=== PATIENT | male | born 1955 | race African-American/Black ===

== ENCOUNTER 2019-04-17 10:39 | Outpatient (CLI) | payer MEDICARE, MEDICAID, SELFPAY ==
--- NOTE | ~2019-04-17 | CT_ITS ---
EXAMINATION: CTA chest abdomen EXAM DATE: 04/17/2019 11:46 INDICATION: Aortic aneurysm. TECHNIQUE: Spiral CT angiogram of the chest and abdomen was performed following intravenous injection of 100 mL Omnipaque 350. Axial, coronal and sagittal images were reviewed. Coronal maximum intensi ty pixel images of chest reviewed. Maximum intensity projection 3-D reconstructions of the aorta were created by the technologist on dedicated workstation. The dose-length product (DLP) for this exami nation was 485.85 mGy-cm. The exposure was tailored according to patient size (auto mA exposure cont rol), and iterative reconstruction (ASIR) was used as additional dose reduction technique. Comparison is made to prior examination from 02/24/2016, 08/26/2014. FINDINGS: AORTA: Mildly aneurysmal descending thoracic aorta just beyond the aortic arch, measuring 4.3 cm. Kristina earance is unchanged compared to prior study. There is scattered mild to moderate aortic atherosclero tic and arteriosclerotic disease. The ascending aorta is normal in caliber. There are aneurysmal comm on iliac arteries bilaterally, each measuring about 2 cm. No dissection. CHEST: The lungs are clear. There are no pleural or pericardial effusions. There is some trachea l and right mainstem bronchial debris. Partial right pneumonectomy. There is moderate emphysema. The main, central pulmonary arteries are dilated which can indicate elevated pulmonary arterial pressure, pulmonary arterial hypertension. There is no mediastinal, hilar or axillary lymphadenopathy. The re is no pneumothorax. Heart normal in size. There are sternotomy wires, and cardiac/coronary jesús gical changes. Correlate with prior history. ABDOMEN: There is right adrenal gland lesion measuring 1.4 cm, suspected to be new compared to prior studies. There are cholecystectomy clips. Portal and splenic veins are patent. Kidneys enhance sym metrically. There is no hydronephrosis. Several lesions consistent with renal cysts up to 1.9 cm on the right. There is no retroperitoneal lymphadenopathy. Small umbilical and supraumbilical hernia s. The appendix is normal. The stomach and small bowel are unremarkable. There is expected amount of c olonic stool. No free intraperitoneal gas. There are no osteoblastic or osteolytic lesions identi fied. IMPRESSION: 1. Mildly aneurysmal thoracic aorta and common iliac arteries unchanged. 2. New small right adrenal gland lesion. Could be adenoma given absence of known primary cancer but current recommendation is CT abdomen without and with contrast, adrenal protocol. 3. Moderate emphysema. Reviewed, dictated and finalized at location B. AN IMPRESSION: 1. Mildly aneurysmal thoracic aorta and common iliac arteries unchanged. 2. New small right adrenal gland lesion. Could be adenoma given absence of kno wn primary cancer but current recommendation is CT abdomen without and with con trast, adrenal protocol. 3. Moderate emphysema.
[2019-04-17 11:28] LABS: Blood Urea Nitrogen 29 mg/dL (8-26); Estimated Glomerular Filt Rate > 60
== END 2019-04-17 10:40 | disposition home or self-care (01) ==
LOC: ANHIMG 10:44
PROVIDERS: PCP Physician Assistant; Visit Provider Internal Medicine Cardiovascular Disease
DX: I71.9 Aortic aneurysm of unspecified site, without rupture (principal); J43.9 Emphysema, unspecified; R91.8 Other nonspecific abnormal finding of lung field; D35.01 Benign neoplasm of right adrenal gland
CPT/HCPCS: 71275; 74175; Q9967

== ENCOUNTER 2019-05-03 07:49 | Outpatient (CLI) | payer MEDICARE, MEDICAID, SELFPAY ==
--- NOTE | ~2019-05-03 | CT_ITS ---
EXAMINATION: CT abdomen wo/w con DATE: 05/03/2019 08:55 INDICATION: Right adrenal mass. TECHNIQUE: Computed tomography (CT) of the abdomen was performed without and with 100 mL Omnipaque 35 0 intravenous contrast. Automated exposure control and iterative reconstruction technique were employ ed. The dose-length product was 853.21 mGy-cm. COMPARISON: Chest CT FINDINGS: The visualized portions of the lung bases demonstrate mild atelectasis. No pleural effusion . There is left ventricular enlargement of the heart. No pericardial effusion. There are changes of c oronary artery bypass grafting. No pericardial effusion. The liver is normal. There are changes of ch olecystectomy. The spleen is absent. The pancreas and left adrenal gland are normal. There is a 1.3 c m mass in right adrenal gland measuring low-attenuation on the noncontrast CT, consistent with an fiona noma. There are cysts in the kidneys measuring up to 1.8 cm on the right. 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 There is no significant stenosis of superior mesenteric artery. There are no dil ated loops of bowel. There are no pathologically enlarged lymph nodes. There is no free intraperitone al fluid. There is mild thoracolumbar spondylosis. IMPRESSION: 1. 1.3 cm right adrenal adenoma. Reviewed, dictated and finalized at location A.
== END 2019-05-03 07:50 | disposition home or self-care (01) ==
LOC: ANHIMG 07:52
PROVIDERS: PCP Physician Assistant; Visit Provider Physician Assistant
DX: D35.01 Benign neoplasm of right adrenal gland (principal)
CPT/HCPCS: 74170; Q9967

== ENCOUNTER 2020-03-01 04:16 | Outpatient (CLI) | payer MEDICARE, MEDICAID, SELFPAY ==
[2020-03-01 19:32] LABS: SARS-CoV-2 RNA PCR Negative
== END 2020-03-01 04:17 | disposition home or self-care (01) ==
LOC: ANHCOVIDDT 04:19
PROVIDERS: PCP Physician Assistant; Visit Provider Internal Medicine Gastroenterology
DX: Z01.812 Encounter for preprocedural laboratory examination (principal); Z20.822 Contact with and (suspected) exposure to COVID-19
CPT/HCPCS: C9803; U0003

== ENCOUNTER 2020-03-01 08:09 | Outpatient (CLI) | payer MEDICARE, MEDICAID, SELFPAY ==
[2020-03-01 08:36] LABS: Hematocrit 47.7 % (42.0-52.0); Hemoglobin 16.5 g/dL (14.0-18.0); Mean Corpuscular HGB Conc 34.6 g/dl (32-36); Mean Corpuscular Hemoglobin 30.4 pg (26-34); Platelet Count Result 315 k/mm3 (150-375); Red Blood Count 5.42 M/mm3 (4.6-6.20); Red Cell Distribution Width 15.7 % (11.5-14.5); White Blood Count 10.1 K/mm3 (4.5-10.0)
[2020-03-01 08:44] LABS: Alanine Aminotransferase 21 U/L (4-50); Albumin Level 4.2 g/dL (3.5-5.1); Alkaline Phosphatase 109 U/L (38-126); Anion Gap 6 mmol/L (8-16); Aspartate Amino Transferase 34 U/L (17-59); Bilirubin,Total 0.7 mg/dL (0.2-1.3); Blood Urea Nitrogen 24 mg/dL (9-20); Calcium 9.7 mg/dL (8.4-10.2); Carbon Dioxide 32 mmol/L (22-30); Chloride 98 mmol/L (98-107); Cholesterol 173 mg/dL (0-200); Estimated Glomerular Filt Rate > 60; Glucose 117 mg/dL (75-110); HDL Direct 70 mg/dL; Magnesium 1.5 mg/dL (1.6-2.3); Potassium 4.6 mmol/L (3.4-5.0); Sodium 136 mmol/L (137-145); Triglycerides 62 mg/dL (<150)
[2020-03-01 08:54] LABS: LDL Cholesterol Direct 79 mg/dL
[2020-03-01 09:14] LABS: Prostate Specific Antigen 0.3 ng/mL (< OR = 4.0)
== END 2020-03-01 08:10 | disposition home or self-care (01) ==
PROVIDERS: PCP Physician Assistant; Visit Provider Physician Assistant
DX: E78.5 Hyperlipidemia, unspecified (principal); I10 Essential (primary) hypertension; Z12.5 Encounter for screening for malignant neoplasm of prostate; R53.83 Other fatigue
CPT/HCPCS: 36415; 80053; 80061; 83735; 84153; 84443; 85027; C9803; G0103; U0003

== ENCOUNTER 2020-03-04 00:34 | Day surgery (SDC) | payer MEDICARE, MEDICAID, SELFPAY ==
[2020-02-25 15:06] VITALS: BMI 26.5
[2020-03-04 07:42] VITALS: BP 140/81; PULSE 86; RESP 18; TEMP 37.1; O2SAT 99; BMI 25.6
[2020-03-04] MEDS: LACTATED RINGERS 1,000 ML 150 ML IV CONT (07:54)
--- NOTE | 2020-03-04 08:21 | WPDANESEPPF ---
Anes - Initial Pre Proc Eval Procedure: Operation Date: 03/04/20 08:30 Proposed Procedures p Colonoscopy - Bart Holden MD Date/Time: 03/04/20 08:21 Surgeon: Bart Holden MD Pre Op Diagnosis: abdomninal pain Patient Data Age: 64 Gender: M Height: 5 ft 10 in Weight: 81 kg Last Vital Signs Temp 98.7 F 03/04/20 07:42 Pulse 86 03/04/20 07:42 Resp 18 03/04/20 07:42 BP 140/81 03/04/20 07:42 Pulse Ox 99 03/04/20 07:42 Allergies Allergy/AdvReac Type Severity Reaction Status Date / Time No Known Allergies Allergy Verified 03/04/20 07:39 Home Medications Medication Instructions Recorded Confirmed Type acetaminophen 500 mg capsule 500 mg PO QID PRN 01/16/19 02/25/20 History aspirin 81 mg tablet,delayed 81 mg PO DAILY 01/16/19 02/25/20 History release carvedilol 25 mg tablet 25 mg PO Q12H 01/16/19 02/25/20 History hydrocodone 5 mg-acetaminophen 500 1 tablet PO Q4-6H PRN tablet 01/16/19 02/25/20 History mg tablet albuterol sulfate 90 mcg/actuation 2 puff INHALATION Q4-6H PRN #8.5 gm 07/18/19 02/25/20 Rx aerosol inhaler sodium,potassium,mag sulfates 17.5 354 ml PO .COMPLEX #354 ml 01/04/20 Rx gram-3.13 gram-1.6 gram oral soln allopurinol 100 mg tablet 100 mg PO DAILY #30 tablet 01/10/20 02/25/20 Rx amlodipine 10 mg tablet 10 mg PO DAILY #30 tablet 01/10/20 02/25/20 Rx budesonide-formoterol HFA 160 2 puff INHALATION Q12H #10.2 g 01/10/20 02/25/20 Rx mcg-4.5 mcg/actuation aerosol inhaler ipratropium 20 mcg-albuterol 100 2 puff INHALATION QID #4 g 01/10/20 02/25/20 Rx mcg/actuation mist for inhalation losartan 100 1 tablet PO DAILY #30 tablet 01/10/20 02/25/20 Rx mg-hydrochlorothiazide 25 mg tablet omeprazole 20 mg capsule,delayed 20 mg PO DAILY #30 cap 01/10/20 02/25/20 Rx release sildenafil 100 mg tablet 100 mg PO DAILY PRN #8 tablet 01/10/20 03/04/20 Rx cholecalciferol (vitamin D3) 50 mcg PO DAILY 02/25/20 02/25/20 History cyclobenzaprine 10 mg PO DAILY 02/25/20 02/25/20 History rosuvastatin 20 mg PO DAILY 02/25/20 02/25/20 History tamsulosin 0.4 mg PO HS 02/25/20 03/04/20 History Patient hx anesthesia problems: none Family hx anesthesia problems: none [facility] Past Medical History Medical History Colon cancer screening Gallstones Gout Heart attack Surgical History Surgical History History of gastric surgery History of lobectomy of lung S/P triple vessel bypass Family History Family History Mother Hypertension Social History Social History Smoking packs per day: 0.5 Smoking cigarettes per day: 10.0 Years smoked: 50 Smoking pack-years: 25.00 Smoking status: Current every day smoker Tobacco type: cigarettes Second hand tobacco smoke exposure: No Alcohol intake: current Drinks per week: 14 Alcohol use details: BEERS Substance use: never Substance use type: marijuana and crack/cocaine Last use: 2014 Living arrangements: with family Spiritual care concerns: No Anes - Eval Final PreProcedure Day of Procedure 03/04/20 08:21 Patient weight: normal Heart: regular rate and rhythm Lungs: clear to auscultation Airway: Mallampati scale class II Neurological: alert and oriented Last oral intake: >/= 8 hours ASA classification: III Emergent: no Anesthetic plan: proceed Anesthesia type and monitoring: general GIVS and standard monitoring Informed Consent: The patient's anesthetic plan and its attendant risks and benefits were discussed with the patient/family/POA. Questions were solicited and answers provided to the satisfaction of the patient/family/POA.
--- NOTE | 2020-03-04 08:47 | PM.HPGS ---
History of Present Illness History of Present Illness Consent: Risks, benefits, and alternatives have been discussed and questions answered. Patient agrees to proceed with procedure. Chief complaint: abdomninal pain Narrative: Darian Mas is a 64 year old male with intermittent ruq pain, multiple surgeries. Also needs screening colonoscopy Review of Systems Constitutional: Constitutional: Denies headache(s) and Denies weakness Eyes: Eyes: Denies blurry vision ENT: Reports Normal hearing present, Denies headache(s) and Denies neck pain Cardiovascular: Cardiovascular: Denies chest pain and Denies dyspnea Respiratory: Respiratory: Denies dyspnea Gastrointestinal: Gastrointestinal: Reports no additional gastrointestinal complaints Genitourinary: Genitourinary: Denies dysuria Musculoskeletal: Musculoskeletal: Denies neck pain Integumentary/Breasts: Skin/Breast: Denies dry skin Neurologic: Reports Normal hearing present, Denies headache(s) and Denies weakness Psychiatric: Psychiatric: Denies anxiety Endocrine: Endocrine: Denies change in body appearance Hematologic/Lymphatic: Hematologic/Lymphatic: Denies easy bleeding Allergic/Immunologic: Allergic/Immunologic: Denies urticaria PMFSH Past Medical History Medical History Colon cancer screening Gallstones Gout Heart attack Surgical History Surgical History History of gastric surgery History of lobectomy of lung S/P triple vessel bypass Family History Family History Mother Hypertension Social History Social History Smoking packs per day: 0.5 Smoking cigarettes per day: 10.0 Years smoked: 50 Smoking pack-years: 25.00 Smoking status: Current every day smoker Tobacco type: cigarettes Second hand tobacco smoke exposure: No Alcohol intake: current Drinks per week: 14 Alcohol use details: BEERS Substance use: never Substance use type: marijuana and crack/cocaine Last use: 2014 Living arrangements: with family Spiritual care concerns: No Meds Home Medications and Allergies Home Medications Medication Instructions Recorded Confirmed Type acetaminophen 500 mg capsule 500 mg PO QID PRN 01/16/19 02/25/20 History aspirin 81 mg tablet,delayed 81 mg PO DAILY 01/16/19 02/25/20 History release carvedilol 25 mg tablet 25 mg PO Q12H 01/16/19 02/25/20 History hydrocodone 5 mg-acetaminophen 500 1 tablet PO Q4-6H PRN tablet 01/16/19 02/25/20 History mg tablet albuterol sulfate 90 mcg/actuation 2 puff INHALATION Q4-6H PRN #8.5 gm 07/18/19 02/25/20 Rx aerosol inhaler sodium,potassium,mag sulfates 17.5 354 ml PO .COMPLEX #354 ml 01/04/20 Rx gram-3.13 gram-1.6 gram oral soln allopurinol 100 mg tablet 100 mg PO DAILY #30 tablet 01/10/20 02/25/20 Rx amlodipine 10 mg tablet 10 mg PO DAILY #30 tablet 01/10/20 02/25/20 Rx budesonide-formoterol HFA 160 2 puff INHALATION Q12H #10.2 g 01/10/20 02/25/20 Rx mcg-4.5 mcg/actuation aerosol inhaler ipratropium 20 mcg-albuterol 100 2 puff INHALATION QID #4 g 01/10/20 02/25/20 Rx mcg/actuation mist for inhalation losartan 100 1 tablet PO DAILY #30 tablet 01/10/20 02/25/20 Rx mg-hydrochlorothiazide 25 mg tablet omeprazole 20 mg capsule,delayed 20 mg PO DAILY #30 cap 01/10/20 02/25/20 Rx release sildenafil 100 mg tablet 100 mg PO DAILY PRN #8 tablet 01/10/20 03/04/20 Rx cholecalciferol (vitamin D3) 50 mcg PO DAILY 02/25/20 02/25/20 History cyclobenzaprine 10 mg PO DAILY 02/25/20 02/25/20 History rosuvastatin 20 mg PO DAILY 02/25/20 02/25/20 History tamsulosin 0.4 mg PO HS 02/25/20 03/04/20 History Allergies Allergy/AdvReac Type Severity Reaction Status Date / Time No Known Allergies Allergy Verified 03/04/20 07:39 Vital Signs Vit
[2020-03-04 09:28] VITALS: BP 115/73; PULSE 76; RESP 22; O2SAT 98
[2020-03-04 09:38] VITALS: BP 111/76; PULSE 70; RESP 22; O2SAT 100
[2020-03-04 09:48] VITALS: BP 110/74; PULSE 74; RESP 20; O2SAT 100
[2020-03-04 09:58] VITALS: BP 123/83; PULSE 72; RESP 22; O2SAT 99
== END 2020-03-04 10:11 | disposition home or self-care (01) ==
PROVIDERS: PCP Physician Assistant; Visit Provider Internal Medicine Gastroenterology
PROC: 0DJD8ZZ Inspection of Lower Intestinal Tract, Via Natural or Artificial Opening Endoscopic (ICD-10-PCS; CPT 45378; principal; 2020-03-04 08:30)
DX: Z12.11 Encounter for screening for malignant neoplasm of colon (principal); D12.4 Benign neoplasm of descending colon; K64.8 Other hemorrhoids; K29.50 Unspecified chronic gastritis without bleeding; K44.9 Diaphragmatic hernia without obstruction or gangrene; I25.2 Old myocardial infarction; M10.9 Gout, unspecified; Z95.1 Presence of aortocoronary bypass graft; Z98.84 Bariatric surgery status; Z90.2 Acquired absence of lung [part of]; F17.210 Nicotine dependence, cigarettes, uncomplicated
CPT/HCPCS: 45380; 43239; 88305; 88342; J2704; J7120

== ENCOUNTER 2021-05-28 07:42 | Outpatient (CLI) | payer OTHER, SELFPAY ==
[2021-05-28 07:40] VITALS: PULSE 74; O2SAT 93
[2021-05-28 07:45] VITALS: PULSE 92; O2SAT 85
[2021-05-28 07:50] VITALS: PULSE 94; O2SAT 86
[2021-05-28 07:55] VITALS: PULSE 91; O2SAT 88
[2021-05-28 08:00] VITALS: PULSE 90; O2SAT 91
[2021-05-28 08:15] VITALS: PULSE 76; O2SAT 93
--- NOTE | 2021-05-28 08:50 | HOMEO2EVAL ---
Evaluation was performed at [facility] O[facility] Evaluation [facility]: Home Oxygen (O2) Evaluation Start: 05/28/21 08:48 Freq: Status: Active Protocol: RPE Activity Type Activity Date Activity User E-Sign Co-Sign Detail Recorded Client Recorded Date Recorded By Document 05/28/21 07:40 [email or web address] [email or web address] 05/28/21 08:50 DJO Document 05/28/21 07:45 [email or web address] [email or web address] 05/28/21 08:50 DJO Document 05/28/21 07:50 [email or web address] [email or web address] 05/28/21 08:50 DJO Document 05/28/21 07:55 [email or web address] [email or web address] 05/28/21 08:50 DJO Document 05/28/21 08:00 [email or web address] [email or web address] 05/28/21 08:50 DJO Document 05/28/21 08:15 [email or web address] [email or web address] 05/28/21 08:50 DJO 05/28/21 05/28/21 05/28/21 07:40 07:45 07:50 Home O2 Evaluation Test Phase Resting Exercise Exercise Oxygen Delivery Room Air Room Air Nasal Cannula Oxygen Flow Rate (L/min) 1 Pulse Oximetry (90-100 %) 93 85 L 86 L Pulse Rate (60-100 beats/min) 74 92 94 Activity Tolerance Ambulation Distance (feet) Ambulation Distance (meters) Treatment Charges O2 Evaluation - Outpatient 05/28/21 05/28/21 05/28/21 07:55 08:00 08:15 Home O2 Evaluation Test Phase Exercise Exercise Resting Oxygen Delivery Nasal Cannula Nasal Cannula Room Air Oxygen Flow Rate (L/min) 2 3 Pulse Oximetry (90-100 %) 88 L 91 93 Pulse Rate (60-100 beats/min) 91 90 76 Activity Tolerance Fair Ambulation Distance (feet) 500 Ambulation Distance (meters) 152.39 Treatment Charges
--- NOTE | 2021-05-28 12:07 | WPDPFTINT ---
PFT Procedure Performed PFT Procedure Performed Spirometry with Pre/Post Bronchodilator Plethysmography (Lung Vol) Diffusing Cap (DLCO) Flow Vol Loop PFT Interpretation This is a pulmonary function test with pre and post-bronchodilator spirometry, plethysmography and diffusing capacity. The test was performed and results interpreted in accordance with the 2019 and 2005 ATS/ERS Task Force guidelines respectively using the Global Lung Function Initiative-2012 reference equations. Patient demonstrated good effort and cooperation. Reproducibility criteria were met. The quality of the pre bronchodilator spirometry maneuver was Grade A and post bronchodilator spirometry maneuver was Grade A. Findings: Spirometry: There is decreased maximal expiratory airflow at all lung volumes with a concaved expiratory flow tracing. The contour the inspiratory flow tracing is normal. The pre bronchodilator FVC is 3.12 L, 84% predicted. The pre bronchodilator FEV1 is 1.24 L, 44% predicted. The pre bronchodilator FEV1: FVC ratio was 40%. The post bronchodilator FVC is 3.15 L, representing 1% increase. The post bronchodilator FEV1 is 1.20 L, representing a 3% decrease. Plethysmography: The total lung capacity is 6.76 L, 109% predicted. The functional residual capacity is 5.16 L, 149% predicted. The residual volume is 3.60 L, 162% predicted. Diffusing capacity: The diffusing capacity on adjusted for hemoglobin and carboxyhemoglobin is 10.3, 38% predicted. The diffusing capacity adjusted for alveolar volume is 2.07, 51% predicted. Impression: There is a severe obstructive abnormality without significant improvement after inhaling a single dose of albuterol. The increase in residual volume is consistent with air trapping from an obstructive abnormality. Hyperinflation is present is demonstrated by the increase in functional residual capacity and is consistent with an obstructive abnormality. The diffusing capacity unadjusted for hemoglobin and carboxyhemoglobin is severely decreased and remains moderately decreased when adjusted for alveolar volume. There are no prior studies for comparison
== END 2021-05-28 07:43 | disposition home or self-care (01) ==
LOC: ANHPFT 07:44
PROVIDERS: PCP Physician Assistant; Visit Provider Internal Medicine Critical Care Medicine
DX: J44.9 Chronic obstructive pulmonary disease, unspecified (principal); R94.2 Abnormal results of pulmonary function studies
CPT/HCPCS: 94060; 94618; 94726; 94729

== ENCOUNTER 2021-05-29 08:01 | Outpatient (CLI) | payer OTHER, SELFPAY ==
--- NOTE | 2021-06-12 14:56 | WPDSLEEPSTUD ---
Sleep Study Date of Study: 05/29/21 Ordering Provider: Marii Hudson MD Interpreting Physician: Tereza Brasher DO Sleep Study Type: Split Polysomnogram Height: 1.78 m Weight: 82.554 kg Body Mass Index: 26.1 Neck Circumference (inches): 15.5 [place]: 9 Reason for Sleep Study Unrefreshing sleep and daytime hypersomnia Sleep History The patient is a 66-year-old male with COPD, GERD, gout, CAD, hyperlipidemia, hypertension, prostate cancer, hx of VT and CABG and tobacco use disorder that had a sleep study ordered by his information systems security manager for evaluation of sleep apnea. The patient denies awakening from sleep short of breath. He occasionally awakens at night with heartburn, belching or cough. He constantly snores loud enough that others complain. He occasionally has trouble sleeping when he has a cold. He denies waking up gasping for air throughout the night. He denies having breathing problems at night observed by others. He denies sweating excessively at night. He constantly has heart palpitations or irregular heartbeats during the night. He constantly falls asleep during the day but never while driving. He denies sleep paralysis, cataplexy and hypnagogic / hypnopompic hallucinations. He denies having nightmares. He constantly has thoughts racing through his mind. He constantly feels sad, depressed and anxious. He denies having muscular tension. He denies noticing parts of his body jerk. He denies kicking during the night. He denies having crawling and aching feelings in his legs as well as leg pain during the night. He denies grinding his teeth during sleep awakening with morning jaw pain. He is constantly bothered by pain during the day constantly awakened by pain during the night. He constantly wakes up feeling stiff in the morning. He constantly wakes up with sore or achy muscles. He constantly wakes up with pain in the neck, spine and other joints. He does not have a set bedtime or wake up time. He states that he wakes up frequently throughout the night. He currently lives with his . He does not consume any caffeinated beverages within 2 hours of bedtime. He does not engage in physical exercise before bedtime. He will read watch television before falling asleep. He will take naps in the afternoon or the evening but they are not refreshing. He drinks 2 cups of caffeinated beverage per day. He smokes half a pack of cigarettes per day. He denies alcohol use. He has a history of marijuana and cocaine use that stopped in 2014. [facility] Past Medical History Medical History Cardiomyopathy Chronic obstructive pulmonary disease Colon cancer screening Gallstones GERD (gastroesophageal reflux disease) Gout Heart attack Hyperlipidemia Hypertension Prostate cancer Upper abdominal pain Surgical History Surgical History History of gastric surgery History of lobectomy of lung S/P triple vessel bypass Family History Family History Mother Hypertension Social History Social History Smoking packs per day: 0.5 Smoking cigarettes per day: 10.0 Years smoked: 50 Smoking pack-years: 25.00 Smoking status: Current every day smoker (1 ppd) Tobacco type: cigarettes Second hand tobacco smoke exposure: No Alcohol intake: current Drinks per week: 14 Alcohol use details: BEERS Substance use: never Substance use type: marijuana and crack/cocaine Last use: 2014 Spiritual care concerns: No Medications Home Medications Medication Instructions Recorded Confirmed Type acetaminophen 500 mg capsule 500 mg PO QID PRN 01/16/19 01/05/21 History aspirin 81 mg tablet,delayed 81 mg PO DAILY 01/16/19 01/05/21 History release carvedilol 25 mg tablet 25 mg PO Q12H 1
[2021-06-12 15:14] VITALS: BMI 26.1
== END 2021-05-30 06:56 | disposition home or self-care (01) ==
LOC: ANHCSM 08:02
PROVIDERS: PCP Physician Assistant; Visit Provider Internal Medicine Critical Care Medicine
DX: G47.33 Obstructive sleep apnea (adult) (pediatric) (principal)
CPT/HCPCS: 95810; 95811

== ENCOUNTER 2021-06-02 09:05 | Outpatient (CLI) | payer OTHER, SELFPAY ==
--- NOTE | ~2021-06-02 | CT_ITS ---
EXAMINATION: CT lung screening EXAM DATE: 06/02/2021 09:21 INDICATION: Z87.891 - Personal history of nicotine dependence TECHNIQUE: Spiral low dose CT of the chest without contrast. Axial, coronal and sagittal images were reviewed. The dose-length product (DLP) for this examination was 122.72 mGy-cm. The exposure was t ailored according to patient size (auto mA exposure control), and iterative reconstruction (ASIR) was used as additional dose reduction technique. Comparison is made to prior examination from 04/17/2019. FINDINGS: Probable partial right pneumonectomy. Mildly aneurysmal descending thoracic aorta at 4.3 c m unchanged. Several nodules 3 mm or less, stable consistent with postinfectious residua. Tracheobro nchial tree is patent. There is no mediastinal, hilar or axillary lymphadenopathy. There are no p leural or pericardial effusions. There is no pneumothorax. Sternotomy wires. Heart normal in size. There is moderate coronary arterial calcification, arterial sclerosis. There is moderate emphysema. Left adrenal adenoma unchanged. No osteoblastic or osteolytic lesions identified. IMPRESSION: Lung-RADS category 2, benign appearance or behavior (<1% chance of malignancy); recommend continued LDCT screening in 1 year. > Reviewed, dictated and finalized at location B.
== END 2021-06-02 09:06 | disposition home or self-care (01) ==
LOC: ANHIMG 09:07
PROVIDERS: PCP Physician Assistant; Visit Provider Internal Medicine Critical Care Medicine
DX: Z12.2 Encounter for screening for malignant neoplasm of respiratory organs (principal); Z87.891 Personal history of nicotine dependence
CPT/HCPCS: 71271

== ENCOUNTER → 2021-09-22 00:16 | Outpatient (CLI) | payer MEDICARE, SELFPAY ==
[2021-09-22 11:56] LABS: SARS-CoV-2 RNA PCR Negative
== END ==
PROVIDERS: PCP Physician Assistant; Visit Provider Physician Assistant
DX: R68.89 Other general symptoms and signs (principal); Z20.822 Contact with and (suspected) exposure to COVID-19
CPT/HCPCS: C9803; U0003; U0005

== ENCOUNTER 2022-03-26 11:05 | Outpatient (CLI) | payer MEDICARE, SELFPAY ==
[2022-03-26 12:17] LABS: Basophils Absolute Auto 0.1 K/mm3 (0.0-0.1); Basophils Percent Auto 0.8 % (0.2-1.2); Eosinophils Absolute Auto 0.3 K/mm3 (0-0.3); Eosinophils Percent Auto 2.2 % (0-4.4); Hematocrit 42.2 % (42.0-52.0); Hemoglobin 14.9 g/dL (14.0-18.0); Immature Granulocyte Absolute 0.05 K/mm3 (0.00-0.031); Immature Granulocyte Percent A 0.4 % (0-0.5); Lymphocytes Absolute Auto 2.77 K/mm3 (0.9-3.2); Lymphocytes Percent Auto 22.2 % (18.3-44.2); Mean Corpuscular HGB Conc 35.3 g/dl (32-36); Mean Corpuscular Hemoglobin 31.2 pg (26-34); Mean Corpuscular Volume 88.3 fl (80-100); Mean Platelet Volume 11.1 fl (7.4-10.4); Monocytes Absolute Auto 1.8 K/mm3 (0.1-0.6); Monocytes Percent Auto 14.7 % (2.6-8.5); Neutrophils Absolute Auto 7.5 K/mm3 (1.3-6.7); Neutrophils Percent Auto 59.7 % (45.5-73.1); Platelet Count Result 269 k/mm3 (150-375); Red Blood Count 4.78 M/mm3 (4.6-6.20); White Blood Count 12.5 K/mm3 (4.5-10.0)
[2022-03-26 12:24] LABS: Alanine Aminotransferase 28 U/L (6-50); Albumin Level 3.8 g/dL (3.5-5.1); Alkaline Phosphatase 115 U/L (38-126); Anion Gap 2 mmol/L (8-16); Aspartate Amino Transferase 37 U/L (17-59); Bilirubin,Total 0.8 mg/dL (0.2-1.3); Blood Urea Nitrogen 29 mg/dL (9-20); Calcium 8.7 mg/dL (8.4-10.2); Carbon Dioxide 30 mmol/L (22-30); Chloride 101 mmol/L (98-107); Cholesterol 165 mg/dL (0-200); Estimated Glomerular Filt Rate > 60; Glucose 90 mg/dL (65-110); HDL Direct 86 mg/dL; Potassium 4.4 mmol/L (3.4-5.0); Sodium 133 mmol/L (137-145); Triglycerides 62 mg/dL (<150)
[2022-03-26 12:35] LABS: LDL Cholesterol Direct 51 mg/dL
[2022-03-26 12:54] LABS: Prostate Specific Antigen 0.2 ng/mL (< OR = 4.0)
[2022-03-26 13:30] LABS: Folic Acid 10.9 ng/mL (2.76->20)
== END 2022-03-26 11:06 | disposition home or self-care (01) ==
PROVIDERS: PCP Physician Assistant; Visit Provider Physician Assistant
DX: R53.83 Other fatigue (principal); E78.5 Hyperlipidemia, unspecified; Z12.5 Encounter for screening for malignant neoplasm of prostate
CPT/HCPCS: 36415; 80053; 80061; 82607; 82746; 84153; 84443; 85025; G0103

== ENCOUNTER 2022-04-30 12:35 | Outpatient (CLI) | payer MEDICARE, MEDICAID, SELFPAY ==
--- NOTE | ~2022-04-30 | CT_ITS ---
EXAMINATION: CTA chest DATE: 04/30/2022 13:13 INDICATION: Thoracic aortic aneurysm without rupture. TECHNIQUE: Computed tomographic angiography (CTA) of the chest was performed with 100 mL Omnipaque-35 0 intravenous contrast. Volume-rendered 3D-reconstructions of the aorta and large arteries were const ructed by the technologist on a separate workstation. Automated exposure control and iterative recons truction technique were employed. The dose-length product was 356.12 mGy-cm. COMPARISON: CT dated 06/02/[address] angiogram dated 04/17/2019 FINDINGS: Moderate emphysema. Postoperative change of prior partial right upper lobectomy with suture line exte nding cephalad from the right hilum. Increasing volume loss in the right upper lobe with correspondin g increasing posterior atelectasis/scarring. No significant change in a cluster of likely benign smal l nodules in the anterior basilar segment of the right lower lobe. There is mild linear discoid atele ctasis along the bibasilar lower lobes, right greater than left. No pneumonia, pulmonary edema or ple ural effusion. Heart size is normal. Atherosclerotic coronary artery calcific lesions and change of p rior median sternotomy and coronary artery bypass grafting. No pericardial effusion. No significant i nterval change in mild fusiform aneurysm of the proximal descending thoracic aorta which measures up to 4.3 x 4.3 cm in maximal diameter. No dissection. No pathologically enlarged thoracic lymphadenopat hy. Bilateral gynecomastia. Unchanged 1.6 cm right adrenal adenoma with characteristic low attenuatio n on prior noncontrast CT. Post cystectomy clips at the gallbladder fossa. Postoperative changes in t he prior splenectomy and left adrenalectomy with multiple surgical clips in the retroperitoneum along the proximal abdominal aorta. 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 There are few small bilateral renal cysts, the largest tea suring 1.2 cm at the upper pole the left kidney. Mild thoracic and severe lower cervical spondylosis. IMPRESSION: 1. Unchanged descending thoracic aortic aneurysm measuring 4.3 cm at the proximal descending aorta. 2. Moderate emphysema. 3. Postoperative changes including partial right upper lobectomy, median sternotomy and coronary frankie ry bypass grafting, cholecystectomy, splenectomy and left adrenalectomy. Reviewed, dictated and finalized at location A. [facility] [employer] IMPRESSION: 1. Unchanged descending thoracic aortic aneurysm measuring 4.3 cm at the proxim al descending aorta. 2. Moderate emphysema. 3. Postoperative changes including partial right upper lobectomy, median sterno margarito and coronary artery bypass grafting, cholecystectomy, splenectomy and left adrenalectomy.
[2022-04-30 13:03] LABS: Estimated Glomerular Filt Rate > 60
== END 2022-04-30 12:36 | disposition home or self-care (01) ==
PROVIDERS: PCP Physician Assistant; Visit Provider Internal Medicine Cardiovascular Disease
DX: I71.20 Thoracic aortic aneurysm, without rupture, unspecified (principal); J43.9 Emphysema, unspecified; Z90.2 Acquired absence of lung [part of]; Z95.1 Presence of aortocoronary bypass graft; Z90.49 Acquired absence of other specified parts of digestive tract
CPT/HCPCS: 71275; Q9967

== ENCOUNTER 2022-08-25 16:07 | Outpatient (CLI) | payer MEDICARE, MEDICAID, SELFPAY ==
[2022-08-25 16:54] LABS: Anion Gap 2 mmol/L (8-16); Blood Urea Nitrogen 28 mg/dL (9-20); Calcium 8.7 mg/dL (8.4-10.2); Carbon Dioxide 30 mmol/L (22-30); Chloride 98 mmol/L (98-107); Estimated Glomerular Filt Rate > 60; Glucose 99 mg/dL (65-110); Potassium 4.3 mmol/L (3.4-5.0); Sodium 130 mmol/L (137-145)
== END 2022-08-25 16:08 | disposition home or self-care (01) ==
PROVIDERS: PCP Physician Assistant; Visit Provider Internal Medicine Cardiovascular Disease
DX: I25.10 Atherosclerotic heart disease of native coronary artery without angina pectoris (principal)
CPT/HCPCS: 36415; 80048

== ENCOUNTER 2023-02-02 10:31 | Outpatient (CLI) | payer MEDICARE, SELFPAY ==
--- NOTE | ~2023-02-02 | CT_ITS ---
CT of the Abdomen and Pelvis: Indication: Abdominal pain Technique: 2.5 mm axial scans were obtained through the abdomen and pelvis following intravenous adm inistration of 100 cc of Omnipaque 350. Dose reduction technique was used on this scan by utilizing a utomated exposure control and iterative reconstruction technique. The dose-length product (DLP) was 3 79.87 mGy-cm. COMPARISON: 05/03/2019 Findings: Scans through the lung bases are unremarkable. The liver, pancreas, left adrenal gland, and kidneys are within normal limits. Cholecystectomy clips are present. Spleen is absent. Stable small right adrenal nodule. There are atherosclerotic calcifica tions of the aorta. No lymphadenopathy. No bowel obstruction or bowel wall thickening. There is no evidence to suggest acute appendicitis. Images through the pelvis were performed. Possible urinary bladder wall thickening. No pelvic mass ev ident. No ascites. Impression: Possible cystitis. Correlate with urinalysis. Stable small right adrenal nodule. Absent spleen. Extensive atherosclerotic disease. Reviewed, dictated and finalized at [facility]. RETTE FILTER INSPECTOR Impression: Possible cystitis. Correlate with urinalysis. Stable small right adrenal nodule. Absent spleen. Extensive atherosclerotic disease.
[2023-02-02 10:56] LABS: Estimated Glomerular Filt Rate 56
== END 2023-02-02 10:32 | disposition home or self-care (01) ==
PROVIDERS: PCP Physician Assistant; Visit Provider Physician Assistant
DX: I25.10 Atherosclerotic heart disease of native coronary artery without angina pectoris (principal); Z90.81 Acquired absence of spleen
CPT/HCPCS: 74177; Q9967

== ENCOUNTER 2023-02-09 12:16 | Outpatient (CLI) | payer MEDICARE, SELFPAY ==
[2023-02-09 13:00] VITALS: PULSE 60; O2SAT 99
[2023-02-09 13:25] VITALS: PULSE 76; O2SAT 98
[2023-02-09 13:30] VITALS: PULSE 65; O2SAT 99
--- NOTE | 2023-02-09 13:35 | HOMEO2EVAL ---
Evaluation was performed at [facility] Home Oxygen Evaluation RC: Home Oxygen (O2) Evaluation Start: 02/09/23 13:33 Freq: Status: Active Protocol: RPE Activity Type Activity Date Activity User E-sign Co-sign Detail Recorded Client Recorded Date Recorded By Document 02/09/23 13:00 DJO [email or web address] 02/09/23 13:34 DJO Document 02/09/23 13:25 DJO [email or web address] 02/09/23 13:34 DJO Document 02/09/23 13:30 DJO [email or web address] 02/09/23 13:34 DJO 02/09/23 02/09/23 02/09/23 13:00 13:25 13:30 Home O2 Evaluation [Oxygen] -Test Phase Resting Exercise Resting -Oxygen Delivery Room Air Room Air Room Air [Pulse Oximetry] -Pulse Oximetry (90-100 %) 99 98 99 [Pulse Rate] -Pulse Rate (60-100 beats/min) 60 76 65
[2023-02-09 13:55] LABS: Appearance Urine Clear (Clear); Bacteria Urine None Seen /hpf; Bilirubin Urine Negative (Negative); Blood Urine Negative (Negative); Color Urine Yellow (Yellow); Glucose Urine UA Negative (Negative); Ketones Urine Negative (Negative); Leukocyte Esterase Ur Negative LEU/UL (NEGATIVE); Nitrate Urine Negative (Negative); Non Pathogenic Casts 0-2; Protein Urine 2+ mg/dL (Negative); RBC Urine 0-2 /hpf (0-2); Specific Grav Ur 1.007 (1.001-1.035); Squamous Epithelial Cell Urine None seen /hpf (Few); WBC Urine 0-5 /hpf (0-3)
[2023-02-09 13:57] LABS: Add Urine Microscopic? YES
== END 2023-02-09 12:17 | disposition home or self-care (01) ==
LOC: ANHPFT 12:19
PROVIDERS: PCP Physician Assistant; Visit Provider Physician Assistant
DX: N30.90 Cystitis, unspecified without hematuria (principal)
CPT/HCPCS: 81001; 87086

== ENCOUNTER 2023-03-31 09:43 | Outpatient (CLI) | payer MEDICARE, SELFPAY ==
[2023-03-31 10:26] LABS: Basophils Absolute Auto 0.1 K/mm3 (0.0-0.1); Basophils Percent Auto 1.1 % (0.2-1.2); Eosinophils Absolute Auto 0.2 K/mm3 (0-0.3); Hematocrit 40.8 % (42.0-52.0); Hemoglobin 14.2 g/dL (14.0-18.0); Immature Granulocyte Absolute 0.03 K/mm3 (0.00-0.031); Immature Granulocyte Percent A 0.4 % (0-0.5); Lymphocytes Absolute Auto 2.03 K/mm3 (0.9-3.2); Lymphocytes Percent Auto 27.2 % (18.3-44.2); Mean Corpuscular HGB Conc 34.8 g/dl (32-36); Mean Corpuscular Hemoglobin 30.4 pg (26-34); Mean Corpuscular Volume 87.4 fl (80-100); Mean Platelet Volume 9.9 fl (7.4-10.4); Monocytes Absolute Auto 1.1 K/mm3 (0.1-0.6); Monocytes Percent Auto 14.9 % (2.6-8.5); Neutrophils Absolute Auto 4.1 K/mm3 (1.3-6.7); Neutrophils Percent Auto 54.4 % (45.5-73.1); Platelet Count Result 393 k/mm3 (150-375); Red Blood Count 4.67 M/mm3 (4.6-6.20); Red Cell Distribution Width 15.7 % (11.5-14.5); White Blood Count 7.5 K/mm3 (4.5-10.0)
[2023-03-31 10:38] LABS: Alanine Aminotransferase 22 U/L (6-50); Albumin Level 3.3 g/dL (3.5-5.1); Alkaline Phosphatase 83 U/L (38-126); Anion Gap 3 mmol/L (8-16); Aspartate Amino Transferase 34 U/L (17-59); Blood Urea Nitrogen 27 mg/dL (9-20); Calcium 8.7 mg/dL (8.4-10.2); Carbon Dioxide 28 mmol/L (22-30); Chloride 102 mmol/L (98-107); Cholesterol 179 mg/dL (0-200); Estimated Glomerular Filt Rate > 60; Glucose 108 mg/dL (65-110); HDL Direct 56 mg/dL; Potassium 4.5 mmol/L (3.4-5.0); Sodium 133 mmol/L (137-145); Triglycerides 59 mg/dL (<150)
[2023-03-31 10:49] LABS: Hypochromasia 1+ (NORMAL); LDL Cholesterol Direct 94 mg/dL; Platelet Estimate Adequate (Adequate); Poikilocytosis 1+ (NORMAL); Schistocytes None Seen (NORMAL); Target Cells 1+ (NORMAL)
[2023-03-31 11:08] LABS: Prostate Specific Antigen 0.3 ng/mL (< OR = 4.0)
== END 2023-03-31 09:44 | disposition home or self-care (01) ==
PROVIDERS: PCP Physician Assistant; Visit Provider Physician Assistant
DX: Z12.5 Encounter for screening for malignant neoplasm of prostate (principal); R53.83 Other fatigue; E78.5 Hyperlipidemia, unspecified; I10 Essential (primary) hypertension
CPT/HCPCS: 36415; 80053; 80061; 82607; 82746; 84153; 84443; 85025; G0103

== ENCOUNTER 2023-09-08 06:43 | Outpatient (CLI) | payer MEDICARE, SELFPAY ==
[2023-09-08 07:06] LABS: Alanine Aminotransferase 17 U/L (6-50); Albumin Level 3.7 g/dL (3.5-5.1); Alkaline Phosphatase 105 U/L (38-126); Anion Gap 5 mmol/L (4-12); Aspartate Amino Transferase 34 U/L (17-59); Blood Urea Nitrogen 30 mg/dL (9-20); Calcium 8.8 mg/dL (8.4-10.2); Carbon Dioxide 27 mmol/L (22-30); Chloride 101 mmol/L (98-107); Cholesterol 165 mg/dL (0-200); Estimated Glomerular Filt Rate 52; Glucose 106 mg/dL (65-110); HDL Direct 104 mg/dL; Potassium 4.6 mmol/L (3.4-5.0); Sodium 133 mmol/L (137-145); Triglycerides 60 mg/dL (<150)
[2023-09-08 07:17] LABS: LDL Cholesterol Direct 56 mg/dL
== END 2023-09-08 06:44 | disposition home or self-care (01) ==
LOC: ANHLAB 06:46
PROVIDERS: PCP Nurse Practitioner; Visit Provider Nurse Practitioner
DX: E78.5 Hyperlipidemia, unspecified (principal)
CPT/HCPCS: 36415; 80053; 80061

== ENCOUNTER 2023-09-08 09:06 | Outpatient (CLI) | payer MEDICARE, SELFPAY ==
--- NOTE | 2023-09-08 09:28 | ECG_ITS ---
Test Date: 2023-09-08 09:35:53 Measurements Intervals [place] Rate: 69 P: 71 MD: 174 QRS: 73 QRSD: 160 T: 78 QT: 450 QTc: 482 Interpretive Statements SINUS RHYTHM WITH OCCASIONAL VENTRICULAR PREMATURE COMPLEXES WITH OCCASIONAL SUPRAVENTRICULAR PREMATURE COMPLEXES RIGHT BUNDLE BRANCH BLOCK MINIMAL Q WAVES- INFERIOR LEADS BASELINE ARTIFACT- II, III, AVL, AVF ABNORMAL ECG No previous ECG available for comparison Electronically Signed On 09-08-2023 16:39:01 CDT by Pratik Paredes D.O.
== END 2023-09-08 09:07 | disposition home or self-care (01) ==
LOC: ANHCARD 09:11
PROVIDERS: PCP Nurse Practitioner; Visit Provider Nurse Practitioner
DX: I49.9 Cardiac arrhythmia, unspecified (principal); R94.31 Abnormal electrocardiogram [ECG] [EKG]; I45.10 Unspecified right bundle-branch block; I49.3 Ventricular premature depolarization
CPT/HCPCS: 36415; 80053; 80061; 93005

== ENCOUNTER 2023-10-11 06:48 | Outpatient (CLI) | payer MEDICARE, SELFPAY ==
--- NOTE | ~2023-10-11 | XR_ITS ---
EXAMINATION: XR UGIAC w small bowel DATE: 10/11/2023 10:03 INDICATION: Chronic abdominal pain. TECHNIQUE: The patient drank thick barium, gas-producing crystals, and thin barium. Fluoroscopy of th e esophagus, stomach, and small bowel was performed. Fluoroscopy exposure time was 0.9 minutes. Radio graphs of the abdomen were obtained. The total number of images was 259. COMPARISON: CT abdomen and pelvis 02/02/2023 FINDINGS: UPPER GASTROINTESTINAL SERIES: There is no mass or stricture of the esophagus. Esophageal motility is normal. There is no hiatal her dee dee. There was no gastroesophageal reflux with provocative maneuvers. The stomach shows a normal fold ing pattern. SMALL BOWEL SERIES: The small bowel shows a normal folding pattern. Specifically, the terminal ileum is normal. Transit t elana to the colon was 2 hours. There are surgical clips in the abdomen. IMPRESSION: 1. Normal upper gastrointestinal series. 2. Normal small bowel series. Reviewed, dictated and finalized at location A.
== END 2023-10-11 06:49 | disposition home or self-care (01) ==
PROVIDERS: PCP Nurse Practitioner; Visit Provider Nurse Practitioner
DX: R10.9 Unspecified abdominal pain (principal); G89.29 Other chronic pain
CPT/HCPCS: 74246; 74248

== ENCOUNTER 2023-11-09 06:56 | Outpatient (CLI) | payer MEDICARE, SELFPAY ==
--- NOTE | ~2023-11-09 | CT_ITS ---
CT Scan of the Chest without Contrast: Clinical Indication: Lung cancer screening, nicotine dependence Technique: Contiguous sections were acquired throughout the chest without intravenous contrast. Dose reduction technique was used on this scan by utilizing automated exposure control and iterative recon struction technique. The dose-length product (DLP) was 102.78 mGy-cm. COMPARISON: 04/30/2022 Findings: There is no evidence of any significant mediastinal, hilar or axillary lymphadenopathy. There are ath erosclerotic calcifications of the aorta and coronary arteries. Stable descending thoracic aortic ane urysm. There is no evidence of pleural or pericardial effusion. Status post partial right upper lobectomy. Probable mild emphysema. 5 mm nodule noted in the medial l eft lung apex ((axial image 26).. Images through the upper abdomen reveal no abnormalities. Impression: Lung RADS 2: Benign appearance. 12 month follow-up screening CT advised. Reviewed, dictated and finalized at [facility]. Impression: Lung RADS 2: Benign appearance. 12 month follow-up screening CT advised.
== END 2023-11-09 06:57 | disposition home or self-care (01) ==
PROVIDERS: PCP Nurse Practitioner; Visit Provider Nurse Practitioner Family
DX: Z12.2 Encounter for screening for malignant neoplasm of respiratory organs (principal); Z87.891 Personal history of nicotine dependence
CPT/HCPCS: 71271

== ENCOUNTER 2024-02-10 13:40 | Outpatient (CLI) | payer MEDICARE, SELFPAY ==
--- NOTE | ~2024-02-10 | XR_ITS ---
Left Knee Technique: AP, lateral, and sunrise views were obtained. Clinical History: Pain Findings: No fracture or dislocation is seen. Osseous alignment is anatomic. Joint spaces are preserv ed without degenerative or erosive change. Soft tissues are unremarkable. No joint effusion is seen. Impression: Unremarkable left knee radiographs. Reviewed, dictated and finalized at location . RY DRIER Impression: Unremarkable left knee radiographs.
== END 2024-02-10 13:41 | disposition home or self-care (01) ==
PROVIDERS: PCP Nurse Practitioner; Visit Provider Nurse Practitioner
DX: M25.562 Pain in left knee (principal)
CPT/HCPCS: 73562

== ENCOUNTER 2024-05-17 12:38 | Outpatient (CLI) | payer MEDICARE, SELFPAY ==
[2024-05-17 13:00] VITALS: PULSE 70; O2SAT 95
[2024-05-17 13:05] VITALS: PULSE 92; O2SAT 86
[2024-05-17 13:10] VITALS: PULSE 95; PULSE 99; O2SAT 87; O2SAT 88
[2024-05-17 13:15] VITALS: PULSE 96; O2SAT 92
--- OUTSIDE RECORDS SUMMARY | 2024-05-17 13:19 | XMS_ITS | Referral Summary ---
Author Organization [facility] [address] Address [address] [place] [address] Care Team Providers Care Early Education Teacher Name Role Phone Grayson Long Primary Care Provider Allergies No known active allergies Medications omeprazole (PriLOSEC) 20 mg capsule take 1 capsule (20MG) by oral route every day before a meal 0 3 Active aspirin (ASPIRIN LOW DOSE) 81 mg tablet take 1 tablet (81MG) by oral route every day 0 3 Active HYDROcodone-acetam inophen (VICODIN) 5-500 mg per tablet take 1 tablet by oral route every 4 - 6 hours as needed for pain 0 0 3 Active allopurinol (ZYLOPRIM) 100 mg tablet take 1 tablet by oral route every day 0 0 4 Active amLODIPine (NORVASC) 10 mg tablet take 1 tablet by oral route every day 0 0 6 Active cyclobenzaprine (FLEXERIL) 10 mg tablet take 1 tablet by oral route 2 times every day as needed 0 0 6 Active acetaminophen 500 mg capsule Take by mouth every 6 (six) hours as needed Active tamsulosin (FLOMAX) 0.4 mg extended release capsule Take 1 capsule (0.4 mg total) by mouth daily Active ipratropium-albute rol (COMBIVENT RESPIMAT) 20-100 mcg/actuation inhalerIndications :Chronic Obstructive Pulmonary Disease with Bronchospasms Inhale 1 puff 4 (four) times a day Active rosuvastatin (CRESTOR) 40 mg tablet Take 1 tablet (40 mg total) by mouth daily 90 tablet 3 9 01/10/20 25 Active budesonide-formote rol (SYMBICORT) 160-4.5 mcg/actuation inhaler Inhale 2 puffs 2 (two) times a day Rinse mouth with water after use. Do not swallow. Active cholecalciferol (VITAMIN D-3) 2000 unit capsule Take 1 capsule (2,000 Units total) by mouth daily Active cholecalciferol (VITAMIN D-3) 50,000 unit capsule Take 1 capsule (50,000 Units total) by mouth once a week Active sildenafiL (VIAGRA) 100 mg tablet 1 Active QUEtiapine (SEROquel) 50 mg tablet Take 1 tablet (50 mg total) by mouth nightly Active spironolactone (ALDACTONE) 25 mg tablet Take 0.5 tablets (12.5 mg total) by mouth daily 15 tablet 11 2 01/10/20 25 Active carvediloL (COREG) 25 mg tablet TAKE 1 TABLET TWICE DAILY WITH MEALS 180 tablet 2 3 Active sacubitriL-valsart an (Entresto) 97-103 mg tablet TAKE 1 TABLET TWICE DAILY 180 tablet 2 5 Active Active Problems Problem Noted Date Diagnosed Date Chronic respiratory failure with hypoxia 023 HFrEF (heart failure with reduced ejection fract ion) 04/15/2022 Mixed hyperlipidemia 10/08/2021 Cardiomyopathy 01/05/2019 COPD (chronic obstructive pulmonary disease) Thoracic aortic aneurysm 07/20/2018 HTN (hypertension), benign 07/20/2018 Coronary artery disease invo lving [place] coronary artery of [place] heart without angina pectoris 07/20/2018 H/O cardiomyopathy 07/20/2018 Dyspnea on exertion 10/16/2015 Overview (05/28/2016): MUÑOZ (dyspnea on exertion) Hx of CABG 10/16/2015 Overview (05/28/2016): S/P CABG (coronary artery bypass graft) Tobacco use 10/16/2015 Overview (05/28/2016): Tobacco abuse Resolved Problems Problem Noted Date Diagnosed Date Resolved Date Dyslipidemia 10/16/2015 10/08/2021 Overview (05/28/2016): Dyslipidemia Social History Tobacco Use Types Packs/Day Years Used Date Smoking Tobacco: Every Day Cigarettes Smokeless Tobacco: Never Tobacco Cessation:Ready to Q uit: No; Counseling Given: Yes Comments:Smoking History Packs/day: 0.5 Packs Alcohol Use Standard Drinks/Week Comments Yes 14 (1 standard drink = 0.6 oz pu re alcohol) Sex and Gender Information Value Date Recorded Sex Assigned at Not on file Legal Sex Male 3:50 AM BELLOWS FILLER Gender Identity Not on file Sexual Orientation Not on file Last Filed Vital Signs Vital Sign Reading Time Taken Comments Blood Pressure 96/62 01/10/2024 9:16 AM BELLOWS FILLER Pulse 68 01/10/2024 9:16 AM BELLOWS FILLER Temperature - - Respiratory Rate - - Oxygen Saturation 99% 01/10/2024 9:16 AM BELLOWS FILLER Inhaled Oxygen Concentration - - Weight 78.5 kg (173 lb) 01/10/2024 9:16 AM BELLOWS FILLER Height 177.8 cm (5' 10 ) 01/10/2024 9:16 AM BELLOWS FILLER Body Mass Index 24.82 01/10/2024 9:16 AM BELLOWS FILLER Plan of Treatment Not on file Insurance IDPA HUMANA MEDICARE HMO HUMANA MEDICARE HMO Care Teams Early Education Teacher Relationship Specialty Start Date End Date Grayson Long PA [address] [facility] [address] [place] [address] PCP - General Physician Industrial/Organizational Psychologist 04/20/19
--- OUTSIDE RECORDS SUMMARY | 2024-05-17 13:19 | XMS_ITS | Clinical Summary ---
Author Organization [facility] [address] [facility] [address] [place] [address] Care Team Providers Care Fur Blowing Machine Operator Name Role Phone Grayson Long Primary Care [...] benign 07/20/2018 Coronary artery disease invo lving [place] coronary artery of [place] heart without angina pectoris 07/20/2018 H/O cardiomyopathy 07/20/2018 Dyspnea on exertion 10/16/2015 Overview (05/28/2016): MUÑOZ (dyspnea on exertion) Hx of CABG 10/16/2015 Overview (05/28/2016): S/P CABG (coronary artery bypass graft) Tobacco use 10/16/2015 Overview (05/28/2016): Tobacco abuse Resolved Problems Problem Noted Date Diagnosed Date Resolved Date Dyslipidemia 10/16/2015 10/08/2021 Overview (05/28/2016): Dyslipidemia Surgical History Surgery Date Site/Laterality Comments SPLENECTOMY Splenectomy OTHER SURGICAL HISTORY Right upper lobectomy OTHER SURGICAL HISTORY 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 CORONARY ARTERY BYPASS GRAFT Coronary Artery Bypass Graft LUNG REMOVAL, TOTAL CHOLECYSTECTOMY BOWEL RESECTION Medical History Medical History Date Comments Hx Other Medical Cardiomyopathy Chronic coronary artery disease Coronary Artery Disease Hypertension Hypertension Hyperlipidemia Hyperlipidemia Hx Other Medical tobacco use- hi story Gastroesophageal reflux disease GERD Gout gout Hx Other Medical chronic back pa in Heart attack (HCC) Cancer (HCC) Family History Medical History Relation Name Comments No Known Problems Brother No Known Problems Father No Known Problems Father's Brother No Known Problems Father's Sister No Known Problems Maternal Grandfather No Known Problems Maternal Grandmother No Known Problems Mother No Known Problems Mother's Brother No Known Problems Mother's Sister No Known Problems Other No Known Problems Paternal Grandfather No Known Problems Paternal Grandmother No Known Problems Sister Anemia Neg Hx Arrhythmia Neg Hx Asthma Neg Hx Clotting disorder Neg Hx Fainting Neg Hx Heart attack Neg Hx Heart disease Neg Hx Heart failure Neg Hx Hyperlipidemia Neg Hx Hypertension Neg Hx Hypertrophic cardiomyopathy Neg Hx Stroke Neg Hx Sudden Cardiac Neg Hx Relation Name Status Comments Brother Father Father's Brother Father's Sister Maternal Grandfather Maternal Grandmother Mother Mother's Brother Mother's Sister Other Paternal Grandfather Paternal Grandmother Sister Social History Tobacco Use Types Packs/Day Years [...] on file Legal Sex Male 3:50 AM SIGHTSEEING GUIDE Gender Identity Not on file Sexual Orientation Not on file Obstetrics History Last Filed Vital Signs Vital Sign Reading Time Taken Comments Blood Pressure 96/62 01/10/2024 9:16 AM SIGHTSEEING GUIDE Pulse 68 01/10/2024 9:16 AM SIGHTSEEING GUIDE Temperature - - Respiratory Rate - - Oxygen Saturation 99% 01/10/2024 9:16 AM SIGHTSEEING GUIDE Inhaled Oxygen Concentration - - Weight 78.5 kg (173 lb) 01/10/2024 9:16 AM SIGHTSEEING GUIDE Height 177.8 cm (5' 10 ) 01/10/2024 9:16 AM SIGHTSEEING GUIDE Body Mass Index 24.82 01/10/2024 9:16 AM SIGHTSEEING GUIDE Plan of Treatment Health Maintenance Due Date Last Done Comments Colon Cancer Screening-Colonoscopy 1954 Depression Screening 1954 Fall Risk Assessment 1954 Hepatitis C Screening 1954 Prostate Cancer Screening-PSA 1954 DTaP/Tdap/Td Vaccine (1 - Tdap) 1965 Hepatitis B Screening 1972 Pneumococcal vaccine 65+ (1 of 2 - PCV) 1973 Zoster Vaccine (1 of 2) 2004 Abdominal Aortic Aneurysm (A AA) Screen 2019 Well Visit 65+ 2019 Covid-19 Vaccine ( - season) 2023 03/23/2023, 05/18/2020, 04/20/2020 Influenza Vaccine (#1) 2023 03/23/2023 [place] [address] [facility] MEDICARE O HUMANA MEDICARE HMO [place] [id number] Care Teams Fur Blowing Machine Operator Relationship Specialty Start Date End Date Grayson Long PA [address] [facility] [address] [place] [address] PCP - General Physician Toy Packer 04/20/19
[2024-05-17 13:30] VITALS: PULSE 76; O2SAT 95
[2024-05-17 13:38] LABS: Alanine Aminotransferase 21 U/L (6-50); Albumin Level 3.7 g/dL (3.5-5.1); Alkaline Phosphatase 119 U/L (38-126); Anion Gap 4 mmol/L (4-12); Aspartate Amino Transferase 31 U/L (17-59); Bilirubin,Total 1.2 mg/dL (0.2-1.3); Blood Urea Nitrogen 26 mg/dL (9-20); Calcium 8.9 mg/dL (8.4-10.2); Carbon Dioxide 29 mmol/L (22-30); Chloride 100 mmol/L (98-107); Cholesterol 177 mg/dL (0-200); Estimated Glomerular Filt Rate 57; Glucose 102 mg/dL (65-110); HDL Direct 102 mg/dL; Potassium 4.7 mmol/L (3.4-5.0); Sodium 133 mmol/L (137-145); Triglycerides 56 mg/dL (<150)
[2024-05-17 13:49] LABS: LDL Cholesterol Direct 55 mg/dL
[2024-05-17 14:09] LABS: Prostate Specific Antigen 0.2 ng/mL (< OR = 4.0)
--- NOTE | 2024-05-18 09:46 | HOMEO2EVAL ---
Evaluation [facility]
== END 2024-05-17 12:39 | disposition home or self-care (01) ==
PROVIDERS: PCP Nurse Practitioner; Visit Provider Nurse Practitioner Family
DX: Z12.5 Encounter for screening for malignant neoplasm of prostate (principal); E78.5 Hyperlipidemia, unspecified; Z79.899 Other long term (current) drug therapy
CPT/HCPCS: 36415; 80053; 80061; 84153; 84443; 94618; G0103

== ENCOUNTER 2024-07-13 14:26 | Outpatient (CLI) | payer MEDICARE, SELFPAY ==
--- NOTE | ~2024-07-13 | XR_ITS ---
3 VIEWS LUMBAR SPINE Ordering provider: Gee Mas APRN History: . M54.50 - Low back pain, unspecified . Comparison: None. FINDINGS: VERTEBRAL BODIES: No visible fracture or subluxation. Degenerative changes of the spine. DISK SPACES: Narrowing of the disc L4-L5 and L5-S1. SOFT TISSUES: Atherosclerotic changes of the aorta. Bilateral sacroiliacs. IMPRESSION: No acute osseous abnormality lumbar spine. Degenerative disc disease at the level of L4-L5 and L5-S1 Reviewed, dictated and finalized at location A.
--- NOTE | ~2024-07-13 | US_ITS ---
LEFT LOWER EXTREMITY VENOUS ULTRASOUND Ordering provider: Gee Mas APRN History: . Y . Comparison: None. FINDINGS: --COMMON FEMORAL: Patent and free of thrombus. Normal compressibility, phasic flow and augmentation. --PROXIMAL SUPERFICIAL FEMORAL: Patent and free of thrombus. Normal compressibility, phasic flow and augmentation. --DISTAL SUPERFICIAL FEMORAL: Patent and free of thrombus. Normal compressibility, phasic flow and au gmentation. --POPLITEAL: Patent and free of thrombus. Normal compressibility, phasic flow and augmentation. --POSTERIOR TIBIAL: Patent and free of thrombus. Normal compressibility, phasic flow and augmentation . IMPRESSION: Negative left lower extremity venous US. No deep vein thrombosis. Reviewed, dictated and finalized at location A.
--- OUTSIDE RECORDS SUMMARY | 2024-07-13 14:31 | XMS_ITS | Referral Summary ---
Author Organization [facility] [address] [place] [address] Care Team Providers Care Doorkeeper Name Role Phone Grayson Long Primary Care [...] benign 07/20/2018 Coronary artery disease invo lving [place] coronary artery of [place] heart without angina pectoris 07/20/2018 H/O cardiomyopathy [...] on file Legal Sex Male 3:50 AM GLOBAL LOGISTICS MANAGER Gender Identity Not on file Sexual Orientation Not on file Last Filed Vital Signs Vital Sign Reading Time Taken Comments Blood Pressure 96/62 01/10/2024 9:16 AM GLOBAL LOGISTICS MANAGER Pulse 68 01/10/2024 9:16 AM GLOBAL LOGISTICS MANAGER Temperature - - Respiratory Rate - - Oxygen Saturation 99% 01/10/2024 9:16 AM GLOBAL LOGISTICS MANAGER Inhaled Oxygen Concentration - - Weight 78.5 kg (173 lb) 01/10/2024 9:16 AM GLOBAL LOGISTICS MANAGER Height 177.8 cm (5' 10 ) 01/10/2024 9:16 AM GLOBAL LOGISTICS MANAGER Body Mass Index 24.82 01/10/2024 9:16 AM GLOBAL LOGISTICS MANAGER Plan of Treatment Not on file Insurance IDPA HUMANA MEDICARE HMO HUMANA MEDICARE HMO Care Teams Doorkeeper Relationship Specialty Start Date End Date Grayson Long PA [address] [facility] [address] [place] [address] PCP - General Physician Rotary Cutter Operator 04/20/19
--- OUTSIDE RECORDS SUMMARY | 2024-07-13 14:31 | XMS_ITS | Clinical Summary ---
Author Organization [facility] [address] [facility] [address] [place] [address] Care Team Providers Care Pomologist Name Role Phone Grayson Long Primary Care [...] benign 07/20/2018 Coronary artery disease invo lving [place] coronary artery of [place] heart without angina pectoris 07/20/2018 H/O cardiomyopathy [...] on file Legal Sex Male 3:50 AM DENTAL BILLER Gender Identity Not on file Sexual Orientation Not on file Obstetrics History Last Filed Vital Signs Vital Sign Reading Time Taken Comments Blood Pressure 96/62 01/10/2024 9:16 AM DENTAL BILLER Pulse 68 01/10/2024 9:16 AM DENTAL BILLER Temperature - - Respiratory Rate - - Oxygen Saturation 99% 01/10/2024 9:16 AM DENTAL BILLER Inhaled Oxygen Concentration - - Weight 78.5 kg (173 lb) 01/10/2024 9:16 AM DENTAL BILLER Height 177.8 cm (5' 10 ) 01/10/2024 9:16 AM DENTAL BILLER Body Mass Index 24.82 01/10/2024 9:16 AM DENTAL BILLER Plan of Treatment Health Maintenance Due Date [...] season) 2023 03/23/2023, 05/18/2020, 04/20/2020 Influenza Vaccine (Season Ended) 2024 03/23/19 24 Insurance [employer]TX [facility] MEDICARE O HUMANA MEDICARE HMO [place] [id number] Care Teams Pomologist Relationship Specialty Start Date End Date Grayson Long PA [address] [facility] [address] [place] [address] PCP - General Physician Toy Stuffer 04/20/19
== END 2024-07-13 14:27 | disposition home or self-care (01) ==
PROVIDERS: PCP Nurse Practitioner; Visit Provider Nurse Practitioner
DX: R60.9 Edema, unspecified (principal); M79.605 Pain in left leg; M51.369 Other intervertebral disc degeneration, lumbar region without mention of lumbar back pain or lower extremity pain; M51.379 Other intervertebral disc degeneration, lumbosacral region without mention of lumbar back pain or lower extremity pain
CPT/HCPCS: 72100; 93971

== ENCOUNTER 2024-08-09 09:01 | Outpatient (CLI) | payer MEDICARE, SELFPAY ==
--- NOTE | ~2024-08-09 | MR_ITS ---
MRI of the lumbar spine Clinical History: Back pain, left sciatica Technique: Axial T2-weighted images, and sagittal T1-weighted, T2-weighted, and and T2 fat-sat images were acquired. Findings: There is no fracture or subluxation of the lumbar spine. Vertebral bodies maintain normal h eight and alignment. No suspicious bone marrow signal abnormality seen. At L1-L2, there is no disc bulge or herniation. There is mild facet hypertrophy. No spinal canal sten osis or neural foraminal narrowing. At L2-L3, there is no disc bulge or herniation. There is moderate facet arthropathy. No central canal stenosis. There is mild bilateral neural foraminal narrowing. At L3-L4, there is mild disc bulge and moderate facet arthropathy. There is mild central canal stenos is. There is moderate left neural foraminal narrowing, and mild right neural foraminal narrowing. At L4-L5, there is diffuse disc bulge with mild facet arthropathy. No sachin central canal stenosis. T here is moderate left neural foraminal narrowing, and severe right neural foraminal narrowing. At L5-S1, there is moderate degenerative distended. There is mild disc bulge with moderate facet arth ropathy. No central canal stenosis. There is severe bilateral neural foraminal narrowing. Paravertebral soft tissues are unremarkable. Impression: Moderate to advanced degenerative spondylosis at L4-L5 and L5-S1, bilateral neural foraminal narrowin g, as detailed above. Mild to moderate degenerative change at the upper lumbar spine, as above. Reviewed, dictated and finalized at [facility]. Impression: Moderate to advanced degenerative spondylosis at L4-L5 and L5-S1, bilateral anabel ral foraminal narrowing, as detailed above. Mild to moderate degenerative change at the upper lumbar spine, as above.
--- OUTSIDE RECORDS SUMMARY | 2024-08-09 09:26 | XMS_ITS | Clinical Summary ---
Author Organization [facility] [address] [facility] [address] [place] [address] Care Team Providers Care Combiner Operator Name Role Phone Grayson Long Primary [...] benign 07/20/2018 Coronary artery disease invo lving [place] coronary artery of [place] heart without angina pectoris 07/20/2018 H/O cardiomyopathy [...] on file Legal Sex Male 3:50 AM CANAL BOAT CAPTAIN Gender Identity Not on file Sexual Orientation Not on file Obstetrics History Last Filed Vital Signs Vital Sign Reading Time Taken Comments Blood Pressure 96/62 01/10/2024 9:16 AM CANAL BOAT CAPTAIN Pulse 68 01/10/2024 9:16 AM CANAL BOAT CAPTAIN Temperature - - Respiratory Rate - - Oxygen Saturation 99% 01/10/2024 9:16 AM CANAL BOAT CAPTAIN Inhaled Oxygen Concentration - - Weight 78.5 kg (173 lb) 01/10/2024 9:16 AM CANAL BOAT CAPTAIN Height 177.8 cm (5' 10) 01/10/2024 9:16 AM CANAL BOAT CAPTAIN Body Mass Index 24.82 01/10/2024 9:16 AM CANAL BOAT CAPTAIN Plan of Treatment Health Maintenance Due Date [...] Vaccine (Season Ended) 2024 03/23/[address] [facility] MEDICARE O HUMANA MEDICARE HMO [place] [id number] Care Teams Combiner Operator Relationship Specialty Start Date End Date Grayson Long PA [address] [facility] [address] [place] [address] PCP - General Physician Swahili Teacher 04/20/19
--- OUTSIDE RECORDS SUMMARY | 2024-08-09 09:26 | XMS_ITS | Referral Summary ---
Author Organization [facility] [address] [place] [address] Care Team Providers Care Dedenter Name Role Phone Grayson Long Primary Care [...] benign 07/20/2018 Coronary artery disease invo lving [place] coronary artery of [place] heart without angina pectoris 07/20/2018 H/O cardiomyopathy [...] on file Legal Sex Male 3:50 AM EMPLOYMENT INSTRUCTIONAL ASSOCIATE Gender Identity Not on file Sexual Orientation Not on file Last Filed Vital Signs Vital Sign Reading Time Taken Comments Blood Pressure 96/62 01/10/2024 9:16 AM EMPLOYMENT INSTRUCTIONAL ASSOCIATE Pulse 68 01/10/2024 9:16 AM EMPLOYMENT INSTRUCTIONAL ASSOCIATE Temperature - - Respiratory Rate - - Oxygen Saturation 99% 01/10/2024 9:16 AM EMPLOYMENT INSTRUCTIONAL ASSOCIATE Inhaled Oxygen Concentration - - Weight 78.5 kg (173 lb) 01/10/2024 9:16 AM EMPLOYMENT INSTRUCTIONAL ASSOCIATE Height 177.8 cm (5' 10) 01/10/2024 9:16 AM EMPLOYMENT INSTRUCTIONAL ASSOCIATE Body Mass Index 24.82 01/10/2024 9:16 AM EMPLOYMENT INSTRUCTIONAL ASSOCIATE Plan of Treatment Not on file Insurance IDPA HUMANA MEDICARE HMO HUMANA MEDICARE HMO Care Teams Dedenter Relationship Specialty Start Date End Date Grayson Long PA [address] [facility] [address] [place] [address] PCP - General Physician Distributed Energy Systems Consultant 04/20/19
== END 2024-08-09 09:02 | disposition home or self-care (01) ==
PROVIDERS: PCP Nurse Practitioner; Visit Provider Nurse Practitioner
DX: M54.42 Lumbago with sciatica, left side (principal); M47.896 Other spondylosis, lumbar region; M47.897 Other spondylosis, lumbosacral region; M47.817 Spondylosis without myelopathy or radiculopathy, lumbosacral region; G89.29 Other chronic pain
CPT/HCPCS: 72148

== ENCOUNTER 2024-09-09 00:08 | Emergency (ER) | payer MEDICARE, SELFPAY ==
--- NOTE | ~2024-09-09 | CT_ITS ---
CT head without contrast Indication: Status post fall Technique: Serial scans were obtained through the brain without the administration of contrast. Dose reduction technique was used on this scan by utilizing automated exposure control and iterative recon struction technique. The dose-length product (DLP) was 681.00 mGy-cm. Findings: There is no evidence of intracranial hemorrhage, mass lesion, or acute infarct. The ventri cles and subarachnoid spaces are dilated, consistent with mild atrophy. Low attenuation regions are seen within the periventricular white matter bilaterally, likely representing changes from chronic mi crovascular ischemic disease. There is no evidence of edema, mass effect or midline shift. The visu alized paranasal sinuses and mastoid air cells are clear. There are comminuted bilateral nasal bone f ractures. Probable angulated fracture of the vomer. Impression: No intracranial hemorrhage, mass, or acute infarct. Bilateral acute comminuted nasal bone fractures. Suspected angulated fracture of the vomer. Atrophy and chronic white matter changes, as above. Reviewed, dictated and finalized at location M. Impression: No intracranial hemorrhage, mass, or acute infarct. Bilateral acute comminuted nasal bone fractures. Suspected angulated fracture o f the vomer. Atrophy and chronic white matter changes, as above.
--- NOTE | ~2024-09-09 | CT_ITS ---
Noncontrast CT scan of the cervical spine Technique: Multiple contiguous axial [address] images of the cervical spine were obtained and rec onstructed in 2D sagittal and coronal planes on the acquisition scanner. Dose reduction technique was used on this scan by utilizing automated exposure control, adjustment of the mA and/or kV according to patient size. The dose-length product (DLP) was 492.27 mGy-cm. Clinical History: Pain Findings: No fractures or dislocations. At C2-C3, there is prominent right facet arthropathy. There is minimal right neural foraminal narrowi ng. Left neural foramen preserved. No canal stenosis or cord compression evident. At C3-C4, there is right facet arthropathy. No definite neural foraminal narrowing canal stenosis, or cord compression. At C4-C5, there is mild left neural foraminal narrowing with mild left facet arthropathy. No definite canal stenosis, cord compression, or right neural foraminal narrowing. At C5-C6, there is advanced degenerative disc narrowing with mild disc ossify complex. Probable mild bilateral neural foraminal narrowing. No definite canal stenosis or cord compression. At C6-C7, there is advanced degenerative distended. No definite canal stenosis, cord compression, or neural foraminal narrowing. No prevertebral soft tissue swelling. 7 mm nodule noted medially in the left lung apex. Impression: No fracture or subluxation of the cervical spine. Degenerative spondylosis, as above. 7 mm medial left apical pulmonary nodule, indeterminate. According to Fleischner Society criteria, fo r a low-risk patient, recommend follow-up CT scan in 6-12 months, then consider additional 18-[address] For a high-risk patient, follow-up CT scans at both 6-12 months and 18-24 months are recommende d. Reviewed, dictated and finalized at location . Impression: No fracture or subluxation of the cervical spine. Degenerative spondylosis, as above. 7 mm medial left apical pulmonary nodule, indeterminate. According to Fleischne r Society criteria, for a low-risk patient, recommend follow-up CT scan in 6-12 months, then consider additional 18-[address] For a high-risk patient, foll ow-up CT scans at both 6-12 months and 18-24 months are recommended.
[2024-09-09 00:10] VITALS: BP 121/75; PULSE 81; RESP 18; TEMP 36.3; O2SAT 98
--- OUTSIDE RECORDS SUMMARY | 2024-09-09 00:10 | XMS_ITS | Referral Summary ---
Author Organization [facility] [place] [address] [place] [address] Care Team Providers Care Data Communications Analyst Name Role Phone Grayson Long Primary Care [...] benign 07/20/2018 Coronary artery disease invo lving [place] coronary artery of [place] heart without angina pectoris 07/20/2018 H/O cardiomyopathy [...] on file Legal Sex Male 3:50 AM PAPER CUP MACHINE OPERATOR Gender Identity Not on file Sexual Orientation Not on file Last Filed Vital Signs Vital Sign Reading Time Taken Comments Blood Pressure 96/62 01/10/2024 9:16 AM PAPER CUP MACHINE OPERATOR Pulse 68 01/10/2024 9:16 AM PAPER CUP MACHINE OPERATOR Temperature - - Respiratory Rate - - Oxygen Saturation 99% 01/10/2024 9:16 AM PAPER CUP MACHINE OPERATOR Inhaled Oxygen Concentration - - Weight 78.5 kg (173 lb) 01/10/2024 9:16 AM PAPER CUP MACHINE OPERATOR Height 177.8 cm (5' 10) 01/10/2024 9:16 AM PAPER CUP MACHINE OPERATOR Body Mass Index 24.82 01/10/2024 9:16 AM PAPER CUP MACHINE OPERATOR Plan of Treatment Not on [place] [address] HUMANA MEDICARE HMO HUMANA MEDICARE HMO Care Teams Data Communications Analyst Relationship Specialty Start Date End Date Grayson Long PA [address] [facility] [address] [place] [address] PCP - General Physician Network Support Technician 04/20/19
--- OUTSIDE RECORDS SUMMARY | 2024-09-09 00:10 | XMS_ITS | Clinical Summary ---
Author Organization [facility] [place] [address] [facility] [address] [place] [address] Care Team Providers Care Environmental Services Specialist Name Role Phone Grayson Long Primary Care [...] benign 07/20/2018 Coronary artery disease invo lving [place] coronary artery of [place] heart without angina pectoris 07/20/2018 H/O cardiomyopathy [...] on file Legal Sex Male 3:50 AM MACHINIST WOOD Gender Identity Not on file Sexual Orientation Not on file Obstetrics History Last Filed Vital Signs Vital Sign Reading Time Taken Comments Blood Pressure 96/62 01/10/2024 9:16 AM MACHINIST WOOD Pulse 68 01/10/2024 9:16 AM MACHINIST WOOD Temperature - - Respiratory Rate - - Oxygen Saturation 99% 01/10/2024 9:16 AM MACHINIST WOOD Inhaled Oxygen Concentration - - Weight 78.5 kg (173 lb) 01/10/2024 9:16 AM MACHINIST WOOD Height 177.8 cm (5' 10) 01/10/2024 9:16 AM MACHINIST WOOD Body Mass Index 24.82 01/10/2024 9:16 AM MACHINIST WOOD Plan of Treatment Health Maintenance Due Date [...] Vaccine (Season Ended) 2024 03/23/19 24 Insurance [facility] MEDICARE O HUMANA MEDICARE HMO [place] [id number] Care Teams Environmental Services Specialist Relationship Specialty Start Date End Date Grayson Long PA [address] [facility] [address] [place] [address] PCP - General Physician Adding Machine Servicer 04/20/19
--- NOTE | 2024-09-09 00:19 | PC.NURSE ---
Son with patient in waiting room-placed on portable tank O2 at 3L
--- OUTSIDE RECORDS SUMMARY | 2024-09-09 02:01 | XMS_ITS | Clinical Summary ---
Author Organization [facility] [place] [address] [facility] [address] [place] [address] Care Team Providers Care Wire Straightening Machine Operator Name Role Phone Grayson Long [...] benign 07/20/2018 Coronary artery disease invo lving [place] coronary artery of [place] heart without angina pectoris 07/20/2018 H/O cardiomyopathy [...] on file Legal Sex Male 3:50 AM SEAFOOD SPECIALIST Gender Identity Not on file Sexual Orientation Not on file Obstetrics History Last Filed Vital Signs Vital Sign Reading Time Taken Comments Blood Pressure 96/62 01/10/2024 9:16 AM SEAFOOD SPECIALIST Pulse 68 01/10/2024 9:16 AM SEAFOOD SPECIALIST Temperature - - Respiratory Rate - - Oxygen Saturation 99% 01/10/2024 9:16 AM SEAFOOD SPECIALIST Inhaled Oxygen Concentration - - Weight 78.5 kg (173 lb) 01/10/2024 9:16 AM SEAFOOD SPECIALIST Height 177.8 cm (5' 10) 01/10/2024 9:16 AM SEAFOOD SPECIALIST Body Mass Index 24.82 01/10/2024 9:16 AM SEAFOOD SPECIALIST Plan of Treatment Health Maintenance Due Date [...] Vaccine (Season Ended) 2024 03/23/19 24 Insurance [facility] MEDICARE O HUMANA MEDICARE HMO [place] [id number] Care Teams Wire Straightening Machine Operator Relationship Specialty Start Date End Date Grayson Long PA [address] [facility] [address] [place] [address] PCP - General Physician Air Drier 04/20/19
--- OUTSIDE RECORDS SUMMARY | 2024-09-09 02:01 | XMS_ITS | Referral Summary ---
Author Organization [facility] [place] [address] [place] [address] Care Team Providers Care Mixer Pigment Name Role Phone Grayson Long Primary Care [...] benign 07/20/2018 Coronary artery disease invo lving [place] coronary artery of [place] heart without angina pectoris 07/20/2018 H/O cardiomyopathy [...] on file Legal Sex Male 3:50 AM TRANSFORMATION CONSULTANT Gender Identity Not on file Sexual Orientation Not on file Last Filed Vital Signs Vital Sign Reading Time Taken Comments Blood Pressure 96/62 01/10/2024 9:16 AM TRANSFORMATION CONSULTANT Pulse 68 01/10/2024 9:16 AM TRANSFORMATION CONSULTANT Temperature - - Respiratory Rate - - Oxygen Saturation 99% 01/10/2024 9:16 AM TRANSFORMATION CONSULTANT Inhaled Oxygen Concentration - - Weight 78.5 kg (173 lb) 01/10/2024 9:16 AM TRANSFORMATION CONSULTANT Height 177.8 cm (5' 10) 01/10/2024 9:16 AM TRANSFORMATION CONSULTANT Body Mass Index 24.82 01/10/2024 9:16 AM TRANSFORMATION CONSULTANT Plan of Treatment Not on file Insurance IDPA HUMANA MEDICARE HMO HUMANA MEDICARE HMO Care Teams Mixer Pigment Relationship Specialty Start Date End Date Grayson Long PA [address] [facility] [address] [place] [address] PCP - General Physician Elevator Adjuster 04/20/19
[2024-09-09 02:12] VITALS: BP 129/86; PULSE 74; RESP 18; TEMP 36.7; O2SAT 100
--- NOTE | 2024-09-09 03:00 | ED.HEATRA ---
HPI - Head Injury General Chief complaint: Head Injury Stated complaint: fall with loc etoh Time Seen by Provider: 09/09/24 01:44 History of Present Illness HPI Narrative: 69-year-old male with history of COPD on chronic home oxygen presenting to the emergency department after mechanical fall off of his porch. Patient states he was drinking throughout the evening and fell asleep on his porch sitting up and fell forward and landed on the ground. Does not use any blood thinners. Patient denies any significant injuries. He states he does have a minor headache. Tetanus is up-to-date he does have some abrasions over the top of his scalp. Was otherwise in his normal state of health. Does not appear intoxicated is awake alert oriented as baseline mentation and answering all questions appropriately. No neurological deficits and moving all extremities. Related Data Home Medications ?Medication ?Instructions ?Recorded ?Confirmed ?Last Taken ?Type aspirin 81 mg tablet,delayed 81 mg PO DAILY 01/16/19 07/13/24 03/03/20 History release (Adult Low Dose Aspirin) hydrocodone 5 mg-acetaminophen 500 1 tablet PO Q4-6H PRN Pain 01/16/19 07/13/24 03/04/20 History mg tablet cholecalciferol (vitamin D3) 50 50 mcg PO DAILY 02/25/20 07/13/24 Unknown History mcg (2,000 unit) capsule cyclobenzaprine 10 mg tablet 10 mg PO DAILY 02/25/20 07/13/24 03/03/20 History quetiapine 50 mg tablet 50 mg PO QHS 05/07/21 07/13/24 Unknown History sacubitril 24 mg-valsartan 26 mg 1 tablet PO BID 01/26/23 07/13/24 Unknown History tablet (Entresto) Allergies Allergy/AdvReac Type Severity Reaction Status Date / Time No Known Allergies Allergy Verified 07/13/24 12:21 Review of Systems Review of Systems: As reviewed above in HPI [facility] Past Medical History Medical History Chronic obstructive pulmonary disease Hyperlipidemia Cardiomyopathy GERD (gastroesophageal reflux disease) Upper abdominal pain Hypertension Colon cancer screening Prostate cancer Heart attack Gout Gallstones Surgical History Surgical History S/P triple vessel bypass History of gastric surgery History of lobectomy of lung Family History Family History Mother Hypertension Social History Social History Smoking packs per day: 0.5 Smoking cigarettes per day: 10.0 Years smoked: 50 Smoking pack-years: 25.00 Smoking status: Current every day smoker Tobacco type: cigarettes Second hand tobacco smoke exposure: No Alcohol intake: current Drinks per week: 14 Alcohol use details: BEERS Substance use: former Last use: 2014 Lack of Transportation: No Lack of Food: Never True Current Housing: I Have Housing Concerned About Future Housing: No Difficulty Paying Gas/Electric Bills: No Difficulty Paying for Meds: No Currently Unemployed: No Education: Trade/Vocational Certificate Difficulty w/ Childcare or Family Care: No Living arrangements: with family Additional living arrangements comments: Occupation/Education: retired Gender identity (if verbalized by the patient): Male Spiritual care concerns: No Exam Narrative: GENERAL: [Well-appearing, well-nourished, and in no acute distress.] HEAD: Superficial abrasion to the top of the scalp, no active bleeding or hematoma formation EYES: [PERRLA and EOMI.] ENT: Nares bilaterally with some dried blood, no tenderness or obvious overlying deformity. No active bleeding. NECK: Supple. C-collar in place CHEST: [Clear to auscultation. No respiratory distress.] HEART: [Regular rate and rhythm]. No murmur heard. [Normal peripheral pulses.] ABDOMEN: [Soft, nondistended], [nontender], [No rigidity or guarding] EXTREMITIES: Normal range of motion. [No edema.] SKIN: Warm, dry, no rash. NEURO: [No focal deficits]. Alert and oriented [x3.] PSYCH: [Normal mood and affect.] Course Vital Signs Vital signs: Vital Signs Temperature 36.3 C L 09/09/24 00:10 Pulse Rate 81 09/09/24 00:10 Respiratory Rate 18 09/09/24 00:10 Blood Pressure 121/75 09/09/24 00:10 Pulse Oximetry 98 09/09/24 00:10 Oxygen Delivery Nasal Cannula 09/09/24 00:10 Oxygen Flow Rate 3 09/09/24 00:10 Temperature 36.6 C 09/09/24 03:10 Pulse Rate 83 09/09/24 03:10 Respiratory Rate 18 09/09/24 03:10 Blood Pressure 126/74 09/09/24 03:10 Pulse Oximetry 100 09/09/24 03:10 Oxygen Delivery Nasal Cannula 09/09/24 00:10 Oxygen Flow Rate 3 09/09/24 00:10 MDM - Head Injury MDM Narrative Medical decision making narrative: 69-year-old male with history of COPD on chronic home oxygen presenting to the emergency department after mechanical fall off of his porch. Patient states he was drinking throughout the evening and fell asleep on his porch sitting up and fell forward and landed on the ground. Does not use any blood thinners. Patient denies any significant injuries. He states he does have a minor headache. Tetanus is up-to-date he does have some abrasions over the top of his scalp. Was otherwise in his normal state of health. Does not appear intoxicated is awake alert oriented as baseline mentation and answering all questions appropriately. No neurological deficits and moving all extremities. Patient has unremarkable exam aside from some dried blood in his nares and a scalp hematoma and normal vital signs, unremarkable physical examination with strong symmetric pulses, full strength and sensation throughout, extraocular movements are intact and he is pleasant, cooperative and answering everything appropriately no signs of significant intoxication. Does not smell of alcohol. CT head cervical spine was ordered for further evaluation given his traumatic injury but overall low suspicion for acute pathology. He was given tramadol for analgesia at his request. Tetanus is already up-to-date. Abrasions covered with some topical antibiotic. CT of the cervical spine shows no acute traumatic abnormalities in the cervical spine. Degenerative changes are seen. CT of the head shows no intracranial abnormality. There is mild front tissue swelling in the soft tissues of his frontal scalp consistent with exam findings. There is a comminuted displaced nasal bone fracture as well as a nondisplaced bony septal fracture. Mild left periorbital soft tissue swelling. Consistent with exam findings although no overlying obvious deformity. Patient will be sent home with ENT follow-up instructions and return precautions. Patient and family comfortable with the plan and his sons will drive him home. Medical Records Attestation: I reviewed the patient's medical records. Imaging Data Attestation: I personally reviewed and interpreted this imaging study as follows: My impression: Nasal bone fractures, no intracranial abnormalities, no cervical spine abnormality. Discharge Plan Discharge Clinical Impression: CHI (closed head injury), Alcohol intoxication, Closed fracture nasal bone, Closed fracture of nasal septum Patient Disposition: Home Condition: Stable Instructions: Antibiotic Form Additional Instructions: You have evidence of a nasal bone fracture consistent with your exam findings. Follow-up will be with nuclear operator. Take pain control medications at home such as anti-inflammatories, Tylenol, propafenone and your [place]. No signs of any injuries in the skull, brain or spine. Return with any emergent concerns. Try to avoid blowing your nose and you can start using some decongestants for symptom control in addition to the pain medicine. Patient Language: Serbian Prescriptions: No Action aspirin [Adult Low Dose Aspirin] 81 mg tablet,delayed release (DR/EC) 81 mg PO DAILY hydrocodone-acetaminophen 5-500 mg tablet 1 tablet PO Q4-6H PRN (Reason: Pain) quetiapine 50 mg tablet 50 mg PO QHS albuterol sulfate [ProAir HFA] 90 mcg/actuation HFA aerosol inhaler 2 puff INHALATION Q4-6H PRN (Reason: shortness of breath or wheezing) Qty: 8.5 3RF triamcinolone acetonide 0.1 % cream 1 applic topical TID Qty: 80 1RF Entresto 24-26 mg tablet 1 tablet PO BID albuterol sulfate 2.5 mg /3 mL (0.083 %) solution for nebulization 2.5 mg inhalation Q6H PRN (Reason: shortness of breath or wheezing) Qty: 180 3RF Breztri Aerosphere 160-9-4.8 mcg/actuation HFA aerosol inhaler 2 inh inhalation BID 30 Days Qty: 10.7 11RF Rx Instructions: Rinse and spit after use. cholecalciferol (vitamin D3) 50 mcg (2,000 unit) Capsule 50 mcg PO DAILY cyclobenzaprine 10 mg tablet 10 mg PO DAILY sildenafil 100 mg tablet 100 mg PO DAILY PRN (Reason: sexual activity) Qty: 8 5RF Rx Instructions: administer 30 minutes to 4 hours before activity allopurinol 100 mg tablet See Rx Instructions .ROUTE .COMPLEX Qty: 90 3RF Dose Instruction: TAKE 1 TABLET EVERY DAY Rx Instructions: TAKE 1 TABLET EVERY DAY rosuvastatin 40 mg tablet See Rx Instructions .ROUTE .COMPLEX Qty: 90 3RF Dose Instruction: TAKE 1 TABLET EVERY DAY Rx Instructions: TAKE 1 TABLET EVERY DAY amlodipine 10 mg tablet See Rx Instructions .ROUTE .COMPLEX Qty: 90 3RF Dose Instruction: TAKE 1 TABLET EVERY DAY Rx Instructions: TAKE 1 TABLET EVERY DAY omeprazole 20 mg capsule,delayed release(DR/EC) See Rx Instructions .ROUTE .COMPLEX Qty: 90 3RF Dose Instruction: TAKE 1 CAPSULE EVERY DAY Rx Instructions: TAKE 1 CAPSULE EVERY DAY tamsulosin 0.4 mg capsule See Rx Instructions .ROUTE .COMPLEX Qty: 90 3RF Dose Instruction: TAKE 1 CAPSULE AT BEDTIME Rx Instructions: TAKE 1 CAPSULE AT BEDTIME prednisone 5 mg tablet 5 mg PO DIRECTED Qty: 36 0RF Rx Instructions: Eight today, decreasing dose by one daily until gone. carvedilol 25 mg tablet 25 mg PO Q12H Qty: 60 5RF Follow-up/Referrals: Kelton King MD [Physician] - 1 Week (Nasal bone fractures) Gee Mas APRN [Primary Care Provider] - Time of Disposition: 03:26
[2024-09-09] MEDS: traMADol HCL (*CRX) 50 MG TABLET PO (03:07)
[2024-09-09 03:10] VITALS: BP 126/74; PULSE 83; RESP 18; TEMP 36.6; O2SAT 100
[2024-09-09 03:54] VITALS: BP 142/75; PULSE 69; RESP 18; TEMP 36.4; O2SAT 99
== END 2024-09-09 03:56 | disposition home or self-care (01) ==
PROVIDERS: Emergency Provider Student in an Organized Health Care Education/Training Program; PCP Nurse Practitioner
DX: S02.2XXA Fracture of nasal bones, initial encounter for closed fracture (principal); S00.01XA Abrasion of scalp, initial encounter; F10.129 Alcohol abuse with intoxication, unspecified; Y90.9 Presence of alcohol in blood, level not specified; J44.9 Chronic obstructive pulmonary disease, unspecified; Z99.81 Dependence on supplemental oxygen; I42.9 Cardiomyopathy, unspecified; I10 Essential (primary) hypertension; I25.2 Old myocardial infarction; E78.5 Hyperlipidemia, unspecified; M10.9 Gout, unspecified; K21.9 Gastro-esophageal reflux disease without esophagitis; F17.210 Nicotine dependence, cigarettes, uncomplicated; Z95.1 Presence of aortocoronary bypass graft; Z85.46 Personal history of malignant neoplasm of prostate; Z90.2 Acquired absence of lung [part of]; Z79.82 Long term (current) use of aspirin; Z79.899 Other long term (current) drug therapy; W13.8XXA Fall from, out of or through other building or structure, initial encounter
CPT/HCPCS: 70450; 72125; 99284; A9270

== ENCOUNTER 2024-11-05 10:41 | Outpatient (CLI) | payer MEDICARE, SELFPAY ==
--- NOTE | ~2024-11-05 | XR_ITS ---
Examination: XR chest 2V Clinical History: R06.02 - Shortness of breath Comparison: CT chest 11/09/2023 Technique: PA and Lateral Findings: Cardiomediastinal silhouette normal size and configuration. Emphysema. Chronic scarring and retraction of diaphragm right lung base. Streaky opacities right middle lobe. No acute bony abnormality. IMPRESSION: 1. Suspect right middle lobe atelectasis or early airspace disease. 2. Additional chronic findings. Reviewed, dictated and finalized at location R.
--- NOTE | 2024-11-05 10:48 | ECG_ITS ---
Test Date: 2024-11-05 11:06:24 Measurements Intervals [place] Rate: 69 P: -40 WA: 142 QRS: 52 QRSD: 135 T: 153 QT: 464 QTc: 500 Interpretive Statements SINUS RHYTHM WITH OCCASIONAL SUPRAVENTRICULAR PREMATURE COMPLEXES RIGHT BUNDLE BRANCH BLOCK [120+ ms QRS DURATION, UPRIGHT V1, 40+ ms S IN I/aVL/V4/V5/V6] ABNORMAL ECG Compared to ECG 09/08/2023 09:35:53 Ventricular premature complex(es) no longer present Electronically Signed On 11-05-2024 11:19:30 CDT by Carlo Fink M.D.
--- OUTSIDE RECORDS SUMMARY | 2024-11-05 12:13 | XMS_ITS | Clinical Summary ---
Author Organization [facility] [place] [address] [facility] [address] [place] [address] Care Team Providers Care Fence Gate Assembler Name Role Phone Grayson Long Primary Care Provider Allergies No known active allergies Medications omeprazole (PriLOSEC) 20 mg capsule take 1 capsule (20MG) by oral route every day before a meal 0 05/27/19 13 Active aspirin (ASPIRIN LOW DOSE) 81 mg tablet take 1 tablet (81MG) by oral route every day 0 05/27/19 13 Active HYDROcodone-aceta minophen (VICODIN) 5-500 mg per tablet take 1 tablet by oral route every 4 - 6 hours as needed for pain 0 0 01/26/20 13 Active allopurinol (ZYLOPRIM) 100 mg tablet take 1 tablet by oral route every day 0 0 06/02/19 14 Active amLODIPine (NORVASC) 10 mg tablet take 1 tablet by oral route every day 0 0 03/13/19 16 Active cyclobenzaprine (FLEXERIL) 10 mg tablet take 1 tablet by oral route 2 times every day as needed 0 0 03/13/19 16 Active acetaminophen 500 mg capsule Take by mouth every 6 (six) hours as needed Active tamsulosin (FLOMAX) 0.4 mg extended release capsule Take 1 capsule (0.4 mg total) by mouth daily Active ipratropium-albut kayleigh (COMBIVENT RESPIMAT) 20-100 mcg/actuation inhalerIndication s:Chronic Obstructive Pulmonary Disease with Bronchospasms Inhale 1 puff 4 (four) times a day Active rosuvastatin (CRESTOR) 40 mg tablet Take 1 tablet (40 mg total) by mouth daily 90 tablet 3 07/21/19 19 025 Active budesonide-formot kayleigh (SYMBICORT) 160-4.5 mcg/actuation inhaler Inhale 2 puffs 2 (two) times a day Rinse mouth with water after use. Do not swallow. Active cholecalciferol (VITAMIN D-3) 2000 unit capsule Take 1 capsule (2,000 Units total) by mouth daily Active cholecalciferol (VITAMIN D-3) 50,000 unit capsule Take 1 capsule (50,000 Units total) by mouth once a week Active sildenafiL (VIAGRA) 100 mg tablet 09/20/19 21 Active QUEtiapine (SEROquel) 50 mg tablet Take 1 tablet (50 mg total) by mouth nightly Active spironolactone (ALDACTONE) 25 mg tablet Take 0.5 tablets (12.5 mg total) by mouth daily 15 tablet 11 10/21/19 22 025 Active carvediloL (COREG) 25 mg tablet TAKE 1 TABLET TWICE DAILY WITH MEALS 180 tablet 2 10/22/19 23 Active sacubitriL-valsar griffiths (Entresto) 97-103 mg tablet TAKE 1 TABLET TWICE DAILY 180 tablet 1 10/11/19 25 Active sacubitriL-valsar griffiths (Entresto) 97-103 mg tablet TAKE 1 TABLET TWICE DAILY 180 tablet 2 03/05/19 25 025 Discontinued Active Problems Problem Noted Date Diagnosed Date Chronic respiratory failure with hypoxia 023 HFrEF (heart failure with reduced ejection fract ion) 04/15/2022 Mixed hyperlipidemia 10/08/2021 Cardiomyopathy 01/05/2019 COPD (chronic obstructive pulmonary disease) Thoracic aortic aneurysm 07/20/2018 HTN (hypertension), benign 07/20/2018 Coronary artery disease invo lving [place] coronary artery of [place] heart without angina pectoris 07/20/2018 H/O cardiomyopathy [...] on file Legal Sex Male 3:50 AM SHIFT SUPERVISOR Gender Identity Not on file Sexual Orientation Not on file Obstetrics History Last Filed Vital Signs Vital Sign Reading Time Taken Comments Blood Pressure 96/62 01/10/2024 9:16 AM SHIFT SUPERVISOR Pulse 68 01/10/2024 9:16 AM SHIFT SUPERVISOR Temperature - - Respiratory Rate - - Oxygen Saturation 99% 01/10/2024 9:16 AM SHIFT SUPERVISOR Inhaled Oxygen Concentration - - Weight 78.5 kg (173 lb) 01/10/2024 9:16 AM SHIFT SUPERVISOR Height 177.8 cm (5' 10) 01/10/2024 9:16 AM SHIFT SUPERVISOR Body Mass Index 24.82 01/10/2024 9:16 AM SHIFT SUPERVISOR Plan of Treatment Health Maintenance Due Date [...] 2019 Well Visit 65+ 2019 Covid-19 Vaccine (4 - 2024- season) 2024 03/23/2023, 05/18/2020, 04/20/2020 Influenza Vaccine (#1) 2024 03/23/2023 Insurance IDPA [employer] MEDICARE HMO HUMANA MEDICARE HMO Care Teams Fence Gate Assembler Relationship Specialty Start Date End Date Grayson Long PA [address] [facility] [address] [place] [address] PCP - General Physician Jewel Bearing Polisher 04/20/19
== END 2024-11-05 10:42 | disposition home or self-care (01) ==
PROVIDERS: PCP Nurse Practitioner; Visit Provider Nurse Practitioner Family
DX: R06.02 Shortness of breath (principal); I49.9 Cardiac arrhythmia, unspecified; I45.10 Unspecified right bundle-branch block
CPT/HCPCS: 71046; 93005

== ENCOUNTER 2024-11-17 06:08 | Inpatient (IN) | payer MEDICARE, SELFPAY ==
[2024-11-17] VITALS (39 sets, daily range): BP systolic 106–194; BP diastolic 60–127; PULSE 72–123; RESP 16–28; TEMP 36.4–36.7; O2SAT 90–100; BMI 26.7
--- NOTE | ~2024-11-17 | CT_ITS ---
EXAMINATION: CT biopsy lung w/imaging DATE: 11/20/2024 13:42 INDICATION: Enlarging paramediastinal left apical nodule TECHNIQUE: The procedure including the risks and benefits was discussed with the patient. Risks discussed included infection, approximately 1/20 risk of symptomatic hemorrhage beyond mild hemoptysis, approximately 1/3 risk of pneumothorax, and approximately 1/10 risk of pneumothorax severe enough to wa rrant chest tube placement. The patient understood the risks and agreed to proceed. The patient was placed in the right lateral cubitus position. The skin overlying the paraspinal left upper thorax was prepped and draped in sterile fashion. Anesthetic was administered with 1% lidocaine subcutaneously. A 19 gauge outer needle was advanced under CT guidance to the lesion of interest. A 20 gauge core biopsy needle was then used to obtain 3 core biopsy specimens. The needle was removed and the entry site was cleaned and dressed. There were no immediate complications. The dose-length product was 252.19 mGy-cm. FINDINGS: CT images demonstrate the outer needle tip adjacent to an 11 mm paramediastinal nodule at the left apex. IMPRESSION: 1. Successful CT-guided biopsy of an 11 mm paramediastinal nodule at the left apex. Reviewed, dictated and finalized at location A. IMPRESSION: 1. Successful CT-guided biopsy of an 11 mm paramediastinal nodule at the left a pex.
--- NOTE | ~2024-11-17 | XR_ITS ---
XR chest 1V portable 11/21/2024 06:07 Indication: Status post lung biopsy Procedure: AP portable chest Comparison: Comparison to multiple prior studies sequentially, with oldest reviewed study dated 11/18/2024. Findings: Cardiomegaly. Status post median sternotomy for CABG. Postoperative changes overlying the right hilum. Mild interstitial edema. Small pleural effusions, right greater than left. No pneumothorax identified Impression: 1: No pneumothorax identified post biopsy. 2: Cardiomegaly with mild interstitial edema. Reviewed, dictated and finalized at location B. Impression: 1: No pneumothorax identified post biopsy. 2: Cardiomegaly with mild interstitial edema.
--- NOTE | ~2024-11-17 | NM_ITS ---
EXAMINATION: NM dorothea stress w perfusion DATE: 11/22/2024 12:44 INDICATION: Congestive heart failure. Ischemic cardiomyopathy. TECHNIQUE: Rest images were obtained following intravenous administration of 9.2 mCi Tc99m tetrofosmin (Myoview). The patient was infused intravenously with Lexiscan (Regadenoson). Then, 30.6 mCi Tc99m tetrofosmin (Myoview) was administered intravenously, and stress images were obtained. Data was recon structed into short axis and horizontal and vertical long axis SPECT images. Gated SPECT images were also obtained. COMPARISON: None. FINDINGS: There is a perfusion defect moderate severity at the apical, apical inferior, mid inferior and basilar inferior segments and severe perfusion defect at the basilar inferolateral segment. Perfusion defects or largely nonreversible consistent with infarct. Mild reversible ischemia at the apical and basilar inferolateral segments. Mild left ventricular enlargement with calculated end-diastolic volume of 196 mL. Mild global hypokinesis with mildly decreased left ventricular ejection fraction measuring 41%. IMPRESSION: 1. Large moderate to severe largely nonreversible infarct at the apical segment apical to basilar inferior wall and basilar inferolateral segment with mild reversible ischemia at the apical and basilar inferolateral segments.. 2. Mild left ventricular enlargement with mildly decreased left ventricular ejection fraction measuring 41%. Reviewed, dictated and finalized at location A. IMPRESSION: 1. Large moderate to severe largely nonreversible infarct at the apical segment apical to basilar inferior wall and basilar inferolateral segment with mild re versible ischemia at the apical and basilar inferolateral segments.. 2. Mild left ventricular enlargement with mildly decreased left ventricular eje ction fraction measuring 41%.
--- NOTE | ~2024-11-17 | XR_ITS ---
EXAMINATION: XR chest 1V portable COMPARISON: No comparisons available. HISTORY: sob FINDINGS: Moderate pulmonary venous congestion. Minimal basilar infiltrates and effusions most marked right side. No pneumothorax. Moderate cardiomegaly. Mediastinal and hilar contours are within normal limits. Post sternotomy. Miscellaneous: None Impression: CHF Reviewed, dictated and finalized at location P. Impression: CHF
--- NOTE | ~2024-11-17 | XR_ITS ---
EXAMINATION: XR chest 1V DATE: 11/20/2024 13:42 INDICATION: Status post lung biopsy TECHNIQUE: frontal view of the chest was obtained. COMPARISON: Chest radiograph dated 11/18/[address] dated 11/17/2024 FINDINGS: Postoperative change of prior right upper lobectomy with surgical clips at the right hilum and volume loss with cephalad retraction of the right hilum and lateral right hemidiaphragm with pleural parenchymal scarring along the right lung base. Increased lucency in the right upper lung zone resulting from compensatory hyperexpansion of the right middle lobe. Chronic pleural parenchymal scarring at the left costophrenic angle. No pleural effusion or pneumothorax. Cardiomegaly. Median sternotomy wires and mediastinal surgical clips are seen, likely from prior coronary artery bypass grafting. Old healed posterior right seventh rib fracture. IMPRESSION 1. No pneumothorax post percutaneous left lung biopsy. 2. Postoperative change of prior right upper lobectomy with chronic pleural parenchymal scarring along the elevated right hemidiaphragm. 3. Cardiomegaly. Reviewed, dictated and finalized at location A. IMPRESSION 1. No pneumothorax post percutaneous left lung biopsy. 2. Postoperative change of prior right upper lobectomy with chronic pleural par enchymal scarring along the elevated right hemidiaphragm. 3. Cardiomegaly.
--- NOTE | ~2024-11-17 | XR_ITS ---
Examination: XR chest 1V portable Clinical History: POST LUNG BIOPSY Comparison: 1 hour prior Technique: Portable AP Findings: Heart size unchanged. No left pneumothorax identified. Postoperative changes right lung with elevated hemidiaphragm. No acute bony abnormality. IMPRESSION: 1. No acute cardiopulmonary findings given portable technique. Reviewed, dictated and finalized at location R.
--- NOTE | ~2024-11-17 | CT_ITS ---
EXAMINATION: CTA chest PE protocol, 11/17/2024 14:20 CDT HISTORY: pe? COMPARISON: Comparison 04/30/2022 TECHNIQUE: CTA examination is obtained with contrast CTA examination technique is performed with arterial phase of contrast-enhancement. 3-D reconstruction with thin MIP axial and MPR coronal imaging is provided Isovue 300, 92cc injected IV. One or more of the following dose reduction techniques were used: automated exposure control, adjustment of the mA and/or kV according to patient size, use of iterative reconstruction technique. FINDINGS: No significant coronary calcification is present ([id number]) LUNGS: Small simple appearing left pleural effusion. Trace right pleural effusion. The contrast bolus is adequate, there is no pulmonary embolism identified. Postsurgical changes noted in the right lung. No tracheomalacia. No bronchiectasis. Moderate emphysematous changes. Areas of bullous formation of the right upper lobe. Moderate pulmonary fibrotic changes. No honeycombing is identified. Within the left upper lobe there is a nodule medially measuring 10 x 11 mm. HEART AND PERICARDIUM: Mild cardiomegaly. No pericardial effusion. AORTA: Normal caliber aorta.. PULMONARY ARTERIES: No pulmonary embolism ADENOPATHY/MEDIASTINUM: There are enlarged lymph nodes in the mediastinum the largest periaortic lymph node measuring 2.3 x 2.2 cm. LIMITED VIEWS OF THE ABDOMEN: Simple appearing left renal cyst 2 x 2 cm. OSSEOUS STRUCTURES: No sclerotic or lytic lesions. No acute rib fractures. Poststernotomy changes are noted. OVERLYING SOFT TISSUES: Unremarkable. THYROID: The thyroid is unremarkable. IMPRESSION: 1. Negative for pulmonary embolism. Chronic changes detailed above with superimposed probable CHF. There is a nodule within the left upper lobe which is new compared to the previous study. PET CT is recommended Reviewed, dictated and finalized at location P. IMPRESSION: 1. Negative for pulmonary embolism. Chronic changes detailed above with superim posed probable CHF. There is a nodule within the left upper lobe which is new c ompared to the previous study. PET CT is recommended
--- NOTE | ~2024-11-17 | CT_ITS ---
EXAMINATION: CTA chest DATE: 11/20/2024 16:27 INDICATION: Hypoxia and shortness of breath. TECHNIQUE: Computed tomographic angiography (CTA) of the chest was performed without and with 100 mL Omnipaque-350 intravenous contrast. Volume-rendered 3D- reconstructions of the aorta and large arteries were constructed by the technologist on a separate workstation. Automated exposure control and iterative reconstruction technique were employed. The dose-length product was 780.16 mGy-cm. COMPARISON: 11/17/2024 FINDINGS: No pulmonary embolism. Postoperative change of prior right upper lobectomy with volume loss the right hemithorax and stable appearance of pleural parenchymal scarring at the lateral right mid to lower lungs. Mild to moderate emphysema most prominent in the right middle lobe likely related to compensatory hyperexpansion secondary to the right upper lobar resection. No significant change in a small left pleural effusion with dependent atelectasis in the left lower lobe. Tiny right pleural effusion. There is a tract of subpleural atelectasis at the medial right apex extending towards a more anterior small paramediastinal nodule which was biopsied a few hours earlier. No pneumothorax. Mild cardiomegaly with left ventricular and atrial enlargement. Atherosclerotic coronary artery calcific location. Postoperative change of prior median sternotomy and coronary artery bypass grafting. No pericardial effusion. Aneurysmal dilation of the proximal descending thoracic aorta which measures up to 4.6 cm in maximal diameter. No aortic dissection. Mild enlarged left hilar and mediastinal lymphadenopathy suspicious for metastatic disease the largest lymph node in the AP window measuring 2.0 cm in maximal short axis diameter. Cholecystectomy clips at the gallbladder fossa. There are small bilateral low- attenuation renal cysts the largest on the left measuring 1.6 cm. There is also a 1.0 cm hyperdense proteinaceous/hemorrhagic cyst in the right kidney. Mild thoracic spondylosis. IMPRESSION: 1. Focal mild subpleural atelectasis along the recent lung biopsy tract at the medial left apex. No pulmonary embolism or other acute cardiopulmonary disease. 2. Unchanged small left and tiny right pleural effusions. 3. Unchanged 11 mm subpleural nodule at the medial left apex which concerning for primary bronchogenic carcinoma with left hilar and mediastinal lymphadenopathy suspicious for secondary metastatic disease. Correlate with pending pathology results from the percutaneous lung biopsy. 4. Mild cardiomegaly with left ventricular and atrial enlargement. 5. 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 Reviewed, dictated and finalized at location A. IMPRESSION: 1. Focal mild subpleural atelectasis along the recent lung biopsy tract at the medial left apex. No pulmonary embolism or other acute cardiopulmonary disease. 2. Unchanged small left and tiny right pleural effusions. 3. Unchanged 11 mm subpleural nodule at the medial left apex which concerning f or primary bronchogenic carcinoma with left hilar and mediastinal lymphadenopat hy suspicious for secondary metastatic disease. Correlate with pending patholog y results from the percutaneous lung biopsy. 4. Mild cardiomegaly with left ventricular and atrial enlargement. 5. 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
--- NOTE | ~2024-11-17 | XR_ITS ---
Examination: XR chest 1V portable Clinical History: resp distress, copd Comparison: 11/05/2024 Technique: Portable AP Findings: Heart size normal. Emphysema. Chronic scarring right lung with retraction of diaphragm Persistent streaky opacities right middle lobe. Persistent blunting left CP angle. No acute bony abnormality. IMPRESSION: 1. No acute cardiopulmonary findings given portable technique. Reviewed, dictated and finalized at location R.
--- NOTE | ~2024-11-17 | XR_ITS ---
Examination: XR chest 1V portable Clinical History: CHF Comparison: 1 day prior Technique: Portable AP Findings: Heart size normal. Chronic scarring right lung with retraction of diaphragm. Persistent streaky opacities right middle lobe. Left lung unilateral interstitial markings. No acute bony abnormality. IMPRESSION: 1. Developing left lung unilateral interstitial pulmonary edema and/or pneumonitis, with pleural effusion. Reviewed, dictated and finalized at location R. IMPRESSION: 1. Developing left lung unilateral interstitial pulmonary edema and/or pneumon itis, with pleural effusion.
--- NOTE | 2024-11-17 06:11 | ECG_ITS ---
Test Date: 2024-11-17 06:33:57 Measurements Intervals Gardner Rate: 84 P: 55 WI: 165 QRS: 68 QRSD: 153 T: -13 QT: 412 QTc: 488 Interpretive Statements SINUS RHYTHM WITH OCCASIONAL VENTRICULAR PREMATURE COMPLEXES WITH OCCASIONAL SUPRAVENTRICULAR PREMATURE COMPLEXES RIGHT BUNDLE BRANCH BLOCK T-WAVE ABNORMALITY, CONSIDER ISCHEMIA Electronically Signed On 11-18-2024 20:38:09 CDT by Jethro Maurer D.O
[2024-11-17 06:38] LABS: Hematocrit 41.2 % (42.0-52.0); Hemoglobin 14.0 g/dL (14.0-18.0); Immature Granulocyte Percent A 0.3 % (0-0.5); Lymphocytes Absolute Auto 1.93 K/mm3 (0.9-3.2); Mean Corpuscular HGB Conc 34.0 g/dl (32-36); Mean Corpuscular Hemoglobin 30.5 pg (26-34); Mean Corpuscular Volume 89.8 fl (80-100); Nucleated Red Blood Cells Absolute Auto 0.000 K/mm3 (0.0-0.012); Nucleated Red Blood Cells Perc 0.0 % (0.0-0.2); Platelet Count Result 318 k/mm3 (150-375); Red Blood Count 4.59 M/mm3 (4.6-6.20); White Blood Count 7.0 K/mm3 (4.5-10.0)
--- NOTE | 2024-11-17 06:39 | ED.GENADULT ---
HPI - General Adult General Chief complaint: Shortness of Breath/Dyspnea <Corin Day MD - Last Filed: 11/17/24 06:44> Stated complaint: difficulty breathing <Coirn Day MD - Last Filed: 11/17/24 06:44> Time Seen by Provider: 11/17/24 06:13 <Corin Day MD - Last Filed: 11/17/24 06:44> History of Present Illness HPI narrative: Patient is a 69-year-old male who presents emergency department this morning in severe respiratory distress. Patient does have a history of COPD and called EMS due to worsening symptoms. Patient does wear oxygen at home around 3-4 L. He was noted to be satting above 90 on his home O2, however, patient was struggling to breathe with increased work of breathing in use of accessory muscles of respirations, tripoding. Denies any active chest pain. Denies any recent illness, fevers or chills. No additional symptoms or concerns at this time. <Corin Day MD - Last Filed: 11/17/24 06:44> Related Data Home medications: Home Medications ?Medication ?Instructions ?Recorded ?Confirmed ?Last Taken ?Type aspirin 81 mg tablet,delayed 81 mg PO DAILY 01/16/19 11/05/24 03/03/20 History release (Adult Low Dose Aspirin) hydrocodone 5 mg-acetaminophen 500 1 tablet PO Q4-6H PRN Pain 01/16/19 11/05/24 03/04/20 History mg tablet cholecalciferol (vitamin D3) 50 50 mcg PO DAILY 02/25/20 11/05/24 Unknown History mcg (2,000 unit) capsule quetiapine 50 mg tablet 50 mg PO QHS 05/07/21 11/05/24 Unknown History sacubitril 24 mg-valsartan 26 mg 1 tablet PO BID 01/26/23 11/05/24 Unknown History tablet (Entresto) <Corin Day MD - Last Filed: 11/17/24 06:44> Allergies/adverse reactions: Allergies Allergy/AdvReac Type Severity Reaction Status Date / Time No Known Allergies Allergy Verified 09/14/24 08:22 <Corin Day MD - Last Filed: 11/17/24 06:44> Review of Systems Review of Systems: All systems are reviewed and are negative unless stated otherwise in the HPI. <Corin Day MD - Last Filed: 11/17/24 06:44> PMFSH Past Medical History Medical History: Medical History BMI 23.0-23.9, adult Chronic obstructive pulmonary disease Hyperlipidemia Cardiomyopathy GERD (gastroesophageal reflux disease) Upper abdominal pain Hypertension Colon cancer screening Prostate cancer Heart attack Gout Gallstones <Corin Day MD - Last Filed: 11/17/24 06:44> Surgical History Surgical History: Surgical History S/P triple vessel bypass History of gastric surgery History of lobectomy of lung <Corin Day MD - Last Filed: 11/17/24 06:44> Family History Family History: Family History Mother Hypertension Father Sibling No problems noted. <Corin Day MD - Last Filed: 11/17/24 06:44> Social History Social History: Social History Smoking packs per day: 0.5 Smoking cigarettes per day: 10.0 Years smoked: 50 Smoking pack-years: 25.00 Smoking status: Current every day smoker Tobacco type: cigarettes Second hand tobacco smoke exposure: No Alcohol intake: current Drinks per week: 14 Alcohol use details: BEERS Substance use: former Substance use type: does not use Last use: 2015 Do You Feel Safe in your Home?: Yes Lack of Transportation: No Lack of Food: Never True Current Housing: I Have Housing Concerned About Future Housing: No Difficulty Paying Gas/Electric Bills: No Difficulty Paying for Meds: No Currently Unemployed: No Education: Trade/Vocational Certificate Difficulty w/ Childcare or Family Care: No Living arrangements: with family Additional living arrangements comments: Occupation/Education: retired 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 HEENT: PERRL, no rhinorrhea, no post nasal drip, oropharynx clear. Neck: Trachea midline, no JVD, no lymphadenopathy. Cardiovascular: Regular rate and rhythm, no murmurs, rubs or gallops, no peripheral edema. Respiratory: Diffuse expiratory and inspiratory wheezing audible without a stethoscope, tachypneic, increased work of breathing with use of accessory muscles of respiration, in severe respiratory distress. Abdomen: Soft, nontender, nondistended, no rebound, no guarding, no peritoneal signs. Musculoskeletal: No joint swelling or deformity, normal muscle tone. Skin: No rashes or petechia, no signs of infection. Psychiatric: Alert and oriented, normal behavior and judgment for situation. Neurological: Alert and oriented to person, place, and time. Follows all commands. No focal deficits, speech is clear and fluent. <Corin Day MD - Last Filed: 11/17/24 06:44> Course Vital Signs Vital signs: Vital Signs Pulse Rate 123 H 11/17/24 06:13 Respiratory Rate 24 H 11/17/24 06:13 Pulse Oximetry 98 11/17/24 06:13 Temperature 36.4 C 11/17/24 06:19 Pulse Rate 81 11/17/24 13:44 Respiratory Rate 20 11/17/24 13:44 Blood Pressure 129/83 11/17/24 13:44 Pulse Oximetry 100 11/17/24 13:44 Oxygen Delivery BiPAP 11/17/24 09:20 Oxygen Flow Rate 6 11/17/24 06:19 Fraction of Inspired Oxygen 35 11/17/24 06:25 <Corin Day MD - Last Filed: 11/17/24 06:44> Vital Signs Pulse Rate 123 H 11/17/24 06:13 Respiratory Rate 24 H 11/17/24 06:13 Pulse Oximetry 98 11/17/24 06:13 Temperature 36.4 C 11/17/24 06:19 Pulse Rate 81 11/17/24 13:44 Respiratory Rate 20 11/17/24 13:44 Blood Pressure 129/83 11/17/24 13:44 Pulse Oximetry 100 11/17/24 13:44 Oxygen Delivery BiPAP 11/17/24 09:20 Oxygen Flow Rate 6 11/17/24 06:19 Fraction of Inspired Oxygen 35 11/17/24 06:25 <Benny Scott MD - Last Filed: 11/17/24 14:02> Medical Decision Making MDM Narrative Medical decision making narrative: The patient was evaluated by myself in the emergency department. History is obtained from patient who is an independent historian and physical exam was performed. External medical records were reviewed at this time. IV was established and pertinent tests were ordered. Patient was administered an hour long DuoNeb breathing treatment and 125 mg of IV Solu-Medrol. EKG was obtained which revealed sinus rhythm rate of 84 beats per minute with right bundle branch block, patient does have T-wave inversions noted in leads V1 through V6 similar to previous EKG from 2 weeks ago. EKG was independently interpreted by me and is currently pending official cardiology read. Laboratory results obtained at this time and is currently pending. Patient was signed out to the AM ED physician pending remainder of the workup. <Corin Day MD - Last Filed: 11/17/24 06:44> The patient was evaluated by myself in the emergency department. History is obtained from patient who is an independent historian and physical exam was performed. External medical records were reviewed at this time. IV was established and pertinent tests were ordered. Patient was administered an hour long DuoNeb breathing treatment and 125 mg of IV Solu-Medrol. EKG was obtained which revealed sinus rhythm rate of 84 beats per minute with right bundle branch block, patient does have T-wave inversions noted in leads V1 through V6 similar to previous EKG from 2 weeks ago. EKG was independently interpreted by me and is currently pending official cardiology read. Laboratory results obtained at this time and is currently pending. Patient was signed out to the AM at shift change, waiting for blood workup and disposition Blood workup today showed insignificant abnormalities, Patient tested negative for COVID flu RSV Chest x-ray showed no acute abnormalities Patient was started on BiPAP prior to my arrival Diagnosis COPD exacerbation on BiPAP Admit to hospitalist <Benny Scott MD - Last Filed: 11/17/24 14:02> Vital Signs Vital Signs: Vital Signs Pulse Rate 123 H 11/17/24 06:13 Respiratory Rate 24 H 11/17/24 06:13 Pulse Oximetry 98 11/17/24 06:13 Temperature 36.4 C 11/17/24 06:19 Pulse Rate 81 11/17/24 13:44 Respiratory Rate 20 11/17/24 13:44 Blood Pressure 129/83 11/17/24 13:44 Pulse Oximetry 100 11/17/24 13:44 Oxygen Delivery BiPAP 11/17/24 09:20 Oxygen Flow Rate 6 11/17/24 06:19 Fraction of Inspired Oxygen 35 11/17/24 06:25 <Corin Day MD - Last Filed: 11/17/24 06:44> Vital Signs Pulse Rate 123 H 11/17/24 06:13 Respiratory Rate 24 H 11/17/24 06:13 Pulse Oximetry 98 11/17/24 06:13 Temperature 36.4 C 11/17/24 06:19 Pulse Rate 81 11/17/24 13:44 Respiratory Rate 20 11/17/24 13:44 Blood Pressure 129/83 11/17/24 13:44 Pulse Oximetry 100 11/17/24 13:44 Oxygen Delivery BiPAP 11/17/24 09:20 Oxygen Flow Rate 6 11/17/24 06:19 Fraction of Inspired Oxygen 35 11/17/24 06:25 <Benny Scott MD - Last Filed: 11/17/24 14:02> Lab Data Result diagrams: 11/17/24 06:29 11/17/24 06:29 <Corin Day MD - Last Filed: 11/17/24 06:44> Labs: Lab Results 11/17/24 11/17/24 11/17/24 Range/Units 06:29 06:29 06:53 WBC 7.0 (4.5-10.0) K/mm3 RBC 4.59 L (4.6-6.20) M/mm3 Hgb 14.0 (14.0-18.0) g/dL Hct 41.2 L (42.0-52.0) % MCV 89.8 (80-100) fl MCH 30.5 (26-34) pg MCHC 34.0 (32-36) g/dl RDW 15.6 H (11.5-14.5) % Plt Count 318 (150-375) k/mm3 MPV 10.5 H (7.4-10.4) fl Immature Gran % (Auto) 0.3 (0-0.5) % Neut % (Auto) 50.0 (45.5-73.1) % Lymph % (Auto) 27.7 (18.3-44.2) % [place] % (Auto) 18.2 H (2.6-8.5) % Eos % (Auto) 2.4 (0-4.4) % Baso % (Auto) 1.4 H (0.2-1.2) % Lymph # (Auto) 1.93 (0.9-3.2) K/mm3 [place] # (Auto) 1.3 H (0.1-0.6) K/mm3 Eos # (Auto) 0.2 (0-0.3) K/mm3 Baso # (Auto) 0.1 (0.0-0.1) K/mm3 Abs Immat Gran (auto) 0.02 (0.00-0.031) K/mm3 Absolute Neuts (auto) 3.5 (1.3-6.7) K/mm3 Absolute Nucleated RBC 0.000 (0.0-0.012) K/mm3 Nucleated RBC % 0.0 (0.0-0.2) % Sodium 134 L (137-145) mmol/L Potassium 4.6 (3.4-5.0) mmol/L Chloride 103 (98-107) mmol/L Carbon Dioxide 26 (22-30) mmol/L Anion Gap 5 (4-12) mmol/L BUN 23 H (9-20) mg/dL Creatinine 1.37 H (0.7-1.3) mg/dL Estim Creat Clear Calc 47 ml/min Estimated GFR 51 L (59 - ) Glucose 108 (65-110) mg/dL Lactic Acid 0.8 (0.7-2.0) mmol/L Calcium 8.8 (8.4-10.2) mg/dL Magnesium 1.5 L Cancelled (1.6-2.3) mg/dL Total Bilirubin 0.7 (0.2-1.3) mg/dL AST 47 (17-59) U/L ALT 20 (6-50) U/L Alkaline Phosphatase 117 (38-126) U/L Total Protein 7.0 (6.3-8.2) g/dL Albumin 3.4 L (3.5-5.1) g/dL Lipase 95 (23-300) U/L Influenza A (RT-PCR) Negative (Negative) Influenza B (RT-PCR) Negative (Negative) RSV (RT-PCR) Negative (Negative) SARS-CoV-2 RNA (RT-PCR) Negative (Negative) <Corin Day MD - Last Filed: 11/17/24 06:44> Lab Results 11/17/24 11/17/24 11/17/24 Range/Units 06:29 06:29 06:53 WBC 7.0 (4.5-10.0) K/mm3 RBC 4.59 L (4.6-6.20) M/mm3 Hgb 14.0 (14.0-18.0) g/dL Hct 41.2 L (42.0-52.0) % MCV 89.8 (80-100) fl MCH 30.5 (26-34) pg MCHC 34.0 (32-36) g/dl RDW 15.6 H (11.5-14.5) % Plt Count 318 (150-375) k/mm3 MPV 10.5 H (7.4-10.4) fl Immature Gran % (Auto) 0.3 (0-0.5) % Neut % (Auto) 50.0 (45.5-73.1) % Lymph % (Auto) 27.7 (18.3-44.2) % [place] % (Auto) 18.2 H (2.6-8.5) % Eos % (Auto) 2.4 (0-4.4) % Baso % (Auto) 1.4 H (0.2-1.2) % Lymph # (Auto) 1.93 (0.9-3.2) K/mm3 [place] # (Auto) 1.3 H (0.1-0.6) K/mm3 Eos # (Auto) 0.2 (0-0.3) K/mm3 Baso # (Auto) 0.1 (0.0-0.1) K/mm3 Abs Immat Gran (auto) 0.02 (0.00-0.031) K/mm3 Absolute Neuts (auto) 3.5 (1.3-6.7) K/mm3 Absolute Nucleated RBC 0.000 (0.0-0.012) K/mm3 Nucleated RBC % 0.0 (0.0-0.2) % Sodium 134 L (137-145) mmol/L Potassium 4.6 (3.4-5.0) mmol/L Chloride 103 (98-107) mmol/L Carbon Dioxide 26 (22-30) mmol/L Anion Gap 5 (4-12) mmol/L BUN 23 H (9-20) mg/dL Creatinine 1.37 H (0.7-1.3) mg/dL Estim Creat Clear Calc 47 ml/min Estimated GFR 51 L (59 - ) Glucose 108 (65-110) mg/dL Lactic Acid 0.8 (0.7-2.0) mmol/L Calcium 8.8 (8.4-10.2) mg/dL Magnesium 1.5 L Cancelled (1.6-2.3) mg/dL Total Bilirubin 0.7 (0.2-1.3) mg/dL AST 47 (17-59) U/L ALT 20 (6-50) U/L Alkaline Phosphatase 117 (38-126) U/L Total Protein 7.0 (6.3-8.2) g/dL Albumin 3.4 L (3.5-5.1) g/dL Lipase 95 (23-300) U/L Influenza A (RT-PCR) Negative (Negative) Influenza B (RT-PCR) Negative (Negative) RSV (RT-PCR) Negative (Negative) SARS-CoV-2 RNA (RT-PCR) Negative (Negative) <Benny Scott MD - Last Filed: 11/17/24 14:02> Discharge Plan Discharge Clinical Impression: Acute respiratory failure Chronic obstructive pulmonary disease Qualifiers: COPD type: unspecified COPD Qualified Code(s): J44.9 - Chronic obstructive pulmonary disease, unspecified <Corin Day MD - Last Filed: 11/17/24 06:44> Patient Disposition: Still a Patient <Corin Day MD - Last Filed: 11/17/24 06:44> Condition: Improved <Corin Day MD - Last Filed: 11/17/24 06:44>
[2024-11-17] MEDS: ALBUTEROL SULFATE NEB 2.5 MG/3 ML INH 10 MG INHALATION (06:50)
[2024-11-17] MEDS: IPRATROPIUM BR 0.02% INH SOLN 0.5 MG/2.5 ML VIAL 2 MG INHALATION (06:51)
[2024-11-17 07:02] LABS: Alanine Aminotransferase 20 U/L (6-50); Albumin Level 3.4 g/dL (3.5-5.1); Alkaline Phosphatase 117 U/L (38-126); Anion Gap 5 mmol/L (4-12); Aspartate Amino Transferase 47 U/L (17-59); Bilirubin,Total 0.7 mg/dL (0.2-1.3); Blood Urea Nitrogen 23 mg/dL (9-20); Calcium 8.8 mg/dL (8.4-10.2); Carbon Dioxide 26 mmol/L (22-30); Chloride 103 mmol/L (98-107); Estimated CRCL calculation 47 ml/min; Estimated Glomerular Filt Rate 51; Glucose 108 mg/dL (65-110); Lipase 95 U/L (23-300); Magnesium 1.5 mg/dL (1.6-2.3); Potassium 4.6 mmol/L (3.4-5.0); Sodium 134 mmol/L (137-145); Total Protein 7.0 g/dL (6.3-8.2)
[2024-11-17 07:11] LABS: Influenza A QL RT-PCR Negative (Negative); Influenza B QL RT-PCR Negative (Negative); RSV RNA, RT-PCR Negative (Negative); SARS-CoV-2 RNA PCR Negative (Negative)
--- NOTE | 2024-11-17 13:35 | P.HP_ITS ---
H&P: HPI History of Present Illness Date/Time: 11/17/24 13:35 Chief Complaint: Shortness of breath Narrative: 69-year-old male past medical history of COPD on 3-4 L at baseline, colon cancer, DE, hyperlipidemia, cardiomegaly, and hypertension presents the hospital with shortness of breath. Upon arrival to the emergency room patient was hypoxic tripoding using accessory muscles. Patient was paced on BiPAP in the emergency room. Patient seen on the floor he is on his home oxygen settings denying increased shortness of breath at rest. He did wear the BiPAP for several hours. Patient states for the last month or so his breathing has become extremely worst with activities. He states he is no longer able to do as much as he could. He states that his feet have been swelling. Patient denies fevers chills nausea or vomiting. Pleural to the emergency room the patient's vitals were heart rate of 123, respirations of 24, pulse ox of 94, on for L nasal cannula blood pressure 194/127, due to increasing work of breathing he was placed on 6 L nasal cannula and then BiPAP. Lab work shows sodium of 134, BUN of 23, creatinine of 1.34 with baseline being around 1.26, GFR 51, magnesium of 1.5, influenza A/B, RSV COVID negative. Chest x-ray with no acute findings. Does show emphysema and chronic scarring but no recent for acute distress. Will do a CT PE no PE, bilateral pleural effusions, chronic disease with CHF, and new lung nodule. Review of Systems Review of Systems: 12 systems were reviewed and are negativ e except for as per HPI. [facility] Past Medical History Medical History BMI 23.0-23.9, adult Chronic obstructive pulmonary disease Hyperlipidemia Cardiomyopathy GERD (gastroesophageal reflux disease) Upper abdominal pain Hypertension Colon cancer screening Prostate cancer Heart attack Gout Gallstones Surgical History Surgical History S/P triple vessel bypass History of gastric surgery History of lobectomy of lung Family History Family History Mother Hypertension Father Sibling No problems noted. Social History Social History Smoking packs per day: 0.5 Smoking cigarettes per day: 10.0 Years smoked: 55 Smoking pack-years: 27.50 Smoking status: Former smoker Tobacco type: cigarettes Second hand tobacco smoke exposure: Yes Smoking end date: 11/10/24 Alcohol intake: former Drinks per week: 14 Alcohol use details: BEERS Substance use: never Substance use type: does not use Other substance usage details: last drink 11/10/2024 Last use: 2014 Do You Feel Safe in your Home?: Yes Lack of Transportation: No Lack of Food: Never True Current Housing: I Have Housing Concerned About Future Housing: No Difficulty Paying Gas/Electric Bills: No Difficulty Paying for Meds: No Currently Unemployed: No Education: Trade/Vocational Certificate Difficulty w/ Childcare or Family Care: No Living arrangements: with family Additional living arrangements comments: Occupation/Education: 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[employer] Gender identity (if verbalized by the patient): Male Spiritual care concerns: No Meds Home Medications and Allergies Home Medications ?Medication ?Instructions ?Recorded ?Confirmed ?Type aspirin 81 mg tablet,delayed 81 mg PO DAILY 01/16/19 0 11/17/24 History release (Adult Low Dose Aspirin) hydrocodone 5 mg-acetaminophen 500 1 tablet PO Q4-6H P RN Pain 01/16/19 11/17/24 History mg tablet cholecalciferol (vitamin D3) 50 50 mcg PO DAILY 11/17/24 History mcg (2,000 unit) capsule sildenafil 100 mg tablet 100 mg PO DAILY PRN sexual 0 03/02/21 11/17/24 Rx activity #8 tabs quetiapine 50 mg tablet 50 mg PO QHS 05/07/21 History sacubitril 24 mg-valsartan 26 mg 1 tablet PO BID 01/2611/17/24 History tablet (Entresto) triamcinolone acetonide 0.1 % 1 applic topical TID #80 grams 08/12/23 11/17/24 Rx topical cream allopurinol 100 mg tablet See Rx Instructions .Route 0 03/05/24 11/17/24 Rx .COMPLEX #90 tabs amlodipine 10 mg tablet See Rx Instructions .Route 0 03/05/24 11/17/24 Rx .COMPLEX #90 tabs omeprazole 20 mg capsule,delayed See Rx Instructions . Route 03/05/24 11/17/24 Rx release .COMPLEX #90 caps rosuvastatin 40 mg tablet See Rx Instructions .Route 0 03/05/24 11/17/24 Rx .COMPLEX #90 tabs tamsulosin 0.4 mg capsule See Rx Instructions .Route 0 05/17/24 11/17/24 Rx .COMPLEX #90 caps cyclobenzaprine 10 mg tablet 10 mg PO TID PRN muscle s pasm #45 09/14/24 11/17/24 Rx tabs budesonide 160 mcg-glycopyr 9 See Rx Instructions .Rou te 10/15/24 11/17/24 Rx mcg-formot 4.8 mcg/actuation HFA .COMPLEX #3 ea inhaler (Breztri Aerosphere) carvedilol 25 mg tablet 25 mg PO Q12H #180 tabs 11/1511/17/24 Rx albuterol sulfate 90 mcg/actuation 2 puff inhalation Q 4-6H PRN 11/05/24 11/17/24 Rx aerosol inhaler (ProAir HFA) shortness of breath or wh eezing #8.5 grams bupropion HCl (smoking deter) 150 150 mg PO DIRECTE D #60 tabs 11/05/24 11/17/24 Rx mg tablet,12 hr sustained-release(smoking deterrent) Allergies Allergy/AdvReac Type Severity Reaction Status Date / Time No Known Allergies Allergy Verified 09/14/24 08:22 Vital Signs Vital Signs - 24 hr 11/17/24 06:13 11/17/24 06:15 11/17/24 06:16 Temperature Pulse Rate 123 H 121 H 114 H Respiratory Rate 24 H 27 H 27 H Blood Pressure 194/127 H Pulse Oximetry 98 92 94 Oxygen Delivery Oxygen Flow Rate Fraction of Inspired Oxygen 11/17/24 06:19 11/17/24 06:25 11/17/24 06:47 Temperature 97.6 F Pulse Rate 98 Respiratory Rate 28 H 20 Blood Pressure 194/127 H Pulse Oximetry 97 97 100 Oxygen Delivery Nasal Cannula BiPAP BiPAP Oxygen Flow Rate 6 Fraction of Inspired Oxygen 35 11/17/24 06:48 11/17/24 06:50 11/17/24 07:00 Temperature Pulse Rate 80 77 76 Respiratory Rate 17 21 H 26 H Blood Pressure Pulse Oximetry 100 100 Oxygen Delivery Oxygen Flow Rate Fraction of Inspired Oxygen 11/17/24 07:04 11/17/24 07:27 11/17/24 07:33 Temperature Pulse Rate 77 77 73 Respiratory Rate 20 22 H 16 Blood Pressure 112/78 109/75 Pulse Oximetry 99 100 100 Oxygen Delivery Oxygen Flow Rate Fraction of Inspired Oxygen 11/17/24 08:13 11/17/24 08:15 11/17/24 08:16 Temperature Pulse Rate 79 Respiratory Rate 20 Blood Pressure 119/80 Pulse Oximetry 100 100 100 Oxygen Delivery Oxygen Flow Rate Fraction of Inspired Oxygen 11/17/24 08:30 11/17/24 08:31 11/17/24 09:20 Temperature Pulse Rate 88 Respiratory Rate 20 23 H Blood Pressure 123/87 Pulse Oximetry 100 100 100 Oxygen Delivery BiPAP Oxygen Flow Rate Fraction of Inspired Oxygen 11/17/24 09:23 11/17/24 09:55 11/17/24 10:01 Temperature Pulse Rate 79 Respiratory Rate 22 H Blood Pressure 117/78 Pulse Oximetry 100 100 100 Oxygen Delivery Oxygen Flow Rate Fraction of Inspired Oxygen 11/17/24 10:02 11/17/24 10:16 11/17/24 10:17 Temperature Pulse Rate 72 Respiratory Rate 20 Blood Pressure 121/70 Pulse Oximetry 100 100 Oxygen Delivery Oxygen Flow Rate Fraction of Inspired Oxygen 11/17/24 11:41 Temperature Pulse Rate 75 Respiratory Rate 20 Blood Pressure 130/72 Pulse Oximetry 100 Oxygen Delivery Oxygen Flow Rate Fraction of Inspired Oxygen Exam Narrative: General: well appearing, appears stated age. No acute distress noted HEENT: normocephalic, atraumatic. Mucous membranes moist. EOMI, PERRLA, bilateral sclera anicteric, no conjunctival injection. Neck supple without JVD, lymphadenopathy, or bruit. Respiratory: clear to ascultation bilaterally. No rales/rhonic/wheezes. Cardiovascular: Regular rate and rhythm, normal S1-S2 upon ascultation. No murmurs, rubs, or clicks. PMI is nondisplaced, capillary refill less than 3 second. Abdomen: Soft, round, no pulsatile masses, nondistended and nontender. No rebound, no guarding. Bowel sounds present to all four quadrants. No high pitch or tinkling sounds, resonant to percussion. Extremities: No cyanosis, clubbing, Pulses are palpable 2/2. Active ROM to all four extremities. Plus two pedal edema Neuro: Alert and orientated x 4. PERRLA. Cranial nerves 2-12 intact without focal deficit. Skin: Warm, dry, and intact, without rash, erythema, or lesion. Psych: pleasant, cooperative, normal speech, normal affect, no hallucinations, no dysarthia 4 L nasal cannula H&P: Results Labs Labs: Short CBC 11/17/24 Range/Units 06:29 WBC 7.0 (4.5-10.0) K/mm3 Hgb 14.0 (14.0-18.0) g/dL Hct 41.2 L (42.0-52.0) % Plt Count 318 (150-375) k/mm3 BMP 11/17/24 06:29 Sodium 134 L Potassium 4.6 Chloride 103 Carbon Dioxide 26 BUN 23 H Creatinine 1.37 H Glucose 108 Calcium 8.8 Liver Function 11/17/24 Range/Units 06:29 Total Bilirubin 0.7 (0.2-1.3) mg/dL AST 47 (17-59) U/L ALT 20 (6-50) U/L Alkaline Phosphatase 117 (38-126) U/L Albumin 3.4 L (3.5-5.1) g/dL Assessment and Plan Assessment and plan (1) Acute respiratory distress: Code(s): R06.03 - Acute respiratory distress Status: Acute Assessment and Plan: Patient tachycardic, hypertensive on presentation PE protocol showing small left pleural effusion and trace right pleural effusion, with chronic changes and superimposed CHF BiPAP Admit to IMU (2) Chronic obstructive pulmonary disease: Qualifiers: COPD type: unspecified COPD Qualified Code(s): J44.9 - Chronic obstructive pulmonary disease, unspecified Code(s): J44.9 - Chronic obstructive pulmonary disease, unspecified Status: Acute Assessment and Plan: Chest x-ray is unremarkable DuoNebs q.6 Solu-Medrol q.6 (3) CHF (congestive heart failure): Code(s): I50.9 - Heart failure, unspecified Status: Acute Assessment and Plan: Pedal edema, pleural effusions and CHF seen on chest CT Echocardiogram pending Cardiology consulted IV Lasix BNP 5280 (4) Lung nodule: Code(s): R91.1 - Solitary pulmonary nodule Status: Acute Assessment and Plan: CT showing left upper lobe there is a nodule medially measuring 10 x 11 mm, There are enlarged lymph nodes in the mediastinum the largest periaortic lymph node measuring 2.3 x 2.2 cm. And left renal cyst 2 x 2 cm. Pulmonology consulted Radiology recommending PET scan (5) Bilateral pleural effusion: Code(s): J90 - Pleural effusion, not elsewhere classified Status: Acute Assessment and Plan: Likely related to undiagnosed CHF Will treat with diuretics Repeat chest x-ray in the a.m. (6) ACS (acute coronary syndrome): Code(s): I24.9 - Acute ischemic heart disease, unspecified Status: Acute Assessment and Plan: Continue aspirin, carvedilol, statin, Entresto L (7) Hypertension: Qualifiers: Hypertension type: essential hypertension Qualified Code(s): I10 - Essential (primary) hypertension Code(s): I10 - Essential (primary) hypertension Status: Acute Assessment and Plan: Holding amlodipine due to aggressive diuresis Quality VTE Prophylaxis VTE prophylaxis: mechanical ordered and pharmacologic ordered Hospitalist MIPS Advance Care Plan I have confirmed that the patient's Advanced Care Plan is present, code status is documented, or surrogate decision maker is listed in patient medical record.: Yes Medication Reconciliation I have utilized all available resources to obtain, update and review the patients current medications (includes all prescriptions, OTC, herbals, cannabis, and nutritional supplements).: Yes
[2024-11-17 13:55] LABS: Alveolar/Arterial O2 Gradient 93.2 mmHg; Fractional Inspired Oxygen 35 %; HCO3 ABG 23.3 mEq/l (22.0-26.0); Oxygen Content ABG 20.0 %vol (16.0-22.0); Oxygen Saturation ABG 98.1 % (95.0-100.0); PCO2 ABG 38.9 mmHg (35.0-45.0); PO2 ABG 111.1 mmHg (80.0-100.0); PO2 FiO2 Ratio Arterial Blood 3.17 %
[2024-11-17 13:57] LABS: Modified Allen's Test Pass; Site Drawn RIGHT RADIAL
[2024-11-17] MEDS: FUROSEMIDE INJ 40 MG/4 ML VIAL 20 MG IV PUSH (16:10)
[2024-11-17 16:33] LABS: NT Pro B Type Natriuretic Pept 5280 pg/mL (19.9-100)
--- NOTE | 2024-11-17 16:43 | PC.NURSE ---
This patient, Suzanne Mas, was admitted to IMU Room 213-01 at 1436. Patient/family oriented to hospital policies and general routines including ID bracelet, bed and alarms, visiting hours, pain management, procedures, bathroom and other care routines, personal items, smoking policy, room service/diet, and visiting hours. Information on how to activate the Rapid Response Team has been discussed. Patient/Family are encouraged to report perceived risks to care and to ask questions if they do not understand what they are told or what they should do.
[2024-11-17] MEDS: IPRATROPIUM 0.5 MG/ALBUTEROL SULFATE 2.5 MG AMPUL.NEB 3 ML INHALATION (20:01)
[2024-11-17] MEDS: ACETAMINOPHEN 325 MG TABLET 650 MG PO (21:35)
[2024-11-17] MEDS: SACUBITRIL/VALSARTAN 24-26 MG TABLET 1 TAB PO (21:47)
[2024-11-17] MEDS: TAMSULOSIN HCL 0.4 MG CAPSULE BY MOUTH (21:47)
[2024-11-18] VITALS (22 sets, daily range): BP systolic 105–134; BP diastolic 61–78; PULSE 66–87; RESP 16–22; TEMP 36.3–37; O2SAT 97–100
[2024-11-18] MEDS: IPRATROPIUM 0.5 MG/ALBUTEROL SULFATE 2.5 MG AMPUL.NEB 3 ML INHALATION ×6 (02:10→21:28)
[2024-11-18 04:50] LABS: Hematocrit 35.9 % (42.0-52.0); Hemoglobin 12.7 g/dL (14.0-18.0); Immature Granulocyte Percent A 0.3 % (0-0.5); Lymphocytes Absolute Auto 0.81 K/mm3 (0.9-3.2); Mean Corpuscular HGB Conc 35.4 g/dl (32-36); Mean Corpuscular Hemoglobin 31.1 pg (26-34); Mean Corpuscular Volume 87.8 fl (80-100); Nucleated Red Blood Cells Absolute Auto 0.000 K/mm3 (0.0-0.012); Nucleated Red Blood Cells Perc 0.0 % (0.0-0.2); Platelet Count Result 276 k/mm3 (150-375); Red Blood Count 4.09 M/mm3 (4.6-6.20); White Blood Count 6.2 K/mm3 (4.5-10.0)
[2024-11-18 05:12] LABS: Anion Gap 4 mmol/L (4-12); Blood Urea Nitrogen 27 mg/dL (9-20); Calcium 8.2 mg/dL (8.4-10.2); Carbon Dioxide 25 mmol/L (22-30); Chloride 101 mmol/L (98-107); Estimated CRCL calculation 52 ml/min; Estimated Glomerular Filt Rate 58; Glucose 180 mg/dL (65-110); Potassium 4.0 mmol/L (3.4-5.0); Sodium 130 mmol/L (137-145)
--- NOTE | 2024-11-18 07:47 | PM.CNPUL ---
Assessment and Plan Assessment and plan (1) Chronic obstructive pulmonary disease: Qualifiers: COPD type: unspecified COPD Qualified Code(s): J44.9 - Chronic obstructive pulmonary disease, unspecified Code(s): J44.9 - Chronic obstructive pulmonary disease, unspecified Status: Acute Assessment and Plan: Gold grade 3 group E COPD patient with 55 pack year tobacco use, quit 1 week ago, PFTs 05/28/2021 with a severe obstructive abnormality with the pre bronchodilator FEV1 of 1.24 L, 44% predicted, ratio 40%, air trapping with a total lung capacity of 109%, severely decreased unadjusted DLCO at 38% and remains moderately decreased at 51% when adjusted for alveolar volume. CT scan of the chest shows moderate to severe apical predominant centrilobular emphysema. ABG 11/17/2024 on 35% FiO2 7.39/39/111. Chronic hypoxemic respiratory failure requiring no oxygen at rest, 3 L with activity Per home O2 assessment on 05/17/2024. Patient is using 3 L with sleep. echocardiogram 03/26/2022 with LVEF 40-45%, mild to moderate global LV systolic dysfunction, grade 1 diastolic dysfunction, normal right ventricular size. Mild right ventricular hypokinesis, mild enlargement left atrium, mild enlargement right atrium mild to moderate mitral regurg, trace to mild AR, mild tricuspid regurgitation with RVSP 49. Currently the patient presents after worsening dyspnea on exertion at home when he walked to the bathroom without oxygen. He had no prior evidence of a COPD exacerbation with no change in his phlegm volume, or color. He had diffuse wheezing in the emergency department and required BiPAP and was treated with Solu-Medrol and nebulizers. He had an elevated BNP and is treated with Lasix 20 IV. I am not convinced the patient has a COPD exacerbation Although he was in severe respiratory distress requiring BiPAP. I will continue to treat him for COPD exacerbation at this time., there is no evidence of pneumonia on his CT scan and no clinical evidence of bronchitis. Plan: I will change his Solu-Medrol to prednisone 40 mg p.o. q.day. I will continue DuoNebs q.6 hours. The patient has no phlegm production and does not need guaifenesin. No evidence of bacterial infection and patient does not need antibiotics at this time. I congratulated him on quitting tobacco use. I will check an alpha 1 anti trypsin level and genotype on 11/19/2024. Echocardiogram ordered for 11/19. (2) CHF (congestive heart failure): Code(s): I50.9 - Heart failure, unspecified Status: Acute Assessment and Plan: Echocardiogram 03/26/2022 with LVEF 40-45%, mild to moderate global LV systolic dysfunction, grade 1 diastolic dysfunction, normal right ventricular size. Mild right ventricular hypokinesis, mild enlargement left atrium, mild enlargement right atrium mild to moderate mitral regurg, trace to mild AR, mild tricuspid regurgitation with RVSP 49. 11/17/24; He had an elevated BNP 5280 and was treated with Lasix 20 IV. 11/18 BNP today is 6230. He diuresed 285 mL yesterday. Cumulative he is positive 645 mL since admission. His weight today is 83.5. Plan: cardiology consult id and increase his Lasix to 40 mg IV b.i.d., added Entresto, Coreg and spironolactone. Echocardiogram ordered for 11/19. (3) Lung nodule: Code(s): R91.1 - Solitary pulmonary nodule Status: Acute Assessment and Plan: Patient had a CT angiogram of the chest with no PE, able apical predominant centrilobular emphysema, small left pleural effusion, trace right pleural effusion moderate peripheral basal reticulations with no change from 09/10/2023. patient had a 10 x 11 mm pleural based medial left upper lobe nodule that had increased in size from 5 mm on 11/09/2023 and [address] scan cervical spine on 09/09/2024. Plan: patient does wish to identify etiology of this nodule. Will review CT scans with Interventional Radiology to determine if this is a nodule that can be biopsied at [facility]. The lesion is too small and peripheral for bronchoscopy. (4) ISIAH (obstructive sleep apnea): Code(s): G47.33 - Obstructive sleep apnea (adult) (pediatric) Status: Acute Assessment and Plan: Untreated. He has mild sleep apnea evidenced by AHI 6.6 on a sleep study 05/29/21. BiPAP 13/9cm was recommended. Patient states he attempted BiPAP, tried all different types of masks and was unable to tolerate BiPAP. 11/18/24: I will continue 3 L nasal cannula at night. Once he is closer to his baseline will perform overnight oximetry on these settings. History of Present Illness History of Present Illness Consult date: 11/18/24 Chief complaint: COPD exacerbation BIPAP Narrative: 11/18/2024: This is a new pulmonary consult for COPD and lung nodule. 69-year-old with a history of GOLD grade 3 group E COPD on home oxygen 3 L with activity and 3 L with sleep, status post VATS right upper lobectomy in 2008 for possible cancer but the patient tells me they found no cancer, GERD, coronary artery disease status post CABG, untreated mild obstructive sleep apnea as he and intolerant to CPAP or BiPAP, hyperlipidemia, hypertension, prostate cancer, renal cell carcinoma, pheochromocytoma and splenectomy in 2008. Patient is followed in the Pulmonary Clinic in last seen on 11/05/2024: This is the note: 6 month follow up regarding COPD on oxygen. Hx: COPD, GERD, gout, CAD, untreated mild sleep apnea (intolerant to BiPAP), hyperlipidemia, hypertension, prostate cancer, hx of MA and CABG and tobacco use disorder. He had a VATS in 2008 with a right upper lobectomy. He said no cancer was found. He had renal cancer, pheochromocytoma and had this removed along with a splenectomy in 2008. He reports progressive MUÑOZ since last visit along with wheezing. Denies any excessive coughing or mucous production. Denies chest pains/tightness but reports heart palpitations. Reports nighttime dyspnea walking from the bathroom. He is compliant using Breztri twice daily. Albuterol use has been 4x/day for the past 4 months. He has a portable oxygen concentrator he purchased this out of pocket, 3L O2 with exertion. Has been using 4L at times and at home, been using it 24/. Current smoker 1ppd, smoked 0.5-1ppd for 54 years. He tried NRT patches which did not help he states. He is interested in medication to help him quit. He would like to see his ladies suit operator again Dr. Ram. Reports it's been >1year. weight 180 lb. Lungs were clear to auscultation. Plan: He tried Daliresp but could not tolerate GI side effects. All to for a was too costly. Continue breasts tree albuterol p.r.n.. Chest x-ray, EKG, Cardiology referral. Recommended regular exercise and deep breathing. Quit smoking. Bupropion was prescribed. Follow-up 2-3 months. requires no oxygen at rest, 3 L with activity, continue 3 at night. low-dose CT scan ordered. Smoking cessation counseling provided. 11/12/2024: Suspect right middle lobe atelectasis or early airspace disease. Emphysema, chronic scarring and retraction of the diaphragm right lung base, Patient tells me he took the bupropion after he left the clinic and quit smoking in 4 days. patient smoked tobacco from age 14-1 week ago at 1 pack per day for total of 55 pack years. He was exposed to secondhand smoke from his mother but none since. Patient did cocaine last use was in 2014. 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 Baseline dyspnea on exertion now is room to room. Patient tells me he was at his baseline On 11/16/2024. The patient tells me he wears no oxygen at rest but does not have a pulse oximeter to measure his saturations. He is prescribed 3 L with activity but he rarely uses this with activity and has room to room dyspnea on exertion. When he walks to the the couch to the bathroom with 3 L oxygen on he is able to make this journey and he says he does better than without. Without oxygen he is extremely short of breath after he gets back to the couch. This worsening dyspnea on exertion has progressed over the last few months. On 11/16/2024 he had no increased cough, phlegm or hemoptysis. He ate dinner and went to bed and was feeling his usual self. On 11/17/2024 he woke up at 4:00 a.m. to urinate. He took his oxygen off and he walked back to the couch and he had worsening dyspnea on exertion and shortness of breath without recovery. He had wheezing and he told his family to call EMS. He denied cough, phlegm production or hemoptysis. He denied chest pain. On arrival to the emergency department the patient was in severe respiratory distress in a tripod position. Blood pressure 129/83, heart rate 81, respirations 20 patient was immediately placed on BiPAP 14/7 and 35% FiO2 with saturations 100. Patient had audible inspiratory and expiratory wheezes without a stethoscope. White blood cell count was 7.0 with eosinophils 2.4%= 168 per micro L, creatinine 1.37, serum bicarbonate 28, BNP 5280, COVID influenza and RSV RT PCR assay negative. Patient had a CT angiogram of the chest with no PE, able apical predominant centrilobular emphysema, small left pleural effusion, trace right pleural effusion moderate peripheral basal reticulations with no change from 09/10/2023. patient had a 10 x 11 mm pleural based medial left upper lobe nodule that had increased in size from 5 mm on 11/09/2023 and [address] scan cervical spine on 09/09/2024. About 5 hours later patient had an ABG on 35% FiO2 with pH of 7.40/39/111. Patient was treated with Solu-Medrol, bronchodilators and Lasix 20 IV. 11/18/2024: Currently the patient tells me he is good but not back to his normal. He still has slight shortness of breath at rest. He denies fever, chills, rigors, phlegm, hemoptysis or chest pain. of note patient tells me he has worsening lower extremity edema over the last 4 months. He has no wheezing. He was on 3 L nasal cannula saturations 95-100%. I decreased him to room air and his saturations remain 92%. His white blood cell count was 6.2, his creatinine was 1.23. His CRP was 1.9, his procalcitonin was 0.1, his BNP was 6230. Chest x-ray today shows worsening diffuse left lung infiltrate with no change on the right. DATA: 11/17/2024: EXAMINATION: CTA chest PE protocol, 11/17/2024 14:20 CDT HISTORY: pe? COMPARISON: Comparison 04/30/2022 TECHNIQUE: CTA examination is obtained with contrast CTA examination technique is performed with arterial phase of contrast-enhancement. 3-D reconstruction with thin MIP axial and MPR coronal imaging is provided Isovue 300, 92cc injected IV. One or more of the following dose reduction techniques were used: automated exposure control, adjustment of the mA and/or kV according to patient size, use of iterative reconstruction technique. FINDINGS: No significant coronary calcification is present ([id number]) LUNGS: Small simple appearing left pleural effusion. Trace right pleural effusion. The contrast bolus is adequate, there is no pulmonary embolism identified. Postsurgical changes noted in the right lung. No tracheomalacia. No bronchiectasis. Moderate emphysematous changes. Areas of bullous formation of the right upper lobe. Moderate pulmonary fibrotic changes. No honeycombing is identified. Within the left upper lobe there is a nodule medially measuring 10 x 11 mm. HEART AND PERICARDIUM: Mild cardiomegaly. No pericardial effusion. AORTA: Normal caliber aorta.. PULMONARY ARTERIES: No pulmonary embolism ADENOPATHY/MEDIASTINUM: There are enlarged lymph nodes in the mediastinum the largest periaortic lymph node measuring 2.3 x 2.2 cm. LIMITED VIEWS OF THE ABDOMEN: Simple appearing left renal cyst 2 x 2 cm. OSSEOUS STRUCTURES: No sclerotic or lytic lesions. No acute rib fractures. Poststernotomy changes are noted. OVERLYING SOFT TISSUES: Unremarkable. THYROID: The thyroid is unremarkable. IMPRESSION: 1. Negative for pulmonary embolism. Chronic changes detailed above with superimposed probable CHF. There is a nodule within the left upper lobe which is new compared to the previous study. PET CT is recommended 09/09/2024: Noncontrast CT scan of the cervical spine Technique: Multiple contiguous axial [address] images of the cervical spine were obtained and reconstructed in 2D sagittal and coronal planes on the acquisition scanner. Dose reduction technique was used on this scan by utilizing automated exposure control, adjustment of the mA and/or kV according to patient size. The dose-length product (DLP) was 492.27 mGy-cm. Clinical History: Pain Findings: No fractures or dislocations. At C2-C3, there is prominent right facet arthropathy. There is minimal right neural foraminal narrowing. Left neural foramen preserved. No canal stenosis or cord compression evident. At C3-C4, there is right facet arthropathy. No definite neural foraminal narrowing canal stenosis, or cord compression. At C4-C5, there is mild left neural foraminal narrowing with mild left facet arthropathy. No definite canal stenosis, cord compression, or right neural foraminal narrowing. At C5-C6, there is advanced degenerative disc narrowing with mild disc ossify complex. Probable mild bilateral neural foraminal narrowing. No definite canal stenosis or cord compression. At C6-C7, there is advanced degenerative distended. No definite canal stenosis, cord compression, or neural foraminal narrowing. No prevertebral soft tissue swelling. 7 mm nodule noted medially in the left lung apex. Impression: No fracture or subluxation of the cervical spine. Degenerative spondylosis, as above. 7 mm medial left apical pulmonary nodule, indeterminate. According to Fleischner Society criteria, for a low-risk patient, recommend follow-up CT scan in 6-12 months, then consider additional 18-[address] For a high-risk patient, follow-up CT scans at both 6-12 months and 18-24 months are recommended. 11/09/2023: CT Scan of the Chest without Contrast: Clinical Indication: Lung cancer screening, nicotine dependence Technique: Contiguous sections were acquired throughout the chest without intravenous contrast. Dose reduction technique was used on this scan by utilizing automated exposure control and iterative reconstruction technique. The dose-length product (DLP) was 102.78 mGy-cm. COMPARISON: 04/30/2022 Findings: There is no evidence of any significant mediastinal, hilar or axillary lymphadenopathy. There are atherosclerotic calcifications of the aorta and coronary arteries. Stable descending thoracic aortic aneurysm. There is no evidence of pleural or pericardial effusion. Status post partial right upper lobectomy. Probable mild emphysema. 5 mm nodule noted in the medial left lung apex ((axial image 26).. Images through the upper abdomen reveal no abnormalities. Impression: Lung RADS 2: Benign appearance. 12 month follow-up screening CT advised. 05/28/2021: This is a pulmonary function test with pre and post-bronchodilator spirometry, plethysmography and diffusing capacity. The test was performed and results interpreted in accordance with the 2019 and 2005 ATS/ERS Task Force guidelines respectively using the Global Lung Function Initiative-2012 reference equations. Patient demonstrated good effort and cooperation. Reproducibility criteria were met. The quality of the pre bronchodilator spirometry maneuver was Grade A and post bronchodilator spirometry maneuver was Grade A. Findings: Spirometry: There is decreased maximal expiratory airflow at all lung volumes with a concaved expiratory flow tracing. The contour the inspiratory flow tracing is normal. The pre bronchodilator FVC is 3.12 L, 84% predicted. The pre bronchodilator FEV1 is 1.24 L, 44% predicted. The pre bronchodilator FEV1: FVC ratio was 40%. The post bronchodilator FVC is 3.15 L, representing 1% increase. The post bronchodilator FEV1 is 1.20 L, representing a 3% decrease. Plethysmography: The total lung capacity is 6.76 L, 109% predicted. The functional residual capacity is 5.16 L, 149% predicted. The residual volume is 3.60 L, 162% predicted. Diffusing capacity: The diffusing capacity on adjusted for hemoglobin and carboxyhemoglobin is 10.3, 38% predicted. The diffusing capacity adjusted for alveolar volume is 2.07, 51% predicted. Impression: There is a severe obstructive abnormality without significant improvement after inhaling a single dose of albuterol. The increase in residual volume is consistent with air trapping from an obstructive abnormality. Hyperinflation is present is demonstrated by the increase in functional residual capacity and is consistent with an obstructive abnormality. The diffusing capacity unadjusted for hemoglobin and carboxyhemoglobin is severely decreased and remains moderately decreased when adjusted for alveolar volume. There are no prior studies for comparison 03/29/2022: echocardiogram 03/26/2022 report: with LVEF 40-45%, mild to moderate global LV systolic dysfunction, grade 1 diastolic dysfunction, normal right ventricular size. Mild right ventricular hypokinesis, mild enlargement left atrium, mild enlargement right atrium mild to moderate mitral regurg, trace to mild AR, mild tricuspid regurgitation with RVSP 49. Home O2 Eval 05/17/24 - requires 3L O2 with activity, none at rest. LDCT 11/09/23 - Status post partial right upper lobectomy. Probable mild emphysema. 5 mm nodule noted in the medial left lung apex. Overnight oximetry on 3L 02/03/23 - 0 time spent below 90% O2 on 3L. Home O2 Eval 02/09/23 - no O2 needed at rest or with activity. 05/29/21 - Split PSG - Overall AHI is 6.6. BiPAP 13/9cm was recommended. The patient should have a nocturnal oximetry done 2-4 weeks after starting PAP to ensure the hypoxemia has resolved. 05/28/21 PFT - There is a severe obstructive abnormality without significant improvement after inhaling a dose of albuterol. The increase in residual volume is consistent with air trapping from an obstructive abnormality. Hyperinflation is present is demonstrated by the increase in functional residual capacity and is consistent with an obstructive abnormality. The diffusing capacity unadjusted for hemoglobin and carboxyhemoglobin is severely decreased and remains moderately decreased when adjusted for alveolar volume. 05/28/21 - Home O2 eval - Patient required 3L/min O2 with ambulation and none at rest. 04/18/2019 CTA at [place]- clear lungs. Tracheal and right mainstem bronchial debris. Partial right pneumonectomy. Moderate emphysema. Dilated main, central pulmonary arteries consistent with pulmonary arterial hypertension no lymphadenopathy. Sternotomy wires. Lexisc and 07/2018; fixed infarct without ischemia. EF 39%. Review of Systems Constitutional: Constitutional: Reports no additional constitutional complaints Eyes: Eyes: Reports no additional eye complaints ENT: Reports system reviewed and no additional complaints, except as documented Cardiovascular: Cardiovascular: Reports no additional cardiovascular complaints Respiratory: Respiratory: Reports no additional respiratory complaints Gastrointestinal: Gastrointestinal: Reports no additional gastrointestinal complaints Musculoskeletal: Musculoskeletal: Reports no additional musculoskeletal complaints Neurologic: Reports system reviewed and no additional complaints, except as documented Psychiatric: Psychiatric: Reports no additional psychiatric complaints Endocrine: Endocrine: Reports no additional endocrine complaints Hematologic/Lymphatic: Hematologic/Lymphatic: Reports no additional hematologic/lymphatic complaints Allergic/Immunologic: Allergic/Immunologic: Reports no additional allergic/immunologic complaints [facility] Past Medical History Medical History BMI 23.0-23.9, adult Chronic obstructive pulmonary disease Hyperlipidemia Cardiomyopathy GERD (gastroesophageal reflux disease) Upper abdominal pain Hypertension Colon cancer screening Prostate cancer Heart attack Gout Gallstones Surgical History Surgical History S/P triple vessel bypass History of gastric surgery History of lobectomy of lung Family History Family History Mother Hypertension Father Sibling No problems noted. Social History Social History Smoking packs per day: 0.5 Smoking cigarettes per day: 10.0 Years smoked: 55 Smoking pack-years: 27.50 Smoking status: Former smoker Tobacco type: cigarettes Second hand tobacco smoke exposure: Yes Smoking end date: 11/10/24 Alcohol intake: former Drinks per week: 14 Alcohol use details: BEERS Substance use: never Substance use type: does not use Other substance usage details: last drink 11/10/2024 Last use: 2014 Do You Feel Safe in your Home?: Yes Lack of Transportation: No Lack of Food: Never True Current Housing: I Have Housing Concerned About Future Housing: No Difficulty Paying Gas/Electric Bills: No Difficulty Paying for Meds: No Currently Unemployed: No Education: Trade/Vocational Certificate Difficulty w/ Childcare or Family Care: No Living arrangements: with family Additional living arrangements comments: Occupation/Education: retired 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 [employer] Gender identity (if verbalized by the patient): Male Spiritual care concerns: No Meds Home Medications and Allergies Home Medications ?Medication ?Instructions ?Recorded ?Confirmed ?Type aspirin 81 mg tablet,delayed 81 mg PO DAILY 01/16/19 11/17/24 History release (Adult Low Dose Aspirin) hydrocodone 5 mg-acetaminophen 500 1 tablet PO Q4-6H PRN Pain 01/16/19 11/17/24 History mg tablet cholecalciferol (vitamin D3) 50 50 mcg PO DAILY 02/25/20 11/17/24 History mcg (2,000 unit) capsule sildenafil 100 mg tablet 100 mg PO DAILY PRN sexual 03/02/21 11/17/24 Rx activity #8 tabs quetiapine 50 mg tablet 50 mg PO QHS 05/07/21 11/17/24 History sacubitril 24 mg-valsartan 26 mg 1 tablet PO BID 01/26/23 11/17/24 History tablet (Entresto) triamcinolone acetonide 0.1 % 1 applic topical TID #80 grams 08/12/23 11/17/24 Rx topical cream allopurinol 100 mg tablet See Rx Instructions .Route 03/05/24 11/17/24 Rx .COMPLEX #90 tabs amlodipine 10 mg tablet See Rx Instructions .Route 03/05/24 11/17/24 Rx .COMPLEX #90 tabs omeprazole 20 mg capsule,delayed See Rx Instructions .Route 03/05/24 11/17/24 Rx release .COMPLEX #90 caps rosuvastatin 40 mg tablet See Rx Instructions .Route 03/05/24 11/17/24 Rx .COMPLEX #90 tabs tamsulosin 0.4 mg capsule See Rx Instructions .Route 05/17/24 11/17/24 Rx .COMPLEX #90 caps cyclobenzaprine 10 mg tablet 10 mg PO TID PRN muscle spasm #45 09/14/24 11/17/24 Rx tabs budesonide 160 mcg-glycopyr 9 See Rx Instructions .Route 10/15/24 11/17/24 Rx mcg-formot 4.8 mcg/actuation HFA .COMPLEX #3 ea inhaler (Breztri Aerosphere) carvedilol 25 mg tablet 25 mg PO Q12H #180 tabs 10/30/24 11/17/24 Rx albuterol sulfate 90 mcg/actuation 2 puff inhalation Q4-6H PRN 11/05/24 11/17/24 Rx aerosol inhaler (ProAir HFA) shortness of breath or wheezing #8.5 grams bupropion HCl (smoking deter) 150 150 mg PO DIRECTED #60 tabs 11/05/24 11/17/24 Rx mg tablet,12 hr sustained-release(smoking deterrent) Allergies Allergy/AdvReac Type Severity Reaction Status Date / Time No Known Allergies Allergy Verified 09/14/24 08:22 Vital Signs Vital Signs - 24 hr 11/17/24 08:13 11/17/24 08:15 11/17/24 08:16 Temperature Pulse Rate 79 Respiratory Rate 20 Blood Pressure 119/80 Pulse Oximetry 100 100 100 Oxygen Delivery Oxygen Flow Rate 11/17/24 08:30 11/17/24 08:31 11/17/24 09:20 Temperature Pulse Rate 88 Respiratory Rate 20 23 H Blood Pressure 123/87 Pulse Oximetry 100 100 100 Oxygen Delivery BiPAP Oxygen Flow Rate 11/17/24 09:23 11/17/24 09:55 11/17/24 10:01 Temperature Pulse Rate 79 Respiratory Rate 22 H Blood Pressure 117/78 Pulse Oximetry 100 100 100 Oxygen Delivery Oxygen Flow Rate 11/17/24 10:02 11/17/24 10:16 11/17/24 10:17 Temperature Pulse Rate 72 Respiratory Rate 20 Blood Pressure 121/70 Pulse Oximetry 100 100 Oxygen Delivery Oxygen Flow Rate 11/17/24 11:41 11/17/24 13:44 11/17/24 14:45 Temperature Pulse Rate 75 81 Respiratory Rate 20 20 25 H Blood Pressure 130/72 129/83 Pulse Oximetry 100 100 100 Oxygen Delivery BiPAP Oxygen Flow Rate 11/17/24 14:53 11/17/24 15:49 11/17/24 16:00 Temperature 36.4 C Pulse Rate 81 83 Respiratory Rate 20 Blood Pressure 113/89 Pulse Oximetry 90 99 Oxygen Delivery Nasal Cannula Oxygen Flow Rate 3 11/17/24 16:00 11/17/24 18:00 11/17/24 19:55 Temperature 36.7 C Pulse Rate 84 81 Respiratory Rate 16 Blood Pressure 118/70 Pulse Oximetry 99 100 Oxygen Delivery Nasal Cannula Oxygen Flow Rate 3 11/17/24 20:00 11/17/24 20:01 11/17/24 20:09 Temperature Pulse Rate 79 83 83 Respiratory Rate 18 18 Blood Pressure Pulse Oximetry Oxygen Delivery Oxygen Flow Rate 11/17/24 21:24 11/17/24 21:47 11/17/24 22:00 Temperature Pulse Rate 81 76 Respiratory Rate Blood Pressure Pulse Oximetry 95 Oxygen Delivery Nasal Cannula Oxygen Flow Rate 3 11/17/24 23:40 11/18/24 00:00 11/18/24 00:00 Temperature 36.4 C Pulse Rate 75 73 Respiratory Rate 19 Blood Pressure 106/60 Pulse Oximetry 100 100 Oxygen Delivery Nasal Cannula Oxygen Flow Rate 3 11/18/24 02:00 11/18/24 02:11 11/18/24 02:17 Temperature Pulse Rate 70 71 71 Respiratory Rate 18 18 Blood Pressure Pulse Oximetry Oxygen Delivery Oxygen Flow Rate 11/18/24 03:32 11/18/24 04:00 11/18/24 04:00 Temperature 36.4 C Pulse Rate 70 71 Respiratory Rate 16 Blood Pressure 117/70 Pulse Oximetry 100 100 Oxygen Delivery Nasal Cannula Oxygen Flow Rate 3 11/18/24 06:00 Temperature Pulse Rate 69 Respiratory Rate Blood Pressure Pulse Oximetry Oxygen Delivery Oxygen Flow Rate Exam Const: General: cooperative, healthy appearing and comfortable Orientation/consciousness: oriented to person, oriented to place and oriented to time HENMT: Head: normal to inspection Ears: hearing grossly normal bilaterally Eyes: General: appearance normal, both eyes and all related structures Neck: Neck: normal visual inspection Chest: Chest palpation & inspection: normal inspection of the chest Resp: Effort & Inspection: normal respiratory effort and able to speak in complete sentences Auscultation: no crackles, no rales, no rhonchi, no wheezes and diminished lung sounds Other: No wheezes, decreased breath sounds throughout Cardio: Jugular venous distension: no JVD GI: Inspection: normal to inspection GI Palp: No abdominal tenderness Skin: General skin exam: normal color Neuro: General: oriented to person, oriented to place and oriented to time Extrem: General: normal to inspection Other: positive edema Psych: Appearance: grossly normal Results Laboratory Findings 11/18/24 04:07 11/18/24 04:07 ABG, PT/INR, D-dimer: ABG ABG pH 7.395 (7.350-7.450) 11/17/24 13:35 ABG pCO2 38.9 mmHg (35.0-45.0) 11/17/24 13:35 ABG pO2 111.1 mmHg (80.0-100.0) H 11/17/24 13:35 ABG O2 Saturation 98.1 % (95.0-100.0) 11/17/24 13:35 Abnormal lab findings: Abnormal Labs 11/17/24 11/17/24 11/18/24 06:29 13:35 04:07 RBC 4.59 L 4.09 L Hgb 12.7 L Hct 41.2 L 35.9 L RDW 15.6 H 15.3 H MPV 10.5 H 10.8 H Neut % (Auto) 83.6 H Lymph % (Auto) 13.0 L [place] % (Auto) 18.2 H Baso % (Auto) 1.4 H Lymph # (Auto) 0.81 L [place] # (Auto) 1.3 H ABG pO2 111.1 H Sodium 134 L 130 L BUN 23 H 27 H Creatinine 1.37 H Estimated GFR 51 L 58 L Glucose 180 H Calcium 8.2 L Magnesium 1.5 L NT-Pro-B Natriuret Pep 5280 H Albumin 3.4 L Diagnostic Findings Additional studies: ITS Impressions Chest X-Ray 11/17/24 09:23 IMPRESSION: 1. No acute cardiopulmonary findings given portable technique. Chest CTA 11/17/24 14:39 IMPRESSION: 1. Negative for pulmonary embolism. Chronic changes detailed above with superimposed probable CHF. There is a nodule within the left upper lobe which is new compared to the previous study. PET CT is recommended Chest X-Ray 11/18/24 10:25 IMPRESSION: 1. Developing left lung unilateral interstitial pulmonary edema and/or pneumonitis, with pleural effusion.
[2024-11-18] MEDS: FLUTICASONE/UMECLIDIN/VILANTER 100-62.5-25 MCG ELLIPTA 1 PUFF INHALATION (08:20)
[2024-11-18 08:47] LABS: CRP 1.9 mg/dL (<1.0)
[2024-11-18 08:51] LABS: NT Pro B Type Natriuretic Pept 6230 pg/mL (19.9-100)
[2024-11-18 09:09] LABS: Procalcitonin 0.1 ng/mL
[2024-11-18] MEDS: ENOXAPARIN 40 MG/0.4 ML SYRINGE SUB-Q (09:19)
[2024-11-18] MEDS: ASPIRIN 81 MG ENTERIC TABLET PO (09:19)
[2024-11-18] MEDS: FUROSEMIDE INJ 40 MG/4 ML VIAL 20 MG IV PUSH (09:19)
[2024-11-18] MEDS: ROSUVASTATIN 20 MG TABLET 40 MG BY MOUTH (09:20)
[2024-11-18] MEDS: PANTOPRAZOLE 40 MG TABLET PO (09:20)
[2024-11-18] MEDS: buPROPion HCL SR (12 HR) 150 MG TAB PO ×2 (09:20→21:06)
[2024-11-18] MEDS: SACUBITRIL/VALSARTAN 24-26 MG TABLET 1 TAB PO ×2 (09:20→21:06)
--- NOTE | 2024-11-18 11:32 | PM.CNCAR ---
Assessment and Plan Assessment and plan (1) CHF (congestive heart failure): Code(s): I50.9 - Heart failure, unspecified Status: Acute Plan Acute on chronic systolic heart failure COPD exacerbation Hypertensive emergency Acute on chronic hypoxemic respiratory failure secondary to CHF versus COPD CKD stage 3 Plan Lasix 40 mg IV b.i.d. Entresto Coreg Spironolactone History of Present Illness History of Present Illness Consult date/time: 11/18/24 11:32 Reason For Visit: COPD exacerbation BIPAP Narrative: 69-year-old male patient presents to the hospital was shortness of breath. Patient complaining that has been having worsening shortness of breath for last 4 months and since yesterday shortness of breath has been severe present at rest worse with mild activity. He also noted bilateral lower extremity swelling. He has history of COPD on home oxygen 3 L. patient was admitted to the hospital possible COPD exacerbation versus CHF started on BiPAP. Also patient was noted to have elevated blood pressure on presentation. Made he has history of CKD 3 Review of Systems Review of Systems: All systems reviewed & are unremarkable except as noted in HPI and below PMFSH Past Medical History Medical History BMI 23.0-23.9, adult Chronic obstructive pulmonary disease Hyperlipidemia Cardiomyopathy GERD (gastroesophageal reflux disease) Upper abdominal pain Hypertension Colon cancer screening Prostate cancer Heart attack Gout Gallstones Surgical History Surgical History S/P triple vessel bypass History of gastric surgery History of lobectomy of lung Family History Family History Mother Hypertension Father Sibling No problems noted. Social History Social History Smoking packs per day: 0.5 Smoking cigarettes per day: 10.0 Years smoked: 55 Smoking pack-years: 27.50 Smoking status: Former smoker Tobacco type: cigarettes Second hand tobacco smoke exposure: Yes Smoking end date: 11/10/24 Alcohol intake: former Drinks per week: 14 Alcohol use details: BEERS Substance use: never Substance use type: does not use Other substance usage details: last drink 11/10/2024 Last use: 2014 Do You Feel Safe in your Home?: Yes Lack of Transportation: No Lack of Food: Never True Current Housing: I Have Housing Concerned About Future Housing: No Difficulty Paying Gas/Electric Bills: No Difficulty Paying for Meds: No Currently Unemployed: No Education: Trade/Vocational Certificate Difficulty w/ Childcare or Family Care: No Living arrangements: with family Additional living arrangements comments: Occupation/Education: retired 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[employer] Gender identity (if verbalized by the patient): Male Spiritual care concerns: No Meds Home Medications and Allergies Home Medications ?Medication ?Instructions ?Recorded ?Confirmed ?Type aspirin 81 mg tablet,delayed 81 mg PO DAILY 01/16/19 11/17/24 History release (Adult Low Dose Aspirin) hydrocodone 5 mg-acetaminophen 500 1 tablet PO Q4-6H PRN Pain 01/16/19 11/17/24 History mg tablet cholecalciferol (vitamin D3) 50 50 mcg PO DAILY 02/25/20 11/17/24 History mcg (2,000 unit) capsule sildenafil 100 mg tablet 100 mg PO DAILY PRN sexual 03/02/21 11/17/24 Rx activity #8 tabs quetiapine 50 mg tablet 50 mg PO QHS 05/07/21 11/17/24 History sacubitril 24 mg-valsartan 26 mg 1 tablet PO BID 01/26/23 11/17/24 History tablet (Entresto) triamcinolone acetonide 0.1 % 1 applic topical TID #80 grams 08/12/23 11/17/24 Rx topical cream allopurinol 100 mg tablet See Rx Instructions .Route 03/05/24 11/17/24 Rx .COMPLEX #90 tabs amlodipine 10 mg tablet See Rx Instructions .Route 03/05/24 11/17/24 Rx .COMPLEX #90 tabs omeprazole 20 mg capsule,delayed See Rx Instructions .Route 03/05/24 11/17/24 Rx release .COMPLEX #90 caps rosuvastatin 40 mg tablet See Rx Instructions .Route 03/05/24 11/17/24 Rx .COMPLEX #90 tabs tamsulosin 0.4 mg capsule See Rx Instructions .Route 05/17/24 11/17/24 Rx .COMPLEX #90 caps cyclobenzaprine 10 mg tablet 10 mg PO TID PRN muscle spasm #45 09/14/24 11/17/24 Rx tabs budesonide 160 mcg-glycopyr 9 See Rx Instructions .Route 10/15/24 11/17/24 Rx mcg-formot 4.8 mcg/actuation HFA .COMPLEX #3 ea inhaler (Breztri Aerosphere) carvedilol 25 mg tablet 25 mg PO Q12H #180 tabs 10/30/24 11/17/24 Rx albuterol sulfate 90 mcg/actuation 2 puff inhalation Q4-6H PRN 11/05/24 11/17/24 Rx aerosol inhaler (ProAir HFA) shortness of breath or wheezing #8.5 grams bupropion HCl (smoking deter) 150 150 mg PO DIRECTED #60 tabs 11/05/24 11/17/24 Rx mg tablet,12 hr sustained-release(smoking deterrent) Allergies Allergy/AdvReac Type Severity Reaction Status Date / Time No Known Allergies Allergy Verified 09/14/24 08:22 Vital Signs Vital Signs - 24 hr 11/17/24 11:41 11/17/24 13:44 11/17/24 14:45 Temperature Pulse Rate 75 81 Respiratory Rate 20 20 25 H Blood Pressure 130/72 129/83 Pulse Oximetry 100 100 100 Oxygen Delivery BiPAP Oxygen Flow Rate 11/17/24 14:53 11/17/24 15:49 11/17/24 16:00 Temperature 36.4 C Pulse Rate 81 83 Respiratory Rate 20 Blood Pressure 113/89 Pulse Oximetry 90 99 Oxygen Delivery Nasal Cannula Oxygen Flow Rate 3 11/17/24 16:00 11/17/24 18:00 11/17/24 19:55 Temperature 36.7 C Pulse Rate 84 81 Respiratory Rate 16 Blood Pressure 118/70 Pulse Oximetry 99 100 Oxygen Delivery Nasal Cannula Oxygen Flow Rate 3 11/17/24 20:00 11/17/24 20:01 11/17/24 20:09 Temperature Pulse Rate 79 83 83 Respiratory Rate 18 18 Blood Pressure Pulse Oximetry Oxygen Delivery Oxygen Flow Rate 11/17/24 21:24 11/17/24 21:47 11/17/24 22:00 Temperature Pulse Rate 81 76 Respiratory Rate Blood Pressure Pulse Oximetry 95 Oxygen Delivery Nasal Cannula Oxygen Flow Rate 3 11/17/24 23:40 11/18/24 00:00 11/18/24 00:00 Temperature 36.4 C Pulse Rate 75 73 Respiratory Rate 19 Blood Pressure 106/60 Pulse Oximetry 100 100 Oxygen Delivery Nasal Cannula Oxygen Flow Rate 3 11/18/24 02:00 11/18/24 02:11 11/18/24 02:17 Temperature Pulse Rate 70 71 71 Respiratory Rate 18 18 Blood Pressure Pulse Oximetry Oxygen Delivery Oxygen Flow Rate 11/18/24 03:32 11/18/24 04:00 11/18/24 04:00 Temperature 36.4 C Pulse Rate 70 71 Respiratory Rate 16 Blood Pressure 117/70 Pulse Oximetry 100 100 Oxygen Delivery Nasal Cannula Oxygen Flow Rate 3 11/18/24 06:00 11/18/24 08:00 11/18/24 08:00 Temperature 36.6 C Pulse Rate 69 80 82 Respiratory Rate 22 H Blood Pressure 113/61 Pulse Oximetry 99 Oxygen Delivery Oxygen Flow Rate 11/18/24 08:00 11/18/24 08:21 11/18/24 08:21 Temperature Pulse Rate 76 Respiratory Rate 18 Blood Pressure Pulse Oximetry 97 97 Oxygen Delivery Nasal Cannula Nasal Cannula Oxygen Flow Rate 2 3 11/18/24 08:31 11/18/24 10:00 Temperature Pulse Rate 75 84 Respiratory Rate 18 Blood Pressure Pulse Oximetry Oxygen Delivery Oxygen Flow Rate Exam Const: General: comfortable and no acute distress Other: Able to lie flat HENMT: Face/Nose/Sinus: Normal nares present and no epistaxis Mouth: Yes moist mucous membranes Eyes: Sclera: sclerae normal Pupils: Equal, round and reactive pupils present Neck: Neck: supple and no JVD Carotids: no bruits Resp: Auscultation: clear to auscultation bilaterally and lung sounds not diminished Other: No chest wall tenderness Cardio: Rate: regular rate Rhythm: regular rhythm Heart sounds: no gallops, no murmurs and no rubs GI: GI Palp: Yes Soft to palpation and No Tenderness to palpation present (GI) Auscultation: normal bowel sounds Skin: General skin exam: normal color, rashes and/or lesions noted and no erythema Other: Warm Neuro: Cranial nerves: Yes Equal, round and reactive pupils present Speech: normal speech Other: No obvious focal deficit or facial asymmetry Extrem: General: no edema Other: Normal capillary refills Intact distal pulses. Results Labs and Meds 11/18/24 04:07 11/18/24 04:07 Lab results: CBC 11/18/24 Range/Units 04:07 WBC 6.2 (4.5-10.0) K/mm3 RBC 4.09 L (4.6-6.20) M/mm3 Hgb 12.7 L (14.0-18.0) g/dL Hct 35.9 L (42.0-52.0) % Plt Count 276 (150-375) k/mm3 Lymph # (Auto) 0.81 L (0.9-3.2) K/mm3 [place] # (Auto) 0.2 (0.1-0.6) K/mm3 Eos # (Auto) 0.0 (0-0.3) K/mm3 Baso # (Auto) 0.0 (0.0-0.1) K/mm3 Comprehensive Metabolic Panel 11/18/24 Range/Units 04:07 Sodium 130 L (137-145) mmol/L Potassium 4.0 (3.4-5.0) mmol/L Chloride 101 (98-107) mmol/L Carbon Dioxide 25 (22-30) mmol/L BUN 27 H (9-20) mg/dL Creatinine 1.23 (0.7-1.3) mg/dL Glucose 180 H (65-110) mg/dL Calcium 8.2 L (8.4-10.2) mg/dL Intake and Output 11/17/24 11/18/24 11/18/24 23:59 07:59 15:59 Intake Total 340 930 240 Output Total 625 0 Balance -285 930 240 Intake: Oral 340 930 240 Output: Urine 625 0 Other: Number of Bowel Movements Today 1 Patient Weight 11/18/24 23:59 Weight 83.5 kg
[2024-11-18] MEDS: SPIRONOLACTONE 25 MG TABLET PO (12:20)
--- NOTE | 2024-11-18 14:08 | PCOTNOTE ---
Attempted OT evaluation. Patient declined, due to wanting to rest.
[2024-11-18] MEDS: FUROSEMIDE INJ 40 MG/4 ML VIAL IV PUSH (16:08)
--- NOTE | 2024-11-18 18:29 | P.PNIM_ITS ---
Progress Note: A&P Assessment and Plan (1) Hypertension: Qualifiers: Hypertension type: essential hypertension Qualified Code(s): I10 - Essential (primary) hypertension Code(s): I10 - Essential (primary) hypertension Status: Acute (2) CHF (congestive heart failure): Code(s): I50.9 - Heart failure, unspecified Status: Acute (3) Chronic obstructive pulmonary disease: Qualifiers: COPD type: unspecified COPD Qualified Code(s): J44.9 - Chronic obstructive pulmonary disease, unspecified Code(s): J44.9 - Chronic obstructive pulmonary disease, unspecified Status: Acute (4) Shortness of Breath: Code(s): R06.02 - Shortness of breath Status: Acute Plan At this time he is at his baseline 3 L. Cardiology recommendations noted. Continue Lasix 40 mg IV b.i.d., spironolactone, Entresto, Coreg. Monitor intake/output, the weights. Pulmonology recommendations noted. Approach to investigation of lung nodule currently being assessed. Full code. Lovenox 40 mg subQ q.day. Subjective Date/time seen: 11/18/24 18:29 Interval history: Patient resting comfortably, sitting upright in bed. He has no complaints. He is ready to work with therapy. Denies cough or shortness of breath or chest pain. Review of Systems Review of Systems: All systems reviewed & are unremarkable except as noted in HPI and below (Subjective) Exam Const: General: comfortable HENMT: Mouth: Yes moist mucous membranes Eyes: Pupils: Equal, round and reactive pupils present Neck: Neck: supple Resp: Effort & Inspection: normal respiratory effort Other: Bibasilar crackles left greater than right Cardio: Rate: regular rate Rhythm: regular rhythm GI: GI Palp: Yes Soft to palpation Neuro: Motor exam (neuro): 5/5 motor strength present throughout Extrem: Other: 1+ pitting edema bilateral lower extremi ties below the knees Objective Data Vital Signs Vital Signs: Vital Signs - 24 hr 11/17/24 19:55 11/17/24 20:00 11/17/24 20:01 Temperature 98.0 F Pulse Rate 81 79 83 Respiratory Rate 16 18 Blood Pressure 118/70 Pulse Oximetry 100 Oxygen Delivery Oxygen Flow Rate 11/17/24 20:09 11/17/24 21:24 11/17/24 21:47 Temperature Pulse Rate 83 81 Respiratory Rate 18 Blood Pressure Pulse Oximetry 95 Oxygen Delivery Nasal Cannula Oxygen Flow Rate 3 11/17/24 22:00 11/17/24 23:40 11/18/24 00:00 Temperature 97.6 F Pulse Rate 76 75 Respiratory Rate 19 Blood Pressure 106/60 Pulse Oximetry 100 100 Oxygen Delivery Nasal Cannula Oxygen Flow Rate 3 11/18/24 00:00 11/18/24 02:00 11/18/24 02:11 Temperature Pulse Rate 73 70 71 Respiratory Rate 18 Blood Pressure Pulse Oximetry Oxygen Delivery Oxygen Flow Rate 11/18/24 02:17 11/18/24 03:32 11/18/24 04:00 Temperature 97.6 F Pulse Rate 71 70 Respiratory Rate 18 16 Blood Pressure 117/70 Pulse Oximetry 100 100 Oxygen Delivery Nasal Cannula Oxygen Flow Rate 3 11/18/24 04:00 11/18/24 06:00 11/18/24 08:00 Temperature 97.9 F Pulse Rate 71 69 80 Respiratory Rate 22 H Blood Pressure 113/61 Pulse Oximetry 99 Oxygen Delivery Oxygen Flow Rate 11/18/24 08:00 11/18/24 08:00 11/18/24 08:21 Temperature Pulse Rate 82 Respiratory Rate Blood Pressure Pulse Oximetry 97 97 Oxygen Delivery Nasal Cannula Nasal Cannula Oxygen Flow Rate 2 3 11/18/24 08:21 11/18/24 08:31 11/18/24 10:00 Temperature Pulse Rate 76 75 84 Respiratory Rate 18 18 Blood Pressure Pulse Oximetry Oxygen Delivery Oxygen Flow Rate 11/18/24 11:52 11/18/24 12:00 11/18/24 13:19 Temperature 98.6 F Pulse Rate 87 78 Respiratory Rate 20 Blood Pressure 134/78 Pulse Oximetry 98 Oxygen Delivery Nasal Cannula Oxygen Flow Rate 3 11/18/24 14:18 11/18/24 14:25 11/18/24 16:00 Temperature 98.0 F Pulse Rate 74 73 81 Respiratory Rate 18 18 20 Blood Pressure 105/65 Pulse Oximetry 100 Oxygen Delivery Oxygen Flow Rate 11/18/24 16:00 Temperature Pulse Rate 66 Respiratory Rate Blood Pressure Pulse Oximetry Oxygen Delivery Oxygen Flow Rate Intake/Output Intake/Output: Intake & Output 11/15/24 11/16/24 11/17/24 11/18/24 23:59 23:59 23:59 23:59 Intake Total 340 2900 Output Total 625 500 Balance -285 2400 Meds/Results Medications: Active Medications Generic Name Dose Route Start Last Admin Trade Name Freq PRN Reason Stop Dose Admin Acetaminophen 650 mg 11/17/24 12:26 11/17/24 21:35 Acetaminophen 325 Mg Tablet PO 650 mg Q4H PRN Administration Mild Pain (1-3) or Fever Albuterol 2.5 mg 11/17/24 12:26 Albuterol Sulfate Neb 2.5 Mg/3 Ml Inh INHALATION Q6HRT PRN Bronchospasm Albuterol/Ipratropium 3 ml 11/17/24 14:00 11/18/24 14:18 Ipratropium 0.5 Mg/Albuterol Sulfate 2.5 Mg Ampul.Neb 3 Ml INHALATION 3 ml Q6HRT ЮЛИЯ Administration Allopurinol 100 mg 11/18/24 09:00 11/18/24 09:20 Allopurinol 100 Mg Tablet BY MOUTH 100 mg DAILY ЮЛИЯ Administration Aspirin 81 mg 11/18/24 09:00 11/18/24 09:19 Aspirin 81 Mg Enteric Tablet PO 81 mg DAILY ЮЛИЯ Administration Bupropion HCl 150 mg 11/18/24 09:00 11/18/24 09:20 Bupropion Hcl Sr (12 Hr) 150 Mg Tab PO 150 mg Q12HR ЮЛИЯ Administration Carvedilol 25 mg 11/17/24 21:00 11/18/24 09:20 Carvedilol 25 Mg Tablet PO 25 mg Q12H ЮЛИЯ Administration Cyclobenzaprine HCl 10 mg 11/17/24 20:57 Cyclobenzaprine Hcl 10 Mg Tablet PO TID PRN Muscle Spasm Enoxaparin Sodium 40 mg 11/18/24 09:00 11/18/24 09:19 Enoxaparin 40 Mg/0.4 Ml Syringe SUB-Q 40 mg DAILY ЮЛИЯ Administration Fluticasone/Umeclidinium/Vilanterol 1 puff 11/18/24 09:00 11/18/24 08:20 Fluticasone/Umeclidin/Vilanter 100-62.5-25 Mcg Ellipta INHALATION 1 puff DAILY ЮЛИЯ Administration Furosemide 40 mg 11/18/24 17:00 11/18/24 16:08 Furosemide Inj 40 Mg/4 Ml Vial IV PUSH 40 mg BID ЮЛИЯ Administration Pantoprazole Sodium 40 mg 11/18/24 09:00 11/18/24 09:20 Pantoprazole 40 Mg Tablet PO 40 mg QAM ЮЛИЯ Administration Perflutren Lipid Microsphere 0 ml 11/17/24 15:41 Perflutren Lipid Microspheres 1.5 Ml Vial Diluted To 10 Ml Total Volume IV PUSH 11/20/24 15:47 ONCE PRN adequate visualization Protocol Prednisone 40 mg 11/18/24 12:55 11/18/24 16:08 Prednisone 20 Mg Tablet PO 40 mg DAILY@0800 ЮЛИЯ Administration Quetiapine Fumarate 50 mg 11/17/24 21:00 11/17/24 21:47 Quetiapine Fumarate 25 Mg Tablet PO 50 mg QHS ЮЛИЯ Administration Rosuvastatin Calcium 40 mg 11/18/24 09:00 11/18/24 09:20 Rosuvastatin 20 Mg Tablet BY MOUTH 40 mg DAILY ЮЛИЯ Administration Sacubitril/Valsartan 1 tab 11/17/24 21:00 11/18/24 09:20 Sacubitril/Valsartan 24-26 Mg Tablet PO 1 tab Q12HR ЮЛИЯ Administration Spironolactone 25 mg 11/18/24 12:00 11/18/24 12:20 Spironolactone 25 Mg Tablet PO 25 mg QAM ЮЛИЯ Administration Tamsulosin HCl 0.4 mg 11/17/24 21:00 11/17/24 21:47 Tamsulosin Hcl 0.4 Mg Capsule BY MOUTH 0.4 mg HS ЮЛИЯ Administration Radiology Results: ITS Impressions Chest CTA 11/17/24 14:39 IMPRESSION: 1. Negative for pulmonary embolism. Chronic changes detailed above with superimposed probable CHF. There is a nodule within the left upper lobe which is new compared to the previous study. PET CT is recommended Chest X-Ray 11/18/24 10:25 IMPRESSION: 1. Developing left lung unilateral interstitial pulmonary edema and/or pneumonitis, with pleural effusion. Labs Labs: Laboratory Results - last 24 hr 11/18/24 04:07 WBC 6.2 RBC 4.09 L Hgb 12.7 L Hct 35.9 L MCV 87.8 MCH 31.1 MCHC 35.4 RDW 15.3 H Plt Count 276 MPV 10.8 H Immature Gran % (Auto) 0.3 Neut % (Auto) 83.6 H Lymph % (Auto) 13.0 L [place] % (Auto) 2.9 Eos % (Auto) 0.0 Baso % (Auto) 0.2 Lymph # (Auto) 0.81 L [place] # (Auto) 0.2 Eos # (Auto) 0.0 Baso # (Auto) 0.0 Abs Immat Gran (auto) 0.02 Absolute Neuts (auto) 5.2 Absolute Nucleated RBC 0.000 Nucleated RBC % 0.0 Sodium 130 L Potassium 4.0 Chloride 101 Carbon Dioxide 25 Anion Gap 4 BUN 27 H Creatinine 1.23 Estim Creat Clear Calc 52 Estimated GFR 58 L Glucose 180 H Calcium 8.2 L C-Reactive Protein 1.9 H NT-Pro-B Natriuret Pep 6230 H Procalcitonin 0.1
[2024-11-18] MEDS: ACETAMINOPHEN 325 MG TABLET 650 MG PO (21:05)
[2024-11-18] MEDS: TAMSULOSIN HCL 0.4 MG CAPSULE BY MOUTH (21:07)
[2024-11-19] VITALS (19 sets, daily range): BP systolic 113–130; BP diastolic 60–76; PULSE 65–88; RESP 16–20; TEMP 35.8–36.6; O2SAT 95–99
[2024-11-19 07:06] LABS: Hematocrit 37.4 % (42.0-52.0); Hemoglobin 13.3 g/dL (14.0-18.0); Immature Granulocyte Percent A 0.5 % (0-0.5); Lymphocytes Absolute Auto 0.56 K/mm3 (0.9-3.2); Mean Corpuscular HGB Conc 35.6 g/dl (32-36); Mean Corpuscular Hemoglobin 31.6 pg (26-34); Mean Corpuscular Volume 88.8 fl (80-100); Nucleated Red Blood Cells Absolute Auto 0.000 K/mm3 (0.0-0.012); Nucleated Red Blood Cells Perc 0.0 % (0.0-0.2); Platelet Count Result 281 k/mm3 (150-375); Red Blood Count 4.21 M/mm3 (4.6-6.20); White Blood Count 13.0 K/mm3 (4.5-10.0)
[2024-11-19 07:51] LABS: Anion Gap 4 mmol/L (4-12); Blood Urea Nitrogen 36 mg/dL (9-20); Calcium 8.1 mg/dL (8.4-10.2); Carbon Dioxide 24 mmol/L (22-30); Chloride 104 mmol/L (98-107); Estimated CRCL calculation 43 ml/min; Estimated Glomerular Filt Rate 46; Glucose 140 mg/dL (65-110); Magnesium 1.6 mg/dL (1.6-2.3); Potassium 3.8 mmol/L (3.4-5.0); Sodium 132 mmol/L (137-145)
[2024-11-19 07:52] LABS: Anisocytosis 1+
[2024-11-19 07:54] LABS: Burr Cells Occasional; Schistocytes None Seen; Target Cells 1+
[2024-11-19] MEDS: IPRATROPIUM 0.5 MG/ALBUTEROL SULFATE 2.5 MG AMPUL.NEB 3 ML INHALATION ×3 (08:09→21:02)
[2024-11-19] MEDS: buPROPion HCL SR (12 HR) 150 MG TAB PO ×2 (08:59→20:37)
[2024-11-19] MEDS: ASPIRIN 81 MG ENTERIC TABLET PO (08:59)
[2024-11-19] MEDS: ENOXAPARIN 40 MG/0.4 ML SYRINGE SUB-Q (09:00)
[2024-11-19] MEDS: SACUBITRIL/VALSARTAN 24-26 MG TABLET 1 TAB PO (09:00)
[2024-11-19] MEDS: FUROSEMIDE INJ 40 MG/4 ML VIAL IV PUSH (09:00)
[2024-11-19] MEDS: SPIRONOLACTONE 25 MG TABLET PO (09:00)
[2024-11-19] MEDS: ROSUVASTATIN 20 MG TABLET 40 MG BY MOUTH (09:00)
[2024-11-19] MEDS: PANTOPRAZOLE 40 MG TABLET PO (09:00)
--- NOTE | 2024-11-19 10:39 | P.PNPL_ITS ---
Progress Note: A&P Assessment and Plan (1) Chronic obstructive pulmonary disease: Qualifiers: COPD type: unspecified COPD Qualified Code(s): J44.9 - Chronic obstructive pulmonary disease, unspecified Code(s): J44.9 - Chronic obstructive pulmonary disease, unspecified Status: Acute Assessment and Plan: Gold grade 3 group E COPD patient with 55 pack year tobacco use, quit 1 week ago, PFTs 05/28/2021 with a severe obstructive abnormality with the pre bronchodilator FEV1 of 1.24 L, 44% predicted, ratio 40%, air trapping with a total lung capacity of 109%, severely decreased unadjusted DLCO at 38% and remains moderately decreased at 51% when adjusted for alveolar volume. CT scan of the chest shows moderate to severe apical predominant centrilobular emphysema. ABG 11/17/2024 on 35% FiO2 7.39/39/111. Chronic hypoxemic respiratory failure requiring no oxygen at rest, 3 L with activity Per home O2 assessment on 05/17/2024. Patient is using 3 L with sleep. echocardiogram 03/26/2022 with LVEF 40-45%, mild to moderate global LV systolic dysfunction, grade 1 diastolic dysfunction, normal right ventricular size. Mild right ventricular hypokinesis, mild enlargement left atrium, mild enlargement right atrium mild to moderate mitral regurg, trace to mild AR, mild tricuspid regurgitation with RVSP 49. Currently the patient presents after worsening dyspnea on exertion at home when he walked to the bathroom without oxygen. He had no prior evidence of a COPD exacerbation with no change in his phlegm volume, or color. He had diffuse wheezing in the emergency department and required BiPAP and was treated with Solu-Medrol and nebulizers. He had an elevated BNP and is treated with Lasix 20 IV. I am not convinced the patient has a COPD exacerbation Although he was in severe respiratory distress requiring BiPAP. I will continue to treat him for COPD exacerbation at this time., there is no evidence of pneumonia on his CT scan and no clinical evidence of bronchitis. Plan: I will change his Solu-Medrol to prednisone 40 mg p.o. q.day. I will continue DuoNebs q.6 hours. The patient has no phlegm production and does not need guaifenesin. No evidence of bacterial infection and patient does not need antibiotics at this time. I congratulated him on quitting tobacco use. I will check an alpha 1 anti trypsin level and genotype on 11/19/2024. Echocardiogram ordered for 11/19. 11/19/2024: Patient was moved to a new room out of the [facility] unit and says that he is a harder time breathing in this new room because it is dry. He did not sleep last night. He denies fever, chills, rigors, cough, phlegm or hemoptysis. Overall he says that his swelling is better. When I enter the room he was on 3 L nasal cannula saturations 100%. I decreased and room air and his saturations were 96%. He is afebrile. White blood cell count 13.0, creatinine 1.50, yesterday he was positive 2.2 L, cumulative he is positive 1.75 L. His weight today is 85.3. Plan: Patient has no wheezing. Oxygenation is stable. No infectious com plaints. I will continue prednisone 40 mg a day and DuoNebs q.6 hours. Respiratory pathogen panel, urine Legionella antigen, urine pneumococcal antigen and serum mycoplasma IgM are pending. Discussed with Dr. Castillo. Will follow with you. (2) CHF (congestive heart failure): Code(s): I50.9 - Heart failure, unspecified Status: Acute Assessment and Plan: Echocardiogram 03/26/2022 with LVEF 40-45%, mild to moderate global LV systolic dysfunction, grade 1 diastolic dysfunction, normal right ventricular size. Mild right ventricular hypokinesis, mild enlargement left atrium, mild enlargement right atrium mild to moderate mitral regurg, trace to mild AR, mild tricuspid regurgitation with RVSP 49. 9/27/25; He had an elevated BNP 5280 and was treated with Lasix 20 IV. 11/18 BNP today is 6230. He diuresed 285 mL yesterday. Cumulative he is positive 645 mL since admission. His weight today is 83.5. Plan: cardiology consult id and increase his Lasix to 40 mg IV b.i.d., added Entresto, Coreg and spironolactone. Echocardiogram ordered for 11/19. 11/19/2024: Patient states his swelling is improved and I agree. Creatinine 1.50, yesterday he was positive 2.2 L, cumulative he is positive 1.75 L. His weight today is 85.3. Plan: Cardiology consult following. Echocardiogram today. Adjustments of cardiac medicines per Cardiology team. (3) Lung nodule: Code(s): R91.1 - Solitary pulmonary nodule Status: Acute Assessment and Plan: Patient had a CT angiogram of the chest with no PE, able apical predominant centrilobular emphysema, small left pleural effusion, trace right pleural effusion moderate peripheral basal reticulations with no change from 09/10/2023. patient had a 10 x 11 mm pleural based medial left upper lobe nodule that had increased in size from 5 mm on 11/09/2023 and [address] scan cervical spine on 09/09/2024. Plan: patient does wish to identify etiology of this nodule. Will review CT scans with Interventional Radiology to determine if this is a nodule that can be biopsied at [facility]. The lesion is too small and peripheral for bronchoscopy. 11/19/2024: I reviewed serial CT scans of the chest with interventional radiology. Plan: Patient with enlarging left upper lobe nodule and discussed risks and benefits with patient wishes to proceed. Will proceed with CT-guided biopsy on 11/20 or 11/21/2024. I will check coags on 11/20. Biopsy ordered. (4) ISIAH (obstructive sleep apnea): Code(s): G47.33 - Obstructive sleep apnea (adult) (pediatric) Status: Acute Assessment and Plan: Untreated. He has mild sleep apnea evidenced by AHI 6.6 on a sleep study 05/29/21. BiPAP 13/9cm was recommended. Patient states he attempted BiPAP, tried all d ifferent types of masks and was unable to tolerate BiPAP. 11/18/24: I will continue 3 L nasal cannula at night. Once he is closer to his baseline will perform overnight oximetry on these settings. Subjective Date/time seen: 11/19/24 10:39 Interval history: 11/18/2024: This is a new pulmonary consult for COPD and lung nodule. 69-year-old with a history of GOLD grade 3 group E COPD on home oxygen 3 L with activity and 3 L with sleep, status post VATS right upper lobectomy in 2008 for possible cancer but the patient tells me they found no cancer, GERD, coronary artery disease status post CABG, untreated mild obstructive sleep apnea as he and intolerant to CPAP or BiPAP, hyperlipidemia, hypertension, prostate cancer, renal cell carcinoma, pheochromocytoma and splenectomy in 2008. Patient is followed in the Pulmonary Clinic in last seen on 11/05/2024: This is the note: 6 month follow up regarding COPD on oxygen. Hx: COPD, GERD, gout, CAD, untreated mild sleep apnea (intolerant to BiPAP), hyperlipidemia, hypertension, prostate cancer, hx of [place] and CABG and tobacco use disorder. He had a VATS in 2008 with a right upper lobectomy. He said no cancer was found. He had renal cancer, pheochromocytoma and had this removed along with a splenectomy in 2008. He reports progressive MUÑOZ since last visit along with wheezing. Denies any excessive coughing or mucous production. Denies chest pains/tightness but reports heart palpitations. Reports nighttime dyspnea walking from the bathroom. He is compliant using Breztri twice daily. Albuterol use has been 4x/day for the past 4 months. He has a portable oxygen concentrator he purchased this out of pocket, 3L O2 with exertion. Has been using 4L at times and at home, been using it /. Current smoker 1ppd, smoked 0.5-1ppd for 54 years. He tried NRT patches which did not help he states. He is interested in medication to help him quit. He would like to see his sewer connector again Dr. Ram. Reports it's been >1year. weight 180 lb. Lungs were clear to auscultation. Plan: He tried Daliresp but could not tolerate GI side effects. All to for a was too costly. Continue breasts tree albuterol p.r.n.. Chest x-ray, EKG, Cardiology referral. Recommended regular exercise and deep breathing. Quit smoking. Bupropion was prescribed. Follow-up 2-3 months. requires no oxygen at rest, 3 L with activity, continue 3 at night. low-dose CT scan ordered. Smoking cessation counseling provided. 11/12/2024: Suspect right middle lobe atelectasis or early airspace disease. Emphysema, chronic scarring and retraction of the diaphragm right lung base, Patient tells me he took the bupropion after he left the clinic and quit smoking in 4 days. patient smoked tobacco from age 14-1 week ago at 1 pack per day for total of 55 pack years. He was exposed to secondhand smoke from his mother but none since. Patient did cocaine last use was in 2014. 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 Baseline dyspnea on exertion now is room to room. Patient tells me he was at his baseline On 11/16/2024. The patient tells me he wears no oxygen at rest but does not have a pulse oximeter to measure his sa turations. He is prescribed 3 L with activity but he rarely uses this with activity and has room to room dyspnea on exertion. When he walks to the the couch to the bathroom with 3 L oxygen on he is able to make this journey and he says he does better than without. Without oxygen he is extremely short of breath after he gets back to the couch. This worsening dyspnea on exertion has progressed over the last few months. On 11/16/2024 he had no increased cough, phlegm or hemoptysis. He ate dinner and went to bed and was feeling his usual self. On 11/17/2024 he woke up at 4:00 a.m. to urinate. He took his oxygen off and he walked back to the couch and he had worsening dyspnea on exertion and shortness of breath without recovery. He had wheezing and he told his family to call EMS. He denied cough, phlegm production or hemoptysis. He denied chest pain. On arrival to the emergency department the patient was in severe respiratory distress in a tripod position. Blood pressure 129/83, heart rate 81, respirations 20 patient was immediately placed on BiPAP 14/7 and 35% FiO2 with saturations 100. Patient had audible inspiratory and expiratory wheezes without a stethoscope. White blood cell count was 7.0 with eosinophils 2.4%= 168 per micro L, creatinine 1.37, serum bicarbonate 28, BNP 5280, COVID influenza and RSV RT PCR assay negative. Patient had a CT angiogram of the chest with no PE, able apical predominant centrilobular emphysema, small left pleural effusion, trace right pleural effusion moderate peripheral basal reticulations with no change from 09/10/2023. patient had a 10 x 11 mm pleural based medial left upper lobe nodule that had increased in size from 5 mm on 11/09/2023 and [address] scan cervical spine on 09/09/2024. About 5 hours later patient had an ABG on 35% FiO2 with pH of 7.40/39/111. Patient was treated with Solu-Medrol, bronchodilators and Lasix 20 IV. 11/18/2024: Currently the patient tells me he is good but not back to his n ormal. He still has slight shortness of breath at rest. He denies fever, chills, rigors, phlegm, hemoptysis or chest pain. of note patient tells me he has worsening lower extremity edema over the last 4 months. He has no wheezing. He was on 3 L nasal cannula saturations 95-100%. I decreased him to room air and his saturations remain 92%. His white blood cell count was 6.2, his creatinine was 1.23. His CRP was 1.9, his procalcitonin was 0.1, his BNP was 6230. Chest x-ray today shows worsening diffuse left lung infiltrate with no change on the right. 11/19/2024: Patient was moved to a new room out of the [facility] unit and says that he is a harder time breathing in this new room because it is dry. He did not sleep last night. He denies fever, chills, rigors, cough, phlegm or hemoptysis. Overall he says that his swelling is better. When I enter the room he was on 3 L nasal cannula saturations 100%. I decreased and room air and his saturations were 96%. He is afebrile. White blood cell count 13.0, creatinine 1.50, yesterday he was positive 2.2 L, cumulative he is positive 1.75 L. His weight today is 85.3. DATA: 11/17/2024: EXAMINATION: CTA chest PE protocol, 11/17/2024 14:20 CDT HISTORY: pe? COMPARISON: Comparison 04/30/2022 TECHNIQUE: CTA examination is obtained with contrast CTA examination technique is performed with arterial phase of contrast-enhancement. 3-D reconstruction with thin MIP axial and MPR coronal imaging is provided Isovue 300, 92cc injected IV. One or more of the following dose reduction techniques were used: automated exposure control, adjustment of the mA and/or kV according to patient size, use of iterative reconstruction technique. FINDINGS: No significant coronary calcification is present ([id number]) LUNGS: Small simple appearing left pleural effusion. Trace right pleural effusion. The contrast bolus is adequate, there is no pulmonary embolism identified. Postsurgical changes noted in the right lung. No tracheomalacia. No bronchiectasis. Moderate emphysematous changes. Areas of bullous formation of the right upper lobe. Moderate pulmonary fibrotic changes. No honeycombing is identified. Within the left upper lobe there is a nodule medially measuring 10 x 11 mm. HEART AND PERICARDIUM: Mild cardiomegaly. No pericardial effusion. AORTA: Normal caliber aorta.. PULMONARY ARTERIES: No pulmonary embolism ADENOPATHY/MEDIASTINUM: There are enlarged lymph nodes in the mediastinum the largest periaortic lymph node measuring 2.3 x 2.2 cm. LIMITED VIEWS OF THE ABDOMEN: Simple appearing left renal cyst 2 x 2 cm. OSSEOUS STRUCTURES: No sclerotic or lytic lesions. No acute rib fractures. Poststernotomy changes are noted. OVERLYING SOFT TISSUES: Unremarkable. THYROID: The thyroid is unremarkable. IMPRESSION: 1. Negative for pulmonary embolism. Chronic changes detailed above with superimposed probable CHF. There is a nodule within the left upper lobe which is new compared to the previous study. PET CT is recommended 09/09/2024: Noncontrast CT scan of the cervical spine Technique: Multiple contiguous axial [address] images of the cervical spine were obtained and reconstructed in 2D sagittal and coronal planes on the acquisition scanner. Dose reduction technique was used on this scan by utilizing automated exposure control, adjustment of the mA and/or kV according to patient size. The dose-length product (DLP) was 492.27 mGy-cm. Clinical History: Pain Findings: No fractures or dislocations. At C2-C3, there is prominent right facet arthropathy. There is minimal right neural foraminal narrowing. Left neural foramen preserved. No canal stenosis or cord compression evident. At C3-C4, there is right facet arthropathy. No definite neural foraminal narrowing canal stenosis, or cord compression. At C4-C5, there is mild left neural foraminal narrowing with mild left facet arthropathy. No definite canal stenosis, cord compression, or right neural foraminal narrowing. At C5-C6, there is advanced degenerative disc narrowing with mild disc ossify complex. Probable mild bilateral neural foraminal narrowing. No definite canal stenosis or cord compression. At C6-C7, there is advanced degenerative distended. No definite canal stenosis, cord compression, or neural foraminal narrowing. No prevertebral soft tissue swelling. 7 mm nodule noted medially in the left lung apex. Impression: No fracture or subluxation of the cervical spine. Degenerative spondylosis, as above. 7 mm medial left apical pulmonary nodule, indeterminate. According to Fleischner Society criteria, for a low-risk patient, recommend follow-up CT scan in 6-12 months, then consider additional 18-[address] For a high-risk patient, follow-up CT scans at both 6-12 months and 18-24 months are recommended. 11/09/2023: CT Scan of the Chest without Contrast: Clinical Indication: Lung cancer screening, nicotine dependence Technique: Contiguous sections were acquired throughout the chest without intravenous contrast. Dose reduction technique was used on this scan by utilizing automated exposure control and iterative reconstruction technique. The dose-length product (DLP) was 102.78 mGy-cm. COMPARISON: 04/30/2022 Findings: There is no evidence of any significant mediastinal, hilar or axillary lympha denopathy. There are atherosclerotic calcifications of the aorta and coronary arteries. Stable descending thoracic aortic aneurysm. There is no evidence of pleural or pericardial effusion. Status post partial right upper lobectomy. Probable mild emphysema. 5 mm nodule noted in the medial left lung apex ((axial image 26).. Images through the upper abdomen reveal no abnormalities. Impression: Lung RADS 2: Benign appearance. 12 month follow-up screening CT advised. 05/28/2021: This is a pulmonary function test with pre and post-bronchodilator spirometry, plethysmography and diffusing capacity. The test was performed and results interpreted in accordance with the 2019 and 2005 ATS/ERS Task Force guidelines respectively using the Global Lung Function Initiative-2012 reference equations. Patient demonstrated good effort and cooperation. Reproducibility criteria were met. The quality of the pre bronchodilator spirometry maneuver was Grade A and post bronchodilator spirometry maneuver was Grade A. Findings: Spirometry: There is decreased maximal expiratory airflow at all lung volumes with a concaved expiratory flow tracing. The contour the inspiratory flow tracing is normal. The pre bronchodilator FVC is 3.12 L, 84% predicted. The pre bronchodilator FEV1 is 1.24 L, 44% predicted. The pre bronchodilator FEV1: FVC ratio was 40%. The post bronchodilator FVC is 3.15 L, representing 1% increase. The post bronchodilator FEV1 is 1.20 L, representing a 3% decrease. Plethysmography: The total lung capacity is 6.76 L, 109% predicted. The f unctional residual capacity is 5.16 L, 149% predicted. The residual volume is 3.60 L, 162% predicted. Diffusing capacity: The diffusing capacity on adjusted for hemoglobin and carboxyhemoglobin is 10.3, 38% predicted. The diffusing capacity adjusted for alveolar volume is 2.07, 51% predicted. Impression: There is a severe obstructive abnormality without significant improvement after inhaling a single dose of albuterol. The increase in residual volume is consistent with air trapping from an obstructive abnormality. Hyperinflation is present is demonstrated by the increase in functional residual capacity and is consistent with an obstructive abnormality. The diffusing capacity unadjusted for hemoglobin and carboxyhemoglobin is severely decreased and remains moderately decreased when adjusted for alveolar volume. There are no prior studies for comparison 03/29/2022: echocardiogram 03/26/2022 report: with LVEF 40-45%, mild to moderate global LV systolic dysfunction, grade 1 diastolic dysfunction, normal right ventricular size. Mild right ventricular hypokinesis, mild enlargement left atrium, mild enlargement right atrium mild to moderate mitral regurg, trace to mild AR, mild tricuspid regurgitation with RVSP 49. Home O2 Eval 05/17/24 - requires 3L O2 with activity, none at rest. LDCT 11/09/23 - Status post partial right upper lobectomy. Probable mild emphysema. 5 mm nodule noted in the medial left lung apex. Overnight oximetry on 3L 02/03/23 - 0 time spent below 90% O2 on 3L. Home O2 Eval 02/09/23 - no O2 needed at rest or with activity. 05/29/21 - Split PSG - Overall AHI is 6.6. BiPAP 13/9cm was recommended. The patient should have a nocturnal oximetry done 2-4 weeks after starting PAP to ensure the hypoxemia has resolved. 05/28/21 PFT - There is a severe obstructive abnormality without significant improvement after inhaling a dose of albuterol. The increase in residual volume is consistent with air trapping from an obstructive abnormality. Hyperinflation is present is demonstrated by the increase in functional residual capacity and is consistent with an obstructive abnormality. The diffusing capacity unadjusted for hemoglobin and carboxyhemoglobin is severely decreased and remains moderately decreased when adjusted for alveolar volume. 05/28/21 - Home O2 eval - Patient required 3L/min O2 with ambulation and none at rest. 04/18/2019 CTA at [place]- clear lungs. Tracheal and right mainstem bronchial debris. Partial right pneumonectomy. Moderate emphysema. Dilated main, central pulmonary arteries consistent with pulmonary arterial hypertension no lymphadenopathy. Sternotomy wires. Lexiscan and 07/2018; fixed infarct without ischemia. EF 39%. Review of Systems Constitutional: Constitutional: Reports no additional constitutional complaints Eyes: Eyes: Reports no additional eye complaints ENT: Reports system reviewed and no additional complaints, except as documented Cardiovascular: Cardiovascular: Reports no additional cardiovascular complaints Respiratory: Respiratory: Reports no additional respiratory complaints Gastrointestinal: Gastrointestinal: Reports no additional gastrointestinal complaints Musculoskeletal: Musculoskeletal: Reports no additional musculoskeletal complaints Neurologic: Reports system reviewed and no additional complaints, except as documented Psychiatric: Psychiatric: Reports no additional psychiatric complaints Endocrine: Endocrine: Reports no additional endocrine complaints Hematologic/Lymphatic: Hematologic/Lymphatic: Reports no additional hemato logic/lymphatic complaints Allergic/Immunologic: Allergic/Immunologic: Reports no additional allergic/immunologic complaints Exam Const: General: cooperative, healthy appearing and comfortable Orientation/consciousness: oriented to person, oriented to place and oriented to time HENMT: Head: normal to inspection Ears: hearing grossly normal bilaterally Eyes: General: appearance normal, both eyes and all related structures Neck: Neck: normal visual inspection Chest: Chest palpation & inspection: normal inspection of the chest Resp: Effort & Inspection: normal respiratory effort and able to speak in complete sentences Auscultation: no crackles, no rales, no rhonchi, no wheezes and diminished lung sounds Other: No wheezes, decreased breath sounds throughout Cardio: Jugular venous distension: no JVD GI: Inspection: normal to inspection Skin: General skin exam: normal color Neuro: General: oriented to person, oriented to place and oriented to time Extrem: General: normal to inspection Other: positive edema Psych: Appearance: grossly normal Objective Data Vital Signs Vital Signs: Vital Signs - 24 hr 11/18/24 11:52 11/18/24 12:00 11/18/24 13:19 Temperature 37.0 C Pulse Rate 87 78 Respiratory Rate 20 Blood Pressure 134/78 Pulse Oximetry 98 Oxygen Delivery Nasal Cannula Oxygen Flow Rate 3 11/18/24 14:18 11/18/24 14:25 11/18/24 16:00 Temperature 36.7 C Pulse Rate 74 73 81 Respiratory Rate 18 18 20 Blood Pressure 105/65 Pulse Oximetry 100 Oxygen Delivery Oxygen Flow Rate 11/18/24 16:00 11/18/24 20:00 11/18/24 20:00 Temperature 36.3 C L Pulse Rate 66 74 Respiratory Rate 22 H Blood Pressure 113/63 Pulse Oximetry 100 100 Oxygen Delivery Nasal Cannula Oxygen Flow Rate 11/18/24 21:07 11/18/24 21:23 11/18/24 21:25 Temperature Pulse Rate 74 86 74 Respiratory Rate 18 Blood Pressure Pulse Oximetry Oxygen Delivery Oxygen Flow Rate 11/18/24 21:33 11/18/24 23:12 11/19/24 00:00 Temperature 36.6 C Pulse Rate 72 71 68 Respiratory Rate 18 20 Blood Pressure 116/69 Pulse Oximetry 100 Oxygen Delivery Oxygen Flow Rate 11/19/24 04:00 11/19/24 06:56 11/19/24 08:00 Temperature 36.6 C Pulse Rate 72 73 Respiratory Rate 20 Blood Pressure 114/73 Pulse Oximetry 95 95 Oxygen Delivery Nasal Cannula Oxygen Flow Rate 3 11/19/24 08:00 11/19/24 08:05 11/19/24 08:10 Temperature 36.1 C L Pulse Rate 82 72 Respiratory Rate 19 Blood Pressure 113/76 Pulse Oximetry 99 99 Oxygen Delivery Nasal Cannula Oxygen Flow Rate 3 11/19/24 08:10 11/19/24 08:20 11/19/24 08:59 Temperature Pulse Rate 76 88 78 Respiratory Rate 20 20 Blood Pressure Pulse Oximetry Oxygen Delivery Oxygen Flow Rate Intake/Output Intake/Output: Intake & Output 11/16/24 11/17/24 11/18/24 11/19/24 23:59 23:59 23:59 23:59 Intake Total 340 2900 440 Output Total 625 700 400 Balance -285 2200 40 Meds/Results Medications: Active Medications Generic Name Dose Route Start Last Admin Trade Name Freq PRN Reason Stop Dose Admin Acetaminophen 650 mg 11/17/24 12:26 11/18/24 21:05 Acetaminophen 325 Mg Tablet PO 650 mg Q4H PRN Administration Mild Pain (1-3) or Fever Albuterol 2.5 mg 11/17/24 12:26 Albuterol Sulfate Neb 2.5 Mg/3 Ml Inh INHALATION Q6HRT PRN Bronchospasm Albuterol/Ipratropium 3 ml 11/17/24 14:00 11/19/24 08:09 Ipratropium 0.5 Mg/Albuterol Sulfate 2.5 Mg Ampul.Neb 3 Ml INHALATION 3 ml Q6HRT ЮЛИЯ Administration Allopurinol 100 mg 11/18/24 09:00 11/19/24 08:59 Allopurinol 100 Mg Tablet BY MOUTH 100 mg DAILY ЮЛИЯ Administration Aspirin 81 mg 11/18/24 09:00 11/19/24 08:59 Aspirin 81 Mg Enteric Tablet PO 81 mg DAILY ЮЛИЯ Administration Bupropion HCl 150 mg 11/18/24 09:00 11/19/24 08:59 Bupropion Hcl Sr (12 Hr) 150 Mg Tab PO 150 mg Q12HR ЮЛИЯ Administration Carvedilol 25 mg 11/17/24 21:00 11/19/24 08:59 Carvedilol 25 Mg Tablet PO 25 mg Q12H ЮЛИЯ Administration Cyclobenzaprine HCl 10 mg 11/17/24 20:57 Cyclobenzaprine Hcl 10 Mg Tablet PO TID PRN Muscle Spasm Enoxaparin Sodium 40 mg 11/18/24 09:00 11/19/24 09:00 Enoxaparin 40 Mg/0.4 Ml Syringe SUB-Q 40 mg DAILY ЮЛИЯ Administration Furosemide 40 mg 11/18/24 17:00 11/19/24 09:00 Furosemide Inj 40 Mg/4 Ml Vial IV PUSH 40 mg BID ЮЛИЯ Administration Pantoprazole Sodium 40 mg 11/18/24 09:00 11/19/24 09:00 Pantoprazole 40 Mg Tablet PO 40 mg QAM ЮЛИЯ Administration Perflutren Lipid Microsphere 0 ml 11/17/24 15:41 Perflutren Lipid Microspheres 1.5 Ml Vial Diluted To 10 Ml Total Volume IV PUSH 11/20/24 15:47 ONCE PRN adequate visualization Protocol Prednisone 40 mg 11/18/24 12:55 11/19/24 08:59 Prednisone 20 Mg Tablet PO 40 mg DAILY@0800 ЮЛИЯ Administration Quetiapine Fumarate 50 mg 11/17/24 21:00 11/18/24 21:16 Quetiapine Fumarate 25 Mg Tablet PO 50 mg QHS ЮЛИЯ Administration Rosuvastatin Calcium 40 mg 11/18/24 09:00 11/19/24 09:00 Rosuvastatin 20 Mg Tablet BY MOUTH 40 mg DAILY ЮЛИЯ Administration Sacubitril/Valsartan 1 tab 11/17/24 21:00 11/19/24 09:00 Sacubitril/Valsartan 24-26 Mg Tablet PO 1 tab Q12HR ЮЛИЯ Administration Spironolactone 25 mg 11/18/24 12:00 11/19/24 09:00 Spironolactone 25 Mg Tablet PO 25 mg QAM ЮЛИЯ Administration Tamsulosin HCl 0.4 mg 11/17/24 21:00 11/18/24 21:07 Tamsulosin Hcl 0.4 Mg Capsule BY MOUTH 0.4 mg HS ЮЛИЯ Administration Radiology Results: ITS Impressions Chest CTA 11/17/24 14:39 IMPRESSION: 1. Negative for pulmonary embolism. Chronic changes detailed above with superimposed probable CHF. There is a nodule within the left upper lobe which is new compared to the previous study. PET CT is recommended Chest X-Ray 11/18/24 10:25 IMPRESSION: 1. Developing left lung unilateral interstitial pulmonary edema and/or pneumonitis, with pleural effusion. Labs Labs: Laboratory Results - last 24 hr 11/19/24 06:32 WBC 13.0 H RBC 4.21 L Hgb 13.3 L Hct 37.4 L MCV 88.8 MCH 31.6 MCHC 35.6 RDW 15.6 H Plt Count 281 MPV 10.7 H Immature Gran % (Auto) 0.5 Neut % (Auto) 90.4 H Lymph % (Auto) 4.3 L [place] % (Auto) 4.7 Eos % (Auto) 0.0 Baso % (Auto) 0.1 L Lymph # (Auto) 0.56 L [place] # (Auto) 0.6 Eos # (Auto) 0.0 Baso # (Auto) 0.0 Abs Immat Gran (auto) 0.07 H Absolute Neuts (auto) 11.7 H Absolute Nucleated RBC 0.000 Band Neutrophils % Not Reportable Nucleated RBC % 0.0 Platelet Estimate Adequate Anisocytosis 1+ Target Cells 1+ Laya Cells Occasional Schistocytes None seen Sodium 132 L Potassium 3.8 Chloride 104 Carbon Dioxide 24 Anion Gap 4 BUN 36 H Creatinine 1.50 H Estim Creat Clear Calc 43 Estimated GFR 46 L Glucose 140 H Calcium 8.1 L Magnesium 1.6
--- NOTE | 2024-11-19 13:04 | PM.PNCARD ---
Progress Note: A&P Assessment and Plan (1) CHF (congestive heart failure): Code(s): I50.9 - Heart failure, unspecified Status: Acute Plan Acute on chronic systolic heart failure COPD exacerbation Hypertensive emergency Acute on chronic hypoxemic respiratory failure secondary to CHF versus COPD CKD stage 3 Plan Decrease lasix to 40mg p.o. daily - he has an EMMY and looks nearly euvolemic on exam. ELIZABETH isrealotis BMP in a.m. Continue Entresto 24-26mg b.i.d Continue Coreg 25mg b.i.d. Continue Spironolactone 25mg daily Cardiology will sign off please call with questions. Subjective Date/time seen: 11/19/24 13:05 Interval history: Cardiology follow-up visit Date of service 11/19/2024: Lying flat in the bed sleeping but awakens to my voice. States his shortness of breath has resolved. Still has some mild swelling in his feet but this has significantly improved. Review of Systems Review of Systems: All systems reviewed & are unremarkable except as noted in HPI and below Exam Const: General: comfortable and no acute distress Other: Able to lie flat HENMT: Face/Nose/Sinus: Normal nares present and no epistaxis Mouth: Yes moist mucous membranes Eyes: Sclera: sclerae normal Pupils: Equal, round and reactive pupils present Neck: Neck: supple and no JVD Carotids: no bruits Resp: Auscultation: clear to auscultation bilaterally and lung sounds not diminished Other: No chest wall tenderness Cardio: Rate: regular rate Rhythm: regular rhythm Heart sounds: no gallops, no murmurs and no rubs GI: Auscultation: normal bowel sounds Skin: General skin exam: normal color, rashes and/or lesions noted and no erythema Other: Warm Neuro: Cranial nerves: Yes Equal, round and reactive pupils present Speech: normal speech Other: No obvious focal deficit or facial asymmetry Extrem: General: no edema Other: Normal capillary refills Intact distal pulses. Objective Data Vital Signs Vital Signs: Vital Signs - 24 hr 11/18/24 13:19 11/18/24 14:18 11/18/24 14:25 Temperature Pulse Rate 74 73 Respiratory Rate 18 18 Blood Pressure Pulse Oximetry Oxygen Delivery Nasal Cannula Oxygen Flow Rate 3 11/18/24 16:00 11/18/24 16:00 11/18/24 20:00 Temperature 36.7 C 36.3 C L Pulse Rate 81 66 74 Respiratory Rate 20 22 H Blood Pressure 105/65 113/63 Pulse Oximetry 100 100 Oxygen Delivery Oxygen Flow Rate 11/18/24 20:00 11/18/24 21:07 11/18/24 21:23 Temperature Pulse Rate 74 86 Respiratory Rate Blood Pressure Pulse Oximetry 100 Oxygen Delivery Nasal Cannula Oxygen Flow Rate 3 11/18/24 21:25 11/18/24 21:33 11/18/24 23:12 Temperature 36.6 C Pulse Rate 74 72 71 Respiratory Rate 18 18 20 Blood Pressure 116/69 Pulse Oximetry 100 Oxygen Delivery Oxygen Flow Rate 11/19/24 00:00 11/19/24 04:00 11/19/24 06:56 Temperature 36.6 C Pulse Rate 68 72 73 Respiratory Rate 20 Blood Pressure 114/73 Pulse Oximetry 95 Oxygen Delivery Oxygen Flow Rate 11/19/24 08:00 11/19/24 08:00 11/19/24 08:05 Temperature 36.1 C L Pulse Rate 82 72 Respiratory Rate 19 Blood Pressure 113/76 Pulse Oximetry 95 99 Oxygen Delivery Nasal Cannula Oxygen Flow Rate 3 11/19/24 08:10 11/19/24 08:10 11/19/24 08:20 Temperature Pulse Rate 76 88 Respiratory Rate 20 20 Blood Pressure Pulse Oximetry 99 Oxygen Delivery Nasal Cannula Oxygen Flow Rate 3 11/19/24 08:59 11/19/24 10:42 11/19/24 12:00 Temperature Pulse Rate 78 86 Respiratory Rate Blood Pressure Pulse Oximetry Oxygen Delivery Room Air Oxygen Flow Rate Intake/Output Intake/Output: Intake & Output 11/16/24 11/17/24 11/18/24 11/19/24 23:59 23:59 23:59 23:59 Intake Total 340 2900 440 Output Total 625 700 400 Balance -285 2200 40 Meds/Results Medications: Active Medications Generic Name Dose Route Start Last Admin Trade Name Freq PRN Reason Stop Dose Admin Acetaminophen 650 mg 11/17/24 12:26 11/18/24 21:05 Acetaminophen 325 Mg Tablet PO 650 mg Q4H PRN Administration Mild Pain (1-3) or Fever Albuterol 2.5 mg 11/17/24 12:26 Albuterol Sulfate Neb 2.5 Mg/3 Ml Inh INHALATION Q6HRT PRN Bronchospasm Albuterol/Ipratropium 3 ml 11/17/24 14:00 11/19/24 08:09 Ipratropium 0.5 Mg/Albuterol Sulfate 2.5 Mg Ampul.Neb 3 Ml INHALATION 3 ml Q6HRT ЮЛИЯ Administration Allopurinol 100 mg 11/18/24 09:00 11/19/24 08:59 Allopurinol 100 Mg Tablet BY MOUTH 100 mg DAILY ЮЛИЯ Administration Bupropion HCl 150 mg 11/18/24 09:00 11/19/24 08:59 Bupropion Hcl Sr (12 Hr) 150 Mg Tab PO 150 mg Q12HR ЮЛИЯ Administration Carvedilol 25 mg 11/17/24 21:00 11/19/24 08:59 Carvedilol 25 Mg Tablet PO 25 mg Q12H ЮЛИЯ Administration Cyclobenzaprine HCl 10 mg 11/17/24 20:57 Cyclobenzaprine Hcl 10 Mg Tablet PO TID PRN Muscle Spasm Furosemide 40 mg 11/18/24 17:00 11/19/24 09:00 Furosemide Inj 40 Mg/4 Ml Vial IV PUSH 40 mg BID ЮЛИЯ Administration Pantoprazole Sodium 40 mg 11/18/24 09:00 11/19/24 09:00 Pantoprazole 40 Mg Tablet PO 40 mg QAM ЮЛИЯ Administration Perflutren Lipid Microsphere 0 ml 11/17/24 15:41 Perflutren Lipid Microspheres 1.5 Ml Vial Diluted To 10 Ml Total Volume IV PUSH 11/20/24 15:47 ONCE PRN adequate visualization Protocol Prednisone 40 mg 11/18/24 12:55 11/19/24 08:59 Prednisone 20 Mg Tablet PO 40 mg DAILY@0800 ЮЛИЯ Administration Quetiapine Fumarate 50 mg 11/17/24 21:00 11/18/24 21:16 Quetiapine Fumarate 25 Mg Tablet PO 50 mg QHS ЮЛИЯ Administration Rosuvastatin Calcium 40 mg 11/18/24 09:00 11/19/24 09:00 Rosuvastatin 20 Mg Tablet BY MOUTH 40 mg DAILY ЮЛИЯ Administration Sacubitril/Valsartan 1 tab 11/17/24 21:00 11/19/24 09:00 Sacubitril/Valsartan 24-26 Mg Tablet PO 1 tab Q12HR ЮЛИЯ Administration Spironolactone 25 mg 11/18/24 12:00 11/19/24 09:00 Spironolactone 25 Mg Tablet PO 25 mg QAM ЮЛИЯ Administration Tamsulosin HCl 0.4 mg 11/17/24 21:00 11/18/24 21:07 Tamsulosin Hcl 0.4 Mg Capsule BY MOUTH 0.4 mg HS ЮЛИЯ Administration Radiology Results: ITS Impressions Chest CTA 11/17/24 14:39 IMPRESSION: 1. Negative for pulmonary embolism. Chronic changes detailed above with superimposed probable CHF. There is a nodule within the left upper lobe which is new compared to the previous study. PET CT is recommended Chest X-Ray 11/18/24 10:25 IMPRESSION: 1. Developing left lung unilateral interstitial pulmonary edema and/or pneumonitis, with pleural effusion. Labs Labs: Laboratory Results - last 24 hr 11/19/24 06:32 WBC 13.0 H RBC 4.21 L Hgb 13.3 L Hct 37.4 L MCV 88.8 MCH 31.6 MCHC 35.6 RDW 15.6 H Plt Count 281 MPV 10.7 H Immature Gran % (Auto) 0.5 Neut % (Auto) 90.4 H Lymph % (Auto) 4.3 L [place] % (Auto) 4.7 Eos % (Auto) 0.0 Baso % (Auto) 0.1 L Lymph # (Auto) 0.56 L [place] # (Auto) 0.6 Eos # (Auto) 0.0 Baso # (Auto) 0.0 Abs Immat Gran (auto) 0.07 H Absolute Neuts (auto) 11.7 H Absolute Nucleated RBC 0.000 Band Neutrophils % Not Reportable Nucleated RBC % 0.0 Platelet Estimate Adequate Anisocytosis 1+ Target Cells 1+ [place] Cells Occasional Schistocytes None seen Sodium 132 L Potassium 3.8 Chloride 104 Carbon Dioxide 24 Anion Gap 4 BUN 36 H Creatinine 1.50 H Estim Creat Clear Calc 43 Estimated GFR 46 L Glucose 140 H Calcium 8.1 L Magnesium 1.6 Quality VTE Prophylaxis VTE prophylaxis: mechanical ordered and pharmacologic ordered
--- NOTE | 2024-11-19 15:44 | P.PNIM_ITS ---
Progress Note: A&P Assessment and Plan (1) Hypertension: Qualifiers: Hypertension type: essential hypertension Qualified Code(s): I10 - Essential (primary) hypertension Code(s): I10 - Essential (primary) hypertension Status: Acute (2) CHF (congestive heart failure): Code(s): I50.9 - Heart failure, unspecified Status: Acute (3) Chronic obstructive pulmonary disease: Qualifiers: COPD type: unspecified COPD Qualified Code(s): J44.9 - Chronic obstructive pulmonary disease, unspecified Code(s): J44.9 - Chronic obstructive pulmonary disease, unspecified Status: Acute (4) Shortness of Breath: Code(s): R06.02 - Shortness of breath Status: Acute (5) Lung nodule: Code(s): R91.1 - Solitary pulmonary nodule Status: Acute Plan 69-year-old male with PMH tobacco abuse, risky alcohol use, COPD on home oxygen 3 L with activity in sleep, status post VATS right upper lobectomy in 2008 for nodule, per patient report no cancer was found, GERD, CAD status post CABG, untreated mild obstructive sleep apnea as patient is intolerant to CPAP/BiPAP, heart failure reduced ejection fraction, hyperlipidemia, hypertension, prostate cancer, renal cell carcinoma, pheochromocytoma and splenectomy in 2008 presents on 11/17/2024 complaining of dyspnea on exertion and wheezing. ----- Pulmonology following. COPD exacerbation/respiratory distress improving. Solu- Medrol changed to prednisone 40 mg p.o. q.day. continue DuoNebs q.6 hours. Patient reports he has quit tobacco since a few weeks prior. I congratulated him. Also discussed the detrimental effects of risky alcohol use. Patient unable to tell me how much he drinks, his son chimed in and reports it varies but can be a lot at times. Patient reports he has had to quit. On admission patient had a CT angiogram, no PE identified. Reveals emphysema, small left pleural effusion, trace right pleural effusion, moderate peripheral basal reticulations with no change from 09/10/2023. Incidentally found a 10 x 11 mm pleural based medial left upper lobe nodule that has increased in size from 5 mm on 11/09/2023 and 7 mm 09/09/2024. Pulmonology assistance is appreciated, interventional radiology planning for biopsy. NPO midnight. Holding aspirin and Lovenox. ISIAH: Untreated, patient intolerant of BiPAP. Continue 3 L at night and with activity. Planning for pulse oximetry. Acute on chronic heart failure reduced ejection fraction. Cardiology following. He was continued on Entresto, Coreg. Spironolactone started, furosemide 40 mg IV b.i.d. started. He has diuresed, now developed an EMMY. Aside from his lower extremity edema he is breathing well and lungs are almost clear now. Hold spironolactone, Entresto, Lasix. Allowed spontaneous oral intake. Continue to monitor intake/output, daily weights, trend renal function. Patient wishes to be full code. Heart healthy diet. NPO midnight Saline lock IV. Hold Lovenox, SCDs. Hold aspirin. Tobacco and alcohol cessation counseling provided for greater than 3 minutes. Son was present for that. Time Spent With Patient Time with patient: Greater than 35 minutes Subjective Date/time seen: 11/19/24 15:44 Interval history: No major acute overnight events. Patient reports slightly improved swelling in his legs, denies cough or shortness of breath. He has spoken to both Cardiology and pulmonology he is amenable to the treatment plans. Had no further questions, spoke with his son present in the room as well. Counseling provided on alcohol and tobacco abuse. Review of Systems Review of Systems: All systems reviewed & are unremarkable except as noted in HPI and below (Subjective) Exam Const: General: comfortable and no acute distress Other: A&O x3 HENMT: Mouth: Yes moist mucous membranes Eyes: Pupils: Equal, round and reactive pupils present Neck: Neck: supple Resp: Effort & Inspection: normal respiratory effort Other: Scant crackles Cardio: Rate: regular rate Rhythm: regular rhythm Heart sounds: no murmurs GI: Inspection: non-distended GI Palp: Yes Soft to palpation Neuro: Motor exam (neuro): 5/5 motor strength present throughout Extrem: General: edema Objective Data Vital Signs Vital Signs: Vital Signs - 24 hr 11/18/24 16:00 11/18/24 16:00 11/18/24 20:00 Temperature 98.0 F 97.4 F L Pulse Rate 81 66 74 Respiratory Rate 20 22 H Blood Pressure 105/65 113/63 Pulse Oximetry 100 100 Oxygen Delivery Oxygen Flow Rate 11/18/24 20:00 11/18/24 21:07 11/18/24 21:23 Temperature Pulse Rate 74 86 Respiratory Rate Blood Pressure Pulse Oximetry 100 Oxygen Delivery Nasal Cannula Oxygen Flow Rate 3 11/18/24 21:25 11/18/24 21:33 11/18/24 23:12 Temperature 97.8 F Pulse Rate 74 72 71 Respiratory Rate 18 18 20 Blood Pressure 116/69 Pulse Oximetry 100 Oxygen Delivery Oxygen Flow Rate 11/19/24 00:00 11/19/24 04:00 11/19/24 06:56 Temperature 97.9 F Pulse Rate 68 72 73 Respiratory Rate 20 Blood Pressure 114/73 Pulse Oximetry 95 Oxygen Delivery Oxygen Flow Rate 11/19/24 08:00 11/19/24 08:00 11/19/24 08:05 Temperature 96.9 F L Pulse Rate 82 72 Respiratory Rate 19 Blood Pressure 113/76 Pulse Oximetry 95 99 Oxygen Delivery Nasal Cannula Oxygen Flow Rate 3 11/19/24 08:10 11/19/24 08:10 11/19/24 08:20 Temperature Pulse Rate 76 88 Respiratory Rate 20 20 Blood Pressure Pulse Oximetry 99 Oxygen Delivery Nasal Cannula Oxygen Flow Rate 3 11/19/24 08:59 11/19/24 10:42 11/19/24 12:00 Temperature Pulse Rate 78 86 Respiratory Rate Blood Pressure Pulse Oximetry Oxygen Delivery Room Air Oxygen Flow Rate 11/19/24 13:10 11/19/24 13:55 11/19/24 13:55 Temperature 96.5 F L Pulse Rate 75 74 74 Respiratory Rate 16 20 20 Blood Pressure 113/60 Pulse Oximetry 97 96 Oxygen Delivery Room Air Oxygen Flow Rate 11/19/24 14:07 Temperature Pulse Rate 76 Respiratory Rate 20 Blood Pressure Pulse Oximetry Oxygen Delivery Oxygen Flow Rate Intake/Output Intake/Output: Intake & Output 11/16/24 11/17/24 11/18/24 11/19/24 23:59 23:59 23:59 23:59 Intake Total 340 2900 680 Output Total 625 700 400 Balance -285 2200 280 Meds/Results Medications: Active Medications Generic Name Dose Route Start Last Admin Trade Name Freq PRN Reason Stop Dose Admin Acetaminophen 650 mg 11/17/24 12:26 11/18/24 21:05 Acetaminophen 325 Mg Tablet PO 650 mg Q4H PRN Administration Mild Pain (1-3) or Fever Albuterol 2.5 mg 11/17/24 12:26 Albuterol Sulfate Neb 2.5 Mg/3 Ml Inh INHALATION Q6HRT PRN Bronchospasm Albuterol/Ipratropium 3 ml 11/17/24 14:00 11/19/24 13:54 Ipratropium 0.5 Mg/Albuterol Sulfate 2.5 Mg Ampul.Neb 3 Ml INHALATION 3 ml Q6HRT ЮЛИЯ Administration Allopurinol 100 mg 11/18/24 09:00 11/19/24 08:59 Allopurinol 100 Mg Tablet BY MOUTH 100 mg DAILY ЮЛИЯ Administration Bupropion HCl 150 mg 11/18/24 09:00 11/19/24 08:59 Bupropion Hcl Sr (12 Hr) 150 Mg Tab PO 150 mg Q12HR ЮЛИЯ Administration Carvedilol 25 mg 11/17/24 21:00 11/19/24 08:59 Carvedilol 25 Mg Tablet PO 25 mg Q12H ЮЛИЯ Administration Cyclobenzaprine HCl 10 mg 11/17/24 20:57 Cyclobenzaprine Hcl 10 Mg Tablet PO TID PRN Muscle Spasm Pantoprazole Sodium 40 mg 11/18/24 09:00 11/19/24 09:00 Pantoprazole 40 Mg Tablet PO 40 mg QAM ЮЛИЯ Administration Perflutren Lipid Microsphere 0 ml 11/17/24 15:41 Perflutren Lipid Microspheres 1.5 Ml Vial Diluted To 10 Ml Total Volume IV PUSH 11/20/24 15:47 ONCE PRN adequate visualization Protocol Prednisone 40 mg 11/18/24 12:55 11/19/24 08:59 Prednisone 20 Mg Tablet PO 40 mg DAILY@0800 ЮЛИЯ Administration Quetiapine Fumarate 50 mg 11/17/24 21:00 11/18/24 21:16 Quetiapine Fumarate 25 Mg Tablet PO 50 mg QHS ЮЛИЯ Administration Rosuvastatin Calcium 40 mg 11/18/24 09:00 11/19/24 09:00 Rosuvastatin 20 Mg Tablet BY MOUTH 40 mg DAILY ЮЛИЯ Administration Sacubitril/Valsartan 1 tab 11/17/24 21:00 11/19/24 09:00 Sacubitril/Valsartan 24-26 Mg Tablet PO 1 tab On Hold: 11/19/24 15:29 Q12HR ЮЛИЯ Administration Spironolactone 25 mg 11/18/24 12:00 11/19/24 09:00 Spironolactone 25 Mg Tablet PO 25 mg On Hold: 11/19/24 15:29 QAM ЮЛИЯ Administration Tamsulosin HCl 0.4 mg 11/17/24 21:00 11/18/24 21:07 Tamsulosin Hcl 0.4 Mg Capsule BY MOUTH 0.4 mg HS ЮЛИЯ Administration Radiology Results: ITS Impressions Chest CTA 11/17/24 14:39 IMPRESSION: 1. Negative for pulmonary embolism. Chronic changes detailed above with superimposed probable CHF. There is a nodule within the left upper lobe which is new compared to the previous study. PET CT is recommended Chest X-Ray 11/18/24 10:25 IMPRESSION: 1. Developing left lung unilateral interstitial pulmonary edema and/or pneumonitis, with pleural effusion. Labs Labs: Laboratory Results - last 24 hr 11/19/24 06:32 WBC 13.0 H RBC 4.21 L Hgb 13.3 L Hct 37.4 L MCV 88.8 MCH 31.6 MCHC 35.6 RDW 15.6 H Plt Count 281 MPV 10.7 H Immature Gran % (Auto) 0.5 Neut % (Auto) 90.4 H Lymph % (Auto) 4.3 L [place] % (Auto) 4.7 Eos % (Auto) 0.0 Baso % (Auto) 0.1 L Lymph # (Auto) 0.56 L [place] # (Auto) 0.6 Eos # (Auto) 0.0 Baso # (Auto) 0.0 Abs Immat Gran (auto) 0.07 H Absolute Neuts (auto) 11.7 H Absolute Nucleated RBC 0.000 Band Neutrophils % Not Reportable Nucleated RBC % 0.0 Platelet Estimate Adequate Anisocytosis 1+ Target Cells 1+ [place] Cells Occasional Schistocytes None seen Sodium 132 L Potassium 3.8 Chloride 104 Carbon Dioxide 24 Anion Gap 4 BUN 36 H Creatinine 1.50 H Estim Creat Clear Calc 43 Estimated GFR 46 L Glucose 140 H Calcium 8.1 L Magnesium 1.6
--- NOTE | 2024-11-19 15:47 | ECHO_ITS ---
Patient Info Name: Suzanne Mas Age: 69 years : 1955 Gender: Male Ht: 70 in Wt: 188 lbs BSA: 2.07 m2 HR: 72 bpm BP: 114 / 73 mmHg Technical Quality: Good Exam Date: 11/19/2024 2:38 PM Patient Status: I Admit Date: 11/18/2024 Exam Type: CA echo doppler color flow Complete two-dimensional, color flow and Doppler transthoracic echocardiogram is performed. Staff Referring Physician: Yosi Milner Scrubber System Attendant: Jose Enrique Cunningham III Attending Provider: Benita Castillo Summary 1. Complete two-dimensional, color flow and Doppler transthoracic echocardiogram is performed. 2. Left ventricular systolic function is normal, estimated at 30-35. Hypokinetic inferolateral,lateral alex. 3. The left ventricular diastolic function is grade III diastolic dysfunction. 4. Left atrial chamber dimension is mildly enlarged. 5. There is mild aortic valve calcification. 6. There is severe mitral valve regurgitation. 7. There is moderate tricuspid valve regurgitation. 8. Severe pulmonary hypertension, estimated pulmonary arterial systolic pressure is 61 mmHg. 9. There is mild pulmonic regurgitation. 10. Dilated inferior vena cava with <50% collapse upon inspiration consistent with elevated right atrial pressure, 15 mmHg. Left Ventricle Left ventricular chamber dimension is normal. Left ventricular systolic function is normal, estimated at 30-35. Hypokinetic inferolateral,lateral alex. There is no increased left ventricular wall thickness. Left ventricular septal wall motion is normal. The left ventricular diastolic function is grade III diastolic dysfunction. Right Ventricle Right ventricular chamber dimension is normal. Right ventricular systolic function is normal. Left Atria Left atrial chamber dimension is mildly enlarged. Right Atria Right atrial chamber dimension is normal. Aortic Valve The aortic valve is trileaflet. There is no aortic valve sclerosis. There is no aortic valve stenosis. There is no aortic valve regurgitation. There is mild aortic valve calcification. Pulmonic Valve The pulmonic valve is normal. There is no pulmonic valve stenosis. There is mild pulmonic regurgitation. Mitral Valve The mitral valve has normal leaflets. There is no mitral valve stenosis. There is severe mitral valve regurgitation. Tricuspid Valve The tricuspid valve leaflets are normal. There is no significant tricuspid valve stenosis. There is moderate tricuspid valve regurgitation. Severe pulmonary hypertension, estimated pulmonary arterial systolic pressure is 61 mmHg. Pericardium/Pleural The pericardium appears normal. There is no pericardial effusion. Inferior Vena Cava Dilated inferior vena cava with <50% collapse upon inspiration consistent with elevated right atrial pressure, 15 mmHg. Aorta The aortic root size at the sinus of Valsalva is normal. The prox ascending aorta size is normal. Left Ventricular Outflow Tract Name Value Normal LVOT 2D LVOT Diameter 2.2 cm LVOT Doppler LVOT Peak Velocity 118 cm/s LVOT Peak Gradient 6 mmHg LVOT Mean Gradient 2 mmHg LVOT VTI 19 cm LVOT VTI/AV VTI Ratio 0.8 LVOT Stroke Volume 71 ml LVOT CO 5.4 l/min LVOT CI 2.6 l/min/m2 Pulmonic Valve Name Value Normal PV Doppler PV Peak Velocity 90 cm/s PV Peak Gradient 3 mmHg PV Mean Gradient 2 mmHg PV Regurgitation Doppler LA Peak End Diastolic Velocity 144 cm/s Mitral Valve Name Value Normal MV Doppler MV Peak Gradient 6 mmHg MV Mean Gradient 2 mmHg MV Area (Cont Eq VTI) 3.1 cm2 MV Regurgitation Doppler MR Peak Gradient 124 mmHg MV Diastolic Function MV E Peak Velocity 121 cm/s MV A Peak Velocity 40 cm/s MV E/A 3.0 MV Decel Time (PW) 192 ms MV Annular TDI MV E/e' (Septal) 25.5 MV E/e' (Lateral) 28.2 MV E/e' (Average) 26.8 Tricuspid Valve Name Value Normal TV Regurgitation Doppler TR Peak Velocity 339 cm/s TR Peak Gradient 46 mmHg Estimated PAP/RSVP RA Pressure 15 mmHg <=5 PA Systolic Pressure 61 mmHg <36 RV Systolic Pressure 61 mmHg <36 TV Annular TDI TV Lateral Serene s' Velocity 7.5 cm/s >=9.5 Aortic Valve Name Value Normal AV Doppler AV Peak Velocity 154 cm/s AV Peak Gradient 9 mmHg AV Mean Gradient 4 mmHg AV VTI 24 cm AV Area (Cont Eq VTI) 3.0 cm2 >=3.0 AV Area (Cont Eq Christopher) 2.9 cm2 AV DI (Christopher) 0.77 AV Regurgitation 2D LVOT Area 3.7 cm2 Ventricles Name Value Normal LV Dimensions 2D/MM IVS Diastolic Thickness (2D) 0.7 cm 0.6-1.0 LVID Diastole (2D) 6.5 cm 4.2-5.8 LVIW Diastolic Thickness (2D) 0.7 cm 0.6-1.0 LVID Systole (2D) 5.5 cm 2.5-4.0 LVOT Diameter 2.2 cm LV Mass (2D Cubed) 184.61 g 88.00-224.00 LV Mass Index (2D Cubed) 89 g/m2 49-115 Relative Wall Thickness (2D) 0.21 <=0.42 LV Fractional Shortening/Ejection Fraction 2D/MM LV Fractional Shortening (2D) 15 % 25-43 LV EF (2D Teichholz) 31 % LV Diastolic Volume (4C MOD) 185 ml LV EF (4C MOD) 36 % LV Diastolic Volume (2C MOD) 208 ml LV EF (2C MOD) 21 % LV Diastolic Volume (BP MOD) 197 ml 62-150 LV Diastolic Volume Index (BP MOD) 95 ml/m2 34-74 LV Systolic Volume (BP MOD) 142 ml 21-61 LV Systolic Volume Index (BP MOD) 68 ml/m2 11-31 LV EF (BP MOD) 28 % 52-72 LV Diastolic Length (4C) 9.4 cm LV Systolic Length (4C) 8.5 cm LV Stroke Volume (4C MOD) 66 ml Atria Name Value Normal LA Dimensions LA Volume (4C A-L) 109 ml LA Volume (BP A-L) 107 ml RA Dimensions RA Systolic Major Ray Length (4C) 5.8 cm 2.1-2.7 RA Area (4C) 23.8 cm2 <=18.0 Wall Motion Scoring Report Signatures
[2024-11-19] MEDS: TAMSULOSIN HCL 0.4 MG CAPSULE BY MOUTH (20:37)
[2024-11-20] VITALS (22 sets, daily range): BP systolic 126–208; BP diastolic 73–124; PULSE 69–135; RESP 15–31; TEMP 36.7–36.9; O2SAT 90–100
[2024-11-20] MEDS: IPRATROPIUM 0.5 MG/ALBUTEROL SULFATE 2.5 MG AMPUL.NEB 3 ML INHALATION ×3 (01:44→21:25)
[2024-11-20 06:12] LABS: Hematocrit 37.2 % (42.0-52.0); Hemoglobin 13.0 g/dL (14.0-18.0); Mean Corpuscular HGB Conc 34.9 g/dl (32-36); Mean Corpuscular Hemoglobin 30.4 pg (26-34); Mean Corpuscular Volume 87.1 fl (80-100); Platelet Count Result 268 k/mm3 (150-375); Red Blood Count 4.27 M/mm3 (4.6-6.20); White Blood Count 13.2 K/mm3 (4.5-10.0)
[2024-11-20 06:21] LABS: INR 1.0; Prothrombin Time 12.9 Seconds (11.1-14.7)
[2024-11-20 06:22] LABS: Partial Thromboplastin Time 23.8 Seconds (22.3-36.8)
[2024-11-20 06:42] LABS: Anion Gap 3 mmol/L (4-12); Blood Urea Nitrogen 46 mg/dL (9-20); Calcium 8.2 mg/dL (8.4-10.2); Carbon Dioxide 29 mmol/L (22-30); Chloride 101 mmol/L (98-107); Estimated CRCL calculation 43 ml/min; Estimated Glomerular Filt Rate 47; Glucose 122 mg/dL (65-110); Magnesium 1.5 mg/dL (1.6-2.3); Potassium 3.7 mmol/L (3.4-5.0); Sodium 133 mmol/L (137-145)
[2024-11-20 07:26] LABS: NT Pro B Type Natriuretic Pept 7850 pg/mL (19.9-100)
[2024-11-20] MEDS: buPROPion HCL SR (12 HR) 150 MG TAB PO ×2 (08:36→23:56)
[2024-11-20] MEDS: PANTOPRAZOLE 40 MG TABLET PO (08:36)
[2024-11-20] MEDS: ROSUVASTATIN 20 MG TABLET 40 MG BY MOUTH (08:36)
--- NOTE | 2024-11-20 09:25 | P.PNPL_ITS ---
Progress Note: A&P Assessment and Plan (1) Chronic obstructive pulmonary disease: Qualifiers: COPD type: unspecified COPD Qualified Code(s): J44.9 - Chronic obstructive pulmonary disease, unspecified Code(s): J44.9 - Chronic obstructive pulmonary disease, unspecified Status: Acute Assessment and Plan: Gold grade 3 group E COPD patient with 55 pack year tobacco use, quit 1 week ago, PFTs 05/28/2021 with a severe obstructive abnormality with the pre bronchodilator FEV1 of 1.24 L, 44% predicted, ratio 40%, air trapping with a total lung capacity of 109%, severely decreased unadjusted DLCO at 38% and remains moderately decreased at 51% when adjusted for alveolar volume. CT scan of the chest shows moderate to severe apical predominant centrilobular emphysema. ABG 11/17/2024 on 35% FiO2 7.39/39/111. Chronic hypoxemic respiratory failure requiring no oxygen at rest, 3 L with activity Per home O2 assessment on 05/17/2024. Patient is using 3 L with sleep. echocardiogram 03/26/2022 with LVEF 40-45%, mild to moderate global LV systolic dysfunction, grade 1 diastolic dysfunction, normal right ventricular size. Mild right ventricular hypokinesis, mild enlargement left atrium, mild enlargement right atrium mild to moderate mitral regurg, trace to mild AR, mild tricuspid regurgitation with RVSP 49. Currently the patient presents after worsening dyspnea on exertion at home when he walked to the bathroom without oxygen. He had no prior evidence of a COPD exacerbation with no change in his phlegm volume, or color. He had diffuse wheezing in the emergency department and required BiPAP and was treated with Solu-Medrol and nebulizers. He had an elevated BNP and is treated with Lasix 20 IV. I am not convinced the patient has a COPD exacerbation Although he was in severe respiratory distress requiring BiPAP. I will continue to treat him for COPD exacerbation at this time., there is no evidence of pneumonia on his CT scan and no clinical evidence of bronchitis. Plan: I will change his Solu-Medrol to prednisone 40 mg p.o. q.day. I will continue DuoNebs q.6 hours. The patient has no phlegm production and does not need guaifenesin. No evidence of bacterial infection and patient does not need antibiotics at this time. I congratulated him on quitting tobacco use. I will check an alpha 1 anti trypsin level and genotype on 11/19/2024. Echocardiogram ordered for 11/19. 11/19/2024: Patient was moved to a new room out of the [facility] unit and says that he is a harder time breathing in this new room because it is dry. He did not sleep last night. He denies fever, chills, rigors, cough, phlegm or hemoptysis. Overall he says that his swelling is better. When I enter the room he was on 3 L nasal cannula saturations 100%. I decreased and room air and his saturations were 96%. He is afebrile. White blood cell count 13.0, creatinine 1.50, yesterday he was positive 2.2 L, cumulative he is positive 1.75 L. His weight today is 85.3. Plan: Patient has no wheezing. Oxygenation is stable. No infectious com plaints. I will continue prednisone 40 mg a day and DuoNebs q.6 hours. Respiratory pathogen panel, urine Legionella antigen, urine pneumococcal antigen and serum mycoplasma IgM are pending. : Patient tells me he is breathing normal. He says his cough is better than usual and he denies phlegm or hemoptysis. Has no wheezing. Room air saturations are 95%. He is afebrile. White blood cell count 13.2, creatinine 1.47. His BNP has increased from 6230 on 11/18/2024 to 7850 today. Yesterday he was positive 170 mL. Cumulative he is positive 1.9 L since admission. His weight today is 86 kg. Plan: plan continue prednisone 40 mg p.o. q.day, today is day 4 and will discontinue after tomorrow's dose. Continue DuoNebs q.6 hours. Respiratory pathogen panel, urine Legionella antigen, urine pneumococcal antigen and serum mycoplasma IgM are pending. Discussed with Dr. Castillo. Will follow with you. (2) CHF (congestive heart failure): Code(s): I50.9 - Heart failure, unspecified Status: Acute Assessment and Plan: Echocardiogram 03/26/2022 with LVEF 40-45%, mild to moderate global LV systolic dysfunction, grade 1 diastolic dysfunction, normal right ventricular size. Mild right ventricular hypokinesis, mild enlargement left atrium, mild enlargement right atrium mild to moderate mitral regurg, trace to mild AR, mild tricuspid regurgitation with RVSP 49. 9; He had an elevated BNP 5280 and was treated with Lasix 20 IV. 11/18 BNP today is 6230. He diuresed 285 mL yesterday. Cumulative he is positive 645 mL since admission. His weight today is 83.5. Plan: cardiology consult id and increase his Lasix to 40 mg IV b.i.d., added Entresto, Coreg and spironolactone. Echocardiogram ordered for 11/19. 11/19/2024: Patient states his swelling is improved and I agree. Creatinine 1.50, yesterday he was positive 2.2 L, cumulative he is positive 1.75 L. His weight today is 85.3. Plan: Cardiology consult following. Echocardiogram today. Adjustments of cardiac medicines per Cardiology team. Later in the day echocardiogram with LVEF 30-35%, grade 3 diastolic dysfunction, severe mitral regurg, moderate tricuspid regurg with PASP of 61, right ventricle normal size and function, right atrium normal size, left atrium mildly enlarged. Compared to 03/29/2022 LVEF is decreased from 44 to a value of 30 to 35%. [id number] MR has progressed to severe MR. PASP has increased from 44 to 61. 11/20/24: His BNP has increased from 6230 on 11/18/2024 to 7850 today. Yesterday he was positive 170 mL. Cumulative he is positive 1.9 L since admission. His weight today is 86 kg. Plan: I will discuss echocardiogram results with Cardiology team. (3) Lung nodule: Code(s): R91.1 - Solitary pulmonary nodule Status: Acute Assessment and Plan: Patient had a CT angiogram of the chest with no PE, able apical predominant c entrilobular emphysema, small left pleural effusion, trace right pleural effusion moderate peripheral basal reticulations with no change from 09/10/2023. patient had a 10 x 11 mm pleural based medial left upper lobe nodule that had increased in size from 5 mm on 11/09/2023 [address] scan cervical spine on 09/09/2024. Plan: patient does wish to identify etiology of this nodule. Will review CT scans with Interventional Radiology to determine if this is a nodule that can be biopsied at [facility]. The lesion is too small and peripheral for bronchoscopy. 11/19/2024: I reviewed serial CT scans of the chest with interventional radiology. Plan: Patient with enlarging left upper lobe nodule and discussed risks and benefits with patient wishes to proceed. Will proceed with CT-guided biopsy on 11/20 or 11/21/2024. I will check coags on 11/20. Biopsy ordered. 11/20/2024: Patient is NPO for CT-guided biopsy later today. PT 12.9, INR 1.0, PTT 23.8. Plan: CT-guided biopsy per Interventional Radiology. (4) ISIAH (obstructive sleep apnea): Code(s): G47.33 - Obstructive sleep apnea (adult) (pediatric) Status: Acute Assessment and Plan: Untreated. He has mild sleep apnea evidenced by AHI 6.6 on a sleep study 05/29/21. BiPAP 13/9cm was recommended. Patient states he attempted BiPAP, tried all different types of masks and was unable to tolerate BiPAP. 11/18/24: I will continue 3 L nasal cannula at night. Once he is closer to his baseline will perform overnight oximetry on these settings. 11/20/2024: Patient has returned to his baseline. Plan: I will perform overnight oximetry with 3 L per nasal cannula. Subjective Date/time seen: 11/20/24 09:25 Interval history: 11/18/2024: This is a new pulmonary consult for COPD and lung nodule. 69-year-old with a history of GOLD grade 3 group E COPD on home oxygen 3 L with activity and 3 L with sleep, status post VATS right upper lobectomy in 2008 for possible cancer but the patient tells me they found no cancer, GERD, coronary artery disease status post CABG, untreated mild obstructive sleep apnea as he and intolerant to CPAP or BiPAP, hyperlipidemia, hypertension, prostate cancer, renal cell carcinoma, pheochromocytoma and splenectomy in 2008. Patient is followed in the Pulmonary Clinic in last seen on 11/05/2024: This is the note: 6 month follow up regarding COPD on oxygen. Hx: COPD, GERD, gout, CAD, untreated mild sleep apnea (intolerant to BiPAP), hyperlipidemia, hypertension, prostate cancer, hx of MA and CABG and tobacco use disorder. He had a VATS in 2008 with a right upper lobectomy. He said no cancer was found. He had renal cancer, pheochromocytoma and had this removed along with a splenectomy in 2008. He reports progressive MUÑOZ since last visit along with wheezing. Denies any excessive coughing or mucous production. Denies chest pains/tightness but rep orts heart palpitations. Reports nighttime dyspnea walking from the bathroom. He is compliant using Breztri twice daily. Albuterol use has been 4x/day for the past 4 months. He has a portable oxygen concentrator he purchased this out of pocket, 3L O2 with exertion. Has been using 4L at times and at home, been using it 13/09. Current smoker 1ppd, smoked 0.5-1ppd for 54 years. He tried NRT patches which did not help he states. He is interested in medication to help him quit. 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 Ram. Reports it's been >1year. weight 180 lb. Lungs were clear to auscultation. Plan: He tried Daliresp but could not tolerate GI side effects. All to for a was too costly. Continue breasts tree albuterol p.r.n.. Chest x-ray, EKG, Cardiology referral. Recommended regular exercise and deep breathing. Quit smoking. Bupropion was prescribed. Follow-up 2-3 months. requires no oxygen at rest, 3 L with activity, continue 3 at night. low-dose CT scan ordered. Smoking cessation counseling provided. 11/12/2024: Suspect right middle lobe atelectasis or early airspace disease. Emphysema, chronic scarring and retraction of the diaphragm right lung base, Patient tells me he took the bupropion after he left the clinic and quit smoking in 4 days. patient smoked tobacco from age 14-1 week ago at 1 pack per day for total of 55 pack years. He was exposed to secondhand smoke from his mother but none since. Patient did cocaine last use was in 2014. 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 Baseline dyspnea on exertion now is room to room. Patient tells me he was at his baseline On 11/16/2024. The patient tells me he wears no oxygen at rest but does not have a pulse oximeter to measure his saturations. He is prescribed 3 L with activity but he rarely uses this with activity and has room to room dyspnea on exertion. When he walks to the the couch to the bathroom with 3 L oxygen on he is able to make this journey and he says he does better than without. Without oxygen he is extremely short of breath after he gets back to the couch. This worsening dyspnea on exertion has progressed over the last few months. On 11/16/2024 he had no increased cough, phlegm or hemoptysis. He ate dinner and went to bed and was feeling his usual self. On 11/17/2024 he woke up at 4:00 a.m. to urinate. He took his oxygen off and he walked back to the couch and he had worsening dyspnea on exertion and shortness of breath without recovery. He had wheezing and he told his family to call EMS. He denied cough, phlegm production or hemoptysis. He denied chest pain. On arrival to the emergency department the patient was in severe respiratory distress in a tripod position. Blood pressure 129/83, heart rate 81, respirations 20 patient was immediately placed on BiPAP 14/7 and 35% FiO2 with saturations 100. Patient had audible inspiratory and expiratory wheezes without a stethoscope. White blood cell count was 7.0 with eosinophils 2.4%= 168 per micro L, creatinine 1.37, serum bicarbonate 28, BNP 5280, COVID influenza and RSV RT PCR assay negative. Patient had a CT angiogram of the chest with no PE, able apical predominant centrilobular emphysema, small left pleural effusion, trace right pleural effusion moderate peripheral basal reticulations with no change from 09/10/2023. patient had a 10 x 11 mm pleural based medial left upper lobe nodule that had increased in size from 5 mm on 11/09/2023 [address] scan cervical spine on 09/09/2024. About 5 hours later patient had an ABG on 35% FiO2 with pH of 7.40/39/111. Patient was treated with Solu-Medrol, bronchodilators and Lasix 20 IV. 11/18/2024: Currently the patient tells me he is good but not back to his normal. He still has slight shortness of breath at rest. He denies fever, chills, rigors, phlegm, hemoptysis or chest pain. of note patient tells me he has worsening lower extremity edema over the last 4 months. He has no wheezing. He was on 3 L nasal cannula saturations 95-100%. I decreased him to room air and his saturations remain 92%. His white blood cell count was 6.2, his creat inine was 1.23. His CRP was 1.9, his procalcitonin was 0.1, his BNP was 6230. Chest x-ray today shows worsening diffuse left lung infiltrate with no change on the right. 11/19/2024: Patient was moved to a new room out of the [facility] unit and says that he is a harder time breathing in this new room because it is dry. He did not sleep last night. He denies fever, chills, rigors, cough, phlegm or hemoptysis. Overall he says that his swelling is better. When I enter the room he was on 3 L nasal cannula saturations 100%. I decreased and room air and his saturations were 96%. He is afebrile. White blood cell count 13.0, creatinine 1.50, yesterday he was positive 2.2 L, cumulative he is positive 1.75 L. His weight today is 85.3. Later in the day echocardiogram with LVEF 30-35%, grade 3 diastolic dysfunction, severe mitral regurg, moderate tricuspid regurg with PASP of 61, right ventricle normal size and function, right atrium normal size, left atrium mildly enlarged. Compared to 03/29/2022 LVEF is decreased from 44 to a value of 30 to 35%. [id number] MR has progressed to severe MR. PASP has increased from 44 to 61. : Patient tells me he is breathing normal. He says his cough is better than usual and he denies phlegm or hemoptysis. Has no wheezing. Room air saturations are 95%. He is afebrile. White blood cell count 13.2, creatinine 1.47. His BNP has increased from 6230 on 11/18/2024 to 7850 today. Yesterday he was positive 170 mL. Cumulative he is positive 1.9 L since admission. His weight today is 86 kg. DATA: 11/17/2024: EXAMINATION: CTA chest PE protocol, 11/17/2024 14:20 CDT HISTORY: pe? COMPARISON: Comparison 04/30/2022 TECHNIQUE: CTA examination is obtained with contrast CTA examination technique is performed with arterial phase of contrast-enhancement. 3-D reconstruction with thin MIP axial and MPR coronal imaging is provided Isovue 300, 92cc injected IV. One or more of the following dose reduction techniques were used: automated exposure control, adjustment of the mA and/or kV according to patient size, use of iterative reconstruction technique. FINDINGS: No significant coronary calcification is present ([id number]) LUNGS: Small simple appearing left pleural effusion. Trace right pleural effusion. The contrast bolus is adequate, there is no pulmonary embolism identified. Postsurgical changes noted in the right lung. No tracheomalacia. No bronchiectasis. Moderate emphysematous changes. Areas of bullous formation of the right upper lobe. Moderate pulmonary fibrotic changes. No honeycombing is identified. Within the left upper lobe there is a nodule medially measuring 10 x 11 mm. HEART AND PERICARDIUM: Mild cardiomegaly. No pericardial effusion. AORTA: Normal caliber aorta.. PULMONARY ARTERIES: No pulmonary embolism ADENOPATHY/MEDIASTINUM: There are enlarged lymph nodes in the mediastinum the largest periaortic lymph node measuring 2.3 x 2.2 cm. LIMITED VIEWS OF THE ABDOMEN: Simple appearing left renal cyst 2 x 2 cm. OSSEOUS STRUCTURES: No sclerotic or lytic lesions. No acute rib fractures. Poststernotomy changes are noted. OVERLYING SOFT TISSUES: Unremarkable. THYROID: The thyroid is unremarkable. IMPRESSION: 1. Negative for pulmonary embolism. Chronic changes detailed above with superimposed probable CHF. There is a nodule within the left upper lobe which is new compared to the previous study. PET CT is recommended 09/09/2024: Noncontrast CT scan of the cervical spine Technique: Multiple contiguous axial [address] images of the cervical spine were obtained and reconstructed in 2D sagittal and coronal planes on the acquisition scanner. Dose reduction technique was used on this scan by utilizing automated exposure control, adjustment of the mA and/or kV according to patient size. The dose-length product (DLP) was 492.27 mGy-cm. Clinical History: Pain Findings: No fractures or dislocations. At C2-C3, there is prominent right facet arthropathy. There is minimal right neural foraminal narrowing. Left neural foramen preserved. No canal stenosis or cord compression evident. At C3-C4, there is right facet arthropathy. No definite neural foraminal narrowing canal stenosis, or cord compression. At C4-C5, there is mild left neural foraminal narrowing with mild left facet arthropathy. No definite canal stenosis, cord compression, or right neural foraminal narrowing. At C5-C6, there is advanced degenerative disc narrowing with mild disc ossify complex. Probable mild bilateral neural foraminal narrowing. No definite canal stenosis or cord compression. At C6-C7, there is advanced degenerative distended. No definite canal stenosis, cord compression, or neural foraminal narrowing. No prevertebral soft tissue swelling. 7 mm nodule noted medially in the left lung apex. Impression: No fracture or subluxation of the cervical spine. Degenerative spondylosis, as above. 7 mm medial left apical pulmonary nodule, indeterminate. According to Fleischner Society criteria, for a low-risk patient, recommend follow-up CT scan in 6-12 months, then consider additional 18-[address] For a high-risk patient, follow-up CT scans at both 6-12 months and 18-24 months are recommended. 11/09/2023: CT Scan of the Chest without Contrast: Clinical Indication: Lung cancer screening, nicotine dependence Technique: Contiguous sections were acquired throughout the chest without intravenous contrast. Dose reduction technique was used on this scan by utiliz ing automated exposure control and iterative reconstruction technique. The dose- length product (DLP) was 102.78 mGy-cm. COMPARISON: 04/30/2022 Findings: There is no evidence of any significant mediastinal, hilar or axillary lymphadenopathy. There are atherosclerotic calcifications of the aorta and coronary arteries. Stable descending thoracic aortic aneurysm. There is no evidence of pleural or pericardial effusion. Status post partial right upper lobectomy. Probable mild emphysema. 5 mm nodule noted in the medial left lung apex ((axial image 26).. Images through the upper abdomen reveal no abnormalities. Impression: Lung RADS 2: Benign appearance. 12 month follow-up screening CT advised. 05/28/2021: This is a pulmonary function test with pre and post-bronchodilator spirometry, plethysmography and diffusing capacity. The test was performed and results interpreted in accordance with the 2019 and 2005 ATS/ERS Task Force guidelines respectively using the Global Lung Function Initiative-2012 reference equations. Patient demonstrated good effort and cooperation. Reproducibility criteria were met. The quality of the pre bronchodilator spirometry maneuver was Grade A and post bronchodilator spirometry maneuver was Grade A. Findings: Spirometry: There is decreased maximal expiratory airflow at all lung volumes with a concaved expiratory flow tracing. The contour the inspiratory flow tracing is normal. The pre bronchodilator FVC is 3.12 L, 84% predicted. The pre bronchodilator FEV1 is 1.24 L, 44% predicted. The pre bronchodilator FEV1: FVC ratio was 40%. The post bronchodilator FVC is 3.15 L, representing 1% increase. The post bronchodilator FEV1 is 1.20 L, representing a 3% decrease. Plethysmography: The total lung capacity is 6.76 L, 109% predicted. The functional residual capacity is 5.16 L, 149% predicted. The residual volume is 3.60 L, 162% predicted. Diffusing capacity: The diffusing capacity on adjusted for hemoglobin and carboxyhemoglobin is 10.3, 38% predicted. The diffusing capacity adjusted for alveolar volume is 2.07, 51% predicted. Impression: There is a severe obstructive abnormality without significant improvement after inhaling a single dose of albuterol. The increase in residual volume is consistent with air trapping from an obstructive abnormality. Hyperinflation is present is demonstrated by the increase in functional residual capacity and is consistent with an obstructive abnormality. The diffusing capacity unadjusted for hemoglobin and carboxyhemoglobin is severely decreased and remains moderately decreased when adjusted for alveolar volume. There are no prior studies for comparison 03/29/2022: echocardiogram 03/26/2022 report: with LVEF 40-45%, mild to moderate global LV systolic dysfunction, grade 1 diastolic dysfunction, normal right ventricular size. Mild right ventricular hypokinesis, mild enlargement left atrium, mild enlargement right atrium mild to moderate mitral regurg, trace to mild AR, mild tricuspid regurgitation with RVSP 49. Home O2 Eval 05/17/24 - requires 3L O2 with activity, none at rest. LDCT 11/09/23 - Status post partial right upper lobectomy. Probable mild emphysema. 5 mm nodule noted in the medial left lung apex. Overnight oximetry on 3L 02/03/23 - 0 time spent below 90% O2 on 3L. Home O2 Eval 02/09/23 - no O2 needed at rest or with activity. 05/29/21 - Split PSG - Overall AHI is 6.6. BiPAP 13/9cm was recommended. The patient should have a nocturnal oximetry done 2-4 weeks after starting PAP to ensure the hypoxemia has resolved. 05/28/21 PFT - There is a severe obstructive abnormality without significant improvement after inhaling a dose of albuterol. The increase in residual volume is consistent with air trapping from an obstructive abnormality. Hyperinflation is present is demonstrated by the increase in functional residual capacity and is consistent with an obstructive abnormality. The diffusing capacity unadjusted for hemoglobin and carboxyhemoglobin is severely decreased and remains moderately decreased when adjusted for alveolar volume. 05/28/21 - Home O2 eval - Patient required 3L/min O2 with ambulation and none at rest. 04/18/2019 CTA at [place]- clear lungs. Tracheal and right mainstem bronchial debris. Partial right pneumonectomy. Moderate emphysema. Dilated main, central pulmonary arteries consistent with pulmonary arterial hypertension no lymphadenopathy. Sternotomy wires. Lexiscan and 07/2018; fixed infarct without ischemia. EF 39%. Review of Systems Constitutional: Constitutional: Reports no additional constitutional complaints Eyes: Eyes: Reports no additional eye complaints ENT: Reports system reviewed and no additional complaints, except as docu mented Cardiovascular: Cardiovascular: Reports no additional cardiovascular complaints Respiratory: Respiratory: Reports no additional respiratory complaints Gastrointestinal: Gastrointestinal: Reports no additional gastrointestinal complaints Musculoskeletal: Musculoskeletal: Reports no additional musculoskeletal complaints Neurologic: Reports system reviewed and no additional complaints, except as documented Psychiatric: Psychiatric: Reports no additional psychiatric complaints Endocrine: Endocrine: Reports no additional endocrine complaints Hematologic/Lymphatic: Hematologic/Lymphatic: Reports no additional hematologic/lymphatic complaints Allergic/Immunologic: Allergic/Immunologic: Reports no additional allergic/immunologic complaints Exam Const: General: cooperative, healthy appearing and comfortable Orientation /consciousness: oriented to person, oriented to place and oriented to time HENMT: Head: normal to inspection Ears: hearing grossly normal bilaterally Eyes: General: appearance normal, both eyes and all related structures Neck: Neck: normal visual inspection Chest: Chest palpation & inspection: normal inspection of the chest Resp: Effort & Inspection: normal respiratory effort and able to speak in complete sentences Auscultation: no crackles, no rales, no rhonchi, no wheezes and diminished lung sounds Other: No wheezes, decreased breath sounds throughout Cardio: Jugular venous distension: no JVD GI: Inspection: normal to inspection Skin: General skin exam: normal color Neuro: General: oriented to person, oriented to place and oriented to time Extrem: General: normal to inspection Other: positive edema- improved Psych: Appearance: grossly normal Objective Data Vital Signs Vital Signs: Vital Signs - 24 hr 11/19/24 10:42 11/19/24 12:00 11/19/24 13:10 Temperature 35.8 C L Pulse Rate 86 75 Respiratory Rate 16 Blood Pressure 113/60 Pulse Oximetry 97 Oxygen Delivery Room Air Fraction of Inspired Oxygen 11/19/24 13:55 11/19/24 13:55 11/19/24 14:07 Temperature Pulse Rate 74 74 76 Respiratory Rate 20 20 20 Blood Pressure Pulse Oximetry 96 Oxygen Delivery Room Air Fraction of Inspired Oxygen 11/19/24 16:00 11/19/24 17:00 11/19/24 20:00 Temperature 36.3 C L 36.4 C Pulse Rate 86 82 65 Respiratory Rate 18 16 Blood Pressure 130/73 120/69 Pulse Oximetry 96 98 Oxygen Delivery Fraction of Inspired Oxygen 11/19/24 20:04 11/19/24 20:37 11/19/24 20:37 Temperature Pulse Rate 73 80 Respiratory Rate Blood Pressure Pulse Oximetry 95 Oxygen Delivery Room Air Fraction of Inspired Oxygen 11/19/24 21:04 11/19/24 21:10 11/20/24 00:00 Temperature Pulse Rate 70 70 80 Respiratory Rate 18 18 Blood Pressure Pulse Oximetry Oxygen Delivery Fraction of Inspired Oxygen 11/20/24 00:00 11/20/24 00:40 11/20/24 01:44 Temperature 36.9 C Pulse Rate 77 70 Respiratory Rate 18 18 Blood Pressure 129/77 Pulse Oximetry 97 96 Oxygen Delivery Room Air Fraction of Inspired Oxygen 11/20/24 04:00 11/20/24 04:00 11/20/24 08:00 Temperature 36.7 C Pulse Rate 86 83 Respiratory Rate 20 Blood Pressure 137/89 Pulse Oximetry 95 95 Oxygen Delivery Room Air Fraction of Inspired Oxygen 35 11/20/24 08:00 11/20/24 08:25 11/20/24 08:32 Temperature Pulse Rate 90 83 77 Respiratory Rate 18 18 Blood Pressure Pulse Oximetry Oxygen Delivery Fraction of Inspired Oxygen 11/20/24 08:36 Temperature Pulse Rate 90 Respiratory Rate Blood Pressure Pulse Oximetry Oxygen Delivery Fraction of Inspired Oxygen Intake/Output Intake/Output: Intake & Output 11/17/24 11/18/24 11/19/24 11/20/24 23:59 23:59 23:59 23:59 Intake Total 340 2900 1470 0 Output Total 230 660 6357 175 Balance -285 2200 170 -175 Meds/Results Medications: Active Medications Generic Name Dose Route Start Last Admin Trade Name Freq PRN Reason Stop Dose Admin Acetaminophen 650 mg 11/17/24 12:26 11/18/24 21:05 Acetaminophen 325 Mg Tablet PO 650 mg Q4H PRN Administration Mild Pain (1-3) or Fever Albuterol 2.5 mg 11/17/24 12:26 Albuterol Sulfate Neb 2.5 Mg/3 Ml Inh INHALATION Q6HRT PRN Bronchospasm Albuterol/Ipratropium 3 ml 11/17/24 14:00 11/20/24 08:29 Ipratropium 0.5 Mg/Albuterol Sulfate 2.5 Mg Ampul.Neb 3 Ml INHALATION 3 ml Q6HRT ЮЛИЯ Administration Allopurinol 100 mg 11/18/24 09:00 11/20/24 08:36 Allopurinol 100 Mg Tablet BY MOUTH 100 mg DAILY ЮЛИЯ Administration Bupropion HCl 150 mg 11/18/24 09:00 11/20/24 08:36 Bupropion Hcl Sr (12 Hr) 150 Mg Tab PO 150 mg Q12HR ЮЛИЯ Administration Carvedilol 25 mg 11/17/24 21:00 11/20/24 08:36 Carvedilol 25 Mg Tablet PO 25 mg Q12H ЮЛИЯ Administration Cyclobenzaprine HCl 10 mg 11/17/24 20:57 Cyclobenzaprine Hcl 10 Mg Tablet PO TID PRN Muscle Spasm Pantoprazole Sodium 40 mg 11/18/24 09:00 11/20/24 08:36 Pantoprazole 40 Mg Tablet PO 40 mg QAM ЮЛИЯ Administration Perflutren Lipid Microsphere 0 ml 11/17/24 15:41 Perflutren Lipid Microspheres 1.5 Ml Vial Diluted To 10 Ml Total Volume IV PUSH 11/20/24 15:47 ONCE PRN adequate visualization Protocol Prednisone 40 mg 11/18/24 12:55 11/20/24 08:36 Prednisone 20 Mg Tablet PO 40 mg DAILY@0800 ЮЛИЯ Administration Quetiapine Fumarate 50 mg 11/17/24 21:00 11/19/24 20:38 Quetiapine Fumarate 25 Mg Tablet PO 50 mg QHS ЮЛИЯ Administration Rosuvastatin Calcium 40 mg 11/18/24 09:00 11/20/24 08:36 Rosuvastatin 20 Mg Tablet BY MOUTH 40 mg DAILY ЮЛИЯ Administration Sacubitril/Valsartan 1 tab 11/17/24 21:00 11/19/24 09:00 Sacubitril/Valsartan 24-26 Mg Tablet PO 1 tab On Hold: 11/19/24 15:29 Q12HR ЮЛИЯ Administration Spironolactone 25 mg 11/18/24 12:00 11/19/24 09:00 Spironolactone 25 Mg Tablet PO 25 mg On Hold: 11/19/24 15:29 QAM ЮЛИЯ Administration Tamsulosin HCl 0.4 mg 11/17/24 21:00 11/19/24 20:37 Tamsulosin Hcl 0.4 Mg Capsule BY MOUTH 0.4 mg HS ЮЛИЯ Administration Radiology Results: ITS Impressions Chest CTA 11/17/24 14:39 IMPRESSION: 1. Negative for pulmonary embolism. Chronic changes detailed above with superimposed probable CHF. There is a nodule within the left upper lobe which is new compared to the previous study. PET CT is recommended Chest X-Ray 11/18/24 10:25 IMPRESSION: 1. Developing left lung unilateral interstitial pulmonary edema and/or pneumonitis, with pleural effusion. Labs Labs: Laboratory Results - last 24 hr 11/20/24 05:55 WBC 13.2 H RBC 4.27 L Hgb 13.0 L Hct 37.2 L MCV 87.1 MCH 30.4 MCHC 34.9 RDW 15.0 H Plt Count 268 MPV 10.3 PT 12.9 INR 1.0 APTT 23.8 Sodium 133 L Potassium 3.7 Chloride 101 Carbon Dioxide 29 Anion Gap 3 L BUN 46 H D Creatinine 1.47 H Estim Creat Clear Calc 43 Estimated GFR 47 L Glucose 122 H Calcium 8.2 L Magnesium 1.5 L NT-Pro-B Natriuret Pep 7850 H
--- NOTE | 2024-11-20 09:56 | PM.PNCARD ---
Progress Note: A&P Assessment and Plan (1) CHF (congestive heart failure): Code(s): I50.9 - Heart failure, unspecified Status: Acute Plan Acute on chronic systolic heart failure COPD exacerbation Hypertensive emergency Acute on chronic hypoxemic respiratory failure secondary to CHF versus COPD CKD stage 3 Plan Decrease lasix to 40mg p.o. daily - he has an EMMY and looks nearly euvolemic on exam. ELIZABETH strong BMP in a.m. Continue Entresto 24-26mg b.i.d Continue Coreg 25mg b.i.d. Continue Spironolactone 25mg daily Cardiology will sign off please call with questions. Subjective Date/time seen: 11/20/24 09:56 Interval history: Cardiology follow-up visit Date of service 11/19/2024: Lying flat in the bed sleeping but awakens to my voice. States his shortness of breath has resolved. Still has some mild swelling in his feet but this has significantly improved. Date of service 11/20/2024: Review of Systems Review of Systems: All systems reviewed & are unremarkable except as noted in HPI and below Exam Const: General: comfortable and no acute distress Other: Able to lie flat HENMT: Face/Nose/Sinus: Normal nares present and no epistaxis Mouth: Yes moist mucous membranes Eyes: Sclera: sclerae normal Pupils: Equal, round and reactive pupils present Neck: Neck: supple and no JVD Carotids: no bruits Resp: Auscultation: clear to auscultation bilaterally and lung sounds not diminished Other: No chest wall tenderness Cardio: Rate: regular rate Rhythm: regular rhythm Heart sounds: no gallops, no murmurs and no rubs GI: Auscultation: normal bowel sounds Skin: General skin exam: normal color, rashes and/or lesions noted and no erythema Other: Warm Neuro: Cranial nerves: Yes Equal, round and reactive pupils present Speech: normal speech Other: No obvious focal deficit or facial asymmetry Extrem: General: no edema Other: Normal capillary refills Intact distal pulses. Objective Data Vital Signs Vital Signs: Vital Signs - 24 hr 11/19/24 10:42 11/19/24 12:00 11/19/24 13:10 Temperature 35.8 C L Pulse Rate 86 75 Respiratory Rate 16 Blood Pressure 113/60 Pulse Oximetry 97 Oxygen Delivery Room Air Fraction of Inspired Oxygen 11/19/24 13:55 11/19/24 13:55 11/19/24 14:07 Temperature Pulse Rate 74 74 76 Respiratory Rate 20 20 20 Blood Pressure Pulse Oximetry 96 Oxygen Delivery Room Air Fraction of Inspired Oxygen 11/19/24 16:00 11/19/24 17:00 11/19/24 20:00 Temperature 36.3 C L 36.4 C Pulse Rate 86 82 65 Respiratory Rate 18 16 Blood Pressure 130/73 120/69 Pulse Oximetry 96 98 Oxygen Delivery Fraction of Inspired Oxygen 11/19/24 20:04 11/19/24 20:37 11/19/24 20:37 Temperature Pulse Rate 73 80 Respiratory Rate Blood Pressure Pulse Oximetry 95 Oxygen Delivery Room Air Fraction of Inspired Oxygen 11/19/24 21:04 11/19/24 21:10 11/20/24 00:00 Temperature Pulse Rate 70 70 80 Respiratory Rate 18 18 Blood Pressure Pulse Oximetry Oxygen Delivery Fraction of Inspired Oxygen 11/20/24 00:00 11/20/24 00:40 11/20/24 01:44 Temperature 36.9 C Pulse Rate 77 70 Respiratory Rate 18 18 Blood Pressure 129/77 Pulse Oximetry 97 96 Oxygen Delivery Room Air Fraction of Inspired Oxygen 11/20/24 04:00 11/20/24 04:00 11/20/24 08:00 Temperature 36.7 C Pulse Rate 86 83 Respiratory Rate 20 Blood Pressure 137/89 Pulse Oximetry 95 95 Oxygen Delivery Room Air Fraction of Inspired Oxygen 35 11/20/24 08:00 11/20/24 08:25 11/20/24 08:32 Temperature Pulse Rate 90 83 77 Respiratory Rate 18 18 Blood Pressure Pulse Oximetry Oxygen Delivery Fraction of Inspired Oxygen 11/20/24 08:36 Temperature Pulse Rate 90 Respiratory Rate Blood Pressure Pulse Oximetry Oxygen Delivery Fraction of Inspired Oxygen Intake/Output Intake/Output: Intake & Output 11/17/24 11/18/24 11/19/24 11/20/24 23:59 23:59 23:59 23:59 Intake Total 340 2900 1470 0 Output Total 684 857 7429 175 Balance -285 2200 170 -175 Meds/Results Medications: Active Medications Generic Name Dose Route Start Last Admin Trade Name Freq PRN Reason Stop Dose Admin Acetaminophen 650 mg 11/17/24 12:26 11/18/24 21:05 Acetaminophen 325 Mg Tablet PO 650 mg Q4H PRN Administration Mild Pain (1-3) or Fever Albuterol 2.5 mg 11/17/24 12:26 Albuterol Sulfate Neb 2.5 Mg/3 Ml Inh INHALATION Q6HRT PRN Bronchospasm Albuterol/Ipratropium 3 ml 11/17/24 14:00 11/20/24 08:29 Ipratropium 0.5 Mg/Albuterol Sulfate 2.5 Mg Ampul.Neb 3 Ml INHALATION 3 ml Q6HRT ЮЛИЯ Administration Allopurinol 100 mg 11/18/24 09:00 11/20/24 08:36 Allopurinol 100 Mg Tablet BY MOUTH 100 mg DAILY ЮЛИЯ Administration Bupropion HCl 150 mg 11/18/24 09:00 11/20/24 08:36 Bupropion Hcl Sr (12 Hr) 150 Mg Tab PO 150 mg Q12HR ЮЛИЯ Administration Carvedilol 25 mg 11/17/24 21:00 11/20/24 08:36 Carvedilol 25 Mg Tablet PO 25 mg Q12H ЮЛИЯ Administration Cyclobenzaprine HCl 10 mg 11/17/24 20:57 Cyclobenzaprine Hcl 10 Mg Tablet PO TID PRN Muscle Spasm Pantoprazole Sodium 40 mg 11/18/24 09:00 11/20/24 08:36 Pantoprazole 40 Mg Tablet PO 40 mg QAM ЮЛИЯ Administration Perflutren Lipid Microsphere 0 ml 11/17/24 15:41 Perflutren Lipid Microspheres 1.5 Ml Vial Diluted To 10 Ml Total Volume IV PUSH 11/20/24 15:47 ONCE PRN adequate visualization Protocol Prednisone 40 mg 11/18/24 12:55 11/20/24 08:36 Prednisone 20 Mg Tablet PO 40 mg DAILY@0800 ЮЛИЯ Administration Quetiapine Fumarate 50 mg 11/17/24 21:00 11/19/24 20:38 Quetiapine Fumarate 25 Mg Tablet PO 50 mg QHS ЮЛИЯ Administration Rosuvastatin Calcium 40 mg 11/18/24 09:00 11/20/24 08:36 Rosuvastatin 20 Mg Tablet BY MOUTH 40 mg DAILY ЮЛИЯ Administration Sacubitril/Valsartan 1 tab 11/17/24 21:00 11/19/24 09:00 Sacubitril/Valsartan 24-26 Mg Tablet PO 1 tab On Hold: 11/19/24 15:29 Q12HR ЮЛИЯ Administration Spironolactone 25 mg 11/18/24 12:00 11/19/24 09:00 Spironolactone 25 Mg Tablet PO 25 mg On Hold: 11/19/24 15:29 QAM ЮЛИЯ Administration Tamsulosin HCl 0.4 mg 11/17/24 21:00 11/19/24 20:37 Tamsulosin Hcl 0.4 Mg Capsule BY MOUTH 0.4 mg HS ЮЛИЯ Administration Radiology Results: ITS Impressions Chest CTA 11/17/24 14:39 IMPRESSION: 1. Negative for pulmonary embolism. Chronic changes detailed above with superimposed probable CHF. There is a nodule within the left upper lobe which is new compared to the previous study. PET CT is recommended Chest X-Ray 11/18/24 10:25 IMPRESSION: 1. Developing left lung unilateral interstitial pulmonary edema and/or pneumonitis, with pleural effusion. Labs Labs: Laboratory Results - last 24 hr 11/20/24 05:55 WBC 13.2 H RBC 4.27 L Hgb 13.0 L Hct 37.2 L MCV 87.1 MCH 30.4 MCHC 34.9 RDW 15.0 H Plt Count 268 MPV 10.3 PT 12.9 INR 1.0 APTT 23.8 Sodium 133 L Potassium 3.7 Chloride 101 Carbon Dioxide 29 Anion Gap 3 L BUN 46 H D Creatinine 1.47 H Estim Creat Clear Calc 43 Estimated GFR 47 L Glucose 122 H Calcium 8.2 L Magnesium 1.5 L NT-Pro-B Natriuret Pep 7850 H Quality VTE Prophylaxis VTE prophylaxis: mechanical ordered and pharmacologic ordered
--- NOTE | 2024-11-20 13:40 | S_PTH ---
PATIENT: Darian Mas LOC: [id number] U#:[id number] AGE/SX: 69/M ROOM: 347 RE11/18/[address]: Benita Castillo MD : [id number] BED: 01 DIS: 11/23/2024 SPEC #: [id number] RECD: 11/20/24 13:50 STATUS: AIRAM REQ #: [id number] DAVID: 11/20/24 13:[address]: Yosi Milner DEPT: [facility] Surgical RECD BY: Phyllis Pacheco ENTERED: 11/20/24 13:52 SP TYPE: Surgical OTHR DR: MD Benita Farr MD David E. Johnson, APRN Tissues: A - Lung Biopsy Procedures: P63 TTF Unstained Slides Hematoxylin and Eosin Stain Gross and Microscopic Level 4 Synaptoshysin Chromogranin Stain Mib
--- NOTE | 2024-11-20 14:20 | PC.NURSE ---
[id number] Dr Laura notified of patient c/o increasing sob since he returned from lung biopsy. RA sat 94% Lung sounds I/E wheezes throughout.
--- NOTE | 2024-11-20 14:49 | PC.NURSE ---
Dr Castillo notified of patient c/o increasing SOB since lung biopsy. 1 hour chest xray done and per Dr Laura it was fine. RT at bedside to give scheduled breathing treatment. Ra sat 83% prior to treatment then patient placed on o2 3l post treatment with sat 95%. Dr Castillo coming up to see patient.
--- NOTE | 2024-11-20 15:12 | PC.NURSE ---
RT at bedside to do blood gas patient states his breathing is better. O2 3l sat 95%
--- NOTE | 2024-11-20 15:15 | PM.IMPN ---
Progress Note: A&P Assessment and Plan (1) Hypertension: Qualifiers: Hypertension type: essential hypertension Qualified Code(s): I10 - Essential (primary) hypertension Code(s): I10 - Essential (primary) hypertension Status: Acute (2) CHF (congestive heart failure): Code(s): I50.9 - Heart failure, unspecified Status: Acute (3) Chronic obstructive pulmonary disease: Qualifiers: COPD type: unspecified COPD Qualified Code(s): J44.9 - Chronic obstructive pulmonary disease, unspecified Code(s): J44.9 - Chronic obstructive pulmonary disease, unspecified Status: Acute (4) Shortness of Breath: Code(s): R06.02 - Shortness of breath Status: Acute (5) Lung nodule: Code(s): R91.1 - Solitary pulmonary nodule Status: Acute Plan 69-year-old male with PMH tobacco abuse, risky alcohol use, COPD on home oxygen 3 L with activity in sleep, status post VATS right upper lobectomy in 2008 for nodule, per patient report no cancer was found, GERD, CAD status post CABG, untreated mild obstructive sleep apnea as patient is intolerant to CPAP/BiPAP, heart failure reduced ejection fraction, hyperlipidemia, hypertension, prostate cancer, renal cell carcinoma, pheochromocytoma and splenectomy in 2008 presents on 11/17/2024 complaining of dyspnea on exertion and wheezing. ----- Pulmonology following. COPD exacerbation/respiratory resolved. Solu-Medrol changed to prednisone 40 mg p.o. q.day. continue DuoNebs q.6 hours. Patient reports he has quit tobacco since a few weeks prior. I congratulated him. Also discussed the detrimental effects of risky alcohol use. Patient unable to tell me how much he drinks, his son chimed in and reports it varies but can be a lot at times. Patient reports he has had to quit. On admission patient had a CT angiogram, no PE identified. Reveals emphysema, small left pleural effusion, trace right pleural effusion, moderate peripheral basal reticulations with no change from 09/10/2023. Incidentally found a 10 x 11 mm pleural based medial left upper lobe nodule that has increased in size from 5 mm on 11/09/2023 and 7 mm 09/09/2024. Pulmonology assistance is appreciated, status post CT-guided lung biopsy with Interventional Radiology on 11/20/2024. Hold TASSEL SNIPPER aspirin and DVT prophylaxis Lovenox. 11/20/2024: Patient had been doing well all day. CT-guided lung biopsy completed without reported intra procedural complication. After returning to the floor he became severely short of breath, tachypneic, tachycardic, hypoxia, hypertensive, requiring 8 L saturating 93% or above. Initially, his respiratory failure was refractory to treatments. He received multiple DuoNebs, Solu-Medrol, was placed on BiPAP. Eventually saturations did come up on 80% FiO2 with settings 12/6. Multiple chest x-rays taken without pneumothorax identified. No changes identified. After some time, he began to improve, placed back on 3 L. tachypnea, tachycardia, elevated blood pressure all improved. We were able to get him to the CT with contrast. We discussed contrast risks versus benefits in detail with the patient and , they both agreed to proceed. I reviewed the CT scan and there is some opacities around the nodule which was biopsied, possibly hemorrhage, awaiting official radiology interpretation. He has bullous formation, some fibrosis, left pleural effusion which is minimal, no significant pulmonary edema and his lungs are completely clear except for expiratory wheezing. Appears to be bronchospasm from the procedure. At this time we will obtain an EKG, troponin x3, he is stable on 3 L nasal cannula, he is being monitored in the ICU as IMU overflow very closely. DuoNebs q.4 hours, will institute Solu-Medrol 80 mg q.8 hours. Continue nasal cannula per protocol. Repeat chest x-ray in the morning. Nurse reports to me as soon as the magnesium rider was started he became tachypneic and tachycardic, unclear if this was incidental. Avoid magnesium for now. Greater than 120 minutes spent on [id number] time, coordination with nursing, consultants, family, high acuity decision making. All of their questions and concerns were answered to satisfaction. ISIAH: Untreated, patient intolerant of BiPAP. Continue 3 L at night and with activity. Overnight oximetry on 3 L nasal cannula 11/20/2024. Hydralazine: He had elevated blood pressure during his acute respiratory distress, his blood pressure is improving. Hydralazine p.r.n.. Acute on chronic heart failure reduced ejection fraction. Cardiology following. He was continued on Entresto, Coreg. Spironolactone started, furosemide 40 mg IV b.i.d. started. He has diuresed, now developed an EMMY. Aside from his lower extremity edema he is breathing well and lungs are almost clear now. Hold spironolactone, Entresto, Lasix. Allowed spontaneous oral intake. Continue to monitor intake/output, daily weights, trend renal function. Spoke with Cardiology about the patient's echocardiogram findings, he has had the hypokinesis for many years, EF is slightly lower. Advised outpatient stress testing. If troponins and EKG are newly abnormal will discuss again. Patient wishes to be full code. Heart healthy diet. Saline lock IV. Hold Lovenox, SCDs. Hold aspirin. Tobacco and alcohol cessation counseling provided for greater than 3 minutes. Son was present for that. Subjective Date/time seen: 11/20/24 15:15 Interval history: Patient seen before CT-guided biopsy. He reported no symptoms overnight. After biopsy without reported immediate complication, he was sent back up to his room and the patient has severe shortness of breath with desaturation to the mid 80% on room air. He was placed on 2 L nasal cannula and this improved. He had wheezing and tachypnea. He was given a breathing treatment with minimal improvement. He was started on a hour long neb treatment and continue to improve. Review of Systems Review of Systems: All systems reviewed & are unremarkable except as noted in HPI and below (Subjective) Exam Const: General: comfortable and no acute distress HENMT: Mouth: Yes moist mucous membranes Eyes: Pupils: Equal, round and reactive pupils present Neck: Neck: supple Resp: Effort & Inspection: normal respiratory effort Other: Decreased breath sounds, expiratory wheezing Cardio: Rate: regular rate Rhythm: regular rhythm GI: Inspection: non-distended GI Palp: Yes Soft to palpation, No Tenderness to palpation present (GI) and No Guarding due to palpation present (GI) Neuro: Motor exam (neuro): 5/5 motor strength present throughout Extrem: Other: 2+ pitting edema bilateral lower extremities below the shins Objective Data Vital Signs Vital Signs: Vital Signs - 24 hr 11/19/24 16:00 11/19/24 17:00 11/19/24 20:00 Temperature 97.3 F L 97.6 F Pulse Rate 86 82 65 Respiratory Rate 18 16 Blood Pressure 130/73 120/69 Pulse Oximetry 96 98 Oxygen Delivery Fraction of Inspired Oxygen 11/19/24 20:04 11/19/24 20:37 11/19/24 20:37 Temperature Pulse Rate 73 80 Respiratory Rate Blood Pressure Pulse Oximetry 95 Oxygen Delivery Room Air Fraction of Inspired Oxygen 11/19/24 21:04 11/19/24 21:10 11/20/24 00:00 Temperature Pulse Rate 70 70 80 Respiratory Rate 18 18 Blood Pressure Pulse Oximetry Oxygen Delivery Fraction of Inspired Oxygen 11/20/24 00:00 11/20/24 00:40 11/20/24 01:44 Temperature 98.5 F Pulse Rate 77 70 Respiratory Rate 18 18 Blood Pressure 129/77 Pulse Oximetry 97 96 Oxygen Delivery Room Air Fraction of Inspired Oxygen 11/20/24 04:00 11/20/24 04:00 11/20/24 08:00 Temperature 98.0 F Pulse Rate 86 83 Respiratory Rate 20 Blood Pressure 137/89 Pulse Oximetry 95 95 Oxygen Delivery Room Air Fraction of Inspired Oxygen 35 11/20/24 08:00 11/20/24 08:25 11/20/24 08:32 Temperature Pulse Rate 90 83 77 Respiratory Rate 18 18 Blood Pressure Pulse Oximetry Oxygen Delivery Fraction of Inspired Oxygen 11/20/24 08:36 11/20/24 12:00 11/20/24 14:13 Temperature Pulse Rate 90 81 Respiratory Rate Blood Pressure Pulse Oximetry 98 Oxygen Delivery Room Air Fraction of Inspired Oxygen 11/20/24 15:07 Temperature Pulse Rate 122 H Respiratory Rate 28 H Blood Pressure 170/90 H Pulse Oximetry Oxygen Delivery Fraction of Inspired Oxygen Intake/Output Intake/Output: Intake & Output 11/17/24 11/18/24 11/19/24 11/20/24 23:59 23:59 23:59 23:59 Intake Total 340 2900 1470 0 Output Total 905 919 2215 175 Balance -285 2200 170 -175 Meds/Results Medications: Active Medications Generic Name Dose Route Start Last Admin Trade Name Freq PRN Reason Stop Dose Admin Acetaminophen 650 mg 11/17/24 12:26 11/18/24 21:05 Acetaminophen 325 Mg Tablet PO 650 mg Q4H PRN Administration Mild Pain (1-3) or Fever Albuterol 2.5 mg 11/17/24 12:26 Albuterol Sulfate Neb 2.5 Mg/3 Ml Inh INHALATION Q6HRT PRN Bronchospasm Albuterol/Ipratropium 3 ml 11/17/24 14:00 11/20/24 13:52 Ipratropium 0.5 Mg/Albuterol Sulfate 2.5 Mg Ampul.Neb 3 Ml INHALATION Not Given Q6HRT [facility] Allopurinol 100 mg 11/18/24 09:00 11/20/24 08:36 Allopurinol 100 Mg Tablet BY MOUTH 100 mg DAILY ЮЛИЯ Administration Bupropion HCl 150 mg 11/18/24 09:00 11/20/24 08:36 Bupropion Hcl Sr (12 Hr) 150 Mg Tab PO 150 mg Q12HR ЮЛИЯ Administration Carvedilol 25 mg 11/17/24 21:00 11/20/24 08:36 Carvedilol 25 Mg Tablet PO 25 mg Q12H ЮЛИЯ Administration Cyclobenzaprine HCl 10 mg 11/17/24 20:57 Cyclobenzaprine Hcl 10 Mg Tablet PO TID PRN Muscle Spasm Pantoprazole Sodium 40 mg 11/18/24 09:00 11/20/24 08:36 Pantoprazole 40 Mg Tablet PO 40 mg QAM ЮЛИЯ Administration Perflutren Lipid Microsphere 0 ml 11/17/24 15:41 Perflutren Lipid Microspheres 1.5 Ml Vial Diluted To 10 Ml Total Volume IV PUSH 11/20/24 15:47 ONCE PRN adequate visualization Protocol Prednisone 40 mg 11/18/24 12:55 11/20/24 08:36 Prednisone 20 Mg Tablet PO 40 mg DAILY@0800 ЮЛИЯ Administration Quetiapine Fumarate 50 mg 11/17/24 21:00 11/19/24 20:38 Quetiapine Fumarate 25 Mg Tablet PO 50 mg QHS ЮЛИЯ Administration Rosuvastatin Calcium 40 mg 11/18/24 09:00 11/20/24 08:36 Rosuvastatin 20 Mg Tablet BY MOUTH 40 mg DAILY ЮЛИЯ Administration Sacubitril/Valsartan 1 tab 11/17/24 21:00 11/19/24 09:00 Sacubitril/Valsartan 24-26 Mg Tablet PO 1 tab On Hold: 11/19/24 15:29 Q12HR ЮЛИЯ Administration Spironolactone 25 mg 11/18/24 12:00 11/19/24 09:00 Spironolactone 25 Mg Tablet PO 25 mg On Hold: 11/19/24 15:29 QAM ЮЛИЯ Administration Tamsulosin HCl 0.4 mg 11/17/24 21:00 11/19/24 20:37 Tamsulosin Hcl 0.4 Mg Capsule BY MOUTH 0.4 mg HS ЮЛИЯ Administration Radiology Results: ITS Impressions Chest CTA 11/17/24 14:39 IMPRESSION: 1. Negative for pulmonary embolism. Chronic changes detailed above with superimposed probable CHF. There is a nodule within the left upper lobe which is new compared to the previous study. PET CT is recommended Chest X-Ray 11/20/24 14:43 IMPRESSION: 1. No acute cardiopulmonary findings given portable technique. Lung Biopsy CT 11/20/24 14:59 IMPRESSION: 1. Successful CT-guided biopsy of an 11 mm paramediastinal nodule at the left apex. Labs Labs: Laboratory Results - last 24 hr 11/19/24 11/20/24 06:32 05:55 WBC 13.2 H RBC 4.27 L Hgb 13.0 L Hct 37.2 L MCV 87.1 MCH 30.4 MCHC 34.9 RDW 15.0 H Plt Count 268 MPV 10.3 PT 12.9 INR 1.0 APTT 23.8 Sodium 133 L Potassium 3.7 Chloride 101 Carbon Dioxide 29 Anion Gap 3 L BUN 46 H D Creatinine 1.47 H Estim Creat Clear Calc 43 Estimated GFR 47 L Glucose 122 H Calcium 8.2 L Magnesium 1.5 L NT-Pro-B Natriuret Pep 7850 H [id number] 184 M.pneumoniae IgM Titer <770
--- NOTE | 2024-11-20 15:17 | PC.NURSE ---
Dr Milner updated on change of condition after lung biopsy.
--- NOTE | 2024-11-20 15:21 | PCPTNOTE ---
The patient treatment was not able to be completed on 11/20/2024 due to patient just getting back from procedure and RN advised not to see patient. Will plan to continue treatment per plan of care.
[2024-11-20 15:25] LABS: Alveolar/Arterial O2 Gradient 109.8 mmHg; Carboxyhemoglobin 0.8 % THb (0-2.0); Fractional Inspired Oxygen 32 %; HCO3 ABG 28.4 mEq/l (22.0-26.0); Methemoglobin ABG 0.1 %THb (0-1.5); Oxygen Content ABG 19.1 %vol (16.0-22.0); Oxygen Saturation ABG 93.2 % (95.0-100.0); PCO2 ABG 45.0 mmHg (35.0-45.0); PO2 ABG 65.7 mmHg (80.0-100.0); PO2 FiO2 Ratio Arterial Blood 2.05 %; Reduced Hemoglobin 8.3 %THb (0-5.0)
[2024-11-20] MEDS: ALBUTEROL SULFATE NEB 2.5 MG/3 ML INH 10 MG INHALATION (15:29)
[2024-11-20 15:35] LABS: Liters per Minute 3.0 LPM; Site Drawn RIGHT BRACHIAL
[2024-11-20] MEDS: MAGNESIUM SULF 2 GM/WATER 50ML 2 GM/50 ML BAG IVPB (15:43)
--- NOTE | 2024-11-20 16:04 | PC.NURSE ---
This patient, Suzanne Mas, was transferred to ICU on 11/20/24 at 1550 Personal belongings sent with patient. Report given to Inez martínez Appropriate documentation sent with patient.
--- NOTE | 2024-11-20 16:29 | PC.NURSE ---
Patient on tele and heart rate increased to 140's ST and c/o his breathing not getting any better and heart was racing. On hour long neb with RT at bedside, sat 100%. Dr Castillo notified and he will come up to see patient
--- NOTE | 2024-11-20 16:57 | PC.NURSE ---
Informed Dr Siegel that when the Magnesium was restarted after the CT scan the patient heart rate elevated to 122, respiration rate increased to 30s and BP increased. The drip was immediately stopped and the line was flushed. Orders received to get labs.
[2024-11-20 17:04] LABS: Hematocrit 39.3 % (42.0-52.0); Hemoglobin 13.6 g/dL (14.0-18.0); Immature Granulocyte Percent A 0.6 % (0-0.5); Lymphocytes Absolute Auto 0.37 K/mm3 (0.9-3.2); Mean Corpuscular HGB Conc 34.6 g/dl (32-36); Mean Corpuscular Hemoglobin 30.4 pg (26-34); Mean Corpuscular Volume 87.7 fl (80-100); Nucleated Red Blood Cells Absolute Auto 0.000 K/mm3 (0.0-0.012); Nucleated Red Blood Cells Perc 0.0 % (0.0-0.2); Platelet Count Result 293 k/mm3 (150-375); Red Blood Count 4.48 M/mm3 (4.6-6.20); White Blood Count 11.3 K/mm3 (4.5-10.0)
[2024-11-20 17:13] LABS: Magnesium 1.5 mg/dL (1.6-2.3)
--- NOTE | 2024-11-20 17:17 | ECG_ITS ---
Test Date: 2024-11-20 21:30:54 Measurements Intervals [place] Rate: 81 P: 48 SC: 178 QRS: 39 QRSD: 156 T: 23 QT: 400 QTc: 465 Interpretive Statements SINUS RHYTHM WITH OCCASIONAL SUPRAVENTRICULAR PREMATURE COMPLEXES POSSIBLE LEFT ATRIAL ENLARGEMENT RIGHT BUNDLE BRANCH BLOCK BASELINE ARTIFACT- I, II, III, AVR, AVL, AVF, V4-V6 ABNORMAL ECG Compared to ECG 11/17/2024 06:33:57 NO SIGNIFICANT CHANGE Electronically Signed On 11-21-2024 11:31:52 CDT by Pratik Paredes D.O.
[2024-11-20 17:19] LABS: Anion Gap 4 mmol/L (4-12); Blood Urea Nitrogen 41 mg/dL (9-20); Calcium 8.0 mg/dL (8.4-10.2); Carbon Dioxide 29 mmol/L (22-30); Chloride 100 mmol/L (98-107); Estimated CRCL calculation 48 ml/min; Estimated Glomerular Filt Rate 54; Glucose 149 mg/dL (65-110); Potassium 4.2 mmol/L (3.4-5.0); Sodium 133 mmol/L (137-145)
[2024-11-20 17:22] LABS: NT Pro B Type Natriuretic Pept 11300 pg/mL (19.9-100)
[2024-11-20 17:26] LABS: Schistocytes None Seen
[2024-11-20 17:28] LABS: Burr Cells 1+; Target Cells 2+
[2024-11-20 17:29] LABS: Anisocytosis Occasional
--- NOTE | 2024-11-20 17:48 | PC.NURSE ---
This RN tried to get a EKG on patient. Patient heart rate increased to 130s, respiratory rate increased to 28-30, and patient became anxious while lying on his back for the procedure. The EKG reading was not readable. This RN along with another RN checked all EKG electrode stickers as they kept coming off the patient. The patient was not diaphoretic at the time. This RN asked the patient to tried to encourage the patient. His anxiety continued to increase and he was saying come on man, do it later. This RN informed the physician that the patient couldn't tolerate being on his back and refused at this time. The patient rolled over onto his right side. Oxygen saturations began to improve from 85% to 88%. The patient still appeared uncomfortable. This RN asked te patient if he would like to be placed back on the BIPAP machine and the patient agreed at this time. Bipap was turned on and placed on the patient. The patient immediately stated that he felt better. This RN called the respiratory therapist to inform them the patient was on BIPAP and they verbalized understanding.
[2024-11-20 18:09] LABS: Troponin I 0.039 ng/mL (0.000-0.034)
[2024-11-20 20:55] LABS: Troponin I 0.055 ng/mL (0.000-0.034)
[2024-11-20 23:26] LABS: Troponin I 0.063 ng/mL (0.000-0.034)
[2024-11-20] MEDS: TAMSULOSIN HCL 0.4 MG CAPSULE BY MOUTH (23:57)
[2024-11-21] VITALS (20 sets, daily range): BP systolic 116–157; BP diastolic 67–91; PULSE 68–85; RESP 15–24; TEMP 36.2–36.8; O2SAT 95–100
[2024-11-21] MEDS: IPRATROPIUM 0.5 MG/ALBUTEROL SULFATE 2.5 MG AMPUL.NEB 3 ML INHALATION ×5 (02:13→19:48)
--- NOTE | 2024-11-21 03:10 | PCRCNOTE ---
Patient did not want to be awakened twice throughout the night, therefore his updraft tx was given q6 @ 0200. Next tx to resume at 0800.
[2024-11-21 04:36] LABS: Hematocrit 36.7 % (42.0-52.0); Hemoglobin 12.8 g/dL (14.0-18.0); Immature Granulocyte Percent A 1.5 % (0-0.5); Lymphocytes Absolute Auto 0.50 K/mm3 (0.9-3.2); Mean Corpuscular HGB Conc 34.9 g/dl (32-36); Mean Corpuscular Hemoglobin 30.5 pg (26-34); Mean Corpuscular Volume 87.6 fl (80-100); Nucleated Red Blood Cells Absolute Auto 0.000 K/mm3 (0.0-0.012); Nucleated Red Blood Cells Perc 0.0 % (0.0-0.2); Platelet Count Result 263 k/mm3 (150-375); Red Blood Count 4.19 M/mm3 (4.6-6.20); White Blood Count 8.7 K/mm3 (4.5-10.0)
[2024-11-21 04:46] LABS: Anion Gap 4 mmol/L (4-12); Blood Urea Nitrogen 42 mg/dL (9-20); Calcium 8.1 mg/dL (8.4-10.2); Carbon Dioxide 30 mmol/L (22-30); Chloride 100 mmol/L (98-107); Estimated CRCL calculation 46 ml/min; Estimated Glomerular Filt Rate 50; Glucose 184 mg/dL (65-110); Magnesium 1.7 mg/dL (1.6-2.3); Potassium 4.1 mmol/L (3.4-5.0); Sodium 134 mmol/L (137-145)
[2024-11-21 05:22] LABS: Burr Cells 2+; Schistocytes None Seen; Target Cells 1+
[2024-11-21] MEDS: ROSUVASTATIN 20 MG TABLET 40 MG BY MOUTH (08:47)
[2024-11-21] MEDS: buPROPion HCL SR (12 HR) 150 MG TAB PO ×2 (08:47→20:55)
[2024-11-21] MEDS: PANTOPRAZOLE 40 MG TABLET PO (08:48)
[2024-11-21 08:59] LABS: Troponin I 0.057 ng/mL (0.000-0.034)
--- NOTE | 2024-11-21 09:26 | P.PNPL_ITS ---
Progress Note: A&P Assessment and Plan (1) Chronic obstructive pulmonary disease: Qualifiers: COPD type: unspecified COPD Qualified Code(s): J44.9 - Chronic obstructive pulmonary disease, unspecified Code(s): J44.9 - Chronic obstructive pulmonary disease, unspecified Status: Acute Assessment and Plan: Gold grade 3 group E COPD patient with 55 pack year tobacco use, quit 1 week ago, Alpha 1 anti trypsin level 184 on 11/13/2024, normal. PFTs 05/28/2021 with a severe obstructive abnormality with the pre bronchodilator FEV1 of 1.24 L, 44% predicted, ratio 40%, air trapping with a total lung capacity of 109%, severely decreased unadjusted DLCO at 38% and remains moderately decreased at 51% when adjusted for alveolar volume. CT scan of the chest shows moderate to severe apical predominant centrilobular emphysema. ABG 11/17/2024 on 35% FiO2 7.39/39/111. Chronic hypoxemic respiratory failure requiring no oxygen at rest, 3 L with activity Per home O2 assessment on 05/17/2024. Patient is using 3 L with sleep. echocardiogram 03/26/2022 with LVEF 40-45%, mild to moderate global LV systolic dysfunction, grade 1 diastolic dysfunction, normal right ventricular size. Mild right ventricular hypokinesis, mild enlargement left atrium, mild enlargement right atrium mild to moderate mitral regurg, trace to mild AR, mild tricuspid regurgitation with RVSP 49. Currently the patient presents after worsening dyspnea on exertion at home when he walked to the bathroom without oxygen. He had no prior evidence of a COPD exacerbation with no change in his phlegm volume, or color. He had diffuse wheezing in the emergency department and required BiPAP and was treated with Solu-Medrol and nebulizers. He had an elevated BNP and is treated with Lasix 20 IV. I am not convinced the patient has a COPD exacerbation Although he was in severe respiratory distress requiring BiPAP. I will continue to treat him for COPD exacerbation at this time., there is no evidence of pneumonia on his CT scan and no clinical evidence of bronchitis. Plan: I will change his Solu-Medrol to prednisone 40 mg p.o. q.day. I will continue DuoNebs q.6 hours. The patient has no phlegm production and does not need guaifenesin. No evidence of bacterial infection and patient does not need antibiotics at this time. I congratulated him on quitting tobacco use. I will check an alpha 1 anti trypsin level and genotype on 11/19/2024. Echocardiogram ordered for 11/19. 11/19/2024: Patient was moved to a new room out of the [facility] unit and says that he is a harder time breathing in this new room because it is dry. He did not sleep last night. He denies fever, chills, rigors, cough, phlegm or hemoptysis. Overall he says that his swelling is better. When I enter the room he was on 3 L nasal cannula saturations 100%. I decreased and room air and his saturations were 96%. He is afebrile. White blood cell count 13.0, creatinine 1.50, yesterday he was positive 2.2 L, cumulative he is positive 1.75 L. His weight today is 85.3. Plan: Patient has no wheezing. Oxygenation is stable. No infectious complaints. I will continue prednisone 40 mg a day and DuoNebs q.6 hours. Respiratory pathogen panel, urine Legionella antigen, urine pneumococcal antigen and serum mycoplasma IgM are pending. : Patient tells me he is breathing normal. He says his cough is better than usual and he denies phlegm or hemoptysis. Has no wheezing. Room air saturations are 95%. He is afebrile. White blood cell count 13.2, creatinine 1.47. His BNP has increased from 6230 on 11/18/2024 to 7850 today. Yesterday he was positive 170 mL. Cumulative he is positive 1.9 L since admission. His weight today is 86 kg. Plan: plan continue prednisone 40 mg p.o. q.day, today is day 4 and will discontinue after tomorrow's dose. Continue DuoNebs q.6 hours. Respiratory pathogen panel, urine Legionella antigen, urine pneumococcal antigen and serum mycoplasma IgM are pending. Later in the day patient went down for CT-guided biopsy of his lung nodule. He was comfortable when he left his room. When he went down to Radiology he was placed on the table and was uncomfortable and got anxious. They gave him some oxygen and repositioned him and he settled down and they were able to complete the test. He was in the department and had an x-ray with no pneumothorax and did well and was sent to the floor. Once he got on the floor he said he could not breathe. multiple people came to the room and this made him anxious and made his breathing worse. He was evaluated by the hospitalist team and given stat DuoNebs, repeat chest x-ray without pneumothorax, ABG on 3 L 7.42/45/66. He was given Solu-Medrol 125 followed by 80 Q 8 and required a brief episode of BiPAP. His blood pressure at the time was 170/90 with a repeat of 208/98[place] [address], his troponins were positive. Patient had a CT angiogram of the chest that showed no PE, small left effusion, tiny right effusion, no pneumothorax, unchanged emphysema and no lobar consolidation. Patient was transferred to the ICU. 11/21/2024: patient had another episode in the middle of the night of shortness of breath and was placed on BiPAP for 30 minutes. Currently the pat ient tells me that his breathing is at the his baseline. His shortness of breath is the same as his baseline. He has no cough, phlegm or hemoptysis. He has no chest pain. When I enter the room he was on 3 L nasal cannula saturations 100%. I decreased him to room air and his saturations were 94%. He is afebrile. White blood cell count 8.7, creatinine 1.40. Chest x-ray with no pneumothorax unchanged right effusion and tiny left effusion. Plan: Patient is having intermittent episodes of anxiety, wheezing, respiratory distress, hypertension. is unclear if this is related to COPD and bronchospasm or related to his cardiomyopathy with severe mitral regurg. COPD was treated aggressively, his trops are borderline positive and his BNP remains elevated. Plan: I will change his Solu-Medrol to prednisone 40 mg p.o. q.day. I will continue DuoNebs q.4 hours. There is no evidence of infection in his chest. Will follow the patient clinically. Discussed with Dr. Castillo. Will follow with you. (2) CHF (congestive heart failure): Code(s): I50.9 - Heart failure, unspecified Status: Acute Assessment and Plan: Echocardiogram 03/26/2022 with LVEF 40-45%, mild to moderate global LV systolic dysfunction, grade 1 diastolic dysfunction, normal right ventricular size. Mild right ventricular hypokinesis, mild enlargement left atrium, mild enlargement right atrium mild to moderate mitral regurg, trace to mild AR, mild tricuspid regurgitation with RVSP 49. 9; He had an elevated BNP 5280 and was treated with Lasix 20 IV. 11/18 BNP today is 6230. He diuresed 285 mL yesterday. Cumulative he is positive 645 mL since admission. His weight today is 83.5. Plan: cardiology consult id and increase his Lasix to 40 mg IV b.i.d., added Entresto, Coreg and spironolactone. Echocardiogram ordered for 11/19. 11/19/2024: Patient states his swelling is improved and I agree. Creatinine 1.50, yesterday he was positive 2.2 L, cumulative he is positive 1.75 L. His weight today is 85.3. Plan: Cardiology consult following. Echocardiogram today. Adjustments of cardiac medicines per Cardiology team. Later in the day echocardiogram with LVEF 30-35%, grade 3 diastolic dysfunction, severe mitral regurg, moderate tricuspid regurg with PASP of 61, right ventricle normal size and function, right atrium normal size, left atrium mildly enlarged. Compared to 03/29/2022 LVEF is decreased from 44 to a value of 30 to 35%. [id number] MR has progressed to severe MR. PASP has increased from 44 to 61. 11/20/24: His BNP has increased from 6230 on 11/18/2024 to 7850 today. Yesterday he was positive 170 mL. Cumulative he is positive 1.9 L since admission. His weight today is 86 kg. Plan: I will discuss echocardiogram results with Cardiology team. 11/21/2024: Hospitalist discussed case with the cardiology team and the plan was for outpatient stress test. Yesterday he was -975 mL an cumulative he is positive 500 mL since admission[place] [address] angiogram of the chest shows a small left pleural effusion and a tiny right pleural effusion. There is no evidence of acute fluid overload on his CT scan last night. Plan: Management per Cardiology and hospitalist team. Currently the patient is on Coreg, Entresto and spironolactone. Lasix and is on hold for elevated creatinine. (3) Lung nodule: Code(s): R91.1 - Solitary pulmonary nodule Status: Acute Assessment and Plan: Patient had a CT angiogram of the chest with no PE, able apical predominant centrilobular emphysema, small left pleural effusion, trace right pleural effusion moderate peripheral basal reticulations with no change from 09/10/2023. patient had a 10 x 11 mm pleural based medial left upper lobe nodule that had increased in size from 5 mm on 11/09/2023 [address] scan cervical spine on 09/09/2024. Plan: patient does wish to identify etiology of this nodule. Will review CT scans with Interventional Radiology to determine if this is a nodule that can be biopsied at [facility]. The lesion is too small and peripheral for bronchoscopy. 11/19/2024: I reviewed serial CT scans of the chest with interventional radiology. Plan: Patient with enlarging left upper lobe nodule and discussed risks and benefits with patient wishes to proceed. Will proceed with CT-guided biopsy on 11/20 or 11/21/2024. I will check coags on 11/20. Biopsy ordered. 11/20/2024: Patient is NPO for CT-guided biopsy later today. PT 12.9, INR 1.0, PTT 23.8. Plan: CT-guided biopsy per Interventional Radiology. later in the day patient had a CT-guided biopsy. 11/21/2024: No pneumothorax on postprocedure chest x-rays and CT scan from 11/20/2024 Plan: Await pathology from CT-guided biopsy. (4) ISIAH (obstructive sleep apnea): Code(s): G47.33 - Obstructive sleep apnea (adult) (pediatric) Status: Acute Assessment and Plan: Untreated. He has mild sleep apnea evidenced by AHI 6.6 on a sleep study 05/29/21. BiPAP 13/9cm was recommended. Patient states he attempted BiPAP, tried all different types of masks and was unable to tolerate BiPAP. 11/18/24: I will continue 3 L nasal cannula at night. Once he is closer to his baseline will perform overnight oximetry on these settings. 11/20/2024: Patient has returned to his baseline. Plan: I will perform overnight oximetry with 3 L per nasal cannula. 11/21/2024: Overnight oximetry on 3 L was canceled at patient had acute respiratory distress post his lung biopsy. Plan: Will follow the patient clinically and once he is more stable will repeat overnight oximetry on 3 L. Subjective Date/time seen: 11/21/24 09:26 Interval history: 11/18/2024: This is a new pulmonary consult for COPD and lung nodule. 69-year-old with a history of GOLD grade 3 group E COPD on home oxygen 3 L with activity and 3 L with sleep, status post VATS right upper lobectomy in 2008 for possible cancer but the patient tells me they found no cancer, GERD, coronary artery disease status post CABG, untreated mild obstructive sleep apnea as he and intolerant to CPAP or BiPAP, hyperlipidemia, hypertension, prostate cancer, renal cell carcinoma, pheochromocytoma and splenectomy in 2008. Patient is followed in the Pulmonary Clinic in last seen on 11/05/2024: This is the note: 6 month follow up regarding COPD on oxygen. Hx: COPD, GERD, gout, CAD, untreated mild sleep apnea (intolerant to BiPAP), hyperlipidemia, hypertension, prostate cancer, hx of IA and CABG and tobacco use disorder. He had a VATS in 2008 with a right upper lobectomy. He said no cancer was found. He had renal cancer, pheochromocytoma and had this removed along with a splenectomy in 2008. He reports progressive MUÑOZ since last visit along with wheezing. Denies any e xcessive coughing or mucous production. Denies chest pains/tightness but reports heart palpitations. Reports nighttime dyspnea walking from the bathroom. He is compliant using Breztri twice daily. Albuterol use has been 4x/day for the past 4 months. He has a portable oxygen concentrator he purchased this out of pocket, 3L O2 with exertion. Has been using 4L at times and at home, been using it 24/. Current smoker 1ppd, smoked 0.5-1ppd for 54 years. He tried NRT patches which did not help he states. He is interested in medication to help him quit. 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 Ram. Reports it's been >1year. weight 180 lb. Lungs were clear to auscultation. Plan: He tried Daliresp but could not tolerate GI side effects. All to for a was too costly. Continue breasts tree albuterol p.r.n.. Chest x-ray, EKG, Cardiology referral. Recommended regular exercise and deep breathing. Quit smoking. Bupropion was prescribed. Follow-up 2-3 months. requires no oxygen at rest, 3 L with activity, continue 3 at night. low-dose CT scan ordered. Smoking cessation counseling provided. 11/12/2024: Suspect right middle lobe atelectasis or early airspace disease. Emphysema, chronic scarring and retraction of the diaphragm right lung base, Patient tells me he took the bupropion after he left the clinic and quit smoking in 4 days. patient smoked tobacco from age 14-1 week ago at 1 pack per day for total of 55 pack years. He was exposed to secondhand smoke from his mother but none since. Patient did cocaine last use was in 2014. 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 Baseline dyspnea on exertion now is room to room. Patient tells me he was at his baseline On 11/16/2024. The patient tells me he wears no oxygen at rest but does not have a pulse oximeter to measure his saturations. He is prescribed 3 L with activity but he rarely uses this with activity and has room to room dyspnea on exertion. When he walks to the the couch to the bathroom with 3 L oxygen on he is able to make this journey and he says he does better than without. Without oxygen he is extremely short of breath after he gets back to the couch. This worsening dyspnea on exertion has progressed over the last few months. On 11/16/2024 he had no increased cough, phlegm or hemoptysis. He ate dinner and went to bed and was feeling his usual self. On 11/17/2024 he woke up at 4:00 a.m. to urinate. He took his oxygen off and he walked back to the couch and he had worsening dyspnea on exertion and shortness of breath without recovery. He had wheezing and he told his family to call EMS. He denied cough, phlegm production or hemoptysis. He denied chest pain. On arrival to the emergency department the patient was in severe respiratory distress in a tripod position. Blood pressure 129/83, heart rate 81, respirations 20 patient was immediately placed on BiPAP 14/7 and 35% FiO2 with saturations 100. Patient had audible inspiratory and expiratory wheezes without a stethoscope. White blood cell count was 7.0 with eosinophils 2.4%= 168 per micro L, creatinine 1.37, serum bicarbonate 28, BNP 5280, COVID influenza and RSV RT PCR assay negative. Patient had a CT angiogram of the chest with no PE, able apical predominant centrilobular emphysema, small left pleural effusion, trace right pleural effusion moderate peripheral basal reticulations with no change from 09/10/2023. patient had a 10 x 11 mm pleural based medial left upper lobe nodule that had increased in size from 5 mm on 11/09/2023 [address] scan cervical spine on 09/09/2024. About 5 hours later patient had an ABG on 35% FiO2 with pH of 7.40/39/111. Patient was treated with Solu-Medrol, bronchodilators and Lasix 20 IV. 11/18/2024: Currently the patient tells me he is good but not back to his normal. He still has slight shortness of breath at rest. He denies fever, chills, rigors, phlegm, hemoptysis or chest pain. of note patient tells me he has worsening lower extremity edema over the last 4 months. He has no wheezing. He was on 3 L nasal cannula saturations 95-100%. I decreased him to room air and his saturations remain 92%. His white blood cell count was 6.2, his creatinine was 1.23. His CRP was 1.9, his procalcitonin was 0.1, his BNP was 6230. Chest x-ray today shows worsening diffuse left lung infiltrate with no change on the right. 11/19/2024: Patient was moved to a new room out of the [facility] unit and says that he is a harder time breathing in this new room because it is dry. He did not sleep last night. He denies fever, chills, rigors, cough, phlegm or hemoptysis. Overall he says that his swelling is better. When I enter the room he was on 3 L nasal cannula saturations 100%. I decreased and room air and his saturations were 96%. He is afebrile. White blood cell count 13.0, creatinine 1.50, yesterday he was positive 2.2 L, cumulative he is positive 1.75 L. His weight today is 85.3. Later in the day echocardiogram with LVEF 30-35%, grade 3 diastolic dysfunction, severe mitral regurg, moderate tricuspid regurg with PASP of 61, right ventricle normal size and function, right atrium normal size, left atrium mildly enlarged. Compared to 03/29/2022 LVEF is decreased from 44 to a value of 30 to 35%. [id number] MR has progressed to severe MR. PASP has increased from 44 to 61. 11/20/24: Patient tells me he is breathing normal. He says his cough is better than usual and he denies phlegm or hemoptysis. Has no wheezing. Room air saturations are 95%. He is afebrile. White blood cell count 13.2, creatinine 1.47. His BNP has increased from 6230 on 11/18/2024 to 7850 today. Yesterday he was positive 170 mL. Cumulative he is positive 1.9 L since admission. His weight today is 86 kg. Later in the day patient went down for CT-guided biopsy of his lung nodule. He was comfortable when he left his room. When he went down to Radiology he was placed on the table and was uncomfortable and got anxious. They gave him some oxygen and repositioned him and he settled down and they were able to complete the test. He was in the department and had an x-ray with no pneumothorax and did well and was sent to the floor. Once he got on the floor he said he could not breathe. multiple people came to the room and this made him anxious and made his breathing worse. He was evaluated by the hospitalist team and given stat DuoNebs, repeat chest x-ray without pneumothorax, ABG on 3 L 7.42/45/66. He was given Solu-Medrol 125 followed by 80 Q 8 and required a brief episode of BiPAP. His blood pressure at the time was 170/90 with a repeat of 208/98[place] [address], his troponins were positive. Patient had a CT angiogram of the chest that showed no PE, small left effusion, tiny right effusion, no pneumothorax, unchanged emphysema and no lobar consolidation. Patient was transferred to the ICU. 11/21/2024: patient had another episode in the middle of the night of shortness of breath and was placed on BiPAP for 30 minutes. Currently the patient tells me that his breathing is at the his baseline. His shortness of b reath is the same as his baseline. He has no cough, phlegm or hemoptysis. He has no chest pain. When I enter the room he was on 3 L nasal cannula saturations 100%. I decreased him to room air and his saturations were 94%. He is afebrile. White blood cell count 8.7, creatinine 1.40. Chest x-ray with no pneumothorax unchanged right effusion and tiny left effusion. DATA: 11/20/24: EXAMINATION: CTA chest INDICATION: Hypoxia and shortness of breath. COMPARISON: 11/17/2024 FINDINGS: No pulmonary embolism. Postoperative change of prior right upper lobectomy with volume loss the right hemithorax and stable appearance of pleural parenchymal scarring at the lateral right mid to lower lungs. Mild to moderate emphysema most prominent in the right middle lobe likely related to compensatory hyperexpansion secondary to the right upper lobar resection. No significant change in a small left pleural effusion with dependent atelectasis in the left lower lobe. Tiny right pleural effusion. There is a tract of subpleural atelectasis at the medial right apex extending towards a more anterior small paramediastinal nodule which was biopsied a few hours earlier. No pneumothorax. Mild cardiomegaly with left ventricular and atrial enlargement. Atherosclerotic coronary artery calcific location. Postoperative change of prior median sternotomy and coronary artery bypass grafting. No pericardial effusion. Aneurysmal dilation of the proximal descending thoracic aorta which measures up to 4.6 cm in maximal diameter. No aortic dissection. Mild enlarged left hilar and mediastinal lymphadenopathy suspicious for metastatic disease the largest lymph node in the AP window measuring 2.0 cm in maximal short axis diameter. Cholecystectomy clips at the gallbladder fossa. There are small bilateral low- attenuation renal cysts the largest on the left measuring 1.6 cm. There is also a 1.0 cm hyperdense proteinaceous/hemorrhagic cyst in the right kidney. Mild thoracic spondylosis. IMPRESSION: 1. Focal mild subpleural atelectasis along the recent lung biopsy tract at the medial left apex. No pulmonary embolism or other acute cardiopulmonary disease. 2. Unchanged small left and tiny right pleural effusions. 3. Unchanged 11 mm subpleural nodule at the medial left apex which concerning for primary bronchogenic carcinoma with left hilar and mediastinal lymphadenopathy suspicious for secondary metastatic disease. Correlate with pending pathology results from the percutaneous lung biopsy. 4. Mild cardiomegaly with left ventricular and atrial enlargement. 5. 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 11/17/2024: EXAMINATION: CTA chest PE protocol, 11/17/2024 14:20 CDT HISTORY: pe? COMPARISON: Comparison 04/30/2022 TECHNIQUE: CTA examination is obtained with contrast CTA examination technique is performed with arterial phase of contrast-enhancement. 3-D reconstruction with thin MIP axial and MPR coronal imaging is provided Isovue 300, 92cc injected IV. One or more of the following dose reduction techniques were used: automated exposure control, adjustment of the mA and/or kV according to patient size, use of iterative reconstruction technique. FINDINGS: No significant coronary calcification is present ([id number]) LUNGS: Small simple appearing left pleural effusion. Trace right pleural effusion. The contrast bolus is adequate, there is no pulmonary embolism identified. Postsurgical changes noted in the right lung. No tracheomalacia. No bronchiectasis. Moderate emphysematous changes. Areas of bullous formation of the right upper lobe. Moderate pulmonary fibrotic changes. No honeycombing is identified. Within the left upper lobe there is a nodule medially measuring 10 x 11 mm. HEART AND PERICARDIUM: Mild cardiomegaly. No pericardial effusion. AORTA: Normal caliber aorta.. PULMONARY ARTERIES: No pulmonary embolism ADENOPATHY/MEDIASTINUM: There are enlarged lymph nodes in the mediastinum the largest periaortic lymph node measuring 2.3 x 2.2 cm. LIMITED VIEWS OF THE ABDOMEN: Simple appearing left renal cyst 2 x 2 cm. OSSEOUS STRUCTURES: No sclerotic or lytic lesions. No acute rib fractures. Poststernotomy changes are noted. OVERLYING SOFT TISSUES: Unremarkable. THYROID: The thyroid is unremarkable. IMPRESSION: 1. Negative for pulmonary embolism. Chronic changes detailed above with superimposed probable CHF. There is a nodule within the left upper lobe which is new compared to the previous study. PET CT is recommended 09/09/2024: Noncontrast CT scan of the cervical spine Technique: Multiple contiguous axial [address] images of the cervical spine were obtained and reconstructed in 2D sagittal and coronal planes on the acquisition scanner. Dose reduction technique was used on this scan by utilizing automated exposure control, adjustment of the mA and/or kV according to patient size. The dose-length product (DLP) was 492.27 mGy-cm. Clinical History: Pain Findings: No fractures or dislocations. At C2-C3, there is prominent right facet arthropathy. There is minimal right ne ural foraminal narrowing. Left neural foramen preserved. No canal stenosis or cord compression evident. At C3-C4, there is right facet arthropathy. No definite neural foraminal narrowing canal stenosis, or cord compression. At C4-C5, there is mild left neural foraminal narrowing with mild left facet arthropathy. No definite canal stenosis, cord compression, or right neural foraminal narrowing. At C5-C6, there is advanced degenerative disc narrowing with mild disc ossify complex. Probable mild bilateral neural foraminal narrowing. No definite canal stenosis or cord compression. At C6-C7, there is advanced degenerative distended. No definite canal stenosis, cord compression, or neural foraminal narrowing. No prevertebral soft tissue swelling. 7 mm nodule noted medially in the left lung apex. Impression: No fracture or subluxation of the cervical spine. Degenerative spondylosis, as above. 7 mm medial left apical pulmonary nodule, indeterminate. According to Fleischner Society criteria, for a low-risk patient, recommend follow-up CT scan in 6-12 months, then consider additional 18-[address]. For a high-risk patient, follow-up CT scans at both 6-12 months and 18-24 months are recommended. 11/09/2023: CT Scan of the Chest without Contrast: Clinical Indication: Lung cancer screening, nicotine dependence Technique: Contiguous sections were acquired throughout the chest without intravenous contrast. Dose reduction technique was used on this scan by utilizing automated exposure control and iterative reconstruction technique. The dose-length product (DLP) was 102.78 mGy-cm. COMPARISON: 04/30/2022 Findings: There is no evidence of any significant mediastinal, hilar or axillary lymphadenopathy. There are atherosclerotic calcifications of the aorta and coronary arteries. Stable descending thoracic aortic aneurysm. There is no evidence of pleural or pericardial effusion. Status post partial right upper lobectomy. Probable mild emphysema. 5 mm nodule noted in the medial left lung apex ((axial image 26).. Images through the upper abdomen reveal no abnormalities. Impression: Lung RADS 2: Benign appearance. 12 month follow-up screening CT advised. 05/28/2021: This is a pulmonary function test with pre and post-bronchodilator spirometry, plethysmography and diffusing capacity. The test was performed and results interpreted in accordance with the 2019 and 2005 ATS/ERS Task Force guidelines respectively using the Global Lung Function Initiative-2012 reference equations. Patient demonstrated good effort and cooperation. Reproducibility criteria were met. The quality of the pre bronchodilator spirometry maneuver was Grade A and post bronchodilator spirometry maneuver was Grade A. Findings: Spirometry: There is decreased maximal expiratory airflow at all lung volumes with a concaved expiratory flow tracing. The contour the inspiratory flow tracing is normal. The pre bronchodilator FVC is 3.12 L, 84% predicted. The pre bronchodilator FEV1 is 1.24 L, 44% predicted. The pre bronchodilator FEV1: FVC ratio was 40%. The post bronchodilator FVC is 3.15 L, representing 1% increase. The post bronchodilator FEV1 is 1.20 L, representing a 3% decrease. Plethysmography: The total lung capacity is 6.76 L, 109% predicted. The functional residual capacity is 5.16 L, 149% predicted. The residual volume is 3.60 L, 162% predicted. Diffusing capacity: The diffusing capacity on adjusted for hemoglobin and carboxyhemoglobin is 10.3, 38% predicted. The diffusing capacity adjusted for alveolar volume is 2.07, 51% predicted. Impression: There is a severe obstructive abnormality without significant improvement after inhaling a single dose of albuterol. The increase in residual volume is consistent with air trapping from an obstructive abnormality. Hyperinflation is present is demonstrated by the increase in functional residual capacity and is consistent with an obstructive abnormality. The diffusing capacity unadjusted for hemoglobin and carboxyhemoglobin is severely decreased and remains moderately decreased when adjusted for alveolar volume. There are no prior studies for comparison 03/29/2022: echocardiogram 03/26/2022 report: with LVEF 40-45%, mild to moderate global LV systolic dysfunction, grade 1 diastolic dysfunction, normal right ventricular size. Mild right ventricular hypokinesis, mild enlargement left atrium, mild enlargement right atrium mild to moderate mitral regurg, trace to mild AR, mild tricuspid regurgitation with RVSP 49. Home O2 Eval 05/17/24 - requires 3L O2 with activity, none at rest. LDCT 11/09/23 - Status post partial right upper lobectomy. Probable mild emphysema. 5 mm nodule noted in the medial left lung apex. Overnight oximetry on 3L 02/03/23 - 0 time spent below 90% O2 on 3L. Home O2 Eval 02/09/23 - no O2 needed at rest or with activity. 05/29/21 - Split PSG - Overall AHI is 6.6. BiPAP 13/9cm was recommended. The patient should have a nocturnal oximetry done 2-4 weeks after starting PAP to ensure the hypoxemia has resolved. 05/28/21 PFT - There is a severe obstructive abnormality without significant improvement after inhaling a dose of albuterol. The increase in residual volume is consistent with air trapping from an obstructive abnormality. Hyperinflation is present is demonstrated by the increase in functional residual capacity and is consistent with an obstructive abnormality. The diffusing capacity unadjusted for hemoglobin and carboxyhemoglobin is severely decreased and remains moderately decreased when adjusted for alveolar volume. 05/28/21 - Home O2 eval - Patient required 3L/min O2 with ambulation and none at rest. 04/18/2019 CTA at [place]- clear lungs. Tracheal and right mainstem bronchial debris. Partial right pneumonectomy. Moderate emphysema. Dilated main, central pulmonary arteries consistent with pulmonary arterial hypertension no lymphadenopathy. Sternotomy wires. 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 EF 39%. Review of Systems Constitutional: Constitutional: Reports no additional constitutional complaints Eyes: Eyes: Reports no additional eye complaints ENT: Reports system reviewed and no additional complaints, except as documented Cardiovascular: Cardiovascular: Reports no additional cardiovascular complaints Respiratory: Respiratory: Reports no additional respiratory complaints Gastrointestinal: Gastrointestinal: Reports no additional gastrointestinal complaints Musculoskeletal: Musculoskeletal: Reports no additional musculoskeletal complaints Neurologic: Reports system reviewed and no additional complaints, except as documented Psychiatric: Psychiatric: Reports no additional psychiatric complaints Endocrine: Endocrine: Reports no additional endocrine complaints Hematologic/Lymphatic: Hematologic/Lymphatic: Reports no additional hematologic/lymphatic complaints Allergic/Immunologic: Allergic/Immunologic: Reports no additional allergic/immunologic complaints Exam Const: General: cooperative, healthy appearing and comfortable Orientation/consciousness: oriented to person, oriented to place and oriented to time HENMT: Head: normal to inspection Ears: hearing grossly normal bilaterally Eyes: General: appearance normal, both eyes and all related structures Neck: Neck: normal visual inspection Chest: Chest palpation & inspection: normal inspection of the chest Resp: Effort & Inspection: normal respiratory effort and able to speak in complete sentences Auscultation: no crackles, no rales, no rhonchi, no wheezes and diminished lung sounds Other: No wheezes, decreased breath sounds throughout Cardio: Jugular venous distension: no JVD GI: Inspection: normal to inspection Skin: General skin exam: normal color Neuro: General: oriented to person, oriented to place and oriented to time Extrem: General: normal to inspection Other: positive edema- improved Psych: Appearance: grossly normal Objective Data Vital Signs Vital Signs: Vital Signs - 24 hr 11/20/24 12:00 11/20/24 14:13 11/20/24 15:07 Temperature Pulse Rate 81 122 H Respiratory Rate 28 H Blood Pressure 170/90 H Pulse Oximetry 98 Oxygen Delivery Room Air Oxygen Flow Rate Fraction of Inspired Oxygen 11/20/24 15:29 11/20/24 15:41 11/20/24 16:00 Temperature Pulse Rate 135 H 124 H Respiratory Rate 26 H Blood Pressure 208/98 H Pulse Oximetry Oxygen Delivery Oxygen Flow Rate Fraction of Inspired Oxygen 11/20/24 16:00 11/20/24 17:00 11/20/24 18:00 Temperature Pulse Rate 124 H 104 H 87 Respiratory Rate 31 H 25 H 23 H Blood Pressure 157/124 H 166/106 H 135/86 Pulse Oximetry 90 94 100 Oxygen Delivery Oxygen Flow Rate Fraction of Inspired Oxygen 11/20/24 20:00 11/20/24 20:00 11/20/24 20:00 Temperature 36.8 C Pulse Rate 80 80 69 Respiratory Rate 15 16 Blood Pressure 126/73 Pulse Oximetry 100 100 Oxygen Delivery BiPAP Oxygen Flow Rate Fraction of Inspired Oxygen 35 11/20/24 21:25 11/20/24 21:26 11/20/24 21:34 Temperature Pulse Rate 93 84 78 Respiratory Rate 27 H 26 H 20 Blood Pressure Pulse Oximetry 100 Oxygen Delivery BiPAP Oxygen Flow Rate Fraction of Inspired Oxygen 11/20/24 21:50 11/20/24 23:56 11/21/24 00:00 Temperature Pulse Rate 93 74 72 Respiratory Rate Blood Pressure Pulse Oximetry 99 Oxygen Delivery Nasal Cannula Oxygen Flow Rate 3 Fraction of Inspired Oxygen 11/21/24 00:00 11/21/24 00:00 11/21/24 02:14 Temperature 36.8 C Pulse Rate 71 70 69 Respiratory Rate 18 16 19 Blood Pressure 116/71 Pulse Oximetry 100 100 Oxygen Delivery Nasal Cannula Oxygen Flow Rate 3 Fraction of Inspired Oxygen 35 11/21/24 02:20 11/21/24 04:00 11/21/24 04:00 Temperature Pulse Rate 68 68 68 Respiratory Rate 16 16 Blood Pressure Pulse Oximetry 100 Oxygen Delivery Nasal Cannula Oxygen Flow Rate 3 Fraction of Inspired Oxygen 35 11/21/24 04:00 11/21/24 08:00 11/21/24 08:00 Temperature 36.7 C 36.4 C Pulse Rate 68 83 Respiratory Rate 16 15 Blood Pressure 131/74 139/74 Pulse Oximetry 97 98 98 Oxygen Delivery Room Air Oxygen Flow Rate Fraction of Inspired Oxygen 11/21/24 08:11 11/21/24 08:11 11/21/24 08:19 Temperature Pulse Rate 77 77 72 Respiratory Rate 20 20 22 H Blood Pressure Pulse Oximetry 96 Oxygen Delivery Room Air Oxygen Flow Rate Fraction of Inspired Oxygen 11/21/24 08:47 Temperature Pulse Rate 83 Respiratory Rate Blood Pressure Pulse Oximetry Oxygen Delivery Oxygen Flow Rate Fraction of Inspired Oxygen Intake/Output Intake/Output: Intake & Output 11/18/24 11/19/24 11/20/24 11/21/24 23:59 23:59 23:59 23:59 Intake Total 2900 1470 0 500 Output Total 700 8579 656 1286 Balance 2200 170 -975 -600 Meds/Results Medications: Active Medications Generic Name Dose Route Start Last Admin Trade Name Freq PRN Reason Stop Dose Admin Acetaminophen 650 mg 11/17/24 12:26 11/18/24 21:05 Acetaminophen 325 Mg Tablet PO 650 mg Q4H PRN Administration Mild Pain (1-3) or Fever Albuterol 2.5 mg 11/17/24 12:26 Albuterol Sulfate Neb 2.5 Mg/3 Ml Inh INHALATION Q6HRT PRN Bronchospasm Albuterol/Ipratropium 3 ml 11/20/24 20:00 11/21/24 08:10 Ipratropium 0.5 Mg/Albuterol Sulfate 2.5 Mg Ampul.Neb 3 Ml INHALATION 3 ml Q4HRT ЮЛИЯ Administration Allopurinol 100 mg 11/18/24 09:00 11/21/24 08:47 Allopurinol 100 Mg Tablet BY MOUTH 100 mg DAILY ЮЛИЯ Administration Bupropion HCl 150 mg 11/18/24 09:00 11/21/24 08:47 Bupropion Hcl Sr (12 Hr) 150 Mg Tab PO 150 mg Q12HR ЮЛИЯ Administration Carvedilol 25 mg 11/17/24 21:00 11/21/24 08:47 Carvedilol 25 Mg Tablet PO 25 mg Q12H ЮЛИЯ Administration Cyclobenzaprine HCl 10 mg 11/17/24 20:57 Cyclobenzaprine Hcl 10 Mg Tablet PO TID PRN Muscle Spasm Pantoprazole Sodium 40 mg 11/18/24 09:00 11/21/24 08:48 Pantoprazole 40 Mg Tablet PO 40 mg QAM ЮЛИЯ Administration Prednisone 40 mg 11/21/24 15:00 Prednisone 20 Mg Tablet PO DAILY@0800 [facility] Quetiapine Fumarate 50 mg 11/17/24 21:00 11/20/24 23:57 Quetiapine Fumarate 25 Mg Tablet PO 50 mg QHS ЮЛИЯ Administration Rosuvastatin Calcium 40 mg 11/18/24 09:00 11/21/24 08:47 Rosuvastatin 20 Mg Tablet BY MOUTH 40 mg DAILY ЮЛИЯ Administration Sacubitril/Valsartan 1 tab 11/17/24 21:00 11/19/24 09:00 Sacubitril/Valsartan 24-26 Mg Tablet PO 1 tab On Hold: 11/19/24 15:29 Q12HR ЮЛИЯ Administration Spironolactone 25 mg 11/18/24 12:00 11/19/24 09:00 Spironolactone 25 Mg Tablet PO 25 mg On Hold: 11/19/24 15:29 QAM ЮЛИЯ Administration Tamsulosin HCl 0.4 mg 11/17/24 21:00 11/20/24 23:57 Tamsulosin Hcl 0.4 Mg Capsule BY MOUTH 0.4 mg HS ЮЛИЯ Administration Radiology Results: ITS Impressions Lung Biopsy CT 11/20/24 14:59 [address]PRESS[address]: 1[address]-guided biopsy of an 11 mm paramediastinal nodule at the left apex. Chest CTA 11/20/24 18:08 IMPRESSION: 1. Focal mild subpleural atelectasis along the recent lung biopsy tract at the medial left apex. No pulmonary embolism or other acute cardiopulmonary disease. 2. Unchanged small left and tiny right pleural effusions. 3. Unchanged 11 mm subpleural nodule at the medial left apex which concerning for primary bronchogenic carcinoma with left hilar and mediastinal lymphadenopathy suspicious for secondary metastatic disease. Correlate with pending pathology results from the percutaneous lung biopsy. 4. Mild cardiomegaly with left ventricular and atrial enlargement. 5. 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 Chest X-Ray 11/21/24 07:49 Impression: 1: No pneumothorax identified post biopsy. 2: Cardiomegaly with mild interstitial edema. Labs Labs: Laboratory Results - last 24 hr 11/18/24 11/19/24 11/20/24 12:44 06:32 15:01 WBC RBC Hgb Hct MCV MCH MCHC RDW Plt Count MPV Immature Gran % (Auto) Neut % (Auto) Lymph % (Auto) [place] % (Auto) Eos % (Auto) Baso % (Auto) Lymph # (Auto) [place] # (Auto) Eos # (Auto) Baso # (Auto) Abs Immat Gran (auto) Absolute Neuts (auto) Absolute Nucleated RBC Band Neutrophils % Nucleated RBC % Platelet Estimate Large Platelets Anisocytosis Target Cells [place] Cells Schistocytes Puncture Site Right brachial ABG pH 7.418 ABG pCO2 45.0 ABG pO2 65.7 L ABG PO2/FiO2 Ratio 2.05 ABG HCO3 28.4 H ABG O2 Saturation 93.2 L ABG O2 Content 19.1 ABG Base Excess 3.3 A-a Gradient 109.8 Oxyhemoglobin 90.8 Carboxyhemoglobin 0.8 Methemoglobin 0.1 Reduced Hemoglobin 8.3 H Total Hemoglobin 15.0 O2 Delivery Device Nasal cannula O2 Liters/Min 3.0 FiO2 32 Sodium Potassium Chloride Carbon Dioxide Anion Gap BUN Creatinine Estim Creat Clear Calc Estimated GFR Glucose Calcium Magnesium Troponin I NT-Pro-B Natriuret Pep [id number] 184 Chlamy pneumoniae PCR Not detected Adenovirus (PCR) Not detected B. pertussis DNA (PCR) Not detected B.parapertussis DNA PCR Not detected Coronavirus OC43 (PCR) Not detected Coronavirus HKU1 (PCR) Not detected Coronavirus 229E (PCR) Not detected Coronavirus NL63 (PCR) Not detected Human Metapneumovir PCR Not detected Influenza A (H1) PCR Not detected Influ A (H1/09) PCR Not detected Influenza A (H3) PCR Not detected Influenza Type A (PCR) Not detected Influenza Type B (PCR) Not detected M.pneumoniae IgM Titer <770 M. pneumoniae (PCR) Not detected Parainfluenza 1 (PCR) Not detected Parainfluenza 2 (PCR) Not detected Parainfluenza 3 (PCR) Not detected Parainfluenza 4 (PCR) Not detected RSV (PCR) Not detected Entero/Rhino (PCR) Not detected SARS-CoV-2 (PCR) Not detected 11/20/24 11/20/24 11/20/24 16:56 20:17 22:57 WBC 11.3 H RBC 4.48 L Hgb 13.6 L Hct 39.3 L MCV 87.7 MCH 30.4 MCHC 34.6 RDW 15.2 H Plt Count 293 MPV 10.7 H Immature Gran % (Auto) 0.6 H Neut % (Auto) 87.8 H Lymph % (Auto) 3.3 L [place] % (Auto) 8.1 Eos % (Auto) 0.2 Baso % (Auto) 0.0 L Lymph # (Auto) 0.37 L [place] # (Auto) 0.9 H Eos # (Auto) 0.0 Baso # (Auto) 0.0 Abs Immat Gran (auto) 0.07 H Absolute Neuts (auto) 10.0 H Absolute Nucleated RBC 0.000 Band Neutrophils % Not Reportable Nucleated RBC % 0.0 Platelet Estimate Adequate Large Platelets Present Anisocytosis Occasional Target Cells 2+ [place] Cells 1+ Schistocytes None seen Puncture Site ABG pH ABG pCO2 ABG pO2 ABG PO2/FiO2 Ratio ABG HCO3 ABG O2 Saturation ABG O2 Content ABG Base Excess A-a Gradient Oxyhemoglobin Carboxyhemoglobin Methemoglobin Reduced Hemoglobin Total Hemoglobin O2 Delivery Device O2 Liters/Min FiO2 Sodium 133 L Potassium 4.2 Chloride 100 Carbon Dioxide 29 Anion Gap 4 BUN 41 H Creatinine 1.32 H Estim Creat Clear Calc 48 Estimated GFR 54 L Glucose 149 H Calcium 8.0 L Magnesium 1.5 L Troponin I 0.039 H* 0.055 H* D 0.063 H* NT-Pro-B Natriuret Pep 69279 H [id number] Chlamy pneumoniae PCR Adenovirus (PCR) B. pertussis DNA (PCR) B.parapertussis DNA PCR Coronavirus OC43 (PCR) Coronavirus HKU1 (PCR) Coronavirus 229E (PCR) Coronavirus NL63 (PCR) Human Metapneumovir PCR Influenza A (H1) PCR Influ A (H1/) PCR Influenza A (H3) PCR Influenza Type A (PCR) Influenza Type B (PCR) M.pneumoniae IgM Titer M. pneumoniae (PCR) Parainfluenza 1 (PCR) Parainfluenza 2 (PCR) Parainfluenza 3 (PCR) Parainfluenza 4 (PCR) RSV (PCR) Entero/Rhino (PCR) SARS-CoV-2 (PCR) 11/21/24 04:19 WBC 8.7 RBC 4.19 L Hgb 12.8 L Hct 36.7 L MCV 87.6 MCH 30.5 MCHC 34.9 RDW 15.5 H Plt Count 263 MPV 11.0 H Immature Gran % (Auto) 1.5 H Neut % (Auto) 88.7 H Lymph % (Auto) 5.7 L [place] % (Auto) 4.0 Eos % (Auto) 0.1 Baso % (Auto) 0.0 L Lymph # (Auto) 0.50 L [place] # (Auto) 0.4 Eos # (Auto) 0.0 Baso # (Auto) 0.0 Abs Immat Gran (auto) 0.13 H Absolute Neuts (auto) 7.7 H Absolute Nucleated RBC 0.000 Band Neutrophils % Not Reportable Nucleated RBC % 0.0 Platelet Estimate Adequate Large Platelets Anisocytosis Target Cells 1+ [place] Cells 2+ Schistocytes None seen Puncture Site ABG pH ABG pCO2 ABG pO2 ABG PO2/FiO2 Ratio ABG HCO3 ABG O2 Saturation ABG O2 Content ABG Base Excess A-a Gradient Oxyhemoglobin Carboxyhemoglobin Methemoglobin Reduced Hemoglobin Total Hemoglobin O2 Delivery Device O2 Liters/Min FiO2 Sodium 134 L Potassium 4.1 Chloride 100 Carbon Dioxide 30 Anion Gap 4 BUN 42 H Creatinine 1.40 H Estim Creat Clear Calc 46 Estimated GFR 50 L Glucose 184 H Calcium 8.1 L Magnesium 1.7 Troponin I 0.057 H* NT-Pro-B Natriuret Pep [id number] Chlamy pneumoniae PCR Adenovirus (PCR) B. pertussis DNA (PCR) B.parapertussis DNA PCR Coronavirus OC43 (PCR) Coronavirus HKU1 (PCR) Coronavirus 229E (PCR) Coronavirus NL63 (PCR) Human Metapneumovir PCR Influenza A (H1) PCR Influ A (H1/09) PCR Influenza A (H3) PCR Influenza Type A (PCR) Influenza Type B (PCR) M.pneumoniae IgM Titer M. pneumoniae (PCR) Parainfluenza 1 (PCR) Parainfluenza 2 (PCR) Parainfluenza 3 (PCR) Parainfluenza 4 (PCR) RSV (PCR) Entero/Rhino (PCR) SARS-CoV-2 (PCR)
--- NOTE | 2024-11-21 10:06 | PCRCNOTE ---
Overnight oximetry unable to be performed. Patient now in ICU on bipap.
--- NOTE | 2024-11-21 13:51 | PM.PNCARD ---
Progress Note: A&P Assessment and Plan (1) Acute on chronic systolic and diastolic heart failure, NYHA class 3: Code(s): I50.43 - Acute on chronic combined systolic (congestive) and diastolic (congestive) heart failure Status: Acute (2) Dilated cardiomyopathy: Code(s): I42.0 - Dilated cardiomyopathy Status: Acute (3) History of coronary artery bypass graft x 3: Code(s): Z95.1 - Presence of aortocoronary bypass graft Status: Acute (4) Bilateral pleural effusion: Code(s): J90 - Pleural effusion, not elsewhere classified Status: Acute Assessment and Plan: Assessment: 1. Patient presents with severe respiratory failure also history of COPD and cardiomyopathy. BNP was markedly elevated. Chest x-ray on 11/18/19, was positive for cardiomegaly, previous coronary bypass surgery but negative for acute cardiopulmonary abnormalities. Emphysema was noted Subsequent CT scan of the chest was negative for pulmonary embolism and positive for congestive heart failure. A nodule noted within left upper lobe which was new. Based on these findings patient likely had predominantly respiratory failure due to emphysema and component of congestive heart failure. 2. Acute on chronic systolic and diastolic heart failure. Echocardiogram done recently shows ejection fraction of 30-35% with grade 3 diastolic dysfunction. 3. Severe mitral regurgitation likely secondary to cardiomyopathy. 4. History of triple-vessel coronary bypass graft in the past. Rule out progression of disease. 5. Pleural effusions likely secondary to congestive heart failure and cardiomyopathy. 6. Abnormal EKG with complete right bundle branch block. This is an old finding. 7. History of COPD. CT scan of the chest shows emphysema. Lung nodule noted on CT scan. Status post biopsy. Plan 1. Patient is currently on Solu-Medrol. Cardiac medication includes carvedilol 25 mg q.12 hours, Entresto 24-261 tablet every 12 hours, spironolactone 25 mg daily and furosemide is on hold at the present time. May consider adding SGPT L2 medications. Do not recommend amlodipine for this patient due to severely reduced systolic function. Consider adding hydralazine and isosorbide dinitrate for this patient. 2. Currently blood pressure is 139/67 and heart rate is 78 per minute. Laboratory data reviewed. WBC 8.7, hemoglobin is 12.8 and platelets are normal. Sodium 134 call-ins wall I, BUN is 42 and creatinine is 1.40 . Continue Lasix 40 mg b.i.d. and Zaroxolyn 2.5 mg Tuesday as needed for leg edema. 3. Patient mammo component of ischemic cardiomyopathy. Will go ahead with nuclear stress test in the morning to evaluate for progressive ischemic heart disease. 4. Patient is a candidate for AICD in view of his LV systolic dysfunction ejection fraction less than 35%. Time Spent With Patient Time with patient: 25 - 35 minutes Subjective Date/time seen: 11/21/24 13:51 Interval history: Patient is a 69-year-old gentleman was admitted on 11/17/2024 with possible acute coronary syndrome and was evaluated by human development professor Dr. Schreiber. Patient was admitted with severe respiratory distress. Patient has known history of COPD and using oxygen at home. No complaints of chest pain. Past medical history significant for triple-vessel bypass surgery several years ago as well as history of gastric surgery and lobectomy of the lung. Patient has history of hypertension as well as history of prostate cancer, cardiomyopathy COPD and hyperlipidemia. Admitting hemoglobin was 14 g. Sodium 134, potassium 4.6, BUN 23 and creatinine 1.4. His viral panel with influenza, RSV and COVID were negative. His cardiac troponin I was 0.039 and subsequently increased to 0.057 which was nonsignificant. Patient was treated for acute on chronic systolic heart failure and COPD exacerbation. Patient was given Lasix 40 mg IV push b.i.d.. His EKG on 11/17/2024 revealed normal sinus rhythm with complete right bundle-branch block and was showing changes. Frequent PVCs were noted. Subsequent echocardiogram on 11/20/2024 revealed normal left ventricular size with decreased systolic function in range of 30-35% with hypokinetic anterolateral wall. Patient has grade 3 diastolic dysfunction. At atrium is mildly enlarged but had severe mitral valve regurgitation is noted. Moderate tricuspid regurgitation noted with moderate to severe pulmonary hypertension estimated at 61 mm Hg. Inferior vena cava is dilated suggesting elevated right-sided pressures. Patient was examined at the bedside. Patient appears to be comfortable but had episode of shortness of breath last night. Patient does have 2+ leg edema bilaterally. Review of Systems Review of Systems: Twelve point review of system was completed. Pertinent positive and negative findings per HPI. Exam Narrative: Patient was examined at bedside. Patient is awake alert and appears comfortable. There is neck examination is unremarkable PERRLA scleras nonicteric. Neck is supple. There is no JVD or carotid bruit. Lungs reveal decreased air entry bilaterally. There is no wheezing or crepitation. Heart sounds reveal normal S1-S2 heard S2 is present present grade 2-3/6 systolic murmur noted at the left sternal border. Abdomen soft and nontender there is no ascites. There is no hepatosplenomegaly present bowel sounds present. Extremities reveal 1 to 2+ leg edema bilaterally. Healed central chest scar is noted for previous coronary artery bypass surgery. Neurological examination is intact Objective Data Vital Signs Vital Signs: Vital Signs - 24 hr 11/20/24 14:13 11/20/24 15:07 11/20/24 15:29 Temperature Pulse Rate 122 H 135 H Respiratory Rate 28 H 26 H Blood Pressure 170/90 H Pulse Oximetry 98 Oxygen Delivery Room Air Oxygen Flow Rate Fraction of Inspired Oxygen 11/20/24 15:41 11/20/24 16:00 11/20/24 16:00 Temperature Pulse Rate 124 H 124 H Respiratory Rate 31 H Blood Pressure 208/98 H 157/124 H Pulse Oximetry 90 Oxygen Delivery Oxygen Flow Rate Fraction of Inspired Oxygen 11/20/24 17:00 11/20/24 18:00 11/20/24 20:00 Temperature Pulse Rate 104 H 87 80 Respiratory Rate 25 H 23 H 15 Blood Pressure 166/106 H 135/86 Pulse Oximetry 94 100 100 Oxygen Delivery BiPAP Oxygen Flow Rate Fraction of Inspired Oxygen 35 11/20/24 20:00 11/20/24 20:00 11/20/24 21:25 Temperature 36.8 C Pulse Rate 80 69 93 Respiratory Rate 16 27 H Blood Pressure 126/73 Pulse Oximetry 100 Oxygen Delivery Oxygen Flow Rate Fraction of Inspired Oxygen 11/20/24 21:26 11/20/24 21:34 11/20/24 21:50 Temperature Pulse Rate 84 78 93 Respiratory Rate 26 H 20 Blood Pressure Pulse Oximetry 100 99 Oxygen Delivery BiPAP Nasal Cannula Oxygen Flow Rate 3 Fraction of Inspired Oxygen 11/20/24 23:56 11/21/24 00:00 11/21/24 00:00 Temperature 36.8 C Pulse Rate 74 72 71 Respiratory Rate 18 Blood Pressure 116/71 Pulse Oximetry 100 Oxygen Delivery Oxygen Flow Rate Fraction of Inspired Oxygen 11/21/24 00:00 11/21/24 02:14 11/21/24 02:20 Temperature Pulse Rate 70 69 68 Respiratory Rate 16 19 16 Blood Pressure Pulse Oximetry 100 Oxygen Delivery Nasal Cannula Oxygen Flow Rate 3 Fraction of Inspired Oxygen 35 11/21/24 04:00 11/21/24 04:00 11/21/24 04:00 Temperature 36.7 C Pulse Rate 68 68 68 Respiratory Rate 16 16 Blood Pressure 131/74 Pulse Oximetry 100 97 Oxygen Delivery Nasal Cannula Oxygen Flow Rate 3 Fraction of Inspired Oxygen 35 11/21/24 08:00 11/21/24 08:00 11/21/24 08:00 Temperature 36.4 C Pulse Rate 83 70 Respiratory Rate 15 Blood Pressure 139/74 Pulse Oximetry 98 98 Oxygen Delivery Room Air Oxygen Flow Rate Fraction of Inspired Oxygen 11/21/24 08:11 11/21/24 08:11 11/21/24 08:19 Temperature Pulse Rate 77 77 72 Respiratory Rate 20 20 22 H Blood Pressure Pulse Oximetry 96 Oxygen Delivery Room Air Oxygen Flow Rate Fraction of Inspired Oxygen 11/21/24 08:47 11/21/24 10:00 11/21/24 12:00 Temperature 36.2 C L Pulse Rate 83 73 78 Respiratory Rate 22 H Blood Pressure 139/67 Pulse Oximetry 97 Oxygen Delivery Oxygen Flow Rate Fraction of Inspired Oxygen 11/21/24 12:00 11/21/24 12:10 11/21/24 12:10 Temperature Pulse Rate 85 79 79 Respiratory Rate 20 20 Blood Pressure Pulse Oximetry 97 Oxygen Delivery Room Air Oxygen Flow Rate Fraction of Inspired Oxygen 11/21/24 12:20 Temperature Pulse Rate 71 Respiratory Rate 22 H Blood Pressure Pulse Oximetry Oxygen Delivery Oxygen Flow Rate Fraction of Inspired Oxygen Intake/Output Intake/Output: Intake & Output 11/18/24 11/19/24 11/20/24 11/21/24 23:59 23:59 23:59 23:59 Intake Total 2900 1470 0 1000 Output Total 700 3915 792 2415 Balance 2200 170 -975 -100 Meds/Results Medications: Active Medications Generic Name Dose Route Start Last Admin Trade Name Freq PRN Reason Stop Dose Admin Acetaminophen 650 mg 11/17/24 12:26 11/18/24 21:05 Acetaminophen 325 Mg Tablet PO 650 mg Q4H PRN Administration Mild Pain (1-3) or Fever Albuterol 2.5 mg 11/17/24 12:26 Albuterol Sulfate Neb 2.5 Mg/3 Ml Inh INHALATION Q6HRT PRN Bronchospasm Albuterol/Ipratropium 3 ml 11/20/24 20:00 11/21/24 12:10 Ipratropium 0.5 Mg/Albuterol Sulfate 2.5 Mg Ampul.Neb 3 Ml INHALATION 3 ml Q4HRT ЮЛИЯ Administration Allopurinol 100 mg 11/18/24 09:00 11/21/24 08:47 Allopurinol 100 Mg Tablet BY MOUTH 100 mg DAILY ЮЛИЯ Administration Bupropion HCl 150 mg 11/18/24 09:00 11/21/24 08:47 Bupropion Hcl Sr (12 Hr) 150 Mg Tab PO 150 mg Q12HR ЮЛИЯ Administration Carvedilol 25 mg 11/17/24 21:00 11/21/24 08:47 Carvedilol 25 Mg Tablet PO 25 mg Q12H ЮЛИЯ Administration Cyclobenzaprine HCl 10 mg 11/17/24 20:57 Cyclobenzaprine Hcl 10 Mg Tablet PO TID PRN Muscle Spasm Pantoprazole Sodium 40 mg 11/18/24 09:00 11/21/24 08:48 Pantoprazole 40 Mg Tablet PO 40 mg QAM ЮЛИЯ Administration Prednisone 40 mg 11/21/24 15:00 Prednisone 20 Mg Tablet PO DAILY@0800 ЮЛИЯ Quetiapine Fumarate 50 mg 11/17/24 21:00 11/20/24 23:57 Quetiapine Fumarate 25 Mg Tablet PO 50 mg QHS ЮЛИЯ Administration Rosuvastatin Calcium 40 mg 11/18/24 09:00 11/21/24 08:47 Rosuvastatin 20 Mg Tablet BY MOUTH 40 mg DAILY ЮЛИЯ Administration Sacubitril/Valsartan 1 tab 11/17/24 21:00 11/19/24 09:00 Sacubitril/Valsartan 24-26 Mg Tablet PO 1 tab On Hold: 11/19/24 15:29 Q12HR ЮЛИЯ Administration Spironolactone 25 mg 11/18/24 12:00 11/19/24 09:00 Spironolactone 25 Mg Tablet PO 25 mg On Hold: 11/19/24 15:29 QAM ЮЛИЯ Administration Tamsulosin HCl 0.4 mg 11/17/24 21:00 11/20/24 23:57 Tamsulosin Hcl 0.4 Mg Capsule BY MOUTH 0.4 mg HS ЮЛИЯ Administration Radiology Results: ITS Impressions Lung Biopsy CT 11/20/24 14:59 [address]: 1[address]-guided biopsy of an 11 mm paramediastinal nodule at the left apex. Chest CTA 11/20/24 18:08 IMPRESSION: 1. Focal mild subpleural atelectasis along the recent lung biopsy tract at the medial left apex. No pulmonary embolism or other acute cardiopulmonary disease. 2. Unchanged small left and tiny right pleural effusions. 3. Unchanged 11 mm subpleural nodule at the medial left apex which concerning for primary bronchogenic carcinoma with left hilar and mediastinal lymphadenopathy suspicious for secondary metastatic disease. Correlate with pending pathology results from the percutaneous lung biopsy. 4. Mild cardiomegaly with left ventricular and atrial enlargement. 5. 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 Chest X-Ray 11/21/24 07:49 Impression: 1: No pneumothorax identified post biopsy. 2: Cardiomegaly with mild interstitial edema. Labs Labs: Laboratory Results - last 24 hr 11/18/24 11/19/24 11/20/24 12:44 06:32 15:01 WBC RBC Hgb Hct MCV MCH MCHC RDW Plt Count MPV Immature Gran % (Auto) Neut % (Auto) Lymph % (Auto) [place] % (Auto) Eos % (Auto) Baso % (Auto) Lymph # (Auto) [place] # (Auto) Eos # (Auto) Baso # (Auto) Abs Immat Gran (auto) Absolute Neuts (auto) Absolute Nucleated RBC Band Neutrophils % Nucleated RBC % Platelet Estimate Large Platelets Anisocytosis Target Cells Laya Cells Schistocytes Puncture Site Right brachial ABG pH 7.418 ABG pCO2 45.0 ABG pO2 65.7 L ABG PO2/FiO2 Ratio 2.05 ABG HCO3 28.4 H ABG O2 Saturation 93.2 L ABG O2 Content 19.1 ABG Base Excess 3.3 A-a Gradient 109.8 Oxyhemoglobin 90.8 Carboxyhemoglobin 0.8 Methemoglobin 0.1 Reduced Hemoglobin 8.3 H Total Hemoglobin 15.0 O2 Delivery Device Nasal cannula O2 Liters/Min 3.0 FiO2 32 Sodium Potassium Chloride Carbon Dioxide Anion Gap BUN Creatinine Estim Creat Clear Calc Estimated GFR Glucose POC Capillary Glucose Calcium Magnesium Troponin I NT-Pro-B Natriuret Pep Chlamy pneumoniae PCR Not detected Adenovirus (PCR) Not detected B. pertussis DNA (PCR) Not detected B.parapertussis DNA PCR Not detected Coronavirus OC43 (PCR) Not detected Coronavirus HKU1 (PCR) Not detected Coronavirus 229E (PCR) Not detected Coronavirus NL63 (PCR) Not detected Human Metapneumovir PCR Not detected Influenza A (H1) PCR Not detected Influ A (H1/) PCR Not detected Influenza A (H3) PCR Not detected Influenza Type A (PCR) Not detected Influenza Type B (PCR) Not detected M.pneumoniae IgM Titer <770 M. pneumoniae (PCR) Not detected Parainfluenza 1 (PCR) Not detected Parainfluenza 2 (PCR) Not detected Parainfluenza 3 (PCR) Not detected Parainfluenza 4 (PCR) Not detected RSV (PCR) Not detected Entero/Rhino (PCR) Not detected SARS-CoV-2 (PCR) Not detected 11/20/24 11/20/24 11/20/24 16:56 20:17 22:57 WBC 11.3 H RBC 4.48 L Hgb 13.6 L Hct 39.3 L MCV 87.7 MCH 30.4 MCHC 34.6 RDW 15.2 H Plt Count 293 MPV 10.7 H Immature Gran % (Auto) 0.6 H Neut % (Auto) 87.8 H Lymph % (Auto) 3.3 L Harrison % (Auto) 8.1 Eos % (Auto) 0.2 Baso % (Auto) 0.0 L Lymph # (Auto) 0.37 L [place] # (Auto) 0.9 H Eos # (Auto) 0.0 Baso # (Auto) 0.0 Abs Immat Gran (auto) 0.07 H Absolute Neuts (auto) 10.0 H Absolute Nucleated RBC 0.000 Band Neutrophils % Not Reportable Nucleated RBC % 0.0 Platelet Estimate Adequate Large Platelets Present Anisocytosis Occasional Target Cells 2+ [place] Cells 1+ Schistocytes None seen Puncture Site ABG pH ABG pCO2 ABG pO2 ABG PO2/FiO2 Ratio ABG HCO3 ABG O2 Saturation ABG O2 Content ABG Base Excess A-a Gradient Oxyhemoglobin Carboxyhemoglobin Methemoglobin Reduced Hemoglobin Total Hemoglobin O2 Delivery Device O2 Liters/Min FiO2 Sodium 133 L Potassium 4.2 Chloride 100 Carbon Dioxide 29 Anion Gap 4 BUN 41 H Creatinine 1.32 H Estim Creat Clear Calc 48 Estimated GFR 54 L Glucose 149 H POC Capillary Glucose Calcium 8.0 L Magnesium 1.5 L Troponin I 0.039 H* 0.055 H* D 0.063 H* NT-Pro-B Natriuret Pep 09669 H Chlamy pneumoniae PCR Adenovirus (PCR) B. pertussis DNA (PCR) B.parapertussis DNA PCR Coronavirus OC43 (PCR) Coronavirus HKU1 (PCR) Coronavirus 229E (PCR) Coronavirus NL63 (PCR) Human Metapneumovir PCR Influenza A (H1) PCR Influ A (H1/09) PCR Influenza A (H3) PCR Influenza Type A (PCR) Influenza Type B (PCR) M.pneumoniae IgM Titer M. pneumoniae (PCR) Parainfluenza 1 (PCR) Parainfluenza 2 (PCR) Parainfluenza 3 (PCR) Parainfluenza 4 (PCR) RSV (PCR) Entero/Rhino (PCR) SARS-CoV-2 (PCR) 11/21/24 11/21/24 04:19 11:19 WBC 8.7 RBC 4.19 L Hgb 12.8 L Hct 36.7 L MCV 87.6 MCH 30.5 MCHC 34.9 RDW 15.5 H Plt Count 263 MPV 11.0 H Immature Gran % (Auto) 1.5 H Neut % (Auto) 88.7 H Lymph % (Auto) 5.7 L [place] % (Auto) 4.0 Eos % (Auto) 0.1 Baso % (Auto) 0.0 L Lymph # (Auto) 0.50 L [place] # (Auto) 0.4 Eos # (Auto) 0.0 Baso # (Auto) 0.0 Abs Immat Gran (auto) 0.13 H Absolute Neuts (auto) 7.7 H Absolute Nucleated RBC 0.000 Band Neutrophils % Not Reportable Nucleated RBC % 0.0 Platelet Estimate Adequate Large Platelets Anisocytosis Target Cells 1+ [place] Cells 2+ Schistocytes None seen Puncture Site ABG pH ABG pCO2 ABG pO2 ABG PO2/FiO2 Ratio ABG HCO3 ABG O2 Saturation ABG O2 Content ABG Base Excess A-a Gradient Oxyhemoglobin Carboxyhemoglobin Methemoglobin Reduced Hemoglobin Total Hemoglobin O2 Delivery Device O2 Liters/Min FiO2 Sodium 134 L Potassium 4.1 Chloride 100 Carbon Dioxide 30 Anion Gap 4 BUN 42 H Creatinine 1.40 H Estim Creat Clear Calc 46 Estimated GFR 50 L Glucose 184 H POC Capillary Glucose 189 H Calcium 8.1 L Magnesium 1.7 Troponin I 0.057 H* NT-Pro-B Natriuret Pep Chlamy pneumoniae PCR Adenovirus (PCR) B. pertussis DNA (PCR) B.parapertussis DNA PCR Coronavirus OC43 (PCR) Coronavirus HKU1 (PCR) Coronavirus 229E (PCR) Coronavirus NL63 (PCR) Human Metapneumovir PCR Influenza A (H1) PCR Influ A (H1/09) PCR Influenza A (H3) PCR Influenza Type A (PCR) Influenza Type B (PCR) M.pneumoniae IgM Titer M. pneumoniae (PCR) Parainfluenza 1 (PCR) Parainfluenza 2 (PCR) Parainfluenza 3 (PCR) Parainfluenza 4 (PCR) RSV (PCR) Entero/Rhino (PCR) SARS-CoV-2 (PCR)
[2024-11-21] MEDS: FUROSEMIDE 40 MG TABLET PO (16:08)
[2024-11-21] MEDS: ISOSORBIDE DINITRATE 10 MG TABLET PO (17:32)
--- NOTE | 2024-11-21 18:07 | P.PNIM_ITS ---
Progress Note: A&P Assessment and Plan (1) Hypertension: Qualifiers: Hypertension type: essential hypertension Qualified Code(s): I10 - Essential (primary) hypertension Code(s): I10 - Essential (primary) hypertension Status: Acute (2) CHF (congestive heart failure): Code(s): I50.9 - Heart failure, unspecified Status: Acute (3) Chronic obstructive pulmonary disease: Qualifiers: COPD type: unspecified COPD Qualified Code(s): J44.9 - Chronic obstructive pulmonary disease, unspecified Code(s): J44.9 - Chronic obstructive pulmonary disease, unspecified Status: Acute (4) Shortness of Breath: Code(s): R06.02 - Shortness of breath Status: Acute Plan Patient is now on room air. CT chest with contrast post biopsy reveals no significant diagnosis for is severe respiratory distress afterwards. This morning, the patient tells us he had severe anxiety. He had PTSD anxiety and depression being treated aggressively remotely. At this time he feels calm and relax. Continue to appreciate recommendations from pulmonology and Cardiology. His serum creatinine has improved in spite of receiving IV contrast yesterday. Continue to monitor while on Lasix. Monitor intake/output, daily weights. Nuclear stress test in the morning. NPO midnight. Patient wishes to be full code. Saline lock IV. Medical floor with telemetry. Subjective Date/time seen: 11/21/24 18:07 Interval history: Patient feels at his baseline. Overnight he was placed on BiPAP shortly for anxiety and shortness of breath. Review of Systems Review of Systems: All systems reviewed & are unremarkable except as noted in HPI and below (Subjective) Exam Const: General: comfortable and no acute distress Other: A&O x3 HENMT: Mouth: Yes moist mucous membranes Eyes: Pupils: Equal, round and reactive pupils present Neck: Neck: supple Resp: Effort & Inspection: normal respiratory effort Other: Decreased breath sounds diffusely. No crackles. No rhonchi. Light expiratory weak Cardio: Rate: regular rate Rhythm: regular rhythm GI: GI Palp: Yes Soft to palpation Neuro: Motor exam (neuro): 5/5 motor strength present throughout Extrem: Other: 2+ pitting edema at the ankles bilateral ly Objective Data Vital Signs Vital Signs: Vital Signs - 24 hr 11/20/24 20:00 11/20/24 20:00 11/20/24 20:00 Temperature 98.2 F Pulse Rate 80 80 69 Respiratory Rate 15 16 Blood Pressure 126/73 Pulse Oximetry 100 100 Oxygen Delivery BiPAP Oxygen Flow Rate Fraction of Inspired Oxygen 35 11/20/24 21:25 11/20/24 21:26 11/20/24 21:34 Temperature Pulse Rate 93 84 78 Respiratory Rate 27 H 26 H 20 Blood Pressure Pulse Oximetry 100 Oxygen Delivery BiPAP Oxygen Flow Rate Fraction of Inspired Oxygen 11/20/24 21:50 11/20/24 23:56 11/21/24 00:00 Temperature Pulse Rate 93 74 72 Respiratory Rate Blood Pressure Pulse Oximetry 99 Oxygen Delivery Nasal Cannula Oxygen Flow Rate 3 Fraction of Inspired Oxygen 11/21/24 00:00 11/21/24 00:00 11/21/24 02:14 Temperature 98.2 F Pulse Rate 71 70 69 Respiratory Rate 18 16 19 Blood Pressure 116/71 Pulse Oximetry 100 100 Oxygen Delivery Nasal Cannula Oxygen Flow Rate 3 Fraction of Inspired Oxygen 35 11/21/24 02:20 11/21/24 04:00 11/21/24 04:00 Temperature Pulse Rate 68 68 68 Respiratory Rate 16 16 Blood Pressure Pulse Oximetry 100 Oxygen Delivery Nasal Cannula Oxygen Flow Rate 3 Fraction of Inspired Oxygen 35 11/21/24 04:00 11/21/24 08:00 11/21/24 08:00 Temperature 98.1 F 97.6 F Pulse Rate 68 83 Respiratory Rate 16 15 Blood Pressure 131/74 139/74 Pulse Oximetry 97 98 98 Oxygen Delivery Room Air Oxygen Flow Rate Fraction of Inspired Oxygen 11/21/24 08:00 11/21/24 08:11 11/21/24 08:11 Temperature Pulse Rate 70 77 77 Respiratory Rate 20 20 Blood Pressure Pulse Oximetry 96 Oxygen Delivery Room Air Oxygen Flow Rate Fraction of Inspired Oxygen 11/21/24 08:19 11/21/24 08:47 11/21/24 10:00 Temperature Pulse Rate 72 83 73 Respiratory Rate 22 H Blood Pressure Pulse Oximetry Oxygen Delivery Oxygen Flow Rate Fraction of Inspired Oxygen 11/21/24 12:00 11/21/24 12:00 11/21/24 12:10 Temperature 97.1 F L Pulse Rate 78 85 79 Respiratory Rate 22 H 20 Blood Pressure 139/67 Pulse Oximetry 97 97 Oxygen Delivery Room Air Oxygen Flow Rate Fraction of Inspired Oxygen 11/21/24 12:10 11/21/24 12:20 11/21/24 15:53 Temperature Pulse Rate 79 71 85 Respiratory Rate 20 22 H 24 H Blood Pressure Pulse Oximetry Oxygen Delivery Oxygen Flow Rate Fraction of Inspired Oxygen 11/21/24 16:00 11/21/24 16:05 Temperature Pulse Rate 85 83 Respiratory Rate 23 H Blood Pressure Pulse Oximetry Oxygen Delivery Oxygen Flow Rate Fraction of Inspired Oxygen Intake/Output Intake/Output: Intake & Output 11/18/24 11/19/24 11/20/24 11/21/24 23:59 23:59 23:59 23:59 Intake Total 2900 1470 0 1240 Output Total 700 8914 462 2161 Balance 2200 170 -975 140 Meds/Results Medications: Active Medications Generic Name Dose Route Start Last Admin Trade Name Freq PRN Reason Stop Dose Admin Acetaminophen 650 mg 11/17/24 12:26 11/18/24 21:05 Acetaminophen 325 Mg Tablet PO 650 mg Q4H PRN Administration Mild Pain (1-3) or Fever Albuterol 2.5 mg 11/17/24 12:26 Albuterol Sulfate Neb 2.5 Mg/3 Ml Inh INHALATION Q6HRT PRN Bronchospasm Albuterol/Ipratropium 3 ml 11/20/24 20:00 11/21/24 15:53 Ipratropium 0.5 Mg/Albuterol Sulfate 2.5 Mg Ampul.Neb 3 Ml INHALATION 3 ml Q4HRT ЮЛИЯ Administration Allopurinol 100 mg 11/18/24 09:00 11/21/24 08:47 Allopurinol 100 Mg Tablet BY MOUTH 100 mg DAILY ЮЛИЯ Administration Bupropion HCl 150 mg 11/18/24 09:00 11/21/24 08:47 Bupropion Hcl Sr (12 Hr) 150 Mg Tab PO 150 mg Q12HR ЮЛИЯ Administration Carvedilol 25 mg 11/17/24 21:00 11/21/24 08:47 Carvedilol 25 Mg Tablet PO 25 mg Q12H ЮЛИЯ Administration Cyclobenzaprine HCl 10 mg 11/17/24 20:57 Cyclobenzaprine Hcl 10 Mg Tablet PO TID PRN Muscle Spasm Furosemide 40 mg 11/21/24 17:00 11/21/24 16:08 Furosemide 40 Mg Tablet PO 40 mg BID ЮЛИЯ Administration Hydralazine HCl 10 mg 11/21/24 17:00 11/21/24 17:32 Hydralazine 10 Mg Tablet PO 10 mg TID ЮЛИЯ Administration Isosorbide Dinitrate 10 mg 11/21/24 17:00 11/21/24 17:32 Isosorbide Dinitrate 10 Mg Tablet PO 10 mg TID ЮЛИЯ Administration Pantoprazole Sodium 40 mg 11/18/24 09:00 11/21/24 08:48 Pantoprazole 40 Mg Tablet PO 40 mg QAM ЮЛИЯ Administration Prednisone 40 mg 11/21/24 15:00 11/21/24 16:08 Prednisone 20 Mg Tablet PO 40 mg DAILY@0800 ЮЛИЯ Administration Quetiapine Fumarate 50 mg 11/17/24 21:00 11/20/24 23:57 Quetiapine Fumarate 25 Mg Tablet PO 50 mg QHS ЮЛИЯ Administration Rosuvastatin Calcium 40 mg 11/18/24 09:00 11/21/24 08:47 Rosuvastatin 20 Mg Tablet BY MOUTH 40 mg DAILY ЮЛИЯ Administration Sacubitril/Valsartan 1 tab 11/17/24 21:00 11/19/24 09:00 Sacubitril/Valsartan 24-26 Mg Tablet PO 1 tab On Hold: 11/19/24 15:29 Q12HR ЮЛИЯ Administration Spironolactone 25 mg 11/18/24 12:00 11/19/24 09:00 Spironolactone 25 Mg Tablet PO 25 mg On Hold: 11/19/24 15:29 QAM ЮЛИЯ Administration Tamsulosin HCl 0.4 mg 11/17/24 21:00 11/20/24 23:57 Tamsulosin Hcl 0.4 Mg Capsule BY MOUTH 0.4 mg HS ЮЛИЯ Administration Radiology Results: ITS Impressions Lung Biopsy CT 11/20/24 14:59 IMPRESSION: 1[address] CT-guided biopsy of an 11 mm paramediastinal nodule at the left apex. Chest CTA 11/20/24 18:08 IMPRESSION: 1. Focal mild subpleural atelectasis along the recent lung biopsy tract at the medial left apex. No pulmonary embolism or other acute cardiopulmonary disease. 2. Unchanged small left and tiny right pleural effusions. 3. Unchanged 11 mm subpleural nodule at the medial left apex which concerning for primary bronchogenic carcinoma with left hilar and mediastinal lymphadenopathy suspicious for secondary metastatic disease. Correlate with pending pathology results from the percutaneous lung biopsy. 4. Mild cardiomegaly with left ventricular and atrial enlargement. 5. 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 Chest X-Ray 11/21/24 07:49 Impression: 1: No pneumothorax identified post biopsy. 2: Cardiomegaly with mild interstitial edema. Labs Labs: Laboratory Results - last 24 hr 11/18/24 11/20/24 11/20/24 12:44 16:56 20:17 WBC RBC Hgb Hct MCV MCH MCHC RDW Plt Count MPV Immature Gran % (Auto) Neut % (Auto) Lymph % (Auto) [place] % (Auto) Eos % (Auto) Baso % (Auto) Lymph # (Auto) [place] # (Auto) Eos # (Auto) Baso # (Auto) Abs Immat Gran (auto) Absolute Neuts (auto) Absolute Nucleated RBC Band Neutrophils % Nucleated RBC % Platelet Estimate Target Cells [place] Cells Schistocytes Sodium Potassium Chloride Carbon Dioxide Anion Gap BUN Creatinine Estim Creat Clear Calc Estimated GFR Glucose POC Capillary Glucose Calcium Magnesium Troponin I 0.039 H* 0.055 H* D Chlamy pneumoniae PCR Not detected Adenovirus (PCR) Not detected B. pertussis DNA (PCR) Not detected B.parapertussis DNA PCR Not detected Coronavirus OC43 (PCR) Not detected Coronavirus HKU1 (PCR) Not detected Coronavirus 229E (PCR) Not detected Coronavirus NL63 (PCR) Not detected Human Metapneumovir PCR Not detected Influenza A (H1) PCR Not detected Influ A (H1/09) PCR Not detected Influenza A (H3) PCR Not detected Influenza Type A (PCR) Not detected Influenza Type B (PCR) Not detected M. pneumoniae (PCR) Not detected Parainfluenza 1 (PCR) Not detected Parainfluenza 2 (PCR) Not detected Parainfluenza 3 (PCR) Not detected Parainfluenza 4 (PCR) Not detected RSV (PCR) Not detected Entero/Rhino (PCR) Not detected SARS-CoV-2 (PCR) Not detected 11/20/24 11/21/24 11/21/24 22:57 04:19 11:19 WBC 8.7 RBC 4.19 L Hgb 12.8 L Hct 36.7 L MCV 87.6 MCH 30.5 MCHC 34.9 RDW 15.5 H Plt Count 263 MPV 11.0 H Immature Gran % (Auto) 1.5 H Neut % (Auto) 88.7 H Lymph % (Auto) 5.7 L [place] % (Auto) 4.0 Eos % (Auto) 0.1 Baso % (Auto) 0.0 L Lymph # (Auto) 0.50 L [place] # (Auto) 0.4 Eos # (Auto) 0.0 Baso # (Auto) 0.0 Abs Immat Gran (auto) 0.13 H Absolute Neuts (auto) 7.7 H Absolute Nucleated RBC 0.000 Band Neutrophils % Not Reportable Nucleated RBC % 0.0 Platelet Estimate Adequate Target Cells 1+ [place] Cells 2+ Schistocytes None seen Sodium 134 L Potassium 4.1 Chloride 100 Carbon Dioxide 30 Anion Gap 4 BUN 42 H Creatinine 1.40 H Estim Creat Clear Calc 46 Estimated GFR 50 L Glucose 184 H POC Capillary Glucose 189 H Calcium 8.1 L Magnesium 1.7 Troponin I 0.063 H* 0.057 H* Chlamy pneumoniae PCR Adenovirus (PCR) B. pertussis DNA (PCR) B.parapertussis DNA PCR Coronavirus OC43 (PCR) Coronavirus HKU1 (PCR) Coronavirus 229E (PCR) Coronavirus NL63 (PCR) Human Metapneumovir PCR Influenza A (H1) PCR Influ A (H1/09) PCR Influenza A (H3) PCR Influenza Type A (PCR) Influenza Type B (PCR) M. pneumoniae (PCR) Parainfluenza 1 (PCR) Parainfluenza 2 (PCR) Parainfluenza 3 (PCR) Parainfluenza 4 (PCR) RSV (PCR) Entero/Rhino (PCR) SARS-CoV-2 (PCR)
[2024-11-21] MEDS: TAMSULOSIN HCL 0.4 MG CAPSULE BY MOUTH (20:54)
[2024-11-22] VITALS (19 sets, daily range): BP systolic 138–144; BP diastolic 86–94; PULSE 67–94; RESP 17–20; TEMP 36.2–36.4; O2SAT 92–100
--- NOTE | 2024-11-22 02:10 | PCRCNOTE ---
nebulizer treatment for 0000 not given. patient on overnight oximetry study.
--- NOTE | 2024-11-22 06:55 | PCRCNOTE ---
0400 nebulizer treatment not given patient on overnight oximetry
[2024-11-22] MEDS: IPRATROPIUM 0.5 MG/ALBUTEROL SULFATE 2.5 MG AMPUL.NEB 3 ML INHALATION ×3 (07:26→20:25)
[2024-11-22 07:44] LABS: Hematocrit 39.3 % (42.0-52.0); Hemoglobin 13.5 g/dL (14.0-18.0); Immature Granulocyte Percent A 0.7 % (0-0.5); Lymphocytes Absolute Auto 0.63 K/mm3 (0.9-3.2); Mean Corpuscular HGB Conc 34.4 g/dl (32-36); Mean Corpuscular Hemoglobin 30.5 pg (26-34); Mean Corpuscular Volume 88.9 fl (80-100); Nucleated Red Blood Cells Absolute Auto 0.000 K/mm3 (0.0-0.012); Nucleated Red Blood Cells Perc 0.0 % (0.0-0.2); Platelet Count Result 252 k/mm3 (150-375); Red Blood Count 4.42 M/mm3 (4.6-6.20); White Blood Count 10.1 K/mm3 (4.5-10.0)
[2024-11-22 08:05] LABS: Anion Gap 2 mmol/L (4-12); Blood Urea Nitrogen 42 mg/dL (9-20); Calcium 8.1 mg/dL (8.4-10.2); Carbon Dioxide 35 mmol/L (22-30); Chloride 99 mmol/L (98-107); Estimated CRCL calculation 45 ml/min; Estimated Glomerular Filt Rate 49; Glucose 128 mg/dL (65-110); Magnesium 1.6 mg/dL (1.6-2.3); Potassium 3.9 mmol/L (3.4-5.0); Sodium 136 mmol/L (137-145)
[2024-11-22 08:32] LABS: Procalcitonin 0.1 ng/mL
[2024-11-22 08:35] LABS: Anisocytosis 1+; Target Cells 1+
[2024-11-22 08:36] LABS: Schistocytes None Seen
[2024-11-22] MEDS: ISOSORBIDE DINITRATE 10 MG TABLET PO ×3 (08:37→17:25)
[2024-11-22] MEDS: PANTOPRAZOLE 40 MG TABLET PO (08:37)
[2024-11-22] MEDS: buPROPion HCL SR (12 HR) 150 MG TAB PO ×2 (08:37→21:40)
[2024-11-22] MEDS: ROSUVASTATIN 20 MG TABLET 40 MG BY MOUTH (08:38)
--- NOTE | 2024-11-22 08:55 | P.PNPL_ITS ---
Progress Note: A&P Assessment and Plan (1) Chronic obstructive pulmonary disease: Qualifiers: COPD type: unspecified COPD Qualified Code(s): J44.9 - Chronic obstructive pulmonary disease, unspecified Code(s): J44.9 - Chronic obstructive pulmonary disease, unspecified Status: Acute Assessment and Plan: Gold grade 3 group E COPD patient with 55 pack year tobacco use, quit 1 week ago, Alpha 1 anti trypsin level 184 on 11/13/2024, normal. PFTs 05/28/2021 with a severe obstructive abnormality with the pre bronchodilator FEV1 of 1.24 L, 44% predicted, ratio 40%, air trapping with a total lung capacity of 109%, severely decreased unadjusted DLCO at 38% and remains moderately decreased at 51% when adjusted for alveolar volume. CT scan of the chest shows moderate to severe apical predominant centrilobular emphysema. ABG 11/17/2024 on 35% FiO2 7.39/39/111. Chronic hypoxemic respiratory failure requiring no oxygen at rest, 3 L with activity Per home O2 assessment on 05/17/2024. Patient is using 3 L with sleep. echocardiogram 03/26/2022 with LVEF 40-45%, mild to moderate global LV systolic dysfunction, grade 1 diastolic dysfunction, normal right ventricular size. Mild right ventricular hypokinesis, mild enlargement left atrium, mild enlargement right atrium mild to moderate mitral regurg, trace to mild AR, mild tricuspid regurgitation with RVSP 49. Currently the patient presents after worsening dyspnea on exertion at home when he walked to the bathroom without oxygen. He had no prior evidence of a COPD exacerbation with no change in his phlegm volume, or color. He had diffuse wheezing in the emergency department and required BiPAP and was treated with Solu-Medrol and nebulizers. He had an elevated BNP and is treated with Lasix 20 IV. I am not convinced the patient has a COPD exacerbation Although he was in severe respiratory distress requiring BiPAP. I will continue to treat him for COPD exacerbation at this time., there is no evidence of pneumonia on his CT scan and no clinical evidence of bronchitis. Plan: I will change his Solu-Medrol to prednisone 40 mg p.o. q.day. I will continue DuoNebs q.6 hours. The patient has no phlegm production and does not need guaifenesin. No evidence of bacterial infection and patient does not need antibiotics at this time. I congratulated him on quitting tobacco use. I will check an alpha 1 anti trypsin level and genotype on 11/19/2024. Echocardiogram ordered for 11/19. 11/19/2024: Patient was moved to a new room out of the [facility] unit and says that he is a harder time breathing in this new room because it is dry. He did not sleep last night. He denies fever, chills, rigors, cough, phlegm or hemoptysis. Overall he says that his swelling is better. When I enter the room he was on 3 L nasal cannula saturations 100%. I decreased and room air and his saturations were 96%. He is afebrile. White blood cell count 13.0, creatinine 1.50, yesterday he was positive 2.2 L, cumulative he is positive 1.75 L. His weight today is 85.3. Plan: Patient has no wheezing. Oxygenation is stable. No infectious complaints. I will continue prednisone 40 mg a day and DuoNebs q.6 hours. Respiratory pathogen panel, urine Legionella antigen, urine pneumococcal antigen and serum mycoplasma IgM are pending. : Patient tells me he is breathing normal. He says his cough is better than usual and he denies phlegm or hemoptysis. Has no wheezing. Room air saturations are 95%. He is afebrile. White blood cell count 13.2, creatinine 1.47. His BNP has increased from 6230 on 11/18/2024 to 7850 today. Yesterday he was positive 170 mL. Cumulative he is positive 1.9 L since admission. His weight today is 86 kg. Plan: plan continue prednisone 40 mg p.o. q.day, today is day 4 and will discontinue after tomorrow's dose. Continue DuoNebs q.6 hours. Respiratory pathogen panel, urine Legionella antigen, urine pneumococcal antigen and serum mycoplasma IgM are pending. Later in the day patient went down for CT-guided biopsy of his lung nodule. He was comfortable when he left his room. When he went down to Radiology he was placed on the table and was uncomfortable and got anxious. They gave him some oxygen and repositioned him and he settled down and they were able to complete the test. He was in the department and had an x-ray with no pneumothorax and did well and was sent to the floor. Once he got on the floor he said he could not breathe. multiple people came to the room and this made him anxious and made his breathing worse. He was evaluated by the hospitalist team and given stat DuoNebs, repeat chest x-ray without pneumothorax, ABG on 3 L 7.42/45/66. He was given Solu-Medrol 125 followed by 80 Q 8 and required a brief episode of BiPAP. His blood pressure at the time was 170/90 with a repeat of 208/98[place] [address], his troponins were positive. Patient had a CT angiogram of the chest that showed no PE, small left effusion, tiny right effusion, no pneumothorax, unchanged emphysema and no lobar consolidation. Patient was transferred to the ICU. 11/21/2024: patient had another episode in the middle of the night of shortness of breath and was placed on BiPAP for 30 minutes. Currently the pat ient tells me that his breathing is at the his baseline. His shortness of breath is the same as his baseline. He has no cough, phlegm or hemoptysis. He has no chest pain. When I enter the room he was on 3 L nasal cannula saturations 100%. I decreased him to room air and his saturations were 94%. He is afebrile. White blood cell count 8.7, creatinine 1.40. Chest x-ray with no pneumothorax unchanged right effusion and tiny left effusion. Plan: Patient is having intermittent episodes of anxiety, wheezing, respiratory distress, hypertension. is unclear if this is related to COPD and bronchospasm or related to his cardiomyopathy with severe mitral regurg. COPD was treated aggressively, his trops are borderline positive and his BNP remains elevated. Plan: I will change his Solu-Medrol to prednisone 40 mg p.o. q.day. I will continue DuoNebs q.4 hours. There is no evidence of infection in his chest. Will follow the patient clinically. 11/22/2024. The patient tells me he is doing better today. Overall he feels 33% back to his baseline. His cough is at his baseline and he has no phlegm or hemoptysis. He was out of bed yesterday and underwent physical therapy. When I enter the room he was on 2.5 L nasal cannula saturations were 100%. I decreased him to room air and his saturations were 98%. He is afebrile. White blood cell count 10.1, creatinine 1.43, patient was positive 180 mL yesterday, cumulative positive 290 since admission. His weight today is 85 kg. Patient is scheduled for stress test later today. Plan: Today is day 6 of prednisone 40 p.o. q.day and I will discontinue. I will continue DuoNebs q.4 hours. Overnight oximetry on 3 L with very high saturations I will repeat tonight on [address] Castillo. Will follow with you. (2) CHF (congestive heart failure): Code(s): I50.9 - Heart failure, unspecified Status: Acute Assessment and Plan: Echocardiogram 03/26/2022 with LVEF 40-45%, mild to moderate global LV systolic dysfunction, grade 1 diastolic dysfunction, normal right ventricular size. Mild right ventricular hypokinesis, mild enlargement left atrium, mild enlargement right atrium mild to moderate mitral regurg, trace to mild AR, mild tricuspid regurgitation with RVSP 49. 11/17/24; He had an elevated BNP 5280 and was treated with Lasix 20 IV. 11/18 BNP today is 6230. He diuresed 285 mL yesterday. Cumulative he is positive 645 mL since admission. His weight today is 83.5. Plan: cardiology consult id and increase his Lasix to 40 mg IV b.i.d., added Entresto, Coreg and spironolactone. Echocardiogram ordered for 11/19. 11/19/2024: Patient states his swelling is improved and I agree. Creatinine 1.50, yesterday he was positive 2.2 L, cumulative he is positive 1.75 L. His weight today is 85.3. Plan: Cardiology consult following. Echocardiogram today. Adjustments of cardiac medicines per Cardiology team. Later in the day echocardiogram with LVEF 30-35%, grade 3 diastolic dysfunction, severe mitral regurg, moderate tricuspid regurg with PASP of 61, right ventricle normal size and function, right atrium normal size, left atrium mildly enlarged. Compared to 03/29/2022 LVEF is decreased from 44 to a value of 30 to 35%. [id number] MR has progressed to severe MR. PASP has increased from 44 to 61. 11/20/24: His BNP has increased from 6230 on 11/18/2024 to 7850 today. Yesterday he was positive 170 mL. Cumulative he is positive 1.9 L since admission. His weight today is 86 kg. Plan: I will discuss echocardiogram results with Cardiology team. 11/21/2024: Hospitalist discussed case with the cardiology team and the plan was for outpatient stress test. Yesterday he was -975 mL an cumulative he is positive 500 mL since admission[place] [address] angiogram of the chest shows a small left pleural effusion and a tiny right pleural effusion. There is no evidence of acute fluid overload on his CT scan last night. Plan: Management per Cardiology and hospitalist team. Currently the patient is on Coreg, Entresto and spironolactone. Lasix and is on hold for elevated creatinine. later in the day hydralazine Isordil added. 11/22/2024. patient was positive 180 mL yesterday, cumulative positive 290 since admission. His weight today is 85 kg. Plan: Management per Cardiology and hospitalist teams. He is scheduled for stress test later this afternoon. (3) Lung nodule: Code(s): R91.1 - Solitary pulmonary nodule Status: Acute Assessment and Plan: Patient had a CT angiogram of the chest with no PE, able apical predominant centrilobular emphysema, small left pleural effusion, trace right pleural effusion moderate peripheral basal reticulations with no change from 09/10/2023. patient had a 10 x 11 mm pleural based medial left upper lobe nodule that had increased in size from 5 mm on 11/09/2023 [address] scan cervical spine on 09/09/2024. Plan: patient does wish to identify etiology of this nodule. Will review CT scans with Interventional Radiology to determine if this is a nodule that can be biopsied at [facility]. The lesion is too small and peripheral for bronchoscopy. 11/19/2024: I reviewed serial CT scans of the chest with interventional radiology. Plan: Patient with enlarging left upper lobe nodule and discussed risks and benefits with patient wishes to proceed. Will proceed with CT-guided biopsy on 11/20 or 11/21/2024. I will check coags on 11/20. Biopsy ordered. 11/20/2024: Patient is NPO for CT-guided biopsy later today. PT 12.9, INR 1.0, PTT 23.8. Plan: CT-guided biopsy per Interventional Radiology. later in the day patient had a CT-guided biopsy. 11/21/2024: No pneumothorax on postprocedure chest x-rays and CT scan from 11/20/2024 Plan: Await pathology from CT-guided biopsy. 11/22/24: Awaiting pathology. (4) ISIAH (obstructive sleep apnea): Code(s): G47.33 - Obstructive sleep apnea (adult) (pediatric) Status: Acute Assessment and Plan: Untreated. He has mild sleep apnea evidenced by AHI 6.6 on a sleep study 05/29/21. BiPAP 13/9cm was recommended. Patient states he attempted BiPAP, tried all different types of masks and was unable to tolerate BiPAP. 11/18/24: I will continue 3 L nasal cannula at night. Once he is closer to his baseline will perform overnight oximetry on these settings. 11/20/2024: Patient has returned to his baseline. Plan: I will perform overnight oximetry with 3 L per nasal cannula. 11/21/2024: Overnight oximetry on 3 L was canceled at patient had acute respiratory distress post his lung biopsy. Plan: Will follow the patient clinically and will repeat overnight oximetry on 3 L. 11/22/24: Patient had an overnight oximetry on 3 L nasal cannula with recording duration of 5 hours and 49 minutes. Average saturation 100%. Low saturation 68. Time with saturation less than or equal to 88% was 0 minutes, oxygen desatu ration index 0. Plan: high saturation on 3 L nasal cannula at night. I will repeat overnight oximetry on 1 L nasal cannula Subjective Date/time seen: 11/22/24 08:55 Interval history: 11/18/2024: This is a new pulmonary consult for COPD and lung nodule. 69-year-old with a history of GOLD grade 3 group E COPD on home oxygen 3 L with activity and 3 L with sleep, status post VATS right upper lobectomy in 2008 for possible cancer but the patient tells me they found no cancer, GERD, coronary artery disease status post CABG, untreated mild obstructive sleep apnea as he and intolerant to CPAP or BiPAP, hyperlipidemia, hypertension, prostate cancer, renal cell carcinoma, pheochromocytoma and splenectomy in 2008. Patient is followed in the [facility]monary [facility] in last seen on 11/05/2024: This is the note: 6 month follow up regarding COPD on oxygen. Hx: COPD, GERD, gout, CAD, untreated mild sleep apnea (intolerant to BiPAP), hyperlipidemia, hypertension, prostate cancer, hx of CA and CABG and tobacco use disorder. He had a VATS in 2008 with a right upper lobectomy. He said no cancer was found. He had renal cancer, pheochromocytoma and had this removed along with a splenectomy in 2008. He reports progressive MUÑOZ since last visit along with wheezing. Denies any excessive coughing or mucous production. Denies chest pains/tightness but reports heart palpitations. Reports nighttime dyspnea walking from the bathroom. He is compliant using Breztri twice daily. Albuterol use has been 4x/day for the past 4 months. He has a portable oxygen concentrator he purchased this out of pocket, 3L O2 with exertion. Has been using 4L at times and at home, been using it 13/09. Current smoker 1ppd, smoked 0.5-1ppd for 54 years. He tried NRT patches which did not help he states. He is interested in medication to help him quit. He would like to see his plant physiology teacher again Dr. Ram. Reports it's been >1year. weight 180 lb. Lungs were clear to auscultation. Plan: He tried Daliresp but could not tolerate GI side effects. All to for a was too costly. Continue breasts tree albuterol p.r.n.. Chest x-ray, EKG, Cardiology referral. Recommended regular exercise and deep breathing. Quit smoking. Bupropion was prescribed. Follow-up 2-3 months. requires no oxygen at rest, 3 L with activity, continue 3 at night. low-dose CT scan ordered. Smoking cessation counseling provided. 11/12/2024: Chest X ray: Suspect right middle lobe atelectasis or early airspace disease. Emphysema, chronic scarring and retraction of the diaphragm right lung base, Patient tells me he took the bupropion after he left the clinic and quit smoking in 4 days. patient smoked tobacco from age 14-1 week ago at 1 pack per day for total of 55 pack years. He was exposed to secondhand smoke from his mother but none since. Patient did cocaine last use was in 2014. 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 Baseline dyspnea on exertion now is room to room. Patient tells me he was at his baseline On 11/16/2024. The patient tells me he wears no oxygen at rest but does not have a pulse oximeter to measure his saturations. He is prescribed 3 L with activity but he rarely uses this with activity and has room to room dyspnea on exertion. When he walks to the the couch to the bathroom with 3 L oxygen on he is able to make this journey and he says he does better than without. Without oxygen he is extremely short of breath after he gets back to the couch. This worsening dyspnea on exertion has progressed over the last few months. On 11/16/2024 he had no increased cough, phlegm or hemoptysis. He ate dinner and went to bed and was feeling his usual self. On 11/17/2024 he woke up at 4:00 a.m. to urinate. He took his oxygen off and he walked back to the couch and he had worsening dyspnea on exertion and shortness of breath without recovery. He had wheezing and he told his family to call EMS. He denied cough, phlegm production or hemoptysis. He denied chest pain. On arrival to the emergency department the patient was in severe respiratory distress in a tripod position. Blood pressure 129/83, heart rate 81, respirations 20 patient was immediately placed on BiPAP 14/7 and 35% FiO2 with saturations 100. Patient had audible inspiratory and expiratory wheezes without a stethoscope. White blood cell count was 7.0 with eosinophils 2.4%= 168 per micro L, creatinine 1.37, serum bicarbonate 28, BNP 5280, COVID influenza and RSV RT PCR assay negative. Patient had a CT angiogram of the chest with no PE, able apical predominant centrilobular emphysema, small left pleural effusion, trace right pleural effusion moderate peripheral basal reticulations with no change from 09/10/2023. patient had a 10 x 11 mm pleural based medial left upper lobe nodule that had increased in size from 5 mm on 11/09/[address] scan cervical spine on 09/09/2024. About 5 hours later patient had an ABG on 35% FiO2 with pH of 7.40/39/111. Patient was treated with Solu-Medrol, bronchodilators and Lasix 20 IV. 11/18/2024: Currently the patient tells me he is good but not back to his normal. He still has slight shortness of breath at rest. He denies fever, chills, rigors, phlegm, hemoptysis or chest pain. of note patient tells me he has worsening lower extremity edema over the last 4 months. He has no wheezing. He was on 3 L nasal cannula saturations 95-100%. I decreased him to room air and his saturations remain 92%. His white blood cell count was 6.2, his creatinine was 1.23. His CRP was 1.9, his procalcitonin was 0.1, his BNP was 6230. Chest x-ray today shows worsening diffuse left lung infiltrate with no change on the right. 11/19/2024: Patient was moved to a new room out of the [facility] unit and says that he is a harder time breathing in this new room because it is dry. He did not sleep last night. He denies fever, chills, rigors, cough, phlegm or hemopty sis. Overall he says that his swelling is better. When I enter the room he was on 3 L nasal cannula saturations 100%. I decreased and room air and his saturations were 96%. He is afebrile. White blood cell count 13.0, creatinine 1.50, yesterday he was positive 2.2 L, cumulative he is positive 1.75 L. His weight today is 85.3. Later in the day echocardiogram with LVEF 30-35%, grade 3 diastolic dysfunction, severe mitral regurg, moderate tricuspid regurg with PASP of 61, right ventricle normal size and function, right atrium normal size, left atrium mildly enlarged. Compared to 03/29/2022 LVEF is decreased from 44 to a value of 30 to 35%. [id number] MR has progressed to severe MR. PASP has increased from 44 to 61. 11/20/24: Patient tells me he is breathing normal. He says his cough is better than usual and he denies phlegm or hemoptysis. Has no wheezing. Room air saturations are 95%. He is afebrile. White blood cell count 13.2, creatinine 1.47. His BNP has increased from 6230 on 11/18/2024 to 7850 today. Yesterday he was positive 170 mL. Cumulative he is positive 1.9 L since admission. His weight today is 86 kg. Later in the day patient went down for CT-guided biopsy of his lung nodule. He was comfortable when he left his room. When he went down to Radiology he was placed on the table and was uncomfortable and got anxious. They gave him some oxygen and repositioned him and he settled down and they were able to complete the test. He was in the department and had an x-ray with no pneumothorax and did well and was sent to the floor. Once he got on the floor he said he could not breathe. multiple people came to the room and this made him anxious and made his breathing worse. He was evaluated by the hospitalist team and given stat DuoNebs, repeat chest x-ray without pneumothorax, ABG on 3 L 7.42/45/66. He was given Solu-Medrol 125 followed by 80 Q 8 and required a brief episode of BiPAP. His blood pressure at the time was 170/90 with a repeat of 208/98. [place] [address], his troponins were positive. Patient had a CT angiogram of the chest that showed no PE, small left effusion, tiny right effusion, no pneumothorax, unchanged emphysema and no lobar consolidation. Patient was transferred to the ICU. 11/21/2024: patient had another episode in the middle of the night of shortness of breath and was placed on BiPAP for 30 minutes. Currently the patient tells me that his breathing is at the his baseline. His shortness of breath is the same as his baseline. He has no cough, phlegm or hemoptysis. He has no chest pain. When I enter the room he was on 3 L nasal cannula saturations 100%. I decreased him to room air and his saturations were 94%. He is afebrile. White blood cell count 8.7, creatinine 1.40. Chest x-ray with no pneumothorax unchanged right effusion and tiny left effusion. 11/22/2024. The patient tells me he is doing better today. Overall he feels 33% back to his baseline. His cough is at his baseline and he has no phlegm or hemoptysis. He was out of bed yesterday and underwent physical therapy. When I enter the room he was on 2.5 L nasal cannula saturations were 100%. I decreased him to room air and his saturations were 98%. He is afebrile. White blood cell count 10.1, creatinine 1.43, patient was positive 180 mL yesterday, cumulative positive 290 since admission. His weight today is 85 kg. Patient had an overnight oximetry on 3 L nasal cannula with recording duration of 5 hours and 49 minutes. Average saturation 100%. Low saturation 68. Time with saturation less than or equal to 88% was 0 minutes, oxygen desaturation index 0. Patient is scheduled for stress test later today. DATA: 11/20/24: EXAMINATION: CTA chest INDICATION: Hypoxia and shortness of breath. COMPARISON: 11/17/2024 FINDINGS: No pulmonary embolism. Postoperative change of prior right upper lobectomy with volume loss the right hemithorax and stable appearance of pleural parenchymal scarring at the lateral right mid to lower lungs. Mild to moderate emphysema most prominent in the right middle lobe likely related to compensatory hyperexpansion secondary to the right upper lobar resection. No significant change in a small left pleural effusion with dependent atelectasis in the left lower lobe. Tiny right pleural effusion. There is a tract of subpleural atelectasis at the medial right apex extending towards a more anterior small paramediastinal nodule which was biopsied a few hours earlier. No pneumothorax. Mild cardiomegaly with left ventricular and atrial enlargement. Atherosclerotic coronary artery calcific location. Postoperative change of prior median sternotomy and coronary artery bypass grafting. No pericardial effusion. Aneurysmal dilation of the proximal descending thoracic aorta which measures up to 4.6 cm in maximal diameter. No aortic dissection. Mild enlarged left hilar and mediastinal lymphadenopathy suspicious for metastatic disease the largest lymph node in the AP window measuring 2.0 cm in maximal short axis diameter. Cholecystectomy clips at the gallbladder fossa. There are small bilateral low- attenuation renal cysts the largest on the left measuring 1.6 cm. There is also a 1.0 cm hyperdense proteinaceous/hemorrhagic cyst in the right kidney. Mild thoracic spondylosis. IMPRESSION: 1. Focal mild subpleural atelectasis along the recent lung biopsy tract at the medial left apex. No pulmonary embolism or other acute cardiopulmonary disease. 2. Unchanged small left and tiny right pleural effusions. 3. Unchanged 11 mm subpleural nodule at the medial left apex which concerning for primary bronchogenic carcinoma with left hilar and mediastinal lymphadenopathy suspicious for secondary metastatic disease. Correlate with pending pathology results from the percutaneous lung biopsy. 4. Mild cardiomegaly with left ventricular and atrial enlargement. 5. 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 11/17/2024: EXAMINATION: CTA chest PE protocol, 11/17/2024 14:20 CDT HISTORY: pe? COMPARISON: Comparison 04/30/2022 TECHNIQUE: CTA examination is obtained with contrast CTA examination technique is performed with arterial phase of contrast-enhancement. 3-D reconstruction with thin MIP axial and MPR coronal imaging is provided Isovue 300, 92cc injected IV. One or more of the following dose reduction techniques were used: automated exposure control, adjustment of the mA and/or kV according to patient size, use of iterative reconstruction technique. FINDINGS: No significant coronary calcification is present ([id number]) LUNGS: Small simple appearing left pleural effusion. Trace right pleural effusion. The contrast bolus is adequate, there is no pulmonary embolism identified. Postsurgical changes noted in the right lung. No tracheomalacia. No bronchiectasis. Moderate emphysematous changes. Areas of bullous formation of the right upper lobe. Moderate pulmonary fibrotic changes. No honeycombing is identified. Within the left upper lobe there is a nodule medially measuring 10 x 11 mm. HEART AND PERICARDIUM: Mild cardiomegaly. No pericardial effusion. AORTA: Normal caliber aorta.. PULMONARY ARTERIES: No pulmonary embolism ADENOPATHY/MEDIASTINUM: There are enlarged lymph nodes in the mediastinum the largest periaortic lymph node measuring 2.3 x 2.2 cm. LIMITED VIEWS OF THE ABDOMEN: Simple appearing left renal cyst 2 x 2 cm. OSSEOUS STRUCTURES: No sclerotic or lytic lesions. No acute rib fractures. Poststernotomy changes are noted. OVERLYING SOFT TISSUES: Unremarkable. THYROID: The thyroid is unremarkable. IMPRESSION: 1. Negative for pulmonary embolism. Chronic changes detailed above with superimposed probable CHF. There is a nodule within the left upper lobe which is new compared to the previous study. PET CT is recommended 09/09/2024: Noncontrast CT scan of the cervical spine Technique: Multiple contiguous axial [address] images of the cervical spine were obtained and reconstructed in 2D sagittal and coronal planes on the acquisition scanner. Dose reduction technique was used on this scan by utilizing automated exposure control, adjustment of the mA and/or kV according to patient size. The dose-length product (DLP) was 492.27 mGy-cm. Clinical History: Pain Findings: No fractures or dislocations. At C2-C3, there is prominent right facet arthropathy. There is minimal right neural foraminal narrowing. Left neural foramen preserved. No canal stenosis or cord compression evident. At C3-C4, there is right facet arthropathy. No definite neural foraminal narrowing canal stenosis, or cord compression. At C4-C5, there is mild left neural foraminal narrowing with mild left facet arthropathy. No definite canal stenosis, cord compression, or right neural foraminal narrowing. At C5-C6, there is advanced degenerative disc narrowing with mild disc ossify complex. Probable mild bilateral neural foraminal narrowing. No definite canal stenosis or cord compression. At C6-C7, there is advanced degenerative distended. No definite canal stenosis, cord compression, or neural foraminal narrowing. No prevertebral soft tissue swelling. 7 mm nodule noted medially in the left lung apex. Impression: No fracture or subluxation of the cervical spine. Degenerative spondylosis, as above. 7 mm medial left apical pulmonary nodule, indeterminate. According to Fleischner Society criteria, for a low-risk patient, recommend follow-up CT scan in 6-12 months, then consider additional 18-[address]. For a high-risk patient, follow-up CT scans at both 6-12 months and 18-24 months are recommended. 11/09/2023: CT Scan of the Chest without Contrast: Clinical Indication: Lung cancer screening, nicotine dependence Technique: Contiguous sections were acquired throughout the chest without intravenous contrast. Dose reduction technique was used on this scan by utilizing automated exposure control and iterative reconstruction technique. The dose-length product (DLP) was 102.78 mGy-cm. COMPARISON: 04/30/2022 Findings: There is no evidence of any significant mediastinal, hilar or axillary lymphadenopathy. There are atherosclerotic calcifications of the aorta and coronary arteries. Stable descending thoracic aortic aneurysm. There is no evidence of pleural or pericardial effusion. Status post partial right upper lobectomy. Probable mild emphysema. 5 mm nodule noted in the medial left lung apex ((axial image 26).. Images through the upper abdomen reveal no abnormalities. Impression: Lung RADS 2: Benign appearance. 12 month follow-up screening CT advised. 05/28/2021: This is a pulmonary function test with pre and post-bronchodilator spirometry, plethysmography and diffusing capacity. The test was performed and results interpreted in accordance with the 2019 and 2005 ATS/ERS Task Force guidelines respectively using the Global Lung Function Initiative-2012 reference equations. Patient demonstrated good effort and cooperation. Reproducibility criteria were met. The quality of the pre bronchodilator spirometry maneuver was Grade A and post bronchodilator spirometry maneuver was Grade A. Findings: Spirometry: There is decreased maximal expiratory airflow at all lung volumes with a concaved expiratory flow tracing. The contour the inspiratory flow tracing is normal. The pre bronchodilator FVC is 3.12 L, 84% predicted. The pre bronchodilator FEV1 is 1.24 L, 44% predicted. The pre bronchodilator FEV1: FVC ratio was 40%. The post bronchodilator FVC is 3.15 L, representing 1% increase. The post bronchodilator FEV1 is 1.20 L, representing a 3% decrease. Plethysmography: The total lung capacity is 6.76 L, 109% predicted. The functional residual capacity is 5.16 L, 149% predicted. The residual volume is 3.60 L, 162% predicted. Diffusing capacity: The diffusing capacity on adjusted for hemoglobin and carboxyhemoglobin is 10.3, 38% predicted. The diffusing capacity adjusted for alveolar volume is 2.07, 51% predicted. Impression: There is a severe obstructive abnormality without significant improvement after inhaling a single dose of albuterol. The increase in residual volume is consistent with air trapping from an obstructive abnormality. Hyperinflation is present is demonstrated by the increase in functional residual capacity and is consistent with an obstructive abnormality. The diffusing capacity unadjusted for hemoglobin and carboxyhemoglobin is severely decreased and remains moderately decreased when adjusted for alveolar volume. There are no prior studies for comparison 03/29/2022: echocardiogram 03/26/2022 report: with LVEF 40-45%, mild to moderate global LV systolic dysfunction, grade 1 diastolic dysfunction, normal right ventricular size. Mild right ventricular hypokinesis, mild enlargement left atrium, mild enlargement right atrium mild to moderate mitral regurg, trace to mild AR, mild tricuspid regurgitation with RVSP 49. Home O2 Eval 05/17/24 - requires 3L O2 with activity, none at rest. LDCT 11/09/23 - Status post partial right upper lobectomy. Probable mild emphysema. 5 mm nodule noted in the medial left lung apex. Overnight oximetry on 3L 02/03/23 - 0 time spent below 90% O2 on 3L. Home O2 Eval 02/09/23 - no O2 needed at rest or with activity. 05/29/21 - Split PSG - Overall AHI is 6.6. BiPAP 13/9cm was recommended. The patient should have a nocturnal oximetry done 2-4 weeks after starting PAP to ensure the hypoxemia has resolved. 05/28/21 PFT - There is a severe obstructive abnormality without significant improvement after inhaling a dose of albuterol. The increase in residual volume is consistent with air trapping from an obstructive abnormality. Hyperinflation is present is demonstrated by the increase in functional residual capacity and is consistent with an obstructive abnormality. The diffusing capacity unadjusted for hemoglobin and carboxyhemoglobin is severely decreased and remains mod erately decreased when adjusted for alveolar volume. 05/28/21 - Home O2 eval - Patient required 3L/min O2 with ambulation and none at rest. 04/18/2019 CTA at [facility]- clear lungs. Tracheal and right mainstem bronchial debris. Partial right pneumonectomy. Moderate emphysema. Dilated main, central pulmonary arteries consistent with pulmonary arterial hypertension no lymphadenopathy. Sternotomy wires. Lexiscan and 07/2018; fixed infarct without ischemia. EF 39%. Review of Systems Constitutional: Constitutional: Reports no additional constitutional complaints Eyes: Eyes: Reports no additional eye complaints ENT: Reports system reviewed and no additional complaints, except as documented Cardiovascular: Cardiovascular: Reports no additional cardiovascular complaints Respiratory: Respiratory: Reports no additional respiratory complaints Gastrointestinal: Gastrointestinal: Reports no additional gastrointestinal complaints Musculoskeletal: Musculoskeletal: Reports no additional musculoskeletal complaints Neurologic: Reports system reviewed and no additional complaints, except as documented Psychiatric: Psychiatric: Reports no additional psychiatric complaints Endocrine: Endocrine: Reports no additional endocrine complaints Hematologic/Lymphatic: Hematologic/Lymphatic: Reports no additional hematologic/lymphatic complaints Allergic/Immunologic: Allergic/Immunologic: Reports no additional allergic/immunologic complaints Exam Const: General: cooperative, healthy appearing and comfortable Orientation/consciousness: oriented to person, oriented to place and oriented to time HENMT: Head: normal to inspection Ears: hearing grossly normal bilaterally Eyes: General: appearance normal, both eyes and all related structures Neck: Neck: normal visual inspection Chest: Chest palpation & inspection: normal inspection of the chest Resp: Effort & Inspection: normal respiratory effort and able to speak in complete sentences Auscultation: no crackles, no rales, no rhonchi, no wheezes and diminished lung sounds Other: No wheezes, decreased breath sounds throughout Cardio: Jugular venous distension: no JVD GI: Inspection: normal to inspection Skin: General skin exam: normal color Neuro: General: oriented to person, oriented to place and oriented to time Extrem: General: normal to inspection Other: positive edema- improved Psych: Appearance: grossly normal Objective Data Vital Signs Vital Signs: Vital Signs - 24 hr 11/21/24 10:00 11/21/24 12:00 11/21/24 12:00 Temperature 36.2 C L Pulse Rate 73 78 85 Respiratory Rate 22 H Blood Pressure 139/67 Pulse Oximetry 97 Oxygen Delivery Oxygen Flow Rate 11/21/24 12:10 11/21/24 12:10 11/21/24 12:20 Temperature Pulse Rate 79 79 71 Respiratory Rate 20 20 22 H Blood Pressure Pulse Oximetry 97 Oxygen Delivery Room Air Oxygen Flow Rate 11/21/24 15:53 11/21/24 16:00 11/21/24 16:05 Temperature Pulse Rate 85 85 83 Respiratory Rate 24 H 23 H Blood Pressure Pulse Oximetry Oxygen Delivery Oxygen Flow Rate 11/21/24 19:50 11/21/24 19:50 11/21/24 20:00 Temperature Pulse Rate 80 72 Respiratory Rate 20 Blood Pressure Pulse Oximetry 95 Oxygen Delivery Room Air Oxygen Flow Rate 11/21/24 20:00 11/21/24 20:49 11/21/24 20:54 Temperature 36.8 C Pulse Rate 82 79 76 Respiratory Rate 20 18 Blood Pressure 157/91 H Pulse Oximetry 98 Oxygen Delivery Oxygen Flow Rate 11/21/24 21:50 11/22/24 00:00 11/22/24 04:00 Temperature Pulse Rate 90 74 Respiratory Rate Blood Pressure Pulse Oximetry 98 Oxygen Delivery Nasal Cannula Oxygen Flow Rate 3 11/22/24 06:10 11/22/24 07:27 11/22/24 07:28 Temperature Pulse Rate 68 71 Respiratory Rate 18 17 Blood Pressure 144/94 H Pulse Oximetry 100 97 Oxygen Delivery Nasal Cannula Oxygen Flow Rate 3 11/22/24 07:32 11/22/24 08:00 11/22/24 08:37 Temperature Pulse Rate 75 70 Respiratory Rate 17 Blood Pressure Pulse Oximetry 92 Oxygen Delivery Room Air Oxygen Flow Rate Intake/Output Intake/Output: Intake & Output 11/19/24 11/20/24 11/21/24 11/22/24 23:59 23:59 23:59 23:59 Intake Total 1470 0 1880 Output Total 6375 472 1595 1000 Balance 170 -975 180 -1000 Meds/Results Medications: Active Medications Generic Name Dose Route Start Last Admin Trade Name Freq PRN Reason Stop Dose Admin Acetaminophen 650 mg 11/17/24 12:26 11/18/24 21:05 Acetaminophen 325 Mg Tablet PO 650 mg Q4H PRN Administration Mild Pain (1-3) or Fever Albuterol 2.5 mg 11/17/24 12:26 Albuterol Sulfate Neb 2.5 Mg/3 Ml Inh INHALATION Q6HRT PRN Bronchospasm Albuterol/Ipratropium 3 ml 11/20/24 20:00 11/22/24 07:26 Ipratropium 0.5 Mg/Albuterol Sulfate 2.5 Mg Ampul.Neb 3 Ml INHALATION 3 ml Q4HRT ЮЛИЯ Administration Allopurinol 100 mg 11/18/24 09:00 11/22/24 08:37 Allopurinol 100 Mg Tablet BY MOUTH 100 mg DAILY ЮЛИЯ Administration Bupropion HCl 150 mg 11/18/24 09:00 11/22/24 08:37 Bupropion Hcl Sr (12 Hr) 150 Mg Tab PO 150 mg Q12HR ЮЛИЯ Administration Carvedilol 25 mg 11/17/24 21:00 11/22/24 08:37 Carvedilol 25 Mg Tablet PO 25 mg Q12H ЮЛИЯ Administration Cyclobenzaprine HCl 10 mg 11/17/24 20:57 Cyclobenzaprine Hcl 10 Mg Tablet PO TID PRN Muscle Spasm Furosemide 40 mg 11/21/24 17:00 11/21/24 16:08 Furosemide 40 Mg Tablet PO 40 mg BID ЮЛИЯ Administration Heparin Sodium (Porcine) 5,000 units 11/21/24 21:00 11/22/24 08:40 Heparin Sodium 5,000 Units/Ml Vial SUB-Q 5,000 units Q12HR ЮЛИЯ Administration Hydralazine HCl 10 mg 11/21/24 17:00 11/22/24 08:37 Hydralazine 10 Mg Tablet PO 10 mg TID ЮЛИЯ Administration Isosorbide Dinitrate 10 mg 11/21/24 17:00 11/22/24 08:37 Isosorbide Dinitrate 10 Mg Tablet PO 10 mg TID ЮЛИЯ Administration Pantoprazole Sodium 40 mg 11/18/24 09:00 11/22/24 08:37 Pantoprazole 40 Mg Tablet PO 40 mg QAM ЮЛИЯ Administration Prednisone 40 mg 11/21/24 15:00 11/22/24 08:38 Prednisone 20 Mg Tablet PO 40 mg DAILY@0800 ЮЛИЯ Administration Quetiapine Fumarate 50 mg 11/17/24 21:00 11/21/24 20:54 Quetiapine Fumarate 25 Mg Tablet PO 50 mg QHS ЮЛИЯ Administration Rosuvastatin Calcium 40 mg 11/18/24 09:00 11/22/24 08:38 Rosuvastatin 20 Mg Tablet BY MOUTH 40 mg DAILY ЮЛИЯ Administration Sacubitril/Valsartan 1 tab 11/17/24 21:00 11/19/24 09:00 Sacubitril/Valsartan 24-26 Mg Tablet PO 1 tab On Hold: 11/19/24 15:29 Q12HR ЮЛИЯ Administration Spironolactone 25 mg 11/18/24 12:00 11/19/24 09:00 Spironolactone 25 Mg Tablet PO 25 mg On Hold: 11/19/24 15:29 QAM ЮЛИЯ Administration Tamsulosin HCl 0.4 mg 11/17/24 21:00 11/21/24 20:54 Tamsulosin Hcl 0.4 Mg Capsule BY MOUTH 0.4 mg HS ЮЛИЯ Administration Radiology Results: ITS Impressions Lung Biopsy CT 11/20/24 14:[address]: 1[address]-guided biopsy of an 11 mm paramediastinal nodule at the left apex. Chest CTA 11/20/24 18:08 IMPRESSION: 1. Focal mild subpleural atelectasis along the recent lung biopsy tract at the medial left apex. No pulmonary embolism or other acute cardiopulmonary disease. 2. Unchanged small left and tiny right pleural effusions. 3. Unchanged 11 mm subpleural nodule at the medial left apex which concerning for primary bronchogenic carcinoma with left hilar and mediastinal lymphadenopathy suspicious for secondary metastatic disease. Correlate with pending pathology results from the percutaneous lung biopsy. 4. Mild cardiomegaly with left ventricular and atrial enlargement. 5. 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 Chest X-Ray 11/21/24 07:49 Impression: 1: No pneumothorax identified post biopsy. 2: Cardiomegaly with mild interstitial edema. Labs Labs: Laboratory Results - last 24 hr 11/21/24 11/21/24 11/22/24 04:19 11:19 07:25 WBC 10.1 H RBC 4.42 L Hgb 13.5 L Hct 39.3 L MCV 88.9 MCH 30.5 MCHC 34.4 RDW 15.3 H Plt Count 252 MPV 10.9 H Immature Gran % (Auto) 0.7 H Neut % (Auto) 78.4 H Lymph % (Auto) 6.3 L Barnes % (Auto) 14.1 H Eos % (Auto) 0.4 Baso % (Auto) 0.1 L Lymph # (Auto) 0.63 L Barnes # (Auto) 1.4 H Eos # (Auto) 0.0 Baso # (Auto) 0.0 Abs Immat Gran (auto) 0.07 H Absolute Neuts (auto) 7.9 H Absolute Nucleated RBC 0.000 Band Neutrophils % Not Reportable Nucleated RBC % 0.0 Platelet Estimate Adequate Anisocytosis 1+ Target Cells 1+ Schistocytes None seen Sodium 136 L Potassium 3.9 Chloride 99 Carbon Dioxide 35 H Anion Gap 2 L BUN 42 H Creatinine 1.43 H Estim Creat Clear Calc 45 Estimated GFR 49 L Glucose 128 H POC Capillary Glucose 189 H Calcium 8.1 L Magnesium 1.6 Troponin I 0.057 H* Procalcitonin 0.1
[2024-11-22 09:26] LABS: NT Pro B Type Natriuretic Pept 10600 pg/mL (19.9-100)
--- NOTE | 2024-11-22 11:00 | EST_ITS ---
Patient Info Name: Suzanne Mas Age: 69 years : 1955 Gender: Male Ht: 70 in Wt: 189 lbs BSA: 2.07 m2 BP: 147 / 99 mmHg Exam Date: 11/22/2024 11:00 AM Patient Status: I Admit Date: 11/18/2024 Exam Type: CA stress dorothea w NM A regadenoson stress test was performed. Staff Referring Physician: Naman Peterson Attending Provider: Benita Castillo Exercise Technologist: Amarilis Mas Exercise Physician: Naamn Peterson Protocol: Lexiscan Stress ECG Details Stage: REST Duration (min): 1 min : 41 sec HR (bpm): 77 SBP (mmHg): 147 DBP (mmHg): 99 Stage: REST Duration (min): 7 min : 26 sec HR (bpm): 73 SBP (mmHg): 147 DBP (mmHg): 99 Stage: STAGE 1 Duration (min): 1 min : 0 sec HR (bpm): 85 SBP (mmHg): 141 DBP (mmHg): 100 Stage: RECOVERY Duration (min): 1 min : 0 sec HR (bpm): 93 SBP (mmHg): 141 DBP (mmHg): 100 Stage: RECOVERY Duration (min): 2 min : 0 sec HR (bpm): 89 SBP (mmHg): 141 DBP (mmHg): 100 Stage: RECOVERY Duration (min): 3 min : 0 sec HR (bpm): 85 SBP (mmHg): 154 DBP (mmHg): 96 Stage: RECOVERY Duration (min): 4 min : 0 sec HR (bpm): 84 SBP (mmHg): 154 DBP (mmHg): 96 Stage: RECOVERY Duration (min): 5 min : 0 sec HR (bpm): 81 SBP (mmHg): 147 DBP (mmHg): 95 Stage: RECOVERY Duration (min): 5 min : 11 sec HR (bpm): 86 SBP (mmHg): 147 DBP (mmHg): 95 Rest HR: 73 bpm Peak HR: 97 bpm Rest Sys BP: 147 mmHg Peak Sys BP: 154 mmHg Max Pred HR: 150 bpm % Max Pred HR: 65 % Target HR: 128 bpm Max RPP: 14,938 bpm*mmHg Total Time: 1 min : 0 sec Rest Rodriguez BP: 99 mmHg Peak Rodriguez BP: 96 mmHg Total Dose: 0.4 mg Resting ECG Sinus rhythm, right bundle-branch block, PVCs, T inversion V1 to V5. Stress ECG No changes. Stress test is inconclusive due to baseline EKG changes. Arrhythmias Frequent PVCs. Report Signatures
--- NOTE | 2024-11-22 11:35 | P.PNCA_ITS ---
Progress Note: A&P Assessment and Plan (1) History of coronary artery bypass graft x 3: Code(s): Z95.1 - Presence of aortocoronary bypass graft Status: Acute (2) Dilated cardiomyopathy: Code(s): I42.0 - Dilated cardiomyopathy Status: Acute (3) Acute on chronic systolic and diastolic heart failure, NYHA class 3: Code(s): I50.43 - Acute on chronic combined systolic (congestive) and diastolic (congestive) heart failure Status: Acute (4) Bilateral pleural effusion: Code(s): J90 - Pleural effusion, not elsewhere classified Status: Acute (5) Lung nodule: Code(s): R91.1 - Solitary pulmonary nodule Status: Acute Plan Assessment: 1. Patient presents with severe respiratory failure also history of COPD and cardiomyopathy. BNP was markedly elevated. Chest x-ray on 11/18/19, was positive for cardiomegaly, previous coronary bypass surgery but negative for acute cardiopulmonary abnormalities. Emphysema was noted Subsequent CT scan of the chest was negative for pulmonary embolism and positive for congestive heart failure. A nodule noted within left upper lobe which was new. Based on these findings patient likely had predominantly respiratory failure due to emphysema and component of congestive heart failure. 2. Acute on chronic systolic and diastolic heart failure. Echocardiogram done recently shows ejection fraction of 30-35% with grade 3 diastolic dysfunction. 3. Severe mitral regurgitation likely secondary to cardiomyopathy. 4. History of triple-vessel coronary bypass graft in the past. Rule out progression of disease. 5. Pleural effusions likely secondary to congestive heart failure and cardiomyopathy. 6. Abnormal EKG with complete right bundle branch block. This is an old finding. 7. History of COPD. CT scan of the chest shows emphysema. Lung nodule noted on CT scan. Status post biopsy. Plan 1. Patient is currently on Solu-Medrol. Cardiac medication includes carvedilol 25 mg q.12 hours, Entresto 24-261 tablet every 12 hours, spironolactone 25 mg daily and furosemide is on hold at the present time. May consider adding SGPL2 medications. Do not recommend amlodipine for this patient due to severely reduced systolic function. Hydralazine 10 mg as well as isosorbide dinitrate 10 mg added for this patient. -overall patient has improved with improved breathing and shortness of breath. Okay to switch Lasix p.o. 40 mg b.i.d. for now. 2. Laboratory data reviewed. WBC 10.1. Hemoglobin 13.5. Platelets are normal. Sodium 136, potassium is 136, potassium 3.9, BUN slightly increased at 35 and creatinine is 1.43 not significant increase from 11/21/2024. 3. Patient appears to have component of ischemic cardiomyopathy. -nuclear stress test pending for today to evaluate for ischemic cardiomyopathy. 4. Patient is a candidate for AICD in view of his LV systolic dysfunction ejection fraction less than 35%. Pending nuclear stress test. Subjective Date/time seen: 11/22/24 11:35 Interval history: Patient was examined at the bedside. Patient is awake alert and appears comfortable without shortness of breath, orthopnea or chest pain. No more episodes of panic attacks or PND at night. Leg edema has improved. Vital signs are stable. Review of Systems Review of Systems: Twelve point review of system was completed. Pertinent positive and negative findings per HPI. Pulmonary negative for wheezing or significant shortness of breath. Cardiovascular negative for chest pain or orthopnea. Minimal leg edema Neurovascular intact Exam Narrative: Patient was examined at bedside. Patient is awake alert and appears comfortable. There is neck examination is unremarkable PERRLA scleras nonicteric. Neck is supple. There is no JVD or carotid bruit. Lungs reveal decreased air entry bilaterally. There is no wheezing or crepitation. Heart sounds reveal normal S1-S2 heard S2 is present present grade 2-3/6 systolic murmur noted at the left sternal border. Abdomen soft and nontender there is no ascites. There is no hepatosplenomegaly present bowel sounds present. Extremities reveal 1 to 2+ leg edema bilaterally. Healed central chest scar is noted for previous coronary artery bypass surgery. Neurological examination is intact Objective Data Vital Signs Vital Signs: Vital Signs - 24 hr 11/21/24 12:00 11/21/24 12:00 11/21/24 12:10 Temperature 36.2 C L Pulse Rate 78 85 79 Respiratory Rate 22 H 20 Blood Pressure 139/67 Pulse Oximetry 97 97 Oxygen Delivery Room Air Oxygen Flow Rate 11/21/24 12:10 11/21/24 12:20 11/21/24 15:53 Temperature Pulse Rate 79 71 85 Respiratory Rate 20 22 H 24 H Blood Pressure Pulse Oximetry Oxygen Delivery Oxygen Flow Rate 11/21/24 16:00 11/21/24 16:05 11/21/24 19:50 Temperature Pulse Rate 85 83 80 Respiratory Rate 23 H 20 Blood Pressure Pulse Oximetry Oxygen Delivery Oxygen Flow Rate 11/21/24 19:50 11/21/24 20:00 11/21/24 20:00 Temperature Pulse Rate 72 82 Respiratory Rate 20 Blood Pressure Pulse Oximetry 95 Oxygen Delivery Room Air Oxygen Flow Rate 11/21/24 20:49 11/21/24 20:54 11/21/24 21:50 Temperature 36.8 C Pulse Rate 79 76 Respiratory Rate 18 Blood Pressure 157/91 H Pulse Oximetry 98 98 Oxygen Delivery Nasal Cannula Oxygen Flow Rate 3 11/22/24 00:00 11/22/24 04:00 11/22/24 06:10 Temperature Pulse Rate 90 74 68 Respiratory Rate 18 Blood Pressure 144/94 H Pulse Oximetry 100 Oxygen Delivery Oxygen Flow Rate 11/22/24 07:27 11/22/24 07:28 11/22/24 07:32 Temperature Pulse Rate 71 75 Respiratory Rate 17 17 Blood Pressure Pulse Oximetry 97 Oxygen Delivery Nasal Cannula Oxygen Flow Rate 3 11/22/24 08:00 11/22/24 08:37 Temperature Pulse Rate 70 Respiratory Rate Blood Pressure Pulse Oximetry 92 Oxygen Delivery Room Air Oxygen Flow Rate Intake/Output Intake/Output: Intake & Output 11/19/24 11/20/24 11/21/24 11/22/24 23:59 23:59 23:59 23:59 Intake Total 1470 0 1880 Output Total 0026 981 6055 1000 Balance 170 -975 180 -1000 Meds/Results Medications: Active Medications Generic Name Dose Route Start Last Admin Trade Name Freq PRN Reason Stop Dose Admin Acetaminophen 650 mg 11/17/24 12:26 11/18/24 21:05 Acetaminophen 325 Mg Tablet PO 650 mg Q4H PRN Administration Mild Pain (1-3) or Fever Albuterol 2.5 mg 11/17/24 12:26 Albuterol Sulfate Neb 2.5 Mg/3 Ml Inh INHALATION Q6HRT PRN Bronchospasm Albuterol/Ipratropium 3 ml 11/20/24 20:00 11/22/24 07:26 Ipratropium 0.5 Mg/Albuterol Sulfate 2.5 Mg Ampul.Neb 3 Ml INHALATION 3 ml Q4HRT ЮЛИЯ Administration Allopurinol 100 mg 11/18/24 09:00 11/22/24 08:37 Allopurinol 100 Mg Tablet BY MOUTH 100 mg DAILY ЮЛИЯ Administration Bupropion HCl 150 mg 11/18/24 09:00 11/22/24 08:37 Bupropion Hcl Sr (12 Hr) 150 Mg Tab PO 150 mg Q12HR ЮЛИЯ Administration Carvedilol 25 mg 11/17/24 21:00 11/22/24 08:37 Carvedilol 25 Mg Tablet PO 25 mg Q12H ЮЛИЯ Administration Cyclobenzaprine HCl 10 mg 11/17/24 20:57 Cyclobenzaprine Hcl 10 Mg Tablet PO TID PRN Muscle Spasm Furosemide 40 mg 11/21/24 17:00 11/22/24 11:17 Furosemide 40 Mg Tablet PO Not Given BID ЮЛИЯ Heparin Sodium (Porcine) 5,000 units 11/21/24 21:00 11/22/24 08:40 Heparin Sodium 5,000 Units/Ml Vial SUB-Q 5,000 units Q12HR ЮЛИЯ Administration Hydralazine HCl 10 mg 11/21/24 17:00 11/22/24 08:37 Hydralazine 10 Mg Tablet PO 10 mg TID ЮЛИЯ Administration Isosorbide Dinitrate 10 mg 11/21/24 17:00 11/22/24 08:37 Isosorbide Dinitrate 10 Mg Tablet PO 10 mg TID ЮЛИЯ Administration Pantoprazole Sodium 40 mg 11/18/24 09:00 11/22/24 08:37 Pantoprazole 40 Mg Tablet PO 40 mg QAM ЮЛИЯ Administration Quetiapine Fumarate 50 mg 11/17/24 21:00 11/21/24 20:54 Quetiapine Fumarate 25 Mg Tablet PO 50 mg QHS ЮЛИЯ Administration Rosuvastatin Calcium 40 mg 11/18/24 09:00 11/22/24 08:38 Rosuvastatin 20 Mg Tablet BY MOUTH 40 mg DAILY ЮЛИЯ Administration Sacubitril/Valsartan 1 tab 11/17/24 21:00 11/19/24 09:00 Sacubitril/Valsartan 24-26 Mg Tablet PO 1 tab On Hold: 11/19/24 15:29 Q12HR ЮЛИЯ Administration Spironolactone 25 mg 11/18/24 12:00 11/19/24 09:00 Spironolactone 25 Mg Tablet PO 25 mg On Hold: 11/19/24 15:29 QAM ЮЛИЯ Administration Tamsulosin HCl 0.4 mg 11/17/24 21:00 11/21/24 20:54 Tamsulosin Hcl 0.4 Mg Capsule BY MOUTH 0.4 mg HS ЮЛИЯ Administration Radiology Results: ITS Impressions Lung Biopsy CT 11/20/24 14:[address]: 1[address]-guided biopsy of an 11 mm paramediastinal nodule at the left apex. Chest CTA 11/20/24 18:08 IMPRESSION: 1. Focal mild subpleural atelectasis along the recent lung biopsy tract at the medial left apex. No pulmonary embolism or other acute cardiopulmonary disease. 2. Unchanged small left and tiny right pleural effusions. 3. Unchanged 11 mm subpleural nodule at the medial left apex which concerning for primary bronchogenic carcinoma with left hilar and mediastinal lymphadenopathy suspicious for secondary metastatic disease. Correlate with pending pathology results from the percutaneous lung biopsy. 4. Mild cardiomegaly with left ventricular and atrial enlargement. 5. 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 Chest X-Ray 11/21/24 07:49 Impression: 1: No pneumothorax identified post biopsy. 2: Cardiomegaly with mild interstitial edema. Labs Labs: Laboratory Results - last 24 hr 11/21/24 11/22/24 11:19 07:25 WBC 10.1 H RBC 4.42 L Hgb 13.5 L Hct 39.3 L MCV 88.9 MCH 30.5 MCHC 34.4 RDW 15.3 H Plt Count 252 MPV 10.9 H Immature Gran % (Auto) 0.7 H Neut % (Auto) 78.4 H Lymph % (Auto) 6.3 L [place] % (Auto) 14.1 H Eos % (Auto) 0.4 Baso % (Auto) 0.1 L Lymph # (Auto) 0.63 L [place] # (Auto) 1.4 H Eos # (Auto) 0.0 Baso # (Auto) 0.0 Abs Immat Gran (auto) 0.07 H Absolute Neuts (auto) 7.9 H Absolute Nucleated RBC 0.000 Band Neutrophils % Not Reportable Nucleated RBC % 0.0 Platelet Estimate Adequate Anisocytosis 1+ Target Cells 1+ Schistocytes None seen Sodium 136 L Potassium 3.9 Chloride 99 Carbon Dioxide 35 H Anion Gap 2 L BUN 42 H Creatinine 1.43 H Estim Creat Clear Calc 45 Estimated GFR 49 L Glucose 128 H POC Capillary Glucose 189 H Calcium 8.1 L Magnesium 1.6 NT-Pro-B Natriuret Pep 46396 H Procalcitonin 0.1
--- NOTE | 2024-11-22 11:51 | PCPTNOTE ---
Attempted to see patient for PT, however patient out of the room for testing.
--- NOTE | 2024-11-22 16:08 | PM.IMPN ---
Progress Note: A&P Assessment and Plan (1) Hypertension: Qualifiers: Hypertension type: essential hypertension Qualified Code(s): I10 - Essential (primary) hypertension Code(s): I10 - Essential (primary) hypertension Status: Acute (2) CHF (congestive heart failure): Code(s): I50.9 - Heart failure, unspecified Status: Acute (3) Chronic obstructive pulmonary disease: Qualifiers: COPD type: unspecified COPD Qualified Code(s): J44.9 - Chronic obstructive pulmonary disease, unspecified Code(s): J44.9 - Chronic obstructive pulmonary disease, unspecified Status: Acute (4) Shortness of Breath: Code(s): R06.02 - Shortness of breath Status: Acute Plan Pulmonology recommendations appreciated. Patient is breathing well. Discontinue prednisone. Continue DuoNebs. 1 L tonight with overnight oximetry. Results of lung nodule biopsy discussed. Consult oncology. Cardiology recommendations appreciated. Lasix has been switched from IV to b.i.d.. Nuclear stress test pending. Continue to hold spironolactone and Entresto due to kidney injury. Isosorbide and hydralazine have been started. Monitor intake/output, monitor renal function. Patient wishes to be full code. Saline lock IV. Medical floor with telemetry. Time Spent With Patient Time with patient: Greater than 35 minutes Subjective Date/time seen: 11/22/24 16:08 Interval history: Patient reports doing much better. No shortness of breath. No anxiety today. Review of Systems Review of Systems: All systems reviewed & are unremarkable except as noted in HPI and below (Subjective) Exam Const: General: comfortable and no acute distress Other: A&O x3 HENMT: Mouth: Yes moist mucous membranes Eyes: Pupils: Equal, round and reactive pupils present Neck: Neck: supple Resp: Effort & Inspection: normal respiratory effort Other: Decreased breath sounds diffusely. No crackles. No rhonchi. No wheezing Cardio: Rate: regular rate Rhythm: regular rhythm GI: GI Palp: Yes Soft to palpation Neuro: Motor exam (neuro): 5/5 motor strength present throughout Extrem: Other: 1+ pitting edema at the ankles bilaterally. Improved from day prior Objective Data Vital Signs Vital Signs: Vital Signs - 24 hr 11/21/24 19:50 11/21/24 19:50 11/21/24 20:00 Temperature Pulse Rate 80 72 Respiratory Rate 20 Blood Pressure Pulse Oximetry 95 Oxygen Delivery Room Air Oxygen Flow Rate 11/21/24 20:00 11/21/24 20:49 11/21/24 20:54 Temperature 98.2 F Pulse Rate 82 79 76 Respiratory Rate 20 18 Blood Pressure 157/91 H Pulse Oximetry 98 Oxygen Delivery Oxygen Flow Rate 11/21/24 21:50 11/22/24 00:00 11/22/24 04:00 Temperature Pulse Rate 90 74 Respiratory Rate Blood Pressure Pulse Oximetry 98 Oxygen Delivery Nasal Cannula Oxygen Flow Rate 3 11/22/24 06:10 11/22/24 07:27 11/22/24 07:28 Temperature Pulse Rate 68 71 Respiratory Rate 18 17 Blood Pressure 144/94 H Pulse Oximetry 100 97 Oxygen Delivery Nasal Cannula Oxygen Flow Rate 3 11/22/24 07:32 11/22/24 08:00 11/22/24 08:37 Temperature Pulse Rate 75 70 Respiratory Rate 17 Blood Pressure Pulse Oximetry 92 Oxygen Delivery Room Air Oxygen Flow Rate 11/22/24 15:33 Temperature 97.1 F L Pulse Rate 73 Respiratory Rate 20 Blood Pressure 140/86 Pulse Oximetry 98 Oxygen Delivery Oxygen Flow Rate Intake/Output Intake/Output: Intake & Output 11/19/24 11/20/24 11/21/24 11/22/24 23:59 23:59 23:59 23:59 Intake Total 1470 0 1880 237 Output Total 4080 368 9654 1600 Balance 170 -975 180 -1363 Meds/Results Medications: Active Medications Generic Name Dose Route Start Last Admin Trade Name Freq PRN Reason Stop Dose Admin Acetaminophen 650 mg 11/17/24 12:26 11/18/24 21:05 Acetaminophen 325 Mg Tablet PO 650 mg Q4H PRN Administration Mild Pain (1-3) or Fever Albuterol 2.5 mg 11/17/24 12:26 Albuterol Sulfate Neb 2.5 Mg/3 Ml Inh INHALATION Q6HRT PRN Bronchospasm Albuterol/Ipratropium 3 ml 11/20/24 20:00 11/22/24 07:26 Ipratropium 0.5 Mg/Albuterol Sulfate 2.5 Mg Ampul.Neb 3 Ml INHALATION 3 ml Q4HRT ЮЛИЯ Administration Allopurinol 100 mg 11/18/24 09:00 11/22/24 08:37 Allopurinol 100 Mg Tablet BY MOUTH 100 mg DAILY ЮЛИЯ Administration Bupropion HCl 150 mg 11/18/24 09:00 11/22/24 08:37 Bupropion Hcl Sr (12 Hr) 150 Mg Tab PO 150 mg Q12HR ЮЛИЯ Administration Carvedilol 25 mg 11/17/24 21:00 11/22/24 08:37 Carvedilol 25 Mg Tablet PO 25 mg Q12H ЮЛИЯ Administration Cyclobenzaprine HCl 10 mg 11/17/24 20:57 Cyclobenzaprine Hcl 10 Mg Tablet PO TID PRN Muscle Spasm Furosemide 40 mg 11/21/24 17:00 11/22/24 11:17 Furosemide 40 Mg Tablet PO Not Given BID ЮЛИЯ Heparin Sodium (Porcine) 5,000 units 11/21/24 21:00 11/22/24 08:40 Heparin Sodium 5,000 Units/Ml Vial SUB-Q 5,000 units Q12HR ЮЛИЯ Administration Hydralazine HCl 10 mg 11/21/24 17:00 11/22/24 13:24 Hydralazine 10 Mg Tablet PO 10 mg TID ЮЛИЯ Administration Isosorbide Dinitrate 10 mg 11/21/24 17:00 11/22/24 13:24 Isosorbide Dinitrate 10 Mg Tablet PO 10 mg TID ЮЛИЯ Administration Pantoprazole Sodium 40 mg 11/18/24 09:00 11/22/24 08:37 Pantoprazole 40 Mg Tablet PO 40 mg QAM ЮЛИЯ Administration Quetiapine Fumarate 50 mg 11/17/24 21:00 11/21/24 20:54 Quetiapine Fumarate 25 Mg Tablet PO 50 mg QHS ЮЛИЯ Administration Rosuvastatin Calcium 40 mg 11/18/24 09:00 11/22/24 08:38 Rosuvastatin 20 Mg Tablet BY MOUTH 40 mg DAILY ЮЛИЯ Administration Sacubitril/Valsartan 1 tab 11/17/24 21:00 11/19/24 09:00 Sacubitril/Valsartan 24-26 Mg Tablet PO 1 tab On Hold: 11/19/24 15:29 Q12HR ЮЛИЯ Administration Spironolactone 25 mg 11/18/24 12:00 11/19/24 09:00 Spironolactone 25 Mg Tablet PO 25 mg On Hold: 11/19/24 15:29 QAM ЮЛИЯ Administration Tamsulosin HCl 0.4 mg 11/17/24 21:00 11/21/24 20:54 Tamsulosin Hcl 0.4 Mg Capsule BY MOUTH 0.4 mg HS ЮЛИЯ Administration Radiology Results: ITS Impressions Lung Biopsy CT 11/20/24 14:59 IMPRESSION: 1[address] Successful CT-guided biopsy of an 11 mm paramediastinal nodule at the left apex. Chest CTA 11/20/24 18:08 IMPRESSION: 1. Focal mild subpleural atelectasis along the recent lung biopsy tract at the medial left apex. No pulmonary embolism or other acute cardiopulmonary disease. 2. Unchanged small left and tiny right pleural effusions. 3. Unchanged 11 mm subpleural nodule at the medial left apex which concerning for primary bronchogenic carcinoma with left hilar and mediastinal lymphadenopathy suspicious for secondary metastatic disease. Correlate with pending pathology results from the percutaneous lung biopsy. 4. Mild cardiomegaly with left ventricular and atrial enlargement. 5. 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 Chest X-Ray 11/21/24 07:49 Impression: 1: No pneumothorax identified post biopsy. 2: Cardiomegaly with mild interstitial edema. Lexiscan Stress Test 11/22/24 13:20 IMPRESSION: 1. Large moderate to severe largely nonreversible infarct at the apical segment apical to basilar inferior wall and basilar inferolateral segment with mild reversible ischemia at the apical and basilar inferolateral segments.. 2. Mild left ventricular enlargement with mildly decreased left ventricular ejection fraction measuring 41%. Labs Labs: Laboratory Results - last 24 hr 11/22/24 07:25 WBC 10.1 H RBC 4.42 L Hgb 13.5 L Hct 39.3 L MCV 88.9 MCH 30.5 MCHC 34.4 RDW 15.3 H Plt Count 252 MPV 10.9 H Immature Gran % (Auto) 0.7 H Neut % (Auto) 78.4 H Lymph % (Auto) 6.3 L [place] % (Auto) 14.1 H Eos % (Auto) 0.4 Baso % (Auto) 0.1 L Lymph # (Auto) 0.63 L [place] # (Auto) 1.4 H Eos # (Auto) 0.0 Baso # (Auto) 0.0 Abs Immat Gran (auto) 0.07 H Absolute Neuts (auto) 7.9 H Absolute Nucleated RBC 0.000 Band Neutrophils % Not Reportable Nucleated RBC % 0.0 Platelet Estimate Adequate Anisocytosis 1+ Target Cells 1+ Schistocytes None seen Sodium 136 L Potassium 3.9 Chloride 99 Carbon Dioxide 35 H Anion Gap 2 L BUN 42 H Creatinine 1.43 H Estim Creat Clear Calc 45 Estimated GFR 49 L Glucose 128 H Calcium 8.1 L Magnesium 1.6 NT-Pro-B Natriuret Pep 92111 H Procalcitonin 0.1
[2024-11-22] MEDS: FUROSEMIDE 40 MG TABLET PO (17:26)
[2024-11-22] MEDS: TAMSULOSIN HCL 0.4 MG CAPSULE BY MOUTH (21:39)
[2024-11-23] VITALS (16 sets, daily range): BP systolic 123–138; BP diastolic 76–87; PULSE 65–88; RESP 16–20; TEMP 36.4–36.9; O2SAT 68–100
[2024-11-23 05:44] LABS: Hematocrit 36.9 % (42.0-52.0); Hemoglobin 12.8 g/dL (14.0-18.0); Immature Granulocyte Percent A 0.7 % (0-0.5); Lymphocytes Absolute Auto 1.49 K/mm3 (0.9-3.2); Mean Corpuscular HGB Conc 34.7 g/dl (32-36); Mean Corpuscular Hemoglobin 30.5 pg (26-34); Mean Corpuscular Volume 87.9 fl (80-100); Nucleated Red Blood Cells Absolute Auto 0.000 K/mm3 (0.0-0.012); Nucleated Red Blood Cells Perc 0.0 % (0.0-0.2); Platelet Count Result 243 k/mm3 (150-375); Red Blood Count 4.20 M/mm3 (4.6-6.20); White Blood Count 13.6 K/mm3 (4.5-10.0)
[2024-11-23 05:55] LABS: Anion Gap 0 mmol/L (4-12); Blood Urea Nitrogen 45 mg/dL (9-20); Calcium 7.9 mg/dL (8.4-10.2); Carbon Dioxide 33 mmol/L (22-30); Chloride 99 mmol/L (98-107); Estimated CRCL calculation 44 ml/min; Estimated Glomerular Filt Rate 48; Glucose 108 mg/dL (65-110); Magnesium 1.6 mg/dL (1.6-2.3); Potassium 3.8 mmol/L (3.4-5.0); Sodium 132 mmol/L (137-145)
[2024-11-23 07:41] LABS: Anisocytosis Occasional; Giant Platelets Present; Target Cells 1+
[2024-11-23 07:42] LABS: Burr Cells Occasional; Hypochromasia 1+; Schistocytes None Seen
[2024-11-23] MEDS: IPRATROPIUM 0.5 MG/ALBUTEROL SULFATE 2.5 MG AMPUL.NEB 3 ML INHALATION ×3 (08:50→16:17)
[2024-11-23] MEDS: BUDESONIDE RESPULE NEB 0.5 MG/2 ML AMP INHALATION (08:51)
--- NOTE | 2024-11-23 08:58 | WPDCARIOSTRE ---
Nuclear Stress Test INDICATIONS Indications: Coronary artery disease, history of CABG PROCEDURE Procedure Performed: Myocardial Perf Spect-Multi Procedure: -Lexiscan EKG portion of a nuclear stress test. -findings: Baseline EKG showed sinus rhythm, right bundle branch block, frequent PVCs. T inversion from V1 to V5. Post Lexiscan injection no changes seen. Patient tolerated procedure well. CONCLUSION Conclusion: -inconclusive portion of Lexiscan EKG stress test due to abnormal baseline EKG. -frequent PVCs at baseline and after Lexiscan injection. -recommend to follow up on nuclear images SPECT.
[2024-11-23] MEDS: ROSUVASTATIN 20 MG TABLET 40 MG BY MOUTH (09:19)
[2024-11-23] MEDS: buPROPion HCL SR (12 HR) 150 MG TAB PO (09:19)
[2024-11-23] MEDS: FUROSEMIDE 40 MG TABLET PO (09:19)
[2024-11-23] MEDS: ISOSORBIDE DINITRATE 10 MG TABLET PO (09:20)
[2024-11-23] MEDS: PANTOPRAZOLE 40 MG TABLET PO (09:20)
--- NOTE | 2024-11-23 10:06 | P.PNPL_ITS ---
Progress Note: A&P Assessment and Plan (1) Chronic obstructive pulmonary disease: Qualifiers: COPD type: unspecified COPD Qualified Code(s): J44.9 - Chronic obstructive pulmonary disease, unspecified Code(s): J44.9 - Chronic obstructive pulmonary disease, unspecified Status: Acute Assessment and Plan: Gold grade 3 group E COPD patient with 55 pack year tobacco use, quit 1 week ago, Alpha 1 anti trypsin level 184 on 11/13/2024, normal. PFTs 05/28/2021 with a severe obstructive abnormality with the pre bronchodilator FEV1 of 1.24 L, 44% predicted, ratio 40%, air trapping with a total lung capacity of 109%, severely decreased unadjusted DLCO at 38% and remains moderately decreased at 51% when adjusted for alveolar volume. CT scan of the chest shows moderate to severe apical predominant centrilobular emphysema. ABG 11/17/2024 on 35% FiO2 7.39/39/111. Chronic hypoxemic respiratory failure requiring no oxygen at rest, 3 L with activity Per home O2 assessment on 05/17/2024. Patient is using 3 L with sleep. echocardiogram 03/26/2022 with LVEF 40-45%, mild to moderate global LV systolic dysfunction, grade 1 diastolic dysfunction, normal right ventricular size. Mild right ventricular hypokinesis, mild enlargement left atrium, mild enlargement right atrium mild to moderate mitral regurg, trace to mild AR, mild tricuspid regurgitation with RVSP 49. Currently the patient presents after worsening dyspnea on exertion at home when he walked to the bathroom without oxygen. He had no prior evidence of a COPD exacerbation with no change in his phlegm volume, or color. He had diffuse wheezing in the emergency department and required BiPAP and was treated with Solu-Medrol and nebulizers. He had an elevated BNP and is treated with Lasix 20 IV. I am not convinced the patient has a COPD exacerbation Although he was in severe respiratory distress requiring BiPAP. I will continue to treat him for COPD exacerbation at this time., there is no evidence of pneumonia on his CT scan and no clinical evidence of bronchitis. Plan: I will change his Solu-Medrol to prednisone 40 mg p.o. q.day. I will continue DuoNebs q.6 hours. The patient has no phlegm production and does not need guaifenesin. No evidence of bacterial infection and patient does not need antibiotics at this time. I congratulated him on quitting tobacco use. I will check an alpha 1 anti trypsin level and genotype on 11/19/2024. Echocardiogram ordered for 11/19. 11/19/2024: Patient was moved to a new room out of the [facility] unit and says that he is a harder time breathing in this new room because it is dry. He did not sleep last night. He denies fever, chills, rigors, cough, phlegm or hemoptysis. Overall he says that his swelling is better. When I enter the room he was on 3 L nasal cannula saturations 100%. I decreased and room air and his saturations were 96%. He is afebrile. White blood cell count 13.0, creatinine 1.50, yesterday he was positive 2.2 L, cumulative he is positive 1.75 L. His weight today is 85.3. Plan: Patient has no wheezing. Oxygenation is stable. No infectious complaints. I will continue prednisone 40 mg a day and DuoNebs q.6 hours. Respiratory pathogen panel, urine Legionella antigen, urine pneumococcal antigen and serum mycoplasma IgM are pending. : Patient tells me he is breathing normal. He says his cough is better than usual and he denies phlegm or hemoptysis. Has no wheezing. Room air saturations are 95%. He is afebrile. White blood cell count 13.2, creatinine 1.47. His BNP has increased from 6230 on 11/18/2024 to 7850 today. Yesterday he was positive 170 mL. Cumulative he is positive 1.9 L since admission. His weight today is 86 kg. Plan: plan continue prednisone 40 mg p.o. q.day, today is day 4 and will discontinue after tomorrow's dose. Continue DuoNebs q.6 hours. Respiratory pathogen panel, urine Legionella antigen, urine pneumococcal antigen and serum mycoplasma IgM are pending. Later in the day patient went down for CT-guided biopsy of his lung nodule. He was comfortable when he left his room. When he went down to Radiology he was placed on the table and was uncomfortable and got anxious. They gave him some oxygen and repositioned him and he settled down and they were able to complete the test. He was in the department and had an x-ray with no pneumothorax and did well and was sent to the floor. Once he got on the floor he said he could not breathe. multiple people came to the room and this made him anxious and made his breathing worse. He was evaluated by the hospitalist team and given stat DuoNebs, repeat chest x-ray without pneumothorax, ABG on 3 L 7.42/45/66. He was given Solu-Medrol 125 followed by 80 Q 8 and required a brief episode of BiPAP. His blood pressure at the time was 170/90 with a repeat of 208/98. [place] 317[address], his troponins were positive. Patient had a CT angiogram of the chest that showed no PE, small left effusion, tiny right effusion, no pneumothorax, unchanged emphysema and no lobar consolidation. Patient was transferred to the ICU. 11/21/2024: patient had another episode in the middle of the night of shortness of breath and was placed on BiPAP for 30 minutes. Currently the pat ient tells me that his breathing is at the his baseline. His shortness of breath is the same as his baseline. He has no cough, phlegm or hemoptysis. He has no chest pain. When I enter the room he was on 3 L nasal cannula saturations 100%. I decreased him to room air and his saturations were 94%. He is afebrile. White blood cell count 8.7, creatinine 1.40. Chest x-ray with no pneumothorax unchanged right effusion and tiny left effusion. Plan: Patient is having intermittent episodes of anxiety, wheezing, respiratory distress, hypertension. is unclear if this is related to COPD and bronchospasm or related to his cardiomyopathy with severe mitral regurg. COPD was treated aggressively, his trops are borderline positive and his BNP remains elevated. Plan: I will change his Solu-Medrol to prednisone 40 mg p.o. q.day. I will continue DuoNebs q.4 hours. There is no evidence of infection in his chest. Will follow the patient clinically. 11/22/2024. The patient tells me he is doing better today. Overall he feels 33% back to his baseline. His cough is at his baseline and he has no phlegm or hemoptysis. He was out of bed yesterday and underwent physical therapy. When I enter the room he was on 2.5 L nasal cannula saturations were 100%. I decreased him to room air and his saturations were 98%. He is afebrile. White blood cell count 10.1, creatinine 1.43, patient was positive 180 mL yesterday, cumulative positive 290 since admission. His weight today is 85 kg. Patient is scheduled for stress test later today. Plan: Today is day 6 of prednisone 40 p.o. q.day and I will discontinue. I will continue DuoNebs q.4 hours. Overnight oximetry on 3 L with very high saturations I will repeat tonight on 1 L. 11/23/2024: Patient tells me that he is breathing normal. He has no shortness of breath at rest or when ambulating. He denies cough, phlegm or hemoptysis. He is afebrile. Rest room air saturations 100%. White blood cell count 13.6, creatinine 1.45. Cardiology is planning on an outpatient cardiac catheterization. Plan: From a pulmonary perspective patient is ready to be discharged on these pulmonary medications: Breztri 2 puffs b.i.d. Rescue albuterol inhaler 2 puffs q.4 hours p.r.n. shortness of breath or wheezing oxygen at rest and with activity per formal home O2 assessment which I have ordered. When he naps or sleeps oxygen at 1 L. follow-up in the Pulmonary Clinic in 4 weeks. 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 Discussed with Dr. Castillo, will sign off, call with questions Discussed with Dr. Castillo. Will follow with you. (2) CHF (congestive heart failure): Code(s): I50.9 - Heart failure, unspecified Status: Acute Assessment and Plan: Echocardiogram 03/26/2022 with LVEF 40-45%, mild to moderate global LV systolic dysfunction, grade 1 diastolic dysfunction, normal right ventricular size. Mild right ventricular hypokinesis, mild enlargement left atrium, mild enlargement right atrium mild to moderate mitral regurg, trace to mild AR, mild tricuspid regurgitation with RVSP 49. 9/; He had an elevated BNP 5280 and was treated with Lasix 20 IV. 11/18 BNP today is 6230. He diuresed 285 mL yesterday. Cumulative he is positive 645 mL since admission. His weight today is 83.5. Plan: cardiology consult id and increase his Lasix to 40 mg IV b.i.d., added Entresto, Coreg and spironolactone. Echocardiogram ordered for 11/19. 11/19/2024: Patient states his swelling is improved and I agree. Creatinine 1.50, yesterday he was positive 2.2 L, cumulative he is positive 1.75 L. His weight today is 85.3. Plan: Cardiology consult following. Echocardiogram today. Adjustments of cardiac medicines per Cardiology team. Later in the day echocardiogram with LVEF 30-35%, grade 3 diastolic dysfunction, severe mitral regurg, moderate tricuspid regurg with PASP of 61, right ventricle normal size and function, right atrium normal size, left atrium mildly enlarged. Compared to 03/29/2022 LVEF is decreased from 44 to a value of 30 to 35%. [id number] MR has progressed to severe MR. PASP has increased from 44 to 61. 11/20/24: His BNP has increased from 6230 on 11/18/2024 to 7850 today. Yesterday he was positive 170 mL. Cumulative he is positive 1.9 L since admission. His weight today is 86 kg. Plan: I will discuss echocardiogram results with Cardiology team. 11/21/2024: Hospitalist discussed case with the cardiology team and the plan was for outpatient stress test. Yesterday he was -975 mL an cumulative he is positive 500 mL since admission[place] [address] angiogram of the chest shows a small left pleural effusion and a tiny right pleural effusion. There is no evidence of acute fluid overload on his CT scan last night. Plan: Management per Cardiology and hospitalist team. Currently the patient is on Coreg, Entresto and spironolactone. Lasix and is on hold for elevated creatinine. later in the day hydralazine Isordil added. 11/22/2024. patient was positive 180 mL yesterday, cumulative positive 290 since admission. His weight today is 85 kg. Plan: Management per Cardiology and hospitalist teams. He is scheduled for stress test later this afternoon. 11/23/24: Patient with stress test with non reversible in reversible defects. Yesterday he was -1.8 L, cumulative he is -1 L since admission. His weight is 8 3.6. Plan: discussed with cardiology and patient will have an outpatient cardiac catheterization. Patient is on Lasix 40 p.o. b.i.d., Coreg, Entresto, spironolactone, Aspirin, hydralazine and Isordil per Cardiology. (3) Lung nodule: Code(s): R91.1 - Solitary pulmonary nodule Status: Acute Assessment and Plan: Patient had a CT angiogram of the chest with no PE, able apical predominant centrilobular emphysema, small left pleural effusion, trace right pleural effusion moderate peripheral basal reticulations with no change from 09/10/2023. patient had a 10 x 11 mm pleural based medial left upper lobe nodule that had increased in size from 5 mm on 11/09/2023 [address] scan cervical spine on 09/09/2024. Plan: patient does wish to identify etiology of this nodule. Will review CT scans with Interventional Radiology to determine if this is a nodule that can be biopsied at [facility]. The lesion is too small and peripheral for bronchoscopy. 11/19/2024: I reviewed serial CT scans of the chest with interventional radiology. Plan: Patient with enlarging left upper lobe nodule and discussed risks and benefits with patient wishes to proceed. Will proceed with CT-guided biopsy on 11/20 or 11/21/2024. I will check coags on 11/20. Biopsy ordered. 11/20/2024: Patient is NPO for CT-guided biopsy later today. PT 12.9, INR 1.0, PTT 23.8. Plan: CT-guided biopsy per Interventional Radiology. later in the day patient had a CT-guided biopsy. 11/21/2024: No pneumothorax on postprocedure chest x-rays and CT scan from 11/20/2024 Plan: Await pathology from CT-guided biopsy. 11/22/24: Awaiting pathology. Later in the day patient is lung biopsy to with adenocarcinoma. oncology consult was placed. 11/23/2024: Awaiting oncology consult. (4) ISIAH (obstructive sleep apnea): Code(s): G47.33 - Obstructive sleep apnea (adult) (pediatric) Status: Acute Assessment and Plan: Untreated. He has mild sleep apnea evidenced by AHI 6.6 on a sleep study 05/29/21. BiPAP 13/9cm was recommended. Patient states he attempted BiPAP, tried all different types of masks and was unable to tolerate BiPAP. 11/18/24: I will continue 3 L nasal cannula at night. Once he is closer to his baseline will perform overnight oximetry on these settings. 11/20/2024: Patient has returned to his baseline. Plan: I will perform overnight oximetry with 3 L per nasal cannula. 11/21/2024: Overnight oximetry on 3 L was canceled at patient had acute respiratory distress post his lung biopsy. Plan: Will follow the patient clinically and will repeat overnight oximetry on 3 L. 11/22/24: Patient had an overnight oximetry on 3 L nasal cannula with recording duration of 5 hours and 49 minutes. Average saturation 100%. Low saturation 68. Time with saturation less than or equal to 88% was 0 minutes, oxygen desaturation index 0. Plan: high saturation on 3 L nasal cannula at night. I will repeat overnight oximetry on 1 L nasal cannula. 11/23/24: Patient had an overnight oximetry on 1 L nasal cannula with recording duration of 6 hours and 21 minutes. Average saturation 98%. Low saturation 95%. Time with saturation less than or equal to 88% was 0 minutes. Oxygen desaturation index 0.2. Plan: I will discharge on 1 L nasal cannula. Will order outpatient overnight oximetry on room air. Subjective Date/time seen: 11/23/24 10:06 Interval history: 11/18/2024: This is a new pulmonary consult for COPD and lung nodule. 69-year-old with a history of GOLD grade 3 group E COPD on home oxygen 3 L with activity and 3 L with sleep, status post VATS right upper lobectomy in 2008 for possible cancer but the patient tells me they found no cancer, GERD, coronary artery disease status post CABG, untreated mild obstructive sleep apnea as he and intolerant to CPAP or BiPAP, hyperlipidemia, hypertension, prostate cancer, renal cell carcinoma, pheochromocytoma and splenectomy in 2008. Patient is followed in the Pulmonary Clinic in last seen on 11/05/2024: This is the note: 6 month follow up regarding COPD on oxygen. Hx: COPD, GERD, gout, CAD, untreated mild sleep apnea (intolerant to BiPAP), hyperlipidemia, hypertension, prostate cancer, hx of SC and CABG and tobacco use disorder. He had a VATS in 2008 with a right upper lobectomy. He said no cancer was found. He had renal cancer, pheochromocytoma and had this removed along with a splenectomy in 2008. He reports progressive MUÑOZ since last visit along with wheezing. Denies any excessive coughing or mucous production. Denies chest pains/tightness but reports heart palpitations. Reports nighttime dyspnea walking from the bathroom. He is compliant using Breztri twice daily. Albuterol use has been 4x/day for the past 4 months. He has a portable oxygen concentrator he purchased this out of pocket, 3L O2 with exertion. Has been using 4L at times and at home, been using it 13/09. Current smoker 1ppd, smoked 0.5-1ppd for 54 years. He tried NRT patches which did not help he states. He is interested in medication to help him quit. He would like to see his accounting manager cpa again Dr. Ram. Reports it's been >1year. weight 180 lb. Lungs were clear to auscultation. Plan: He tried Daliresp but could not tolerate GI side effects. All to for a was too costly. Continue breasts tree albuterol p.r.n.. Chest x-ray, EKG, Cardiology referral. Recommended regular exercise and deep breathing. Quit smoking. Bupropion was prescribed. Follow-up 2-3 months. requires no oxygen at rest, 3 L with activity, continue 3 at night. low-dose CT scan ordered. Smoking cessation counseling provided. 11/12/2024: Chest X ray: Suspect right middle lobe atelectasis or early airspace disease. Emphysema, chronic scarring and retraction of the diaphragm right lung base, Patient tells me he took the bupropion after he left the clinic and quit smoking in 4 days. patient smoked tobacco from age 14-1 week ago at 1 pack per day for total of 55 pack years. He was exposed to secondhand smoke from his mother but none since. Patient did cocaine last use was in 2014. 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 Baseline dyspnea on exertion now is room to room. Patient tells me he was at his baseline On 11/16/2024. The patient tells me he wears no oxygen at rest but does not have a pulse oximeter to measure his saturations. He is prescribed 3 L with activity but he rarely uses this with activity and has room to room dyspnea on exertion. When he walks to the the couch to the bathroom with 3 L oxygen on he is able to make this journey and he says he does better than without. Without oxygen he is extremely short of breath after he gets back to the couch. This worsening dyspnea on exertion has progressed over the last few months. On 11/16/2024 he had no increased cough, phlegm or hemoptysis. He ate dinner and went to bed and was feeling his usual self. On 11/17/2024 he woke up at 4:00 a.m. to urinate. He took his oxygen off and he walked back to the couch and he had worsening dyspnea on exertion and shortness of breath without recovery. He had wheezing and he told his family to call EMS. He denied cough, phlegm production or hemoptysis. He denied chest pain. On arrival to the emergency department the patient was in severe respiratory distress in a tripod position. Blood pressure 129/83, heart rate 81, respirations 20 patient was immediately placed on BiPAP 14/7 and 35% FiO2 with saturations 100. Patient had audible inspiratory and expiratory wheezes without a stethoscope. White blood cell count was 7.0 with eosinophils 2.4%= 168 per micro L, creatinine 1.37, serum bicarbonate 28, BNP 5280, COVID influenza and RSV RT PCR assay negative. Patient had a CT angiogram of the chest with no PE, able apical predominant centrilobular emphysema, small left pleural effusion, trace right pleural effusion moderate peripheral basal reticulations with no change from 09/10/2023. patient had a 10 x 11 mm pleural based medial left upper lobe nodule that had increased in size from 5 mm on 11/09/[address] scan cervical spine on 09/09/2024. About 5 hours later patient had an ABG on 35% FiO2 with pH of 7.40/39/111. Patient was treated with Solu-Medrol, bronchodilators and Lasix 20 IV. 11/18/2024: Currently the patient tells me he is good but not back to his normal. He still has slight shortness of breath at rest. He denies fever, chills, rigors, phlegm, hemoptysis or chest pain. of note patient tells me he has worsening lower extremity edema over the last 4 months. He has no wheezing. He was on 3 L nasal cannula saturations 95-100%. I decreased him to room air and his saturations remain 92%. His white blood cell count was 6.2, his creatinine was 1.23. His CRP was 1.9, his procalcitonin was 0.1, his BNP was 6230. Chest x-ray today shows worsening diffuse left lung infiltrate with no change on the right. 11/19/2024: Patient was moved to a new room out of the [facility] unit and says that he is a harder time breathing in this new room because it is dry. He did not sleep last night. He denies fever, chills, rigors, cough, phlegm or hemoptysis. Overall he says that his swelling is better. When I enter the room he was on 3 L nasal cannula saturations 100%. I decreased and room air and his saturations were 96%. He is afebrile. White blood cell count 13.0, creatinine 1.50, yesterday he was positive 2.2 L, cumulative he is positive 1.75 L. His weight today is 85.3. Later in the day echocardiogram with LVEF 30-35%, grade 3 diastolic dysfunction, severe mitral regurg, moderate tricuspid regurg with PASP of 61, right ventricle normal size and function, right atrium normal size, left atrium mildly enlarged. Compared to 03/29/2022 LVEF is decreased from 44 to a value of 30 to 35%. [id number] MR has progressed to severe MR. PASP has increased from 44 to 61. 11/20/24: Patient tells me he is breathing normal. He says his cough is better than usual and he denies phlegm or hemoptysis. Has no wheezing. Room air saturations are 95%. He is afebrile. White blood cell count 13.2, creatinine 1.47. His BNP has increased from 6230 on 11/18/2024 to 7850 today. Yesterday he was positive 170 mL. Cumulative he is positive 1.9 L since admission. His weight today is 86 kg. Later in the day patient went down for CT-guided biopsy of his lung nodule. He was comfortable when he left his room. When he went down to Radiology he was placed on the table and was uncomfortable and got anxious. They gave him some oxygen and repositioned him and he settled down and they were able to complete the test. He was in the department and had an x-ray with no pneumothorax and did well and was sent to the floor. Once he got on the floor he said he could not breathe. multiple people came to the room and this made him anxious and made his breathing worse. He was evaluated by the hospitalist team and given stat DuoNebs, repeat chest x-ray without pneumothorax, ABG on 3 L 7.42/45/66. He was given Solu-Medrol 125 followed by 80 Q 8 and required a brief episode of BiPAP. His blood pressure at the time was 170/90 with a repeat of 208/98[place] [address], his troponins were positive. Patient had a CT angiogram of the chest that showed no PE, small left effusion, tiny right effusion, no pneumothorax, unchanged emphysema and no lobar consolidation. Patient was transferred to the ICU. 11/21/2024: patient had another episode in the middle of the night of shortness of breath and was placed on BiPAP for 30 minutes. Currently the patient tells me that his breathing is at the his baseline. His shortness of breath is the same as his baseline. He has no cough, phlegm or hemoptysis. He has no chest pain. When I enter the room he was on 3 L nasal cannula saturations 100%. I decreased him to room air and his saturations were 94%. He is afebrile. White blood cell count 8.7, creatinine 1.40. Chest x-ray with no pneumothorax unchanged right effusion and tiny left effusion. 11/22/2024. The patient tells me he is doing better today. Overall he feels 33% back to his baseline. His cough is at his baseline and he has no phlegm or hemoptysis. He was out of bed yesterday and underwent physical therapy. When I enter the room he was on 2.5 L nasal cannula saturations were 100%. I decreased him to room air and his saturations were 98%. He is afebrile. White blood cell count 10.1, creatinine 1.43, patient was positive 180 mL yesterday, cumulative positive 290 since admission. His weight today is 85 kg. Patient had an overnight oximetry on 3 L nasal cannula with recording duration of 5 hours and 49 minutes. Average saturation 100%. Low saturation 68. Time with saturation less than or equal to 88% was 0 minutes, oxygen desaturation index 0. Patient is scheduled for stress test later today. Later in the day patient is lung biopsy to with adenocarcinoma. I discussed this with the patient and oncology consult was placed. Patient with stress test with non reversible in reversible defects. 11/23/2024: Patient tells me that he is breathing normal. He has no shortness of breath at rest or when ambulating. He denies cough, phlegm or h emoptysis. He is afebrile. Rest room air saturations 100%. White blood cell count 13.6, creatinine 1.45. Yesterday he was -1.8 L, cumulative he is -1 L since admission. His weight is 83.6. Patient had an overnight oximetry on 1 L nasal cannula with recording duration of 6 hours and 21 minutes. Average saturation 98%. Low saturation 95%. Time with saturation less than or equal to 88% was 0 minutes. Oxygen desaturation index 0.2. Cardiology is planning on an outpatient cardiac catheterization. DATA: 11/20/24: EXAMINATION: CTA chest INDICATION: Hypoxia and shortness of breath. COMPARISON: 11/17/2024 FINDINGS: No pulmonary embolism. Postoperative change of prior right upper lobectomy with volume loss the right hemithorax and stable appearance of pleural parenchymal scarring at the lateral right mid to lower lungs. Mild to moderate emphysema most prominent in the right middle lobe likely related to compensatory hyperexpansion secondary to the right upper lobar resection. No significant change in a small left pleural effusion with dependent atelectasis in the left lower lobe. Tiny right pleural effusion. There is a tract of subpleural atelectasis at the medial right apex extending towards a more anterior small paramediastinal nodule which was biopsied a few hours earlier. No pneumothorax. Mild cardiomegaly with left ventricular and atrial enlargement. Atherosclerotic coronary artery calcific location. Postoperative change of prior median sternotomy and coronary artery bypass grafting. No pericardial effusion. Aneurysmal dilation of the proximal descending thoracic aorta which measures up to 4.6 cm in maximal diameter. No aortic dissection. Mild enlarged left hilar and mediastinal lymphadenopathy suspicious for metastatic disease the largest lymph node in the AP window measuring 2.0 cm in maximal short axis diameter. Cholecystectomy clips at the gallbladder fossa. There are small bilateral low- attenuation renal cysts the largest on the left measuring 1.6 cm. There is also a 1.0 cm hyperdense proteinaceous/hemorrhagic cyst in the right kidney. Mild thoracic spondylosis. IMPRESSION: 1. Focal mild subpleural atelectasis along the recent lung biopsy tract at the medial left apex. No pulmonary embolism or other acute cardiopulmonary disease. 2. Unchanged small left and tiny right pleural effusions. 3. Unchanged 11 mm subpleural nodule at the medial left apex which concerning for primary bronchogenic carcinoma with left hilar and mediastinal lymphadenopathy suspicious for secondary metastatic disease. Correlate with pending pathology results from the percutaneous lung biopsy. 4. Mild cardiomegaly with left ventricular and atrial enlargement. 5. 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 11/17/2024: EXAMINATION: CTA chest PE protocol, 11/17/2024 14:20 CDT HISTORY: pe? COMPARISON: Comparison 04/30/2022 TECHNIQUE: CTA examination is obtained with contrast CTA examination technique is performed with arterial phase of contrast-enhancement. 3-D reconstruction with thin MIP axial and MPR coronal imaging is provided Isovue 300, 92cc injected IV. One or more of the following dose reduction techniques were used: automated exposure control, adjustment of the mA and/or kV according to patient size, use of iterative reconstruction technique. FINDINGS: No significant coronary calcification is present ([id number]) LUNGS: Small simple appearing left pleural effusion. Trace right pleural effusion. The contrast bolus is adequate, there is no pulmonary embolism identified. Postsurgical changes noted in the right lung. No tracheomalacia. No bronchiectasis. Moderate emphysematous changes. Areas of bullous formation of the right upper lobe. Moderate pulmonary fibrotic changes. No honeycombing is identified. Within the left upper lobe there is a nodule medially measuring 10 x 11 mm. HEART AND PERICARDIUM: Mild cardiomegaly. No pericardial effusion. AORTA: Normal caliber aorta.. PULMONARY ARTERIES: No pulmonary embolism ADENOPATHY/MEDIASTINUM: There are enlarged lymph nodes in the mediastinum the largest periaortic lymph node measuring 2.3 x 2.2 cm. LIMITED VIEWS OF THE ABDOMEN: Simple appearing left renal cyst 2 x 2 cm. OSSEOUS STRUCTURES: No sclerotic or lytic lesions. No acute rib fractures. Posts ternotomy changes are noted. OVERLYING SOFT TISSUES: Unremarkable. THYROID: The thyroid is unremarkable. IMPRESSION: 1. Negative for pulmonary embolism. Chronic changes detailed above with superimposed probable CHF. There is a nodule within the left upper lobe which is new compared to the previous study. PET CT is recommended 09/09/2024: Noncontrast CT scan of the cervical spine Technique: Multiple contiguous axial [address] images of the cervical spine were obtained and reconstructed in 2D sagittal and coronal planes on the acquisition scanner. Dose reduction technique was used on this scan by utilizing automated exposure control, adjustment of the mA and/or kV according to patient size. The dose-length product (DLP) was 492.27 mGy-cm. Clinical History: Pain Findings: No fractures or dislocations. At C2-C3, there is prominent right facet arthropathy. There is minimal right neural foraminal narrowing. Left neural foramen preserved. No canal stenosis or cord compression evident. At C3-C4, there is right facet arthropathy. No definite neural foraminal narrowing canal stenosis, or cord compression. At C4-C5, there is mild left neural foraminal narrowing with mild left facet arthropathy. No definite canal stenosis, cord compression, or right neural foraminal narrowing. At C5-C6, there is advanced degenerative disc narrowing with mild disc ossify complex. Probable mild bilateral neural foraminal narrowing. No definite canal stenosis or cord compression. At C6-C7, there is advanced degenerative distended. No definite canal stenosis, cord compression, or neural foraminal narrowing. No prevertebral soft tissue swelling. 7 mm nodule noted medially in the left lung apex. Impression: No fracture or subluxation of the cervical spine. Degenerative spondylosis, as above. 7 mm medial left apical pulmonary nodule, indeterminate. According to Fleischner Society criteria, for a low-risk patient, recommend follow-up CT scan in 6-12 months, then consider additional 18-[address] For a high-risk patient, follow-up CT scans at both 6-12 months and 18-24 months are recommended. 11/09/2023: CT Scan of the Chest without Contrast: Clinical Indication: Lung cancer screening, nicotine dependence Technique: Contiguous sections were acquired throughout the chest without intravenous contrast. Dose reduction technique was used on this scan by utilizing automated exposure control and iterative reconstruction technique. The dose-length product (DLP) was 102.78 mGy-cm. COMPARISON: 04/30/2022 Findings: There is no evidence of any significant mediastinal, hilar or axillary lymphadenopathy. There are atherosclerotic calcifications of the aorta and coronary arteries. Stable descending thoracic aortic aneurysm. There is no evidence of pleural or pericardial effusion. Status post partial right upper lobectomy. Probable mild emphysema. 5 mm nodule noted in the medial left lung apex ((axial image 26).. Images through the upper abdomen reveal no abnormalities. Impression: Lung RADS 2: Benign appearance. 12 month follow-up screening CT advised. 05/28/2021: This is a pulmonary function test with pre and post-bronchodilator spirometry, plethysmography and diffusing capacity. The test was performed and results interpreted in accordance with the 2019 and 2005 ATS/ERS Task Force guidelines respectively using the Global Lung Function Initiative-2012 reference equations. Patient demonstrated good effort and cooperation. Reproducibility criteria were met. The quality of the pre bronchodilator spirometry maneuver was Grade A and post bronchodilator spirometry maneuver was Grade A. Findings: Spirometry: There is decreased maximal expiratory airflow at all lung volumes with a concaved expiratory flow tracing. The contour the inspiratory flow tracing is normal. The pre bronchodilator FVC is 3.12 L, 84% predicted. The pre bronchodilator FEV1 is 1.24 L, 44% predicted. The pre bronchodilator FEV1: FVC ratio was 40%. The post bronchodilator FVC is 3.15 L, representing 1% increase. The post bronchodilator FEV1 is 1.20 L, representing a 3% decrease. Plethysmography: The total lung capacity is 6.76 L, 109% predicted. The functional residual capacity is 5.16 L, 149% predicted. The residual volume is 3.60 L, 162% predicted. Diffusing capacity: The diffusing capacity on adjusted for hemoglobin and carboxyhemoglobin is 10.3, 38% predicted. The diffusing capacity adjusted for alveolar volume is 2.07, 51% predicted. Impression: There is a severe obstructive abnormality without significant improvement after inhaling a single dose of albuterol. The increase in residual volume is consistent with air trapping from an obstructive abnormality. Hyperinflation is present is demonstrated by the increase in functional residual capacity and is consistent with an obstructive abnormality. The diffusing capacity unadjusted for hemoglobin and carboxyhemoglobin is severely decreased and remains moderately decreased when adjusted for alveolar volume. There are no prior studies for comparison 03/29/2022: echocardiogram 03/26/2022 report: with LVEF 40-45%, mild to moderate global LV systolic dysfunction, grade 1 diastolic dysfunction, normal right ventricular size. Mild right ventricular hypokinesis, mild enlargement left atrium, mild enlargement right atrium mild to moderate mitral regurg, trace to mild AR, mild tricuspid regurgitation with RVSP 49. Home O2 Eval 05/17/24 - requires 3L O2 with activity, none at rest. LDCT 11/09/23 - Status post partial right upper lobectomy. Probable mild emphysema. 5 mm nodule noted in the medial left lung apex. Overnight oximetry on 3L 02/03/23 - 0 time spent below 90% O2 on 3L. Home O2 Eval 02/09/23 - no O2 needed at rest or with activity. 05/29/21 - Split PSG - Overall AHI is 6.6. BiPAP 13/9cm was recommended. The patient should have a nocturnal oximetry done 2-4 weeks after starting PAP to ensure the hypoxemia has resolved. 05/28/21 PFT - There is a severe obstructive abnormality without significant improvement after inhaling a dose of albuterol. The increase in residual volume is consistent with air trapping from an obstructive abnormality. Hyperinflation is present is demonstrated by the increase in functional residual capacity and is consistent with an obstructive abnormality. The diffusing capacity unadjusted for hemoglobin and carboxyhemoglobin is severely decreased and remains moderately decreased when adjusted for alveolar volume. 05/28/21 - Home O2 eval - Patient required 3L/min O2 with ambulation and none at rest. 04/18/2019 CTA at [place]- clear lungs. Tracheal and right mainstem bronchial debris. Partial right pneumonectomy. Moderate emphysema. Dilated main, central pulmonary arteries consistent with pulmonary arterial hypertension no lymphadenopathy. Sternotomy wires. Lexisc and 07/2018; fixed infarct without ischemia. EF 39%. Review of Systems Constitutional: Constitutional: Reports no additional constitutional complaints Eyes: Eyes: Reports no additional eye complaints ENT: Reports system reviewed and no additional complaints, except as documented Cardiovascular: Cardiovascular: Reports no additional cardiovascular complaints Respiratory: Respiratory: Reports no additional respiratory complaints Gastrointestinal: Gastrointestinal: Reports no additional gastrointestinal complaints Musculoskeletal: Musculoskeletal: Reports no additional musculoskeletal complaints Neurologic: Reports system reviewed and no additional complaints, except as documented Psychiatric: Psychiatric: Reports no additional psychiatric complaints Endocrine: Endocrine: Reports no additional endocrine complaints Hematologic/Lymphatic: Hematologic/Lymphatic: Reports no additional hematologic/lymphatic complaints Allergic/Immunologic: Allergic/Immunologic: Reports no additional allergic/immunologic complaints Exam Const: General: cooperative, healthy appearing and comfortable Orientation/consciousness: oriented to person, oriented to place and oriented to time HENMT: Head: normal to inspection Ears: hearing grossly normal bilaterally Eyes: General: appearance normal, both eyes and all related structures Neck: Neck: normal visual inspection Chest: Chest palpation & inspection: normal inspection of the chest Resp: Effort & Inspection: normal respiratory effort and able to speak in complete sentences Auscultation: no crackles, no rales, no rhonchi, no wheezes and diminished lung sounds Other: No wheezes, decreased breath sounds throughout Cardio: Jugular venous distension: no JVD GI: Inspection: normal to inspection Skin: General skin exam: normal color Neuro: General: oriented to person, oriented to place and oriented to time Extrem: General: normal to inspection Other: positive edema- improved Psych: Appearance: grossly normal Objective Data Vital Signs Vital Signs: Vital Signs - 24 hr 11/22/24 12:00 11/22/24 15:33 11/22/24 16:00 Temperature 36.2 C L Pulse Rate 74 73 77 Respiratory Rate 20 Blood Pressure 140/86 Pulse Oximetry 98 Oxygen Delivery Oxygen Flow Rate 11/22/24 16:56 11/22/24 17:02 11/22/24 20:25 Temperature Pulse Rate 75 74 92 Respiratory Rate 18 18 18 Blood Pressure Pulse Oximetry Oxygen Delivery Oxygen Flow Rate 11/22/24 20:37 11/22/24 20:56 11/22/24 21:00 Temperature 36.4 C L Pulse Rate 94 70 Respiratory Rate 18 20 Blood Pressure 138/91 H Pulse Oximetry 99 Oxygen Delivery Room Air Oxygen Flow Rate 11/22/24 21:00 11/22/24 21:40 11/22/24 22:15 Temperature Pulse Rate 70 68 Respiratory Rate Blood Pressure Pulse Oximetry 97 Oxygen Delivery Nasal Cannula Oxygen Flow Rate 1 11/23/24 00:00 11/23/24 04:45 11/23/24 05:00 Temperature 36.8 C Pulse Rate 73 74 65 Respiratory Rate 20 Blood Pressure 138/87 Pulse Oximetry 100 Oxygen Delivery Oxygen Flow Rate 11/23/24 08:54 11/23/24 09:00 11/23/24 09:00 Temperature Pulse Rate 81 75 Respiratory Rate 18 18 Blood Pressure Pulse Oximetry 100 Oxygen Delivery Room Air Oxygen Flow Rate 11/23/24 09:19 Temperature Pulse Rate 75 Respiratory Rate Blood Pressure Pulse Oximetry Oxygen Delivery Oxygen Flow Rate Intake/Output Intake/Output: Intake & Output 11/20/24 11/21/24 11/22/24 11/23/24 23:59 23:59 23:59 23:59 Intake Total 0 1880 924 490 Output Total 975 1700 2800 1200 Balance -975 180 -1876 -274 Meds/Results Medications: Active Medications Generic Name Dose Route Start Last Admin Trade Name Freq PRN Reason Stop Dose Admin Acetaminophen 650 mg 11/17/24 12:26 11/18/24 21:05 Acetaminophen 325 Mg Tablet PO 650 mg Q4H PRN Administration Mild Pain (1-3) or Fever Albuterol 2.5 mg 11/17/24 12:26 Albuterol Sulfate Neb 2.5 Mg/3 Ml Inh INHALATION Q6HRT PRN Bronchospasm Albuterol/Ipratropium 3 ml 11/20/24 20:00 11/23/24 09:25 Ipratropium 0.5 Mg/Albuterol Sulfate 2.5 Mg Ampul.Neb 3 Ml INHALATION Not Given Q4HRT ЮЛИЯ Allopurinol 100 mg 11/18/24 09:00 11/23/24 09:19 Allopurinol 100 Mg Tablet BY MOUTH 100 mg DAILY ЮЛИЯ Administration Budesonide 0.5 mg 11/23/24 08:00 11/23/24 08:51 Budesonide Respule Neb 0.5 Mg/2 Ml Amp INHALATION 0.5 mg Q12HRT ЮЛИЯ Administration Bupropion HCl 150 mg 11/18/24 09:00 11/23/24 09:19 Bupropion Hcl Sr (12 Hr) 150 Mg Tab PO 150 mg Q12HR ЮЛИЯ Administration Carvedilol 25 mg 11/17/24 21:00 11/23/24 09:19 Carvedilol 25 Mg Tablet PO 25 mg Q12H ЮЛИЯ Administration Cyclobenzaprine HCl 10 mg 11/17/24 20:57 Cyclobenzaprine Hcl 10 Mg Tablet PO TID PRN Muscle Spasm Furosemide 40 mg 11/21/24 17:00 11/23/24 09:19 Furosemide 40 Mg Tablet PO 40 mg BID ЮЛИЯ Administration Heparin Sodium (Porcine) 5,000 units 11/21/24 21:00 11/23/24 09:19 Heparin Sodium 5,000 Units/Ml Vial SUB-Q 5,000 units Q12HR ЮЛИЯ Administration Hydralazine HCl 10 mg 11/21/24 17:00 11/23/24 09:20 Hydralazine 10 Mg Tablet PO 10 mg TID ЮЛИЯ Administration Isosorbide Dinitrate 10 mg 11/21/24 17:00 11/23/24 09:20 Isosorbide Dinitrate 10 Mg Tablet PO 10 mg TID ЮЛИЯ Administration Pantoprazole Sodium 40 mg 11/18/24 09:00 11/23/24 09:20 Pantoprazole 40 Mg Tablet PO 40 mg QAM ЮЛИЯ Administration Quetiapine Fumarate 50 mg 11/17/24 21:00 11/22/24 21:39 Quetiapine Fumarate 25 Mg Tablet PO 50 mg QHS ЮЛИЯ Administration Rosuvastatin Calcium 40 mg 11/18/24 09:00 11/23/24 09:19 Rosuvastatin 20 Mg Tablet BY MOUTH 40 mg DAILY ЮЛИЯ Administration Sacubitril/Valsartan 1 tab 11/17/24 21:00 11/19/24 09:00 Sacubitril/Valsartan 24-26 Mg Tablet PO 1 tab On Hold: 11/19/24 15:29 Q12HR ЮЛИЯ Administration Spironolactone 25 mg 11/18/24 12:00 11/19/24 09:00 Spironolactone 25 Mg Tablet PO 25 mg On Hold: 11/19/24 15:29 QAM ЮЛИЯ Administration Tamsulosin HCl 0.4 mg 11/17/24 21:00 11/22/24 21:39 Tamsulosin Hcl 0.4 Mg Capsule BY MOUTH 0.4 mg HS ЮЛИЯ Administration Radiology Results: ITS Impressions Lung Biopsy CT 11/20/24 14:[address]: 1[address]-guided biopsy of an 11 mm paramediastinal nodule at the left apex. Chest CTA 11/20/24 18:08 IMPRESSION: 1. Focal mild subpleural atelectasis along the recent lung biopsy tract at the medial left apex. No pulmonary embolism or other acute cardiopulmonary disease. 2. Unchanged small left and tiny right pleural effusions. 3. Unchanged 11 mm subpleural nodule at the medial left apex which concerning for primary bronchogenic carcinoma with left hilar and mediastinal lymphadenopathy suspicious for secondary metastatic disease. Correlate with pending pathology results from the percutaneous lung biopsy. 4. Mild cardiomegaly with left ventricular and atrial enlargement. 5. 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 Chest X-Ray 11/21/24 07:49 Impression: 1: No pneumothorax identified post biopsy. 2: Cardiomegaly with mild interstitial edema. Lexiscan Stress Test 11/22/24 13:20 IMPRESSION: 1. Large moderate to severe largely nonreversible infarct at the apical segment apical to basilar inferior wall and basilar inferolateral segment with mild reversible ischemia at the apical and basilar inferolateral segments.. 2. Mild left ventricular enlargement with mildly decreased left ventricular ejection fraction measuring 41%. Labs Labs: Laboratory Results - last 24 hr 11/23/24 05:29 WBC 13.6 H RBC 4.20 L Hgb 12.8 L Hct 36.9 L MCV 87.9 MCH 30.5 MCHC 34.7 RDW 15.2 H Plt Count 243 MPV 11.2 H Immature Gran % (Auto) 0.7 H Neut % (Auto) 66.7 Lymph % (Auto) 10.9 L Navarro % (Auto) 21.2 H Eos % (Auto) 0.4 Baso % (Auto) 0.1 L Lymph # (Auto) 1.49 [place]arro # (Auto) 2.9 H Eos # (Auto) 0.1 Baso # (Auto) 0.0 Abs Immat Gran (auto) 0.09 H Absolute Neuts (auto) 9.1 H Absolute Nucleated RBC 0.000 Band Neutrophils % Not Reportable Nucleated RBC % 0.0 Platelet Estimate Adequate Large Platelets Present Giant Platelets Present Hypochromasia 1+ Anisocytosis Occasional Target Cells 1+ Laya Cells Occasional Schistocytes None seen Sodium 132 L Potassium 3.8 Chloride 99 Carbon Dioxide 33 H Anion Gap 0 L BUN 45 H Creatinine 1.45 H Estim Creat Clear Calc 44 Estimated GFR 48 L Glucose 108 Calcium 7.9 L Magnesium 1.6
--- NOTE | 2024-11-23 10:28 | PCNWS ---
Weekly nutritional screen. Patient is tolerating current diet with adequate intake. No weight loss reported. No nutritional needs at this time.
--- NOTE | 2024-11-23 11:27 | WPDCARIOSTRE ---
Nuclear Stress Test INDICATIONS Indications: Coronary artery disease, history of CABG PROCEDURE Procedure Performed: Myocardial Perf Spect-Multi Procedure: Lexiscan EKG stress test. Findings: Baseline EKG sinus rhythm, bundle-branch block, frequent PVCs, T inversion lead V1 to V5. Post Lexiscan injection EKG shows no changes. -patient tolerated procedure well CONCLUSION Conclusion: -inconclusive EKG portion of stress test due to abnormal baseline EKG. -follow-up on SPECT images
--- NOTE | 2024-11-23 11:33 | PM.PNCARD ---
Progress Note: A&P Assessment and Plan (1) History of coronary artery bypass graft x 3: Code(s): Z95.1 - Presence of aortocoronary bypass graft Status: Acute (2) Dilated cardiomyopathy: Code(s): I42.0 - Dilated cardiomyopathy Status: Acute (3) Acute on chronic systolic and diastolic heart failure, NYHA class 3: Code(s): I50.43 - Acute on chronic combined systolic (congestive) and diastolic (congestive) heart failure Status: Acute (4) Bilateral pleural effusion: Code(s): J90 - Pleural effusion, not elsewhere classified Status: Acute (5) Lung nodule: Code(s): R91.1 - Solitary pulmonary nodule Status: Acute Plan Assessment: 1. Patient presents with severe respiratory failure also history of COPD and cardiomyopathy. BNP was markedly elevated. Chest x-ray on 11/18/19, was positive for cardiomegaly, previous coronary bypass surgery but negative for acute cardiopulmonary abnormalities. Emphysema was noted Subsequent CT scan of the chest was negative for pulmonary embolism and positive for congestive heart failure. A nodule noted within left upper lobe which was new. Based on these findings patient likely had predominantly respiratory failure due to emphysema and component of congestive heart failure. 2. Acute on chronic systolic and diastolic heart failure. Echocardiogram done recently shows ejection fraction of 30-35% with grade 3 diastolic dysfunction. 3. Severe mitral regurgitation likely secondary to cardiomyopathy. 4. History of triple-vessel coronary bypass graft in the past. Rule out progression of disease. 5. Pleural effusions likely secondary to congestive heart failure and cardiomyopathy. 6. Abnormal EKG with complete right bundle branch block. This is an old finding. 7. History of COPD. CT scan of the chest shows emphysema. Lung nodule noted on CT scan. Status post biopsy. Plan 1. Patient is currently on Solu-Medrol. Cardiac medication includes carvedilol 25 mg q.12 hours, Entresto 24-261 tablet every 12 hours, spironolactone 25 mg daily and furosemide is on hold at the present time. May consider adding SGPL2 medications. Do not recommend amlodipine for this patient due to severely reduced systolic function. Hydralazine 10 mg as well as isosorbide dinitrate 10 mg added for this patient. -overall patient has improved with improved breathing and shortness of breath. Okay to switch Lasix p.o. 40 mg b.i.d. for now. 2. Laboratory data reviewed. WBC 10.1. Hemoglobin 13.5. Platelets are normal. Sodium 136, potassium is 136, potassium 3.9, BUN slightly increased at 35 and creatinine is 1.43 not significant increase from 11/21/2024. 3. Patient appears to have component of ischemic cardiomyopathy. -nuclear stress test performed on 11/22/2024 revealed large moderate to severe nonreversible infarct involving apical segment, basilar inferior wall. Mild reversible ischemia noted involving apical and basilar inferolateral segments. Ejection fraction estimated at 41%. No reversible defects noted. Mild left ventricular enlargement is noted. 4. Based on his ejection fraction 41%, patient is currently not a candidate for AICD. 5. Discussed with pulmonary service at the bedside. His lung biopsy for the nodule is positive for adenocarcinoma and further out patient workup will be done. 6. Continue on guideline directed medical therapy including Lasix 40 mg b.i.d., hydralazine 10 mg t.i.d., isosorbide 10 mg t.i.d., rosuvastatin 40 mg at bedtime, Entresto 24-261 p.o. b.i.d. and spironolactone 25 mg daily. Blood pressure is 138/87 mm of mercury heart rate 74 per minute. Will increase isosorbide dinitrate to 20 mg t.i.d. sodium is 132, potassium is 3.8, BUN is 45 creatinine is 1.45 per. -conservative medical management would be for an for this patient for now till further pulmonary workup done for adeno CA. -decrease Lasix to 40 mg daily. 7. Okay to discharge patient home from cardiac viewpoint. Follow-up outpatient and cardiology service to evaluate for need for cardiac catheterization. Subjective Date/time seen: 11/23/24 11:33 Interval history: Patient was examined at the bedside. Patient is awake alert and appears comfortable without shortness of breath, orthopnea or chest pain. No more episodes of panic attacks or PND at night. Leg edema has improved. Vital signs are stable. Discussed with pulmonary service at the bedside. Patient has positive biopsy for lung nodule positive for adenocarcinoma. Review of Systems Review of Systems: Twelve point review of system was completed. Pertinent positive and negative findings per HPI. Pulmonary negative for wheezing or significant shortness of breath. Cardiovascular negative for chest pain or orthopnea. Minimal leg edema Neurovascular intact Exam Narrative: Patient was examined at bedside. Patient is awake alert and appears comfortable. There is neck examination is unremarkable PERRLA scleras nonicteric. Neck is supple. There is no JVD or carotid bruit. Lungs reveal decreased air entry bilaterally. There is no wheezing or crepitation. Heart sounds reveal normal S1-S2 heard S2 is present present grade 2-3/6 systolic murmur noted at the left sternal border. Abdomen soft and nontender there is no ascites. There is no hepatosplenomegaly present bowel sounds present. Extremities reveal 1 to 2+ leg edema bilaterally. Healed central chest scar is noted for previous coronary artery bypass surgery. Neurological examination is intact Objective Data Vital Signs Vital Signs: Vital Signs - 24 hr 11/22/24 12:00 11/22/24 15:33 11/22/24 16:00 Temperature 36.2 C L Pulse Rate 74 73 77 Respiratory Rate 20 Blood Pressure 140/86 Pulse Oximetry 98 Oxygen Delivery Oxygen Flow Rate 11/22/24 16:56 11/22/24 17:02 11/22/24 20:25 Temperature Pulse Rate 75 74 92 Respiratory Rate 18 18 18 Blood Pressure Pulse Oximetry Oxygen Delivery Oxygen Flow Rate 11/22/24 20:37 11/22/24 20:56 11/22/24 21:00 Temperature 36.4 C L Pulse Rate 94 70 Respiratory Rate 18 20 Blood Pressure 138/91 H Pulse Oximetry 99 Oxygen Delivery Room Air Oxygen Flow Rate 11/22/24 21:00 11/22/24 21:40 11/22/24 22:15 Temperature Pulse Rate 70 68 Respiratory Rate Blood Pressure Pulse Oximetry 97 Oxygen Delivery Nasal Cannula Oxygen Flow Rate 1 11/23/24 00:00 11/23/24 04:45 11/23/24 05:00 Temperature 36.8 C Pulse Rate 73 74 65 Respiratory Rate 20 Blood Pressure 138/87 Pulse Oximetry 100 Oxygen Delivery Oxygen Flow Rate 11/23/24 08:00 11/23/24 08:54 11/23/24 09:00 Temperature Pulse Rate 82 81 75 Respiratory Rate 18 18 Blood Pressure Pulse Oximetry Oxygen Delivery Oxygen Flow Rate 11/23/24 09:00 11/23/24 09:19 11/23/24 09:20 Temperature Pulse Rate 75 Respiratory Rate Blood Pressure Pulse Oximetry 100 Oxygen Delivery Room Air Room Air Oxygen Flow Rate Intake/Output Intake/Output: Intake & Output 11/20/24 11/21/24 11/22/24 11/23/24 23:59 23:59 23:59 23:59 Intake Total 0 1880 924 490 Output Total 975 1700 2800 1200 Balance -975 381 -5048 -639 Meds/Results Medications: Active Medications Generic Name Dose Route Start Last Admin Trade Name Freq PRN Reason Stop Dose Admin Acetaminophen 650 mg 11/17/24 12:26 11/18/24 21:05 Acetaminophen 325 Mg Tablet PO 650 mg Q4H PRN Administration Mild Pain (1-3) or Fever Albuterol 2.5 mg 11/17/24 12:26 Albuterol Sulfate Neb 2.5 Mg/3 Ml Inh INHALATION Q6HRT PRN Bronchospasm Albuterol/Ipratropium 3 ml 11/20/24 20:00 11/23/24 09:25 Ipratropium 0.5 Mg/Albuterol Sulfate 2.5 Mg Ampul.Neb 3 Ml INHALATION Not Given Q4HRT [facility] Allopurinol 100 mg 11/18/24 09:00 11/23/24 09:19 Allopurinol 100 Mg Tablet BY MOUTH 100 mg DAILY ЮЛИЯ Administration Budesonide 0.5 mg 11/23/24 08:00 11/23/24 08:51 Budesonide Respule Neb 0.5 Mg/2 Ml Amp INHALATION 0.5 mg Q12HRT ЮЛИЯ Administration Bupropion HCl 150 mg 11/18/24 09:00 11/23/24 09:19 Bupropion Hcl Sr (12 Hr) 150 Mg Tab PO 150 mg Q12HR ЮЛИЯ Administration Carvedilol 25 mg 11/17/24 21:00 11/23/24 09:19 Carvedilol 25 Mg Tablet PO 25 mg Q12H ЮЛИЯ Administration Cyclobenzaprine HCl 10 mg 11/17/24 20:57 Cyclobenzaprine Hcl 10 Mg Tablet PO TID PRN Muscle Spasm Furosemide 40 mg 11/21/24 17:00 11/23/24 09:19 Furosemide 40 Mg Tablet PO 40 mg BID ЮЛИЯ Administration Heparin Sodium (Porcine) 5,000 units 11/21/24 21:00 11/23/24 09:19 Heparin Sodium 5,000 Units/Ml Vial SUB-Q 5,000 units Q12HR ЮЛИЯ Administration Hydralazine HCl 10 mg 11/21/24 17:00 11/23/24 09:20 Hydralazine 10 Mg Tablet PO 10 mg TID ЮЛИЯ Administration Isosorbide Dinitrate 10 mg 11/21/24 17:00 11/23/24 09:20 Isosorbide Dinitrate 10 Mg Tablet PO 10 mg TID ЮЛИЯ Administration Pantoprazole Sodium 40 mg 11/18/24 09:00 11/23/24 09:20 Pantoprazole 40 Mg Tablet PO 40 mg QAM ЮЛИЯ Administration Quetiapine Fumarate 50 mg 11/17/24 21:00 11/22/24 21:39 Quetiapine Fumarate 25 Mg Tablet PO 50 mg QHS ЮЛИЯ Administration Rosuvastatin Calcium 40 mg 11/18/24 09:00 11/23/24 09:19 Rosuvastatin 20 Mg Tablet BY MOUTH 40 mg DAILY ЮЛИЯ Administration Sacubitril/Valsartan 1 tab 11/17/24 21:00 11/19/24 09:00 Sacubitril/Valsartan 24-26 Mg Tablet PO 1 tab On Hold: 11/19/24 15:29 Q12HR ЮЛИЯ Administration Spironolactone 25 mg 11/18/24 12:00 11/19/24 09:00 Spironolactone 25 Mg Tablet PO 25 mg On Hold: 11/19/24 15:29 QAM ЮЛИЯ Administration Tamsulosin HCl 0.4 mg 11/17/24 21:00 11/22/24 21:39 Tamsulosin Hcl 0.4 Mg Capsule BY MOUTH 0.4 mg HS ЮЛИЯ Administration Radiology Results: ITS Impressions Lung Biopsy CT 11/20/24 14:[address]: 1[address]-guided biopsy of an 11 mm paramediastinal nodule at the left apex. Chest CTA 11/20/24 18:08 IMPRESSION: 1. Focal mild subpleural atelectasis along the recent lung biopsy tract at the medial left apex. No pulmonary embolism or other acute cardiopulmonary disease. 2. Unchanged small left and tiny right pleural effusions. 3. Unchanged 11 mm subpleural nodule at the medial left apex which concerning for primary bronchogenic carcinoma with left hilar and mediastinal lymphadenopathy suspicious for secondary metastatic disease. Correlate with pending pathology results from the percutaneous lung biopsy. 4. Mild cardiomegaly with left ventricular and atrial enlargement. 5. 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 Chest X-Ray 11/21/24 07:49 Impression: 1: No pneumothorax identified post biopsy. 2: Cardiomegaly with mild interstitial edema. Lexiscan Stress Test 11/22/24 13:20 IMPRESSION: 1. Large moderate to severe largely nonreversible infarct at the apical segment apical to basilar inferior wall and basilar inferolateral segment with mild reversible ischemia at the apical and basilar inferolateral segments.. 2. Mild left ventricular enlargement with mildly decreased left ventricular ejection fraction measuring 41%. Labs Labs: Laboratory Results - last 24 hr 11/23/24 05:29 WBC 13.6 H RBC 4.20 L Hgb 12.8 L Hct 36.9 L MCV 87.9 MCH 30.5 MCHC 34.7 RDW 15.2 H Plt Count 243 MPV 11.2 H Immature Gran % (Auto) 0.7 H Neut % (Auto) 66.7 Lymph % (Auto) 10.9 L [place] % (Auto) 21.2 H Eos % (Auto) 0.4 Baso % (Auto) 0.1 L Lymph # (Auto) 1.49 [place] # (Auto) 2.9 H Eos # (Auto) 0.1 Baso # (Auto) 0.0 Abs Immat Gran (auto) 0.09 H Absolute Neuts (auto) 9.1 H Absolute Nucleated RBC 0.000 Band Neutrophils % Not Reportable Nucleated RBC % 0.0 Platelet Estimate Adequate Large Platelets Present Giant Platelets Present Hypochromasia 1+ Anisocytosis Occasional Target Cells 1+ Laya Cells Occasional Schistocytes None seen Sodium 132 L Potassium 3.8 Chloride 99 Carbon Dioxide 33 H Anion Gap 0 L BUN 45 H Creatinine 1.45 H Estim Creat Clear Calc 44 Estimated GFR 48 L Glucose 108 Calcium 7.9 L Magnesium 1.6
[2024-11-23] MEDS: ISOSORBIDE DINITRATE 20 MG TABLET PO (12:46)
--- NOTE | 2024-11-23 13:07 | PM.DS ---
DS: Admitting Diagnosis Discharge Date 11/23/2024 Admitting Diagnosis Shortness of breath DS: Discharge Diagnosis Discharge Diagnosis (1) Acute on chronic systolic and diastolic heart failure, NYHA class 3: Code(s): I50.43 - Acute on chronic combined systolic (congestive) and diastolic (congestive) heart failure Status: Acute (2) Adenocarcinoma of left lung: Code(s): C34.92 - Malignant neoplasm of unspecified part of left bronchus or lung Status: Acute DS: Summary Hospital Course Hospital Course: Presents with shortness of breath, Discharge on rescue inhaler, breztri, and oxygen 1 L while sleeping. He has seen by pulmonology. He will follow-up in the office. Has been seen by Cardiology. Ejection fraction estimated at 41%. Started on guideline directed medical therapy for heart failure reduced ejection fraction. He will be discharged on Lasix 40 mg p.o. q.day, hydralazine, isosorbide, rosuvastatin. Spironolactone Entresto held due to the patient's elevated serum creatinine. Would like to have Nephrology see the patient and monitor his serum creatinine however the patient politely refuses to stay. He does not want to stay for any reason whatsoever. We have discussed the risk of leaving before workup/treatment is complete. He knows he has elevated white count, elevated serum creatinine. He has not seen Oncology yet. Found to have adeno carcinoma of the left lung via CT-guided biopsy of a left lung nodule paramediastinal. He is to follow with PCP, Nephrology, Cardiology, Oncology. Time Spent with Patient Time attestation: Total time spent providing and/or coordinating discharge services: Time spent: Greater than 30 minutes Exam Const: General: comfortable and no acute distress Other: A&O x3 HENMT: Mouth: Yes moist mucous membranes Eyes: Pupils: Equal, round and reactive pupils present Neck: Neck: supple Resp: Effort & Inspection: normal respiratory effort Other: Decreased breath sounds diffusely. No crackles. No rhonchi. No wheezing Cardio: Rate: regular rate Rhythm: regular rhythm GI: GI Palp: Yes Soft to palpation Neuro: Motor exam (neuro): 5/5 motor strength present throughout Extrem: Other: 1+ pitting edema at the ankles bilaterally. Improved from day prior DS: Data Data Completed and Pending Completed studies during hospitalization: Pending at discharge 11/20/24 13:40 Surgical [PTH] Routine Labs on day of discharge: Labs from last 24 hours 11/23/24 05:29 WBC 13.6 H RBC 4.20 L Hgb 12.8 L Hct 36.9 L MCV 87.9 MCH 30.5 MCHC 34.7 RDW 15.2 H Plt Count 243 MPV 11.2 H Immature Gran % (Auto) 0.7 H Neut % (Auto) 66.7 Lymph % (Auto) 10.9 L [place] % (Auto) 21.2 H Eos % (Auto) 0.4 Baso % (Auto) 0.1 L Lymph # (Auto) 1.49 [place] # (Auto) 2.9 H Eos # (Auto) 0.1 Baso # (Auto) 0.0 Abs Immat Gran (auto) 0.09 H Absolute Neuts (auto) 9.1 H Absolute Nucleated RBC 0.000 Band Neutrophils % Not Reportable Nucleated RBC % 0.0 Platelet Estimate Adequate Large Platelets Present Giant Platelets Present Hypochromasia 1+ Anisocytosis Occasional Target Cells 1+ [place] Cells Occasional Schistocytes None seen Sodium 132 L Potassium 3.8 Chloride 99 Carbon Dioxide 33 H Anion Gap 0 L BUN 45 H Creatinine 1.45 H Estim Creat Clear Calc 44 Estimated GFR 48 L Glucose 108 Calcium 7.9 L Magnesium 1.6 Preliminary micro results at discharge 11/17/24 06:53 Blood Culture - Preliminary Blood 11/17/24 06:29 Blood Culture - Preliminary Blood Discharge Plan Discharge Attending physician on discharge: Benita Castillo Consulting providers: Bill Schreiber; Yosi Milner; Jonny Stephen Discharging Clinician: Benita Castillo Patient Disposition: Home Activity: no shower Diet: as tolerated Discharge Instructions: use oxygen 1 L while sleeping and with activity Patient Instructions: Antibiotic Form, Heart Failure (GEN) Patient Language: Maldivian Stand Alone Forms: General Discharge Information Follow-up/Referrals: Jonny Stephen MD [Physician, Hematology] - 11/27/24 Referral Note: adenocarcinoma of the lung Gee Mas APRN [Primary Care Provider, Internal Medicine] Jm Iniguez MD [Physician, Nephrology] Referral Note: giorgi versus ckd Swathi Guillen [employer] TECHNICIAN-C [Advanced Practice Nurse, Cardiology] - 3 Weeks Yosi Milner MD [Physician, Pulmonology] Discharge Medications: New furosemide 40 mg Tablet 40 mg PO DAILY Qty: 30 0RF hydralazine 10 mg Tablet 10 mg PO TID Qty: 90 0RF isosorbide dinitrate 20 mg Tablet 20 mg PO TID Qty: 90 0RF Continued aspirin [Adult Low Dose Aspirin] 81 mg tablet,delayed release (DR/EC) 81 mg PO DAILY quetiapine 50 mg tablet 50 mg PO QHS triamcinolone acetonide 0.1 % cream 1 applic topical TID Qty: 80 1RF bupropion HCl (smoking deter) 150 mg tablet extended release 12 hr 150 mg PO DIRECTED Qty: 60 5RF Rx Instructions: Take 1 tab by mouth daily for first 3 days, then take 1 tab morning and evening thereafter. Separate doses by at least 8 hours. albuterol sulfate [ProAir HFA] 90 mcg/actuation HFA aerosol inhaler 2 puff INHALATION Q4-6H PRN (Reason: shortness of breath or wheezing) Qty: 8.5 3RF cyclobenzaprine 10 mg tablet 10 mg PO TID PRN (Reason: muscle spasm) Qty: 45 0RF cholecalciferol (vitamin D3) 50 mcg (2,000 unit) Capsule 50 mcg PO DAILY allopurinol 100 mg tablet See Rx Instructions .ROUTE .COMPLEX Qty: 90 3RF Dose Instruction: TAKE 1 TABLET EVERY DAY Rx Instructions: TAKE 1 TABLET EVERY DAY rosuvastatin 40 mg tablet See Rx Instructions .ROUTE .COMPLEX Qty: 90 3RF Dose Instruction: TAKE 1 TABLET EVERY DAY Rx Instructions: TAKE 1 TABLET EVERY DAY omeprazole 20 mg capsule,delayed release(DR/EC) See Rx Instructions .ROUTE .COMPLEX Qty: 90 3RF Dose Instruction: TAKE 1 CAPSULE EVERY DAY Rx Instructions: TAKE 1 CAPSULE EVERY DAY tamsulosin 0.4 mg capsule See Rx Instructions .ROUTE .COMPLEX Qty: 90 3RF Dose Instruction: TAKE 1 CAPSULE AT BEDTIME Rx Instructions: TAKE 1 CAPSULE AT BEDTIME Breztri Aerosphere 160-9-4.8 mcg/actuation HFA aerosol inhaler See Rx Instructions .ROUTE .COMPLEX Qty: 3 1RF Dose Instruction: INHALE 2 PUFFS TWICE DAILY. RINSE AND SPIT AFTER USE Rx Instructions: INHALE 2 PUFFS TWICE DAILY. RINSE AND SPIT AFTER USE carvedilol 25 mg tablet 25 mg PO Q12H Qty: 180 3RF Discontinued hydrocodone-acetaminophen 5-500 mg tablet 1 tablet PO Q4-6H PRN (Reason: Pain) Entresto 24-26 mg tablet 1 tablet PO BID sildenafil 100 mg tablet 100 mg PO DAILY PRN (Reason: sexual activity) Qty: 8 5RF Rx Instructions: administer 30 minutes to 4 hours before activity amlodipine 10 mg tablet See Rx Instructions .ROUTE .COMPLEX Qty: 90 3RF Dose Instruction: TAKE 1 TABLET EVERY DAY Rx Instructions: TAKE 1 TABLET EVERY DAY Date of admission: 11/18/24 14:35 Primary Care Provider: Gee Mas Admitting Provider: Benita Castillo Attending physician on admission: Benita Castillo Condition: Improved Hospitalist MIPS Heart Failure (Exclusion) Patient has history of Heart Transplant or Left Ventricular Assistive Device?: No IF YES, STOP HERE Heart Failure (Qualifier) Patient has current or prior documentation of LVEF less than or equal to 40%, or mod/servere depressed LVSF?: Yes IF NO, STOP HERE If Yes, Heart Failure (Qualifier) Patient was prescribed or already taking an Angiotensin-Converting Enzyme (CHRIS) Inhibitor, or Antiotensin Receptor Ren (ARB): No Patient was prescribed or already taking bisoprolol, carvedilol, or sustained release metoprolol succinate: Yes If Medications not prescribed/taking Reason patient not prescribed/taking CHRIS or ARB: Medical reasons: allergy, intolerance, contraindication or other
--- NOTE | 2024-11-23 14:02 | HOMEO2EVAL ---
Evaluation was performed at [facility] Home Oxygen Evaluation RC: Home Oxygen (O2) Evaluation Start: 11/23/24 09:57 Freq: ONCE Status: Active Protocol: RPE Activity Type Activity Date Activity User E-sign Co-sign Detail Recorded Client Recorded Date Recorded By Document 11/23/24 10:45 [email or web address] [email or web address] 11/23/24 14:01 DJO Document 11/23/24 10:50 [email or web address] 11/23/24 14:01 DJO Document 11/23/24 11:00 [email or web address] [email or web address] 11/23/24 14:01 DJO 11/23/24 11/23/24 11/23/24 10:45 10:50 11:00 Home O2 Evaluation [Oxygen] -Test Phase Resting Exercise Resting -Oxygen Delivery Room Air Room Air Room Air [Pulse Oximetry] -Pulse Oximetry (90-100 %) 95 92 94 [Pulse Rate] -Pulse Rate (60-100 beats/min) 71 88 75 [Evaluation] -Activity Tolerance Good [Exercise] -Ambulation Distance (feet) 400 -Ambulation Distance (meters) 121.91 [Charges] -Evaluation Charges O2 Evaluation by Pulmonary
--- NOTE | 2024-11-23 14:02 | PCRCNOTE ---
HOME O2 EVAL COMPLETE, NO DAY TIME REQUIREMENT. PT TO WEAR 1L NOC. HE ALREADY HAS HOME O2.
== END 2024-11-23 16:50 | disposition home health service (06) | DRG 180 ==
LOC: ANHED 10:27 → ANHIMU 13:37 → ANH3MEDSUR 11-18 22:23 → ANHICU 11-20 15:53 → ANH3MED 11-21 16:28
PROVIDERS: Emergency Medicine; Internal Medicine Pulmonary Disease; Nurse Practitioner Gerontology; Admitting Provider General Practice; Emergency Provider Emergency Medicine; PCP Nurse Practitioner; Visit Provider General Practice
DX: C34.92 Malignant neoplasm of unspecified part of left bronchus or lung (principal); I50.43 Acute on chronic combined systolic (congestive) and diastolic (congestive) heart failure; J96.21 Acute and chronic respiratory failure with hypoxia; I13.0 Hypertensive heart and chronic kidney disease with heart failure and stage 1 through stage 4 chronic kidney disease, or unspecified chronic kidney disease; J44.1 Chronic obstructive pulmonary disease with (acute) exacerbation; I42.0 Dilated cardiomyopathy; E78.5 Hyperlipidemia, unspecified; G47.33 Obstructive sleep apnea (adult) (pediatric); I25.2 Old myocardial infarction; I34.0 Nonrheumatic mitral (valve) insufficiency; I25.10 Atherosclerotic heart disease of native coronary artery without angina pectoris; J43.2 Centrilobular emphysema; K21.9 Gastro-esophageal reflux disease without esophagitis; N18.30 Chronic kidney disease, stage 3 unspecified; Z20.822 Contact with and (suspected) exposure to COVID-19; Z99.81 Dependence on supplemental oxygen; Z91.199 Patient's noncompliance with other medical treatment and regimen due to unspecified reason; Z85.46 Personal history of malignant neoplasm of prostate; Z85.528 Personal history of other malignant neoplasm of kidney; Z85.038 Personal history of other malignant neoplasm of large intestine; Z90.2 Acquired absence of lung [part of]; Z90.81 Acquired absence of spleen; Z98.84 Bariatric surgery status; Z95.1 Presence of aortocoronary bypass graft; Z87.891 Personal history of nicotine dependence; Z79.82 Long term (current) use of aspirin
CPT/HCPCS: 32408; 36415; 36600; 71045; 71275; 78452; 80048; 80053; 82103; 82104; 82375; 82805; 82948; 83050; 83605; 83690; 83735; 83880; 84145; 84484; 85018; 85025; 85027; 85610; 85730; 86140; 86738; 87040; 87449; 87637; 87899; 88305; 88342; 93005; 93017; 93306; 94002; 94003; 94618; 94640; 94762; 96374; 96375; 96376; 97110; 97161; 97165; 97530; 99285; A9270; A9502; G0378; J1644; J1650; J1938; J2785; J2919; J3475; J7512; Q9967

== ENCOUNTER 2024-12-17 09:27 | Outpatient (CLI) | payer MEDICARE, MEDICAID, SELFPAY ==
--- OUTSIDE RECORDS SUMMARY | 2024-12-17 10:22 | XMS_ITS | Encounter Summary ---
Author Organization [facility] Healthcare Address [address] [place] [address] Care Team Providers Care Circuit Breaker Supervisor Name Role Phone Gianni Mas DC Primary Care Provider Encounter Details Date Type Department Care Team (Late st Contact Info) Description 12/14/2024 Orders Only [facility] Cardiology [address] [place] [address] Gino Leger MD [address] [place] [address] Social History Tobacco Use Types Packs/Day Years Used Date Smoking Tobacco: Every Day Cigarettes Smokeless Tobacco: Never Comments:Smoking History Pac ks/day: 0.5 Packs Alcohol Use Standard Drinks/Week Comments Yes 14 (1 standard drink = 0.6 oz pu re alcohol) Sex and Gender Information Value Date Recorded Sex Assigned at Not on file Legal Sex Male 3:50 AM [employer] Gender Identity Not on file Sexual Orientation Not on file documented as of this encounter Plan of Treatment Not on file documented as of this encounter Procedures Procedure Name Priority Date/Time Associated Diagnosis Comments CARDIOLOGY DOCUMENT SCAN Routine 025 10:30 AM CDT documented in this encounter Results * Cardiology Document Scan (11/23/2024 10:30 AM CDT) Anatomical Region Laterality Modality Other Gino Leger MD CV CARDIAC SERVICES PROCEDURES Final Result documented in this encounter Visit Diagnoses Not on filedocumented in this encounter Care Teams Circuit Breaker Supervisor Relationship Specialty Start Date End Date Gianni Mas DC [address] [place] [id number] PCP - General 12/04/24 documented as of this encounter
--- OUTSIDE RECORDS SUMMARY | 2024-12-17 10:22 | XMS_ITS | Clinical Summary ---
Author Organization [facility] [address] [facility] [address] Address [address] [place] [address] Care Team Providers Care Pairer Name Role Phone Gianni Mas DC Primary Care Provider [phone] Allergies No known active allergies Medications omeprazole (PriLOSEC) 20 mg capsule take 1 capsule (20MG) by oral route every day before a meal 0 3 Active aspirin (ASPIRIN LOW DOSE) 81 mg tablet take 1 tablet (81MG) by oral route every day 0 3 Active HYDROcodone-aceta minophen (VICODIN) 5-500 mg per tablet take 1 tablet by oral route every 4 - 6 hours as needed for pain 0 0 3 Active allopurinol (ZYLOPRIM) 100 mg tablet take 1 tablet by oral route every day 0 0 4 Active amLODIPine (NORVASC) 10 mg tablet take 1 tablet by oral route every day 0 0 6 Active Additional Information Patient not taking.Reported on 12/04/2024 cyclobenzaprine (FLEXERIL) 10 mg tablet take 1 [...] by mouth daily 90 tablet 3 9 025 Active budesonide-formot kayleigh (SYMBICORT) 160-4.5 mcg/actuation [...] by mouth daily 15 tablet 11 2 025 Active Additional Information Patient not taking.Reason: Other (on hold due to EMMY), Reported on 12/04/2024 carvediloL (COREG) 25 mg tablet TAKE 1 TABLET TWICE DAILY WITH MEALS 180 tablet 2 3 Active sacubitriL-valsar griffiths (Entresto) 97-103 mg tablet TAKE 1 TABLET TWICE DAILY 180 tablet 1 5 Active Additional Information Patient not taking.Reason: Other (on hold due to EMMY), Reported on 12/04/2024 furosemide (LASIX) 40 mg tablet Take 1 tablet (40 mg total) by mouth daily Active isosorbide dinitrate (ISORDIL) 20 mg tablet Take 1 tablet (20 mg total) by mouth 3 (three) times a day Active hydrALAZINE (APRESOLINE) 10 mg tablet Take 1 tablet (10 mg total) by mouth 3 (three) times a day Active Active Problems Problem Noted Date Diagnosed Date Chronic respiratory failure with hypoxia 023 HFrEF (heart failure with reduced ejection fract ion) 04/15/2022 Mixed hyperlipidemia 10/08/2021 Cardiomyopathy 01/05/2019 COPD (chronic obstructive pulmonary disease) Thoracic aortic aneurysm 07/20/2018 HTN (hypertension), benign 07/20/2018 Coronary artery disease invo lving chicken ranch coronary artery of chicken ranch heart without angina pectoris 07/20/2018 H/O cardiomyopathy 07/20/2018 Dyspnea on exertion 10/16/2015 Overview (05/28/2016): MUÑOZ (dyspnea on exertion) Hx of CABG 10/16/2015 Overview (05/28/2016): S/P CABG (coronary artery bypass graft) Tobacco use 10/16/2015 Overview (05/28/2016): Tobacco abuse Resolved Problems Problem Noted Date Diagnosed Date Resolved Date Dyslipidemia 10/16/2015 10/08/2021 Overview (05/28/2016): Dyslipidemia Encounters Date Type Department Care Team Description 12/14/2024 Orders Only [facility] Cardiology [address] [place] [phone] Gino Leger MD 12/05/2024 Orders Only [facility] Cardiology [address] [place] [address] [place] [phone] ProviderLavell MD 12/04/2024 10:00 AM CDT Office Visit [facility] Medical [facility] Cardiology [address] [place] [address] [place] [address] [phone] Luisa Grant NP HFrEF (heart failure with reduced ejection fraction); Ischemic cardiomyopathy; Chronic obstructive pulmonary disease, unspecified COPD type (HCC); Mixed hyperlipidemia; Chronic kidney disease, unspecified CKD stage; Hospital discharge follow-up 11/23/2024 Orders Only [facility] Cardiology [address] [place] [address] [place] [phone] Swathi Guillen NP 11/22/2024 Telephone [facility] Cardiology [address] [place] [address] [place] [address] [phone] Taylor Currie NP 11/19/2024 Orders Only [facility] Cardiology [address] [place] [address] [place] [phone] Bill Schreiber MD 11/18/2024 Orders Only [facility] Health Information Management [address] [place] [address] Naman Peterson MD from Last 3 Months Surgical History Surgery Date Site/Laterality Comments SPLENECTOMY [...] on file 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 Gender Identity Not on file Sexual Orientation Not on file Obstetrics History Last Filed Vital Signs Vital Sign Reading Time Taken Comments Blood Pressure 98/64 12/04/2024 9:57 AM CDT Pulse 81 12/04/2024 9:57 AM CDT Temperature - - Respiratory Rate - - Oxygen Saturation 99% 12/04/2024 9:57 AM CDT Inhaled Oxygen Concentration - - Weight 80.2 kg (176 lb 12.8 oz) 12/04/2024 9:57 AM CDT Height 177.8 cm (5' 10) 12/04/2024 9:57 AM CDT Body Mass Index 25.37 12/04/2024 9:57 AM CDT Plan of Treatment Health Maintenance Due Date Last Done Comments Colon Cancer Screening-Colonoscopy 1954 Depression Screening 1954 Fall Risk Assessment 1954 Hepatitis C Screening 1954 Prostate Cancer Screening-PSA 1954 Meningococcal B Vaccine (1 o f 4 - Increased Risk) 1964 Hepatitis B Screening 1972 Pneumococcal vaccine 65+ (2 of 2 - PCV) 10/07/2018 10/07/2017, 05/24/2008, 01/18/2006 Abdominal Aortic Aneurysm (A AA) Screen 2019 Well Visit 65+ 2019 DTaP/Tdap/Td Vaccine (3 - Td or Tdap) 10/08/2020 10/08/2010, 02/21/2010, 08/21/1998 Covid-19 Vaccine (5 - 2024-2 6 season) 2024 03/23/2023, 12/15/2020, 05/18/2020, Additional history exists Influenza Vaccine (#1) 2024 , 12/15/2020, 02/01/2019, Additional history exists Zoster Vaccine Completed 03/25/2022, 09/30/2021 Procedures Procedure Name Priority Date/Time Associated Diagnosis Comments POCT LIPID PANEL Routine 12/04/2024 10:0 6 AM CDT Mixed hyperlipidemia CARDIOLOGY DOCUMENT SCAN Routine 11/23/2024 10:30 AM CDT CBC WITHOUT DIFFERENTIAL Routine 11/23/2024 9:42 AM CDT ECG 12-LEAD Routine 11/20/2024 9:40 AM CDT CARDIOLOGY DOCUMENT SCAN Routine 11/19/2024 10:13 AM CDT CARDIOLOGY DOCUMENT SCAN Routine 11/18/2024 3:48 PM CDT CARDIOLOGY DOCUMENT SCAN 11/18/2024 SCAN - RADIOLOGY/IMAGING 11/18/2024 from Last 3 Months Results * POCT lipid panel (12/04/2024 10:06 AM CDT) Cholesterol, POC 158 <200 MG/DL HDL, POC 88 >=40 mg/dL Triglycerides, POC 72 <=149 mg/dL LDL Cholesterol POC 56 <=129 mg/dL Chol/HDL Ratio, POC 0.6 NONE Non-HDL Cholesterol, POC 70 NONE mg/dL Cholesterol Total, POC 158 30 - 199 mg/dL Capillary blood 12/04/2024 1 0:06 AM CDT Luisa Grant NP POINT OF CARE TEST ORDERA BLES Final Result * Cardiology Document Scan (11/23/2024 10:30 AM CDT) Anatomical Region Laterality Modality Other Gino Leger MD CV CARDIAC SERVICES PROCEDURES Final Result * (ABNORMAL) CBC without differential (11/23/2024 9:42 AM CDT) SCRIBED WBC 13.6(A) 3.8 - 9.9 K/cumm EXTERNAL LAB SCRIBED Hemoglobin 12.8(A) 13.0 - 17.5 g/dL EXTERNAL LAB SCRIBED Hematocrit 36.9 35.6 - 45.5 % EXTERNAL LAB SCRIBED Platelets 243 150 - 400 K/cumm EXTERNAL LAB SCRIBED MPV 11.2 9.1 - 12.3 fL EXTERNAL LAB SCRIBED RBC 4.20(A) 4.30 - 5.80 M/cumm EXTERNAL LAB SCRIBED MCV 87.9 81.3 - 96.4 fL EXTERNAL LAB SCRIBED MCH 30.5 27.1 - 33.3 pg EXTERNAL LAB Blood Lavell Provider LAB BLOOD ORDERABLES Edit ed Result - Final EXTERNAL LAB * ECG 12 lead (11/20/2024 9:40 AM CDT) Historical Provider ECG ORDERABLES Final Res ult * Cardiology Document Scan (11/19/2024 10:13 AM CDT) Anatomical Region Laterality Modality Other Swathi Guillen NP CV CARDIAC SERVICES PROCEDUR ES Final Result * Cardiology Document Scan (11/18/2024 3:48 PM CDT) Anatomical Region Laterality Modality Other Bill Schreiber MD CV CARDIAC SERVICES PROCEDU RES Final Result * SCAN - RADIOLOGY/IMAGING (11/18/2024) Anatomical Region Laterality Modality Other Naman Peterson MD Final R esult * Cardiology Document Scan (11/18/2024) Anatomical Region Laterality Modality Other Naman Peterson MD CV CARDIAC SERVICES PRO CEDURES Edited Result - Final from Last 3 Months Insurance [employer] MEDICARE HMO [employer] MEDICARE HMO Care Teams Pairer Relationship Specialty Start Date End Date Gianni Mas DC [address] [place] [id number] PCP - General 12/04/24
--- OUTSIDE RECORDS SUMMARY | 2024-12-17 10:22 | XMS_ITS | Encounter Summary ---
Author Organization [facility] Healthcare Address [address] [place] [address] Care Team Providers Care Services Account Manager Name Role Phone Grayson Long Primary Care Provider Gianni Mas DC Primary Care Provider [phone] Encounter Details Date Type Department Care Team (Late st Contact Info) Description 11/18/2024 Orders Only [facility] Health Information Management [address] [place] [address] Naman Peterson MD [address] [facility] [address] [address] Social History Tobacco Use Types Packs/Day Years Used Date Smoking Tobacco: Every Day Cigarettes Smokeless Tobacco: Never Comments:Smoking History Pac ks/day: 0.5 Packs Alcohol Use Standard Drinks/Week Comments Yes 14 (1 standard drink = 0.6 oz pu re alcohol) Sex and Gender Information Value Date Recorded Sex Assigned at Not on file 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 Gender Identity Not on file Sexual Orientation Not on file documented as of this encounter Plan of Treatment Not on file documented as of this encounter Procedures Procedure Name Priority Date/Time Associated Diagnosis Comments SCAN - RADIOLOGY/IMAGING 11/18/2024 CARDIOLOGY DOCUMENT SCAN 11/18/2024 documented in this encounter Results * SCAN - RADIOLOGY/IMAGING (11/18/2024) Anatomical Region Laterality Modality Other us Naman Peterson MD Final R esult * Cardiology Document Scan (11/18/2024) Anatomical Region Laterality Modality Other us Naman Peterson MD CV CARDIAC SERVICES PRO CEDURES Edited Result - Final documented in this encounter Visit Diagnoses Not on filedocumented in this encounter Care Teams Services Account Manager Relationship Specialty Start Date End Date Grayson Long PA [address] [facility] [address] [place] [address] PCP - General Physician Law Office Assistant 04/20/19 12/03/24 Gianni Mas DC [address] [place] [id number] PCP - General 12/04/24 documented as of this encounter
--- OUTSIDE RECORDS SUMMARY | 2024-12-17 10:22 | XMS_ITS | Clinical Summary ---
Author Organization [facility] Octavia hutson Yogi Address [address] [place] [address] Care Team Providers Care Rampman Name Role Phone Unavailable Primary Care Provider Unavailabl e Allergies No known active allergies Medications acetaminophen (TYLENOL) 500 mg Capsule Take 500 mg by mouth every 6 hours as needed. Active allopurinoL (ZYLOPRIM) 100 mg tablet Take 100 mg by mouth daily. 5 Active amLODIPine (NORVASC) 10 mg tablet Take 10 mg by mouth daily. 5 Active budesonide-form oteroL (SYMBICORT) 160-4.5 mcg/actuation HFA Aerosol Inhaler Take 2 Puffs by inhalation 2 times daily. Active carvediloL (COREG) 25 mg tablet Take 25 mg by mouth 2 times daily with meals. 3 Active Cholecalciferol , Vitamin D3, 50 mcg (2,000 unit) Capsule Take 2,000 Units by mouth daily. Active cyclobenzaprine (FLEXERIL) 10 mg tablet Take 10 mg by mouth 2 times daily. 5 Active furosemide (LASIX) 40 mg tablet Take 40 mg by mouth daily. Active hydrALAZINE (APRESOLINE) 10 mg tablet Take 10 mg by mouth 3 times daily. Active ipratropium-alb uteroL (COMBIVENT RESPIMAT) 20-100 mcg/actuation Mist Take 1 Puff by inhalation. Active isosorbide dinitrate (ISORDIL) 20 mg tablet Take 20 mg by mouth. Active omeprazole (PriLOSEC) 20 mg Capsule, Delayed Release(E.C.) Take 20 mg by mouth daily. 5 Active QUEtiapine (SEROquel) 50 mg tablet Take 50 mg by mouth daily at bedtime. Active rosuvastatin (CRESTOR) 40 mg tablet Take 40 mg by mouth daily. 9 01/10/20 25 Active sacubitriL-vals melinda (ENTRESTO) 97-103 mg Tablet Take 1 Tablet by mouth 2 times daily. 5 Active spironolactone (ALDACTONE) 25 mg tablet Take 12.5 mg by mouth daily. 2 01/10/20 25 Active tamsulosin (FLOMAX) 0.4 mg capsule Take 0.4 mg by mouth daily. Active HYDROcodone-michelle taminophen (NORCO) 5-325 mg tablet Take 1 Tablet by mouth every 4 hours as needed for Pain, Moderate. Active sildenafiL (VIAGRA) 100 mg tablet Take 100 mg by mouth 1 time daily as needed for Erectile Dysfunction. Active Active Problems No known active problems Encounters Date Type Department Care Team Description 12/12/2024 External Device Data STL ABSTRACTION Provider, Abstract 12/12/2024 External Device Data STL ABSTRACTION Provider, Abstract 12/11/2024 External Device Data STL ABSTRACTION Provider, Abstract 12/06/2024 9:00 AM CDT Office Visit [facility] Oncology and Hematology - [place] [address] [phone] Jonny Stephen MD Malignant neoplasm of upper lobe of left lung (Primary Dx) from Last 3 Months Family History Medical History Relation Name Comments Breast Cancer Child 1 Breast Cancer Child 2 No Known Problems Child 3 No Known Problems Child 4 No Known Problems Child 5 No Known Problems Child 6 No Known Problems Father No Known Problems Mother Relation Name Status Comments Child 1 Child 2 Alive Child 3 Alive Child 4 Alive Child 5 Alive Child 6 Alive Father Mother Social History Tobacco Use Types Packs/Day Years Used Date Smoking Tobacco: Former Cigarettes 1 55 0 10/22/1969 - 10/22/2024 Smokeless Tobacco: Never Alcohol Use Standard Drinks/Week Comments Not Currently 0 (1 standard drink = 0.6 oz pure alcohol) use to bring about 2-3 beers daily Sex and Gender Information Value Date Recorded Sex Assigned at Not on file Legal Sex Male 12:27 PM CDT Gender Identity Not on file Sexual Orientation Not on file Last Filed Vital Signs Vital Sign Reading Time Taken Comments Blood Pressure 139/91 12/06/2024 9:15 AM CDT Pulse 84 12/06/2024 9:12 AM CDT Temperature 36.1 C (96.9 F) 12/06/2024 9:12 AM CDT Respiratory Rate 16 12/06/2024 9:12 AM CDT Oxygen Saturation 93% 12/06/2024 9:12 AM CDT Inhaled Oxygen Concentration - - Weight 79.9 kg (176 lb 3.2 oz) 12/06/2024 9:12 A M CDT Height 177.8 cm (5' 10) 12/06/2024 9:12 AM CDT Body Mass Index 25.28 12/06/2024 9:12 AM CDT Plan of Treatment Upcoming Encounters Date Type Department Care Team (Late st Contact Info) Description 12/25/2024 4:30 PM MATERIAL CUTTER Telephone Check Up [facility] Oncology and Hematology [facility] [address] [facility] 200 [place] [address] Jonny Stephen MD [address] [facility] [address] [place] [address] Health Maintenance Due Date Last Done Comments Pre-Diabetes and Diabetes Screening 1954 DTAP/TDAP/TD VACCINES (1 - Tdap) 1973 PNEUMOCOCCAL VACCINE 50+ YEARS (1 of 2 - PCV) 03/15/18 74 COLORECTAL SCREENING 1999 Colorectal Cancer Screening 1999 FIT-DNA Q 3 years 1999 FIT/FOBT Q 1 year 1999 Flex Sig/CT Colonography Q 5 years 1999 RSV VACCINE (60+ or ) (1 - Risk 50-74 years 1-dose series) 2004 ZOSTER VACCINE (1 of 2) 2004 Abdominal Aortic Aneurysm (AAA) Screening 2019 INFLUENZA VACCINE (#1) 2024 03/23/2023 COVID-19 Vaccine (2 - season) 2024 [facility]
[2024-12-17 10:52] LABS: Albumin Level 3.8 g/dL (3.5-5.1); Anion Gap 6 mmol/L (4-12); Blood Urea Nitrogen 24 mg/dL (9-20); Calcium 8.9 mg/dL (8.4-10.2); Carbon Dioxide 31 mmol/L (22-30); Chloride 102 mmol/L (98-107); Estimated Glomerular Filt Rate 45; Glucose 98 mg/dL (65-110); Potassium 3.6 mmol/L (3.4-5.0); Sodium 139 mmol/L (137-145)
[2024-12-17 11:52] LABS: Total Protein Urine Random 366 mg/dL; Ur Ttl Prot Creatinine Ratio 2.97 mg/mg (0-0.20)
[2024-12-18 13:09] LABS: Albumin 2.9 g/dL (2.9-4.4); Alpha-1-Globulin 0.3 g/dL (0.0-0.4); Alpha-2-Globulin 0.8 g/dL (0.4-1.0); Gamma Globulin 1.2 g/dL (0.4-1.8)
[2024-12-18 16:08] LABS: ANA by IFA Rfx Titer/Pattern Positive (.)
[2024-12-19 14:09] LABS: Immunoglobulin A, Qn 339 mg/dL (61-437); Immunoglobulin G, Qn 1212 mg/dL (603-1613); Immunoglobulin M, Qn 122 mg/dL (20-172)
[2024-12-19 14:09] LABS: Albumin, U 62.6 % (.); Alpha-1-Globulin, U 7.8 % (.); Alpha-2-Globulin, U 7.7 % (.); Beta Globulin, U 13.1 % (.); Gamma Globulin, U 8.8 % (.)
[2024-12-19 19:08] LABS: Anti-GBM Antibodies <0.2 units (0.0-0.9)
== END 2024-12-17 09:28 | disposition home or self-care (01) ==
LOC: ANHLAB 09:32
PROVIDERS: PCP Nurse Practitioner; Visit Provider Internal Medicine Nephrology
DX: I12.9 Hypertensive chronic kidney disease with stage 1 through stage 4 chronic kidney disease, or unspecified chronic kidney disease (principal); I42.9 Cardiomyopathy, unspecified; N18.31 Chronic kidney disease, stage 3a
CPT/HCPCS: 36415; 80069; 82570; 82784; 84155; 84156; 84165; 84166; 86037; 86038; 86160; 86225; 86334; 86335; 86364

== ENCOUNTER 2024-12-18 10:32 | Outpatient (CLI) | payer MEDICARE, MEDICAID, SELFPAY ==
--- NOTE | ~2024-12-18 | PE_ITS ---
EXAMINATION: PET skull to mid thigh DATE: 12/18/2024 12:49 INDICATION: Malignant neoplasm of upper lobe of lung. TECHNIQUE: Blood glucose level was 88 mg/dL. 10.765 mCi of 18-fluorodeoxyglucose (18-FDG) was administered i.v. Low dose computed tomography (CT) images were acquired from the base of the brain to the proximal thighs for attenuation correction and anatomic localization. Automated exposure control was employed. Dose-length product (DLP) was 676 mGy-cm. Positron emission tomography (PET) images were acquired in the same distribution. COMPARISON: Chest CT 11/20/2024, 11/09/2023 FINDINGS: Head/neck: There are no pathologically enlarged lymph nodes. Chest: There are changes of right upper lobectomy. There is mild peripheral scarring in right lower lobe. There is a 10 mm nodule in left lung upper lobe abutting the pleura with maximum SUV of 5.7. CT-guided biopsy on 11/20/2024 demonstrated adenocarcinoma. There is a 5 mm nodule in right lower lobe with maximum SUV of 4.7. There is a 4 mm nodule in left upper lobe. There is a chronic 4 mm nodule in lingula. No pleural effusion. Cardiomegaly is noted. There are coronary artery calcifications. There are changes of coronary artery bypass grafting. No pericardial effusion. There is bilateral gynecomastia. There are enlarged lymph nodes in the aorticopulmonary window measuring up to 2.3 x 1.9 cm with maximum SUV of 2.8, increased from 1.8 x 1.3 cm on 11/09/23. Abdomen/pelvis/proximal thighs: The liver is normal. There are changes of cholecystectomy. The spleen is absent. The pancreas, adrenal glands, and right kidney are normal. There is a 1.8 cm cyst in left kidney. The prostate is mildly enlarged. There are radiopaque markers in the prostate. There is diffuse bladder wall thickening, likely secondary to chronic outlet obstruction. There are no dilated loops of bowel. There are widespread arterial calcifications. There are no pathologically enlarged lymph nodes. There is no free intraperitoneal fluid. There is bilateral sacroiliitis. IMPRESSION: 1. 10 mm nodule in left lung upper lobe with increased activity, consistent with biopsy-proved adenocarcinoma. 2. Lymphadenopathy in the aorticopulmonary window with mildly increased activity, consistent with metastatic disease. 3. 5 mm nodule in right lung lower lobe with increased activity, worsened from 11/09/2023, suspicious for metastatic disease. Reviewed, dictated and finalized at location E. IMPRESSION: 1. 10 mm nodule in left lung upper lobe with increased activity, consistent wit h biopsy-proved adenocarcinoma. 2. Lymphadenopathy in the aorticopulmonary window with mildly increased activit y, consistent with metastatic disease. 3. 5 mm nodule in right lung lower lobe with increased activity, worsened from 11/09/2023, suspicious for metastatic disease.
--- OUTSIDE RECORDS SUMMARY | 2024-12-18 12:10 | XMS_ITS | Encounter Summary ---
Author Organization [facility] Healthcare Address [address] [place] [address] Care Team Providers Care Sales And Service Advisor Name Role Phone Grayson Long Primary Care Provider Gianni Mas DC Primary Care Provider [phone] Encounter Details Date Type Department Care Team (Late st Contact Info) Description 11/18/2024 Orders Only [facility] Health Information Management [address] [place] [address] Naman Peterson MD [address] [facility] [place] [address] [address] Social History Tobacco Use Types Packs/Day Years Used Date Smoking Tobacco: Every Day Cigarettes Smokeless Tobacco: Never Comments:Smoking History Pac ks/day: 0.5 Packs Alcohol Use Standard Drinks/Week Comments Yes 14 (1 standard drink = 0.6 oz pu re alcohol) Sex and Gender Information Value Date Recorded Sex Assigned at Not on file 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
--- OUTSIDE RECORDS SUMMARY | 2024-12-18 12:10 | XMS_ITS | Clinical Summary ---
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
--- OUTSIDE RECORDS SUMMARY | 2024-12-18 12:10 | XMS_ITS | Encounter Summary ---
Author Organization [facility] Healthcare Address [address] [place] [address] Care Team Providers Care Maintenance Mechanic Name Role Phone Gianni Mas DC Primary Care Provider Encounter Details Date Type Department Care Team (Late st Contact Info) Description 12/14/2024 Orders Only [facility] Medical Group Cardiology [address] [place] [address] Gino Leger MD [address] [place] [address] Social History Tobacco Use Types Packs/Day Years Used Date Smoking Tobacco: Every Day Cigarettes Smokeless Tobacco: Never Comments:Smoking History Pac ks/day: 0.5 Packs Alcohol Use Standard Drinks/Week Comments Yes 14 (1 standard drink = 0.6 oz pu re alcohol) Sex and Gender Information Value Date Recorded Sex Assigned at Not on file 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
--- OUTSIDE RECORDS SUMMARY | 2024-12-18 12:10 | XMS_ITS | Clinical Summary ---
Author Organization [facility] [address] [facility] 162 Address [address] [place] [address] Care Team Providers Care Drop Hammer Pile Driver Operator Name Role Phone Gianni Mas DC Primary Care Provider [phone] Allergies No known active allergies Medications omeprazole [...] Department Care Team Description 12/14/2024 Orders Only [facility] Cardiology [address] [place] [phone] Gino Leger MD 12/05/2024 Orders Only [facility] Cardiology [address] [place] [address] [place] [phone] ProviderLavell MD 12/04/2024 10:00 AM CDT Office Visit [facility] Medical [facility] Cardiology [address] [place] [address] [place] [phone] Luisa Grant NP HFrEF (heart failure with reduced ejection fraction); Ischemic cardiomyopathy; Chronic obstructive pulmonary disease, unspecified COPD type (HCC); Mixed hyperlipidemia; Chronic kidney disease, unspecified CKD stage; Hospital discharge follow-up 11/23/2024 Orders Only [facility] Cardiology [address] [place] [address] [place] [phone] Swathi Guillen NP 11/22/2024 Telephone [facility] Cardiology [address] [place] [address] [place] [phone] Taylor Currie NP 11/19/2024 Orders Only [facility] Cardiology [address] [place] [address] [place] [phone] Bill Schreiber MD 11/18/2024 Orders Only [facility] Health Information Management [address] [place] [address] Naman Peterson MD from Last 3 Months [...] on file 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
== END 2024-12-18 10:33 | disposition home or self-care (01) ==
PROVIDERS: PCP Nurse Practitioner; Visit Provider Internal Medicine Hematology & Oncology
DX: C34.12 Malignant neoplasm of upper lobe, left bronchus or lung (principal)
CPT/HCPCS: 78815; A9552

== ENCOUNTER 2024-12-25 10:33 | Outpatient (CLI) | payer MEDICARE, MEDICAID, SELFPAY ==
[2024-12-25 11:33] LABS: Anion Gap 7 mmol/L (4-12); Blood Urea Nitrogen 37 mg/dL (9-20); Calcium 8.5 mg/dL (8.4-10.2); Carbon Dioxide 30 mmol/L (22-30); Chloride 100 mmol/L (98-107); Estimated Glomerular Filt Rate 42; Glucose 164 mg/dL (65-110); Potassium 3.5 mmol/L (3.4-5.0); Sodium 137 mmol/L (137-145)
--- OUTSIDE RECORDS SUMMARY | 2024-12-25 12:11 | XMS_ITS | Encounter Summary ---
Author Organization [facility] [employer] [facility] Address [address] [place] [address] Care Team Providers Care Vocational Aide Name Role Phone Unavailable Primary Care Provider Unavailabl e Encounter Details Date Type Department Care Team ([facility] Contact Info) Description 12/19/2024 Orders Only [facility] Oncology and Hematology - [address] [place] [address] Jonny Stephen MD [address] [facility] [address] [place] [phone] Social History Tobacco Use Types Packs/Day Years [...] as of this encounter Plan of Treatment Upcoming Encounters Date Type Department Care Team (Late Contact Info) Description 12/25/2024 4:30 PM MAINTENANCE AND CUSTODIAN SUPERVISOR Telephone Check Up [facility] Oncology and Hematology - [address] [place] [address] Jonny Stephen MD [address] [facility] [address] [place] [phone] documented as of this encounter Procedures Procedure Name Priority Date/Time Associated Diagnosis Comments PET BONE IMG W CT SKL BSE MID THG Routine 12/18/2024 12:00 PM CDT documented in this encounter Results * PET BONE IMG W CT SKB MDTH (12/18/2024 12:00 PM CDT) Anatomical Region Laterality Modality Positron Emissio n Tomography (PET) us Jonny Stephen MD PE ORDERABLES Final Result documented in this encounter Visit Diagnoses Not on filedocumented in this encounter
--- OUTSIDE RECORDS SUMMARY | 2024-12-25 12:11 | XMS_ITS | Clinical Summary ---
Author Organization [facility] Octavia hutson [employer]ogi Address [address] [place] [address] Care Team Providers Care Director Of Mobile Marketing Name Role Phone Unavailable Primary Care Provider [...] Encounters Date Type Department Care Team Description 12/19/2024 Orders Only [facility] Oncology and [facility] [address] [place] [address] Jonny Stephen MD 12/12/2024 External Device Data STL ABSTRACTION Provider, Abstract 12/12/2024 External Device Data STL ABSTRACTION Provider, Abstract 12/11/2024 External Device Data STL ABSTRACTION Provider, Abstract 12/06/2024 9:00 AM CDT Office Visit [facility] Oncology and [facility] [address] [place] [address] Jonny Stephen MD Malignant neoplasm of upper lobe of left lung (CMS/HCC) (Primary Dx) from Last 3 Months Family [...] st Contact Info) Description 12/25/2024 4:30 PM POTATO INSPECTOR Telephone Check Up [facility] Oncology and Hematology - [address] [facility] [address] [place] [address] Jonny Stephen MD [address] [facility] [address] [place] [address] Health Maintenance Due Date Last [...] 2004 Abdominal Aortic Aneurysm (AAA) Screening 2019 [place]) Prev entative Visit/Annual Wellness Visit 02/22/2024 INFLUENZA VACCINE (#1) 2024 03/23/2023 COVID-19 Vaccine ( season) 2024 Procedures Procedure Name Priority Date/Time Associated Diagnosis Comments PET BONE IMG W CT SKL BSE MID THG Routine 12/18/2024 12:00 PM CDT from Last 3 Months Results * PET BONE IMG W CT SKB MDTH (12/18/2024 12:00 PM CDT) Anatomical Region Laterality Modality Positron Emissio n Tomography (PET) Jonny Stephen MD PE ORDERABLES Final Result from Last 3 Months Insurance
== END 2024-12-25 10:34 | disposition home or self-care (01) ==
LOC: ANHLAB 10:35
PROVIDERS: PCP Nurse Practitioner; Visit Provider Nurse Practitioner Adult Health
DX: I50.20 Unspecified systolic (congestive) heart failure (principal)
CPT/HCPCS: 36415; 80048

== ENCOUNTER 2024-12-27 13:53 | Outpatient (CLI) | payer MEDICARE, MEDICAID, SELFPAY ==
--- NOTE | ~2024-12-27 | US_ITS ---
EXAM/PROCEDURE: Bilateral renal ultrasound HISTORY: Hypertensive chronic kidney disease COMPARISON: 2014 TECHNIQUE: FINDINGS: Right Kidney: There is no hydronephrosis seen on either side. There are multiple bright reflectors, which could relate to small nonobstructive stones. No suspicious masses are seen. Left Kidney: There is no hydronephrosis seen on either side. No urinary tract stones are seen on the images submitted. No suspicious masses are seen. The kidneys are echogenic, consistent with medical renal disease. There are small bilateral renal cysts. Bladder: No stones or soft tissue filling defects are seen. Bilateral ureteral jets are seen. The bladder wall is thickened at 7 mm. IMPRESSION: 1. Evidence of medical renal disease 2. Bright reflectors in the right kidney as described. 3. Thickening of the bladder wall. Reviewed, dictated and finalized at location A. NTING BULK MATERIAL OPERATOR
--- OUTSIDE RECORDS SUMMARY | 2024-12-27 20:19 | XMS_ITS | Clinical Summary ---
Author Organization [facility] Octavia hutson Yogi Address [address] [place] [address] Care Team Providers Care Substance Abuse Prevention Coordinator Name Role Phone Unavailable Primary Care Provider [...] Encounters Date Type Department Care Team Description 12/25/2024 4:30 PM UTILITY WORKER Telephone Check Up [facility] Oncology and Hematology [facility] [address] [place] [phone] Jonny Stephen MD Malignant neoplasm of upper lobe of left lung (CMS/HCC) (Primary Dx) 12/19/2024 Orders Only [facility] Oncology and Hematology [facility] [address] [place] [phone] Jonny Stephen MD 12/12/2024 External Device Data STL ABSTRACTION Provider, Abstract 12/12/2024 External Device Data STL ABSTRACTION Provider, Abstract 12/11/2024 External Device Data STL ABSTRACTION Provider, Abstract 12/06/2024 9:00 AM CDT Office Visit [facility] Oncology and Hematology [facility] [address] [place] [address] Jonny Stephen MD Malignant neoplasm of upper [...] 12/06/2024 9:12 AM CDT Plan of Treatment Health Maintenance [...] 03/23/2023 COVID-19 Vaccine (2 - season) 2024 Procedures Procedure Name Priority Date/Time Associated Diagnosis Comments PET BONE IMG W CT SKL BSE MID THG Routine 12/18/2024 12:00 PM CDT from Last 3 Months Results * PET BONE IMG W CT SKB MD (12/18/2024 12:00 PM CDT) Anatomical Region Laterality Modality Positron Emissio n Tomography (PET) Jonny Stephen MD PE ORDERABLES Final Result from Last 3 Months Insurance [facility] Address: [address] [address]
--- OUTSIDE RECORDS SUMMARY | 2024-12-27 20:19 | XMS_ITS | Encounter Summary ---
Author Organization [facility] Healthcare Address [address] [place] [address] Care Team Providers Care Cloud Security Architect Name Role Phone Grayson Long Primary Care Provider Gianni Mas DC Primary Care Provider [phone] Encounter Details Date Type Department Care Team (Late st Contact Info) Description 11/18/2024 Orders Only [facility] Health Information Management [address] [place] [address] Naman Peterson MD 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
--- OUTSIDE RECORDS SUMMARY | 2024-12-27 20:19 | XMS_ITS | Clinical Summary ---
Author Organization [facility] [address] [facility] [address] Address [address] [place] [address] Care Team Providers Care Parimutuel Clerk Name Role Phone Gianni Mas DC Primary Care Provider Allergies No known active [...] benign 07/20/2018 Coronary artery disease invo lving [place] coronary artery of [place] heart without angina pectoris 07/20/2018 H/O cardiomyopathy 07/20/2018 Dyspnea on exertion 10/16/2015 Overview (05/28/2016): MUÑOZ (dyspnea on exertion) Hx of CABG 10/16/2015 Overview (05/28/2016): S/P CABG (coronary artery bypass graft) Tobacco use 10/16/2015 Overview (05/28/2016): Tobacco abuse Resolved Problems Problem Noted Date Diagnosed Date Resolved Date Dyslipidemia 10/16/2015 10/08/2021 Overview (05/28/2016): Dyslipidemia Encounters Date Type Department Care Team Description 12/27/2024 Telephone [facility] Cardiology [address] [place] [phone] Luisa Grant NP 12/21/2024 Telephone [facility] Cardiology [address] [place] [address] [place] [phone] Luisa Grant NP lab orders 12/14/2024 Orders Only [facility] Cardiology [address] [place] [address] [place] [phone] Gino Leger MD 12/05/2024 Orders Only [facility] Cardiology [address] [facility] [address] [place], [place] [address] [place] [address] Lavell Spann MD 12/04/2024 10:00 AM CDT Office Visit [facility] Cardiology [address] [place] [phone] Luisa Grant NP HFrEF (heart failure with reduced ejection fraction); Ischemic cardiomyopathy; Chronic obstructive pulmonary disease, unspecified COPD type (HCC); Mixed hyperlipidemia; Chronic kidney disease, unspecified CKD stage; Hospital discharge follow-up 11/23/2024 Orders Only [facility] Cardiology [address] [place] [address] [place] [phone] Swathi Guillen, NANDA 11/22/2024 Telephone [facility] Cardiology [address] [place] [phone] Taylor Currie NP 11/19/2024 Orders Only [facility] Cardiology [address] [place] [phone] Bill Schreiber MD 11/18/2024 Orders Only [facility] Health Information Management [address] [place] [address] Naman Peterson MD from Last 3 Months [...] on file Legal Sex Male 3:50 AM 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 OF 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 Gender Identity Not on file Sexual Orientation [...] Procedure Name Priority Date/Time Associated Diagnosis Comments BASIC METABOLIC PANEL Routine 12/27/2024 3:39 PM DEPARTMENT OF SOCIOLOGY CHAIR HFrEF (heart failure with reduced ejection fraction) POCT LIPID PANEL Routine 12/04/2024 10:0 6 [...] 11/18/2024 from Last 3 Months Results * Basic metabolic panel (12/27/2024 3:39 PM DEPARTMENT OF SOCIOLOGY CHAIR) Blood Luisa Grant NP LAB BLOOD ORDERABLES Dinorah l Result EXTERNAL LAB * POCT lipid panel (12/04/2024 10:06 AM [...] 27.1 - 33.3 pg EXTERNAL LAB Blood Result [facility] Historical Provider LAB BLOOD ORDERABLES Edit ed Result [...] MEDICARE HMO HUMANA MEDICARE HMO Care Teams Parimutuel Clerk Relationship Specialty Start Date End Date Gianni Mas DC [address] [place] [id number] PCP - General 12/04/24
--- OUTSIDE RECORDS SUMMARY | 2024-12-27 20:19 | XMS_ITS | Encounter Summary ---
Author Organization [facility] Healthcare Address [address] [place] [address] Care Team Providers Care Inspector Printed Circuit Boards Name Role Phone Gianni Mas DC Primary Care Provider Encounter Details Date Type Department Care Team (Late st Contact Info) Description 12/27/2024 Telephone [facility] Cardiology [address] [address] [address] [place] [address] Luisa Grant NP [address] [place], [place] [phone] Social History Tobacco Use Types Packs/Day Years Used Date Smoking Tobacco: Every Day Cigarettes Smokeless Tobacco: Never Comments:Smoking History Pac ks/day: 0.5 Packs Alcohol Use Standard Drinks/Week Comments Yes 14 (1 standard drink = 0.6 oz pu re alcohol) Sex and Gender Information Value Date Recorded Sex Assigned at Not on file Legal Sex Male 3:50 AM FRAME CARVER SPINDLE Gender Identity Not on file Sexual Orientation Not on file documented as of this encounter Miscellaneous Notes * Telephone Encounter - Luisa Grant NP - 12/27/2024 4:32 PM FRAME CARVER SPINDLE Since his weight has come down, I want him to reduce furosemide to 40 mg once a day. Next, I want him to stop the isosorbide dinitrate and hydralazine, and start Entresto 24/26 mg bid. He will need to repeat a BMP one week after starting the Entresto. If possible, I want him to check blood pressureafter starting the Entresto and notify us if it goes below 90/50. And it looks like he sees Dr. Ram in a couple weeks. Thank you. E CARVER SPINDLE * Telephone Encounter - Ashley Feliciano RN - 12/27/2024 3:40 PM FRAME CARVER SPINDLE Forwarded to CT BMP results scanned into system. E CARVER SPINDLE * Telephone Encounter - Alaina Silveira - 12/27/2024 3:31 PM CST Pt states that he still taking furosemide (lasix). Requesting a call back to discuss restarting spironolactone and Entresto. Refill request below. Please advise. Patient requesting refill for hydrALAZINE (APRESOLINE) 10 mg, isosorbide dinitrate (ISORDIL) 20 mg and furosemide (LASIX) 40 mg with 90 day supply. Please send to [facility] pharmacy. Thank you. Contact [phone] E CARVER SPINDLE * Telephone Encounter - Ashley Feliciano RN - 12/27/2024 2:53 PM FRAME CARVER SPINDLE Pt walked into the office today asking about restarting spironolactone and Entresto, states he had labs drawn at on 12/25, Barbara in [facility] faxing results, Verified per last note that pt should be taking furosemide 40 mg BID, he thinks he is but will verify when he gets home. Weight was 177 at discharge from hospital and was 172 today, states it has been running 171-172 for the last week. E CARVER SPINDLE documented in this encounter Plan of Treatment Not on file documented as of this encounter Visit Diagnoses Not on filedocumented in this encounter Care Teams Inspector Printed Circuit Boards Relationship Specialty Start Date End Date Gianni Mas DC [address] [place] [phone] PCP - General 12/04/24 documented as of this encounter
== END 2024-12-27 13:54 | disposition home or self-care (01) ==
PROVIDERS: PCP Nurse Practitioner; Visit Provider Internal Medicine Nephrology
DX: I12.9 Hypertensive chronic kidney disease with stage 1 through stage 4 chronic kidney disease, or unspecified chronic kidney disease (principal); N18.31 Chronic kidney disease, stage 3a; I50.20 Unspecified systolic (congestive) heart failure; N32.89 Other specified disorders of bladder; I42.9 Cardiomyopathy, unspecified
CPT/HCPCS: 76770

== ENCOUNTER 2024-12-31 09:42 | Outpatient (CLI) | payer MEDICARE, MEDICAID, SELFPAY ==
[2024-12-31 10:20] VITALS: PULSE 91; O2SAT 99
--- OUTSIDE RECORDS SUMMARY | 2024-12-31 10:21 | XMS_ITS | Clinical Summary ---
Author Organization [facility] Octavia hutson Yogi Address [address] [place] [address] Care Team Providers Care Biometric Screener Name Role Phone Unavailable Primary Care Provider [...] Department Care Team Description 12/25/2024 4:30 PM EMERGENCY MEDICINE NURSE PRACTITIONER Telephone Check Up [facility] Oncology and Hematology [facility] [address] [place] [phone] Jonny Stephen MD Malignant neoplasm of upper lobe of left lung (CMS/HCC) (Primary Dx) 12/19/2024 Orders Only [facility] Oncology and Hematology [facility] [address] [place] [phone] Jonny Stephen MD 12/12/2024 External Device Data STL ABSTRACTION Provider, Abstract 12/12/2024 External Device Data STL ABSTRACTION Provider, Abstract 12/11/2024 External Device Data STL ABSTRACTION Provider, Abstract 12/06/2024 9:00 AM CDT Office Visit [facility] Oncology and Hematology [facility] [address] [place] [address] Jonny Stephen MD Malignant neoplasm of upper [...] Aortic Aneurysm (AAA) Screening 2019 Medicare Advantage ([place]) Prev entative Visit/Annual Wellness Visit 02/22/2024 INFLUENZA VACCINE (#1) 2024 03/23/2023 COVID-19 Vaccine (2 - 2024- season) 2024 Procedures Procedure Name Priority Date/Time [...]
--- OUTSIDE RECORDS SUMMARY | 2024-12-31 10:21 | XMS_ITS | Clinical Summary ---
Author Organization [facility] [address] [facility] [address] Address [address] [place] [address] Care Team Providers Care Color Dipper Name Role Phone Gianni Mas DC Primary Care Provider Allergies No known active allergies Medications omeprazole (PriLOSEC) 20 mg capsule take 1 capsule (20MG) by oral route every day before a meal 0 05/27/19 13 Active aspirin (ASPIRIN LOW DOSE) 81 mg tablet take 1 tablet (81MG) by oral route every day 0 05/27/19 13 Active HYDROcodone-acet aminophen (VICODIN) 5-500 mg per tablet take 1 tablet by oral route every 4 - 6 hours as needed for pain 0 0 01/26/20 13 Active allopurinol (ZYLOPRIM) 100 mg tablet take 1 tablet by oral route every day 0 0 06/02/19 14 Active amLODIPine (NORVASC) 10 mg tablet take 1 tablet by oral route every day 0 0 03/13/19 16 Active Additional Information Patient not taking.Reported on 12/04/2024 cyclobenzaprine (FLEXERIL) 10 mg tablet take 1 tablet by oral route 2 times every day as needed 0 0 03/13/19 16 Active acetaminophen 500 mg capsule Take by mouth every 6 (six) hours as needed Active tamsulosin (FLOMAX) 0.4 mg extended release capsule Take 1 capsule (0.4 mg total) by mouth daily Active ipratropium-albu terol (COMBIVENT RESPIMAT) 20-100 mcg/actuation inhalerIndicatio ns:Chronic Obstructive Pulmonary Disease with Bronchospasms Inhale 1 puff 4 (four) times a day Active rosuvastatin (CRESTOR) 40 mg tablet Take 1 tablet (40 mg total) by mouth daily 90 tablet 3 07/21/19 19 2024 Active budesonide-formo terol (SYMBICORT) 160-4.5 mcg/actuation inhaler Inhale 2 puffs [...] mouth daily 15 tablet 11 10/21/19 22 2024 Active Additional Information Patient not taking.Reason: Other (on hold due to EMMY), Reported on 12/04/2024 carvediloL (COREG) 25 mg tablet TAKE 1 TABLET TWICE DAILY WITH MEALS 180 tablet 2 10/22/19 23 Active furosemide (LASIX) 40 mg tablet Take 1 tablet (40 mg total) by mouth daily Active isosorbide dinitrate (ISORDIL) 20 mg tablet Take 1 tablet (20 mg total) by mouth 3 (three) times a day Active hydrALAZINE (APRESOLINE) 10 mg tablet Take 1 tablet (10 mg total) by mouth 3 (three) times a day Active sacubitriL-valsa rtan (ENTRESTO) 24-26 mg tabletIndication s:chronic heart failure Take 1 tablet by mouth 2 (two) times a day 180 tablet 3 12/29/19 25 Active sacubitriL-valsa rtan (Entresto) 97-103 mg tablet TAKE 1 TABLET TWICE DAILY 180 tablet 1 10/11/19 25 2024 Discontinued Active Problems Problem Noted Date Diagnosed Date Chronic respiratory failure with hypoxia 023 HFrEF (heart failure with reduced ejection fract ion) 04/15/2022 Mixed hyperlipidemia 10/08/2021 Cardiomyopathy 01/05/2019 COPD (chronic obstructive pulmonary disease) Thoracic aortic aneurysm 07/20/2018 HTN (hypertension), benign 07/20/2018 Coronary artery disease invo lving [place] coronary artery of [place] heart without angina pectoris 07/20/2018 H/O cardiomyopathy 07/20/2018 Dyspnea on exertion 10/16/2015 Overview (05/28/2016): MUÑOZ (dyspnea on exertion) Hx of CABG 10/16/2015 Overview (05/28/2016): S/P CABG (coronary artery bypass graft) Tobacco use 10/16/2015 Overview (05/28/2016): Tobacco abuse Resolved Problems Problem Noted Date Diagnosed Date Resolved Date Dyslipidemia 10/16/2015 10/08/2021 Overview (05/28/2016): Dyslipidemia Encounters Date Type Department Care Team Description 12/27/2024 Telephone [facility] Cardiology [address] [place] [address] [place] [phone] Luisa Grant NP 12/21/2024 Telephone [facility] Cardiology [address] [place] [address] [place] [phone] Luisa Grant NP lab orders 12/14/2024 Orders Only [facility] Cardiology [address] [place] [address] [address] [place] [phone] Gino Leger MD 12/05/2024 Orders Only [facility] Cardiology [address] [facility] [address] [place] [phone] Lavell Spann MD 12/04/2024 10:00 AM CDT Office Visit [facility] Cardiology [address] [place] [address] [address] [place] [phone] Luisa Grant NP HFrEF (heart failure with reduced ejection fraction); Ischemic cardiomyopathy; Chronic obstructive pulmonary disease, unspecified COPD type (HCC); Mixed hyperlipidemia; Chronic kidney disease, unspecified CKD stage; Hospital discharge follow-up 11/23/2024 Orders Only [facility] Cardiology [address] [place] [phone] Swathi Guillen NP 11/22/2024 Telephone [facility] Cardiology [address] [place] [phone] Taylor Currie NP 11/19/2024 Orders Only [facility] Medical [facility] Cardiology [address] [place] [address] Bill Schreiber MD 11/18/2024 Orders Only [facility] Health Information Management [address] [place] [address] Naman Peterson MD from Last 3 Months [...] on file Legal Sex Male 3:50 AM TABLET MAKING MACHINE OPERATOR Gender Identity Not on file [...] BASIC METABOLIC PANEL Routine 12/27/2024 3:39 PM TABLET MAKING MACHINE OPERATOR HFrEF (heart failure with reduced ejection fraction) [...] * Basic metabolic panel (12/27/2024 3:39 PM TABLET MAKING MACHINE OPERATOR) Blood Luisa Grant NP LAB BLOOD ORDERABLES [...] - 33.3 pg EXTERNAL LAB Blood Result [facility] Historical Provider LAB BLOOD ORDERABLES Edit ed Result - Final EXTERNAL LAB * ECG 12 lead (11/20/2024 9:40 AM CDT) Result [facility] Historical Provider ECG ORDERABLES Final Res ult * Cardiology Document Scan (11/19/2024 10:13 AM CDT) Anatomical Region Laterality Modality Other Swathi Guillen NP CV CARDIAC SERVICES PROCEDUR ES Final Result * Cardiology Document Scan (11/18/2024 3:48 PM CDT) Anatomical Region Laterality Modality Other Result [facility] Bill Schreiber MD CV CARDIAC SERVICES PROCEDU RES Final Result * SCAN - RADIOLOGY/IMAGING (11/18/2024) Anatomical Region Laterality Modality Other Result [facility] Naman Peterson MD Final R esult * Cardiology Document Scan (11/18/2024) Anatomical Region Laterality Modality Other Result [facility] Naman Peterson MD CV CARDIAC SERVICES PRO CEDURES Edited Result - Final from Last 3 Months Insurance HU[employer]NA MEDICARE HMO HUMANA MEDICARE HMO Care Teams Color Dipper Relationship Specialty Start Date End Date Gianni Mas DC [address] [place] [id number] PCP - General 12/04/24
--- OUTSIDE RECORDS SUMMARY | 2024-12-31 10:21 | XMS_ITS | Encounter Summary ---
Author Organization [facility] Healthcare Address [address] [place] [address] Care Team Providers Care Plastic Panel Installer Name Role Phone Grayson Long Primary Care Provider Gianni Mas DC Primary Care Provider [phone] Encounter Details Date Type Department Care Team (Late st Contact Info) Description 11/18/2024 Orders Only [facility] [place] Information Management [address] [place] [id number] Naman Peterson MD [facility] [place] [address] Social History Tobacco Use Types Packs/Day Years Used Date Smoking Tobacco: Every Day Cigarettes Smokeless Tobacco: Never Comments:Smoking History Pac ks/day: 0.5 Packs Alcohol Use Standard Drinks/Week Comments Yes 14 (1 standard drink = 0.6 oz pu re alcohol) Sex and Gender Information Value Date Recorded Sex Assigned at Not on file Legal Sex Male 3:50 AM PINKING SEWING MACHINE OPERATOR Gender Identity Not on file [...] on filedocumented in this encounter Care Teams Plastic Panel Installer Relationship Specialty Start Date End Date Grayson Long PA [address] [facility] [address] [place] [address] PCP - General Physician Manager It Training 04/20/19 12/03/24 Gianni Mas DC [address] [place] [address] PCP - General 12/04/24 documented as of this encounter
[2024-12-31 10:25] VITALS: PULSE 102; O2SAT 88
[2024-12-31 10:30] VITALS: PULSE 99; O2SAT 92
--- NOTE | 2024-12-31 10:57 | HOMEO2EVAL ---
Evaluation was performed at [facility] Home Oxygen Evaluation RC: Home Oxygen (O2) Evaluation Start: 12/31/24 10:53 Freq: Status: Active Protocol: RPE Activity Type Activity Date Activity User E-sign Co-sign Detail Recorded Client Recorded Date Recorded By Document 12/31/24 10:20 [facility] [id number] 12/31/24 10:56 [facility] Document 12/31/24 10:25 [facility] [id number] 12/31/24 10:56 [facility] Document 12/31/24 10:30 [facility] [id number] 12/31/24 10:56 [facility] 12/31/24 12/31/24 12/31/24 10:20 10:25 10:30 Home O2 Evaluation [Oxygen] -Test Phase Resting Exercise Exercise -Oxygen Delivery Room Air Room Air Nasal Cannula -Oxygen Flow Rate (L/min) 1 [Pulse Oximetry] -Pulse Oximetry (90-100 %) 99 88 L 92 [Pulse Rate] -Pulse Rate (60-100 beats/min) 91 102 H 99 [Charges] -Evaluation Charges O2 Evaluation by Pulmonary
--- NOTE | 2024-12-31 15:39 | WPDPFTINT ---
PFT Procedure Performed PFT Procedure Performed Spirometry with Pre/Post Bronchodilator Plethysmography (Lung Vol) Diffusing Cap (DLCO) Flow Vol Loop PFT Interpretation This is a pulmonary function test with pre and post-bronchodilator spirometry, plethysmography and diffusing capacity. The test was performed and results interpreted in accordance with the 2019 and 2005 ATS/ERS Task Force guidelines respectively using the Global Lung Function Initiative-2012 reference equations. Patient demonstrated good effort and cooperation. Reproducibility criteria were met. The quality of the pre bronchodilator spirometry maneuver was Grade A and post bronchodilator spirometry maneuver was Grade A. Of note, patient states that his right lower lung has been removed. Findings: Spirometry: There is decreased maximal expiratory airflow at all lung volumes with concave expiratory flow tracing. The contour the inspiratory flow tracing is normal. The pre bronchodilator FVC is 2.19 L, 61% predicted. The pre bronchodilator FEV1 is 0.90 L, 33% predicted. The pre bronchodilator FEV1: FVC ratio is 41%. The post bronchodilator FVC is 2.27 L, representing a 3% increase. The post bronchodilator FEV1 is 0.87 L, representing a 3% decrease. The post bronchodilator FEV1: FVC ratio is 38%. Plethysmography: The total lung capacity is 6.20 L, 100% predicted. The functional residual capacity is 4.72 L, 136% predicted. The residual volume is 4.01 L, 176% predicted. The residual volume: Total lung capacity ratio 65%. Diffusing capacity: The diffusing capacity unadjusted for hemoglobin and carboxyhemoglobin is 5.8, 22% predicted. The diffusing capacity adjusted for alveolar volume is 1.76, 45% predicted. In comparison to previous pulmonary function testing on 05/28/2021, the post bronchodilator FVC has decreased from 3.15 L to 2.27 L. The post bronchodilator FEV1 is decreased from 1.20 L to 1.87 L. The total lung capacity is unchanged from 6.76 L to 6.20 L. The functional residual capacity is unchanged from 5.16 L to 4.72 L. The residual volume is unchanged from 3.60 L to 4.01 L. The diffusing capacity unadjusted for hemoglobin and carboxyhemoglobin is decreased from 10.3 to 5.8. The diffusing capacity unadjusted for hemoglobin and carboxyhemoglobin is decreased from 2.07 to 1.76. Impression: There is a severe obstructive abnormality. There is no significant improvement after inhaling a single dose of albuterol. The increase in residual volume to total lung volume ratio is consistent with hyperinflation from an obstructive abnormality. The diffusing capacity unadjusted for hemoglobin and carboxyhemoglobin is severely decreased and Remains moderately decreased when adjusted for alveolar volume. In comparison to previous pulmonary function testing on 05/28/2021, there has been a greater than anticipated time dependent decrease in the FVC, FEV1 and diffusing capacity with no significant change in the total lung capacity, functional residual capacity or residual volume. Clinical correlation is recommended.
== END 2024-12-31 09:43 | disposition home or self-care (01) ==
LOC: ANHPFT 09:42
PROVIDERS: PCP Nurse Practitioner; Visit Provider Internal Medicine Pulmonary Disease
DX: R94.2 Abnormal results of pulmonary function studies (principal); J44.9 Chronic obstructive pulmonary disease, unspecified
CPT/HCPCS: 94060; 94618; 94726; 94729

== ENCOUNTER 2025-01-04 09:54 | Outpatient (CLI) | payer MEDICARE, MEDICAID, SELFPAY ==
[2025-01-04 10:57] LABS: Anion Gap 6 mmol/L (4-12); Blood Urea Nitrogen 36 mg/dL (9-20); Calcium 8.7 mg/dL (8.4-10.2); Carbon Dioxide 30 mmol/L (22-30); Chloride 100 mmol/L (98-107); Estimated Glomerular Filt Rate 45; Glucose 117 mg/dL (65-110); Potassium 3.9 mmol/L (3.4-5.0); Sodium 136 mmol/L (137-145)
== END 2025-01-04 09:55 | disposition home or self-care (01) ==
LOC: ANHLAB 09:55
PROVIDERS: PCP Nurse Practitioner; Visit Provider Nurse Practitioner Adult Health
DX: I50.20 Unspecified systolic (congestive) heart failure (principal)
CPT/HCPCS: 36415; 80048

== ENCOUNTER 2025-01-14 08:54 | Outpatient (CLI) | payer MEDICARE, MEDICAID, SELFPAY ==
--- OUTSIDE RECORDS SUMMARY | 2025-01-14 08:30 | XMS_ITS | Encounter Summary ---
Author Organization [facility] Healthcare Address [address] [place] [address] Care Team Providers Care Assistant Professor Of Music Name Role Phone Gianni Mas DC Primary Care Provider [phone] Reason for Visit * Reason Comments <9>HFrEF (heart failure with reduced eje ction fraction) * Consultation (Routine) - Pending Review Specialty Diagnoses / Procedures Referred By Rony mota Referred To Contact Cardiology Diagnoses Other forms of dyspnea Darion Bey NP [address] [address] Phone: tel: fax: [facility] Medical [facility] Cardiology [address] [place] [phone] Phone: tel: fax: Referral ID Status Reason Start Date Expiration Date Visits Requested Visits Authorized [id number] Pending Review Specialty Services Required 11/12/2024 12/12/2025 1 1 Encounter Details Date Type Department Care Team (Late st Contact Info) Description 01/14/2025 8:30 AM GEOTHERMAL SYSTEM INSTALLER Office Visit [facility] Medical Group Cardiology [address] [place] [phone] Yosi aRm MD [address] [address] Hx of CABG (Primary Dx); H/O cardiomyopathy; HFrEF (heart failure with reduced ejection fraction) Social History Tobacco Use Types Packs/Day Years Used Date Smoking Tobacco: Every Day Cigarettes Smokeless Tobacco: Never Comments:Smoking History Pac ks/day: 0.5 Packs Alcohol Use Standard Drinks/Week Comments Yes 14 (1 standard drink = 0.6 oz pu re alcohol) Sex and Gender Information Value Date Recorded Sex Assigned at Not on file Legal Sex Male 3:50 AM GEOTHERMAL SYSTEM INSTALLER Gender Identity Not on file Sexual Orientation Not on file documented as of this encounter Last Filed Vital Signs Vital Sign Reading Time Taken Comments Blood Pressure 112/58 01/14/2025 8:21 AM GEOTHERMAL SYSTEM INSTALLER Pulse 80 01/14/2025 8:21 AM GEOTHERMAL SYSTEM INSTALLER Temperature - - Respiratory Rate - - Oxygen Saturation 98% 01/14/2025 8:21 AM GEOTHERMAL SYSTEM INSTALLER Inhaled Oxygen Concentration - - Weight 79.8 kg (176 lb) 01/14/2025 8:21 AM GEOTHERMAL SYSTEM INSTALLER Height 177.8 cm (5' 10) 01/14/2025 8:21 AM GEOTHERMAL SYSTEM INSTALLER Body Mass Index 25.25 01/14/2025 8:21 AM GEOTHERMAL SYSTEM INSTALLER documented in this encounter Functional Status * BP Location Answer Date of Assessment Author Left arm 01/14/2025 8:21 AM GEOTHERMAL SYSTEM INSTALLER Sarah Elliott MA * BP Location Answer Date of Assessment Author Left arm 01/14/2025 8:21 AM GEOTHERMAL SYSTEM INSTALLER Sarah Elliott MA documented as of this encounter Progress Notes * Yosi Ram MD - 01/14/2025 8:30 AM CST [facility] FOLLOW UP 01/14/2025 Darian Mas is a 69 y.o. male who presents for follow up of coronary artery disease and ischemic LV dysfunction. This is a patient with coronary disease dating back to 2012. At that time he presented for evaluation was found to have multivessel disease and underwent coronary artery bypass grafting. He he does have previous infarction of his inferior segment and some reduction in left ventricular ejection fraction. Most recent stress test was done in 2018 showing prior inferior wall NH andan ejection fraction of 39%. Most recent echocardiogram done I believe in 2021 showed an ejection fraction of 40-45% with mild MR. His other comorbidities include chronic lung disease with ongoing cig arette smoking a history of lung cancer with a right upper lobe resection and a history of a pheochromocytoma. He presents today for scheduled follow-up. The patient was admitted to [facility] in October of 2024 for coughing and shortness of breath. There was concern about congestive heart failure which was not apparently significant issue. He did have some mild worsening in his renal function and unfortunately he was found to have adenocarcinoma of the lung. His CT scan suggests stage III cancer. He has seen oncologist as an outpatient he is scheduled to have a port placed on Tuesday of this. Presumably he has we will be starting chemotherapy. For awhile he was off of Entresto and on isosorbide and hydralazine as an alternative. He was placed back on Entresto after appointment with our nurse practitioner last month. He and his family state he feels much better on Entresto. He is not having any orthopnea PND or accumulating edema. REVIEW OF SYSTEMS General ROS: negative for - chills, fatigue, fever, malaise, night sweats, weight gain or weight loss Psychological ROS: negative for - anxiety, depression, memory difficulties or sleep disturbances Ophthalmic ROS: negative for - blurry vision, decreased vision, loss of vision or scotomata ENT ROS: negative for - epistaxis, headaches, hearing change, nasal congestion, nasal discharge, sore throat, vertigo or visual changes Hematological and Lymphatic ROS: negative for - bleeding problems, blood clots, bruising, fatigue or weight loss Endocrine ROS: negative for - hot flashes, palpitations, polydipsia/polyuria or unexpected weight changes Respiratory ROS: negative for - cough, hemoptysis, orthopnea, shortness of breath, tachypnea or wheezing Cardiovascular ROS: negative for - chest pain, dyspnea on exertion, edema, irregular heartbeat, loss of consciousness, murmur, orthopnea, palpitations, paroxysmal nocturnal dyspnea, rapid heart rate or shortness of breath Gastrointestinal ROS: negative for - abdominal pain, appetite loss, blood in stools, constipation, diarrhea, gas/bloating, heartburn, hematemesis, melena or nausea/vomiting Genito-Urinary ROS: negative for - dysuria, erectile dysfunction or hematuria Musculoskeletal ROS: negative for - joint pain, muscle pain or muscular weakness Dermatological ROS: negative for dry skin, eczema, pruritus and rash HOME MEDICATIONS Current Outpatient Medications: acetaminophen 500 mg capsule, Take by mouth every 6 (six) hours as needed, Disp: , Rfl: allopurinol (ZYLOPRIM) 100 mg tablet, take 1 tablet by oral route every day, Disp: 0, Rfl: 0 amLODIPine (NORVASC) 10 mg tablet, take 1 tablet by oral route every day, Disp: 0, Rfl: 0 aspirin (ASPIRIN LOW DOSE) 81 mg tablet, take 1 tablet (81MG) by oral route every day, Disp: , Rfl:0 budesonide-formoterol (SYMBICORT) 160-4.5 mcg/actuation inhaler, Inhale 2 puffs 2 (two) times a dayRinse mouth with water after use. Do not swallow., Disp: , Rfl: carvediloL (COREG) 25 mg tablet, TAKE 1 TABLET TWICE DAILY WITH MEALS, Disp: 180 tablet, Rfl: 2 cholecalciferol (VITAMIN D-3) 2000 unit capsule, Take 1 capsule (2,000 Units total) by mouth daily,Disp: , Rfl: cholecalciferol (VITAMIN D-3) 50,000 unit capsule, Take 1 capsule (50,000 Units total) by mouth once a week, Disp: , Rfl: cyclobenzaprine (FLEXERIL) 10 mg tablet, take 1 tablet by oral route 2 times every day as needed, Disp: 0, Rfl: 0 furosemide (LASIX) 40 mg tablet, Take 1 tablet (40 mg total) by mouth daily, Disp: , Rfl: hydrALAZINE (APRESOLINE) 10 mg tablet, Take 1 tablet (10 mg total) by mouth 3 (three) times a day, Disp: , Rfl: HYDROcodone-acetaminophen (VICODIN) 5-500 mg per tablet, take 1 tablet by oral route every 4 - 6 hours as needed for pain, Disp: 0, Rfl: 0 ipratropium-albuterol (COMBIVENT RESPIMAT) 20-100 mcg/actuation inhaler, Inhale 1 puff 4 (four) times a day, Disp: , Rfl: isosorbide dinitrate (ISORDIL) 20 mg tablet, Take 1 tablet (20 mg total) by mouth 3 (three) times aday, Disp: , Rfl: omeprazole (PriLOSEC) 20 mg capsule, take 1 capsule (20MG) by oral route every day before a meal, Disp: , Rfl: 0 QUEtiapine (SEROquel) 50 mg tablet, Take 1 tablet (50 mg total) by mouth nightly, Disp: , Rfl: rosuvastatin (CRESTOR) 40 mg tablet, Take 1 tablet (40 mg total) by mouth daily, Disp: 90 tablet, Rfl: 3 sacubitriL-valsartan (ENTRESTO) 24-26 mg tablet, Take 1 tablet by mouth 2 (two) times a day, Disp: 180 tablet, Rfl: 3 sildenafiL (VIAGRA) 100 mg tablet, , Disp: , Rfl: spironolactone (ALDACTONE) 25 mg tablet, Take 0.5 tablets (12.5 mg total) by mouth daily, Disp: 15 tablet, Rfl: 11 tamsulosin (FLOMAX) 0.4 mg extended release capsule, Take 1 capsule (0.4 mg total) by mouth daily, Disp: , Rfl: LABS AND OTHER DIAGNOSTIC TESTS Lab Results Component Value Date CHOL 187 02/05/2016 Lab Results Component Value Date HDL 65 02/05/2016 No results found for: LDLCALC Lab Results Component Value Date TRIG 62 02/05/2016 Lab Results Component Value Date CHOLHDL 2.9 02/05/2016 Lab Results Component Value Date WBC 16.5 (H) 06/27/2012 HGB 9.5 (L) 06/27/2012 HCT 47.8 02/05/2016 MCV 92.3 02/05/2016 No lab exists for component: LABALBU PHYSICAL EXAM Vitals BP 112/58 (BP Location: Left arm, Patient Position: Sitting) Pulse 80 Ht 177.8 cm (5' 10) Wt 79.8 kg (176 lb) SpO2 98% BMI 25.25 kg/m?? Physical Examination: General appearance - alert, well appearing, and in no distress, oriented to person, place, and time and acyanotic, in no respiratory distress Mental status - affect appropriate to mood Eyes - extraocular eye movements intact, sclera anicteric, no pallor Ears - external earsappear normal, hearing grossly normal bilaterally Nose - normal and patent, no erythema or discharge Mouth - mucous membranes moist, pharynx appears normal, dental hygiene good and tongue normal Neck - supple, no significant neck masses, carotids upstroke normal bilaterally, no bruits, no JVD Chest - clear to auscultation, no wheezes, rales or rhonchi, symmetric air entry, no tachypnea, retractions or cyanosis Heart - normal rate, regular rhythm, normal S1, S2, no murmurs, rubs, clicks or gallops, no JVD Abdomen - soft, nontender, nondistended, no masses or organomegaly bowel sounds normal Neurological - alert, oriented, normal speech, no focal findings or movement disorder noted Musculoskeletal - no joint tenderness, deformity or swelling, no muscular tenderness noted Extremities - peripheral pulses normal, no pedal edema, no clubbing or cyanosis Skin - normal coloration and turgor, no rashes, no suspicious skin lesions noted ASSESSMENT Darian was seen today for <9>hfref (heart failure with reduced ejection fraction). Diagnoses and all orders for this visit: Hx of CABG H/O cardiomyopathy HFrEF (heart failure with reduced ejection fraction) Other orders - Ambulatory referral to Cardiology PLAN/RECOMMENDATIONS Continue current guideline directed medical therapy for ischemic LV dysfunction he is stable so no adjustments are necessary at this time Prognosis is obviously altered now that he has stage III adenocarcinoma of the lung Continue follow-up annually or p.r.n. Yosi Ram MD HERMAL SYSTEM INSTALLER documented in this encounter Plan of Treatment Not on file documented as of this encounter Visit Diagnoses Diagnosis Hx of CABG- Primary Postsurgical aortocoronary bypass status H/O cardiomyopathy HFrEF (heart failure with reduced ejection fraction) documented in this encounter Discontinued Medications Medication Sig Discontinue Reason Start Date End Da te isosorbide dinitrate (ISORDIL) 20 mg tablet Take 1 tablet (20 mg total) by mouth 3 (three) times a day 01/14/2025 hydrALAZINE (APRESOLINE) 10 mg tablet Take 1 tablet (10 mg total) by mouth 3 (three) times a day 01/14/2025 documented as of this encounter Orders Outpatient Referral Count Last Ordered Date Fir st Ordered Date AMB REFERRAL TO CARDIOLOGY 1 01/14/2025 documented in this encounter Care Teams Assistant Professor Of Music Relationship Specialty Start Date End Date Gianni Mas DC [address] [place] [id number] PCP - General 12/04/24 documented as of this encounter
--- OUTSIDE RECORDS SUMMARY | 2025-01-14 09:36 | XMS_ITS | Clinical Summary ---
Author Organization [facility] [address] [facility] [address] Address [address] [place] [address] Care Team Providers Care Lead Mechanic Name Role Phone Gianni Mas DC Primary Care Provider [phone] Allergies No known active allergies Medications omeprazole [...] mouth daily 90 tablet 3 07/21/19 19 Active budesonide-formot kayleigh (SYMBICORT) 160-4.5 mcg/actuation inhaler [...] mouth daily 15 tablet 11 10/21/19 22 Active carvediloL (COREG) 25 mg tablet TAKE 1 TABLET TWICE DAILY WITH MEALS 180 tablet 2 10/22/19 23 Active furosemide (LASIX) 40 mg tablet Take 1 tablet (40 mg total) by mouth daily Active sacubitriL-valsar griffiths (ENTRESTO) 24-26 mg tabletIndications :chronic heart failure Take 1 tablet by mouth 2 (two) times a day 180 tablet 3 12/29/19 25 Active sacubitriL-valsar griffiths (Entresto) 97-103 mg tablet TAKE 1 TABLET TWICE DAILY 180 tablet 1 10/11/19 25 025 Discontinued isosorbide dinitrate (ISORDIL) 20 mg tablet Take 1 tablet (20 mg total) by mouth 3 (three) times a day 025 Discontinued hydrALAZINE (APRESOLINE) 10 mg tablet Take 1 tablet (10 mg total) by mouth 3 (three) times a day 025 Discontinued Active Problems Problem Noted Date [...] Encounters Date Type Department Care Team Description 01/14/2025 8:30 AM DIESEL TRACTOR OPERATOR Office Visit [address] [phone] Yosi Ram MD Hx of CABG (Primary Dx); H/O cardiomyopathy; HFrEF (heart failure with reduced ejection fraction) 01/08/2025 Results Follow-Up [address] [phone] Luisa Grant NP Basic metabolic panel 12/27/[address] [address] Luisa Grant NP 12/21/2024 Telephone [facility] Cardiology [address] [place] [phone] Luisa Grant NP lab orders 12/14/2024 Orders Only [address] [phone] Gino Leger MD 12/05/2024 Orders Only [facility] Cardiology [address] [place], [place] [address] [place] [address] Lavell Spann MD 12/04/2024 10:00 AM CDT Office Visit [facility] Cardiology [address] [place] [phone] Luisa Grant NP HFrEF (heart failure with reduced ejection fraction); Ischemic cardiomyopathy; Chronic obstructive pulmonary disease, unspecified COPD type (HCC); Mixed hyperlipidemia; Chronic kidney disease, unspecified CKD stage; Hospital discharge follow-up 11/23/2024 Orders Only [facility] Cardiology [address] [place] [phone] Swathi Guillen NP 11/22/2024 Telephone [facility] Cardiology [address] [place] [phone] Taylor Currie NP 11/19/2024 Orders Only [facility] Cardiology [address] [facility] [address] [place] [phone] Bill Schreiber MD 11/18/2024 Orders Only [facility] Health Information Management [address] [place], [place] [phone] Naman Peterson MD from Last 3 Months [...] on file Legal Sex Male 3:50 AM DIESEL TRACTOR OPERATOR Gender Identity Not on file Sexual Orientation Not on file Last Filed Vital Signs Vital Sign Reading Time Taken Comments Blood Pressure 112/58 01/14/2025 8:21 AM DIESEL TRACTOR OPERATOR Pulse 80 01/14/2025 8:21 AM DIESEL TRACTOR OPERATOR Temperature - - Respiratory Rate - - Oxygen Saturation 98% 01/14/2025 8:21 AM DIESEL TRACTOR OPERATOR Inhaled Oxygen Concentration - - Weight 79.8 kg (176 lb) 01/14/2025 8:21 AM DIESEL TRACTOR OPERATOR Height 177.8 cm (5' 10) 01/14/2025 8:21 AM DIESEL TRACTOR OPERATOR Body Mass Index 25.25 01/14/2025 8:21 AM DIESEL TRACTOR OPERATOR Plan of Treatment Health Maintenance Due Date [...] Additional history exists Influenza Vaccine (#1) 2024 4, 12/15/2020, 02/01/2019, Additional history exists Zoster Vaccine Completed 03/25/2022, 09/30/2021 Procedures Procedure Name Priority Date/Time Associated Diagnosis Comments BASIC METABOLIC PANEL Routine 01/07/2025 1:48 PM DIESEL TRACTOR OPERATOR HFrEF (heart failure with reduced ejection fraction) BASIC METABOLIC PANEL Routine 12/27/2024 3:39 PM DIESEL TRACTOR OPERATOR HFrEF (heart failure with reduced ejection [...] 3 Months Results * Basic metabolic panel (01/07/2025 1:48 PM DIESEL TRACTOR OPERATOR) Blood Luisa Grant FOREIGN EXCHANGE CLERK LAB BLOOD ORDERABLES Dinorah l Result EXTERNAL LAB * Basic metabolic panel (12/27/2024 3:39 PM DIESEL TRACTOR OPERATOR) Blood Luisa Cast Juanita FOREIGN EXCHANGE CLERK LAB BLOOD ORDERABLES Dinorah l Result EXTERNAL LAB * POCT lipid panel (12/04/2024 10:06 AM CDT) Cholesterol, POC 158 <200 MG/DL HDL, POC 88 >=40 mg/dL Triglycerides, POC 72 <=149 mg/dL LDL Cholesterol POC 56 <=129 mg/dL Chol/HDL Ratio, POC 0.6 NONE Non-HDL Cholesterol, POC 70 NONE mg/dL Cholesterol Total, POC 158 30 - 199 mg/dL Capillary blood 12/04/2024 1 0:[address] [facility] Luisa Grant NP POINT OF CARE TEST ORDERA BLES Final Result * Cardiology Document Scan (11/23/2024 10:30 AM CDT) Anatomical Region Laterality Modality Other Result [facility] Gino Leger MD CV CARDIAC SERVICES PROCEDURES [...] - 33.3 pg EXTERNAL LAB Blood Result [facility] Historical Provider LAB BLOOD ORDERABLES Edit ed Result - Final EXTERNAL LAB * ECG 12 lead (11/20/2024 9:40 AM CDT) Result [facility] Historical Provider ECG ORDERABLES Final Res ult * Cardiology Document Scan (11/19/2024 10:13 AM CDT) Anatomical Region Laterality Modality Other Result [facility] Swathi Guillen NP CV CARDIAC SERVICES PROCEDUR [...] MEDICARE HMO HUMANA MEDICARE HMO Care Teams Lead Mechanic Relationship Specialty Start Date End Date Gianni Mas DC [address] [place] [phone] PCP - General 12/04/24
--- OUTSIDE RECORDS SUMMARY | 2025-01-14 09:36 | XMS_ITS | Clinical Summary ---
Author Organization [facility] Octavia Calix Address [address] [facility] [place] [address] Care Team Providers Care Employee Relations Advisor Name Role Phone Unavailable Primary Care Provider [...] mg by mouth daily at bedtime. Active sacubitriL-vals melinda (ENTRESTO) 97-103 mg Tablet Take 1 Tablet by mouth 2 times daily. 5 Active tamsulosin (FLOMAX) 0.4 mg capsule Take 0.4 mg by mouth daily. Active HYDROcodone-michelle taminophen (NORCO) 5-325 mg tablet Take 1 Tablet by mouth every 4 hours as needed for Pain, Moderate. Active sildenafiL (VIAGRA) 100 mg tablet Take 100 mg by mouth 1 time daily as needed for Erectile Dysfunction. Active rosuvastatin (CRESTOR) 40 mg tablet Take 40 mg by mouth daily. 9 01/10/20 25 spironolactone (ALDACTONE) 25 mg tablet Take 12.5 mg by mouth daily. 2 01/10/20 25 Active Problems Problem Noted Date Diagnosed Date Mediastinal lymphadenopathy 01/11/2025 Encounters Date Type Department Care Team Description 01/11/2025 11:06 AM DIE MAKER BENCH STAMPING - 01/11/2025 4:45 PM DIE MAKER BENCH STAMPING Hospital Encounter [facility] Interventional [facility] [address] [place] [address] Byron Lopez MD Mediastinal lymphadenopathy Discharge Disposition: Home or Self Care 01/02/2025 Telephone [facility] Pulmonology [facility] [address] [facility] [address] [place] [address] Byron Lopez MD Procedure 01/02/2025 Telephone [facility] Oncology and Hematology [facility] [address] [place] [phone] Jonny Stephen MD biopsy follow up 12/25/2024 4:30 PM DIE MAKER BENCH STAMPING Telephone Check Up [facility] Oncology and Hematology [facility] [address] [place] [phone] Jonny Stephen MD Malignant neoplasm of upper lobe of left lung (CMS/HCC) (Primary Dx) 12/19/2024 Orders Only [facility] Oncology and Hematology - [place] [address] [place] [address] Jonny Stephen MD 12/12/2024 External Device Data STL ABSTRACTION Provider, Abstract 12/12/2024 External Device Data ST[facility] ABSTRACTION Provider, Abstract 12/11/2024 External Device Data ST[facility] ABSTRACTION Provider, Abstract 12/06/2024 9:00 AM CDT Office Visit [facility] Oncology and Hematology - [place] [address] [place] [address] Jonny Stephen MD Malignant neoplasm of upper [...] Sign Reading Time Taken Comments Blood Pressure 103/70 01/11/2025 3:17 PM DIE MAKER BENCH STAMPING Pulse 81 01/11/2025 3:04 PM DIE MAKER BENCH STAMPING Temperature 36.2 C (97.2 F) 01/11/2025 11:00 AM DIE MAKER BENCH STAMPING Respiratory Rate 18 01/11/2025 3:17 PM DIE MAKER BENCH STAMPING Oxygen Saturation 100% 01/11/2025 3:17 PM DIE MAKER BENCH STAMPING Inhaled Oxygen Concentration - - Weight 77.6 kg (171 lb) 01/11/2025 11:00 AM DIE MAKER BENCH STAMPING Height 177.8 cm (5' 10) 01/11/2025 11:00 AM DIE MAKER BENCH STAMPING Body Mass Index 24.54 01/11/2025 11:00 AM DIE MAKER BENCH STAMPING Plan of Treatment Health Maintenance Due Date Last Done Comments COLORECTAL SCREENING 1999 Colorectal Cancer Screening 1999 FIT-DNA Q 3 years 1999 FIT/FOBT Q 1 year 1999 Flex Sig/CT Colonography Q 5 years 1999 RSV VACCINE (60+ or ) (1 - Risk 50-74 years 1-dose series) 2004 PNEUMOCOCCAL VACCINE 50+ YEA RS (2 of 2 - PCV) 10/07/2018 10/07/2017, 05/24/2008, 01/18/2006 Abdominal Aortic Aneurysm (A AA) Screening 2019 DTAP/TDAP/TD VACCINES (3 - T d or Tdap) 10/08/2020 10/08/2010, 02/21/2010, 08/21/1998 INFLUENZA VACCINE (#1) 2024 , 02/01/2019, 05/06/2011, Additional history exists COVID-19 Vaccine ( - 2024-2 6 season) 2024 03/23/2023, 12/15/2020, 05/18/2020, Additional history exists ZOSTER VACCINE Completed 03/25/2022, 09/30/2021 Procedures Procedure Name Priority Date/Time Associated Diagnosis Comments PROCEDURE REPORT 01/11/2025 5:55 PM DIE MAKER BENCH STAMPING FUNGUS CULTURE, OTHER Routine 01/11/2025 2:25 PM DIE MAKER BENCH STAMPING FUNGUS CULTURE, OTHER Routine 01/11/2025 2:25 PM DIE MAKER BENCH STAMPING AFB CULTURE WITH STAIN Routine 01/11/2025 2:25 PM DIE MAKER BENCH STAMPING AFB CULTURE WITH STAIN Routine 01/11/2025 2:25 PM DIE MAKER BENCH STAMPING RESPIRATORY CULTURE WITH GRAM STAIN Routine 01/11/2025 2:25 PM DIE MAKER BENCH STAMPING RESPIRATORY CULTURE WITH GRAM STAIN Routine 01/11/2025 2:25 PM DIE MAKER BENCH STAMPING PET BONE IMG W CT SKL BSE MID THG Routine 12/18/2024 12:00 PM CDT from Last 3 Months Results * PROCEDURE REPORT (01/11/2025 5:55 PM DIE MAKER BENCH STAMPING) Narrative Procedure Note DmellByron cifuentes MD - 01/11/2025 5:[address] [facility] Pulmonology Patient Name: Darian Mas Procedure Date: 01/11/2025 Date of : 1955 Admit Type: Outpatient Attending MD: Byron Lopez MD, Procedure: Bronchoscopy Indications: Mediastinal adenopathy, NSCLC Providers: Byron Lopez MD (Doctor) Referring MD: Jonny Stephen Requesting Physician: Medicines: Midazolam 8 mg IV, Fentanyl 200 mcg IV Complications: No immediate complications Procedure: Informed consent was obtained for the procedure, including sedation. Risks of hypoxia, dental injury, lung injury/perforation, hemorrhage, infection, arrhythmia, and adverse drug reaction were discussed. A time-out process was performed and verified patient identification, procedure, correct patient position, as well as special equipment available. The patient was brought to the bronchoscopy suite. 2% lidocaine was used for topical anesthesia of the tracheobronchial tree. Oxygen saturation and vital signs were monitored continuously. The bronchoscope was introduced through the mouth, via laryngeal mask airway and advanced to the tracheobronchial tree. The procedure was accomplished without difficulty. The patient tolerated the procedure fairly well. Moderate sedation start time 1:32 PM Moderate sedation end time 2:14 PM Findings: The logan itself was sharp with no mucosal abnormalities. First, the right bronchial tree was comprehensively inspected to the subsegmental level; the left bronchial tree was likewise comprehensively inspected and revealed no visible endobronchial lesions or mucosal abnormalities. The stump of a previous right upper lobectomy appeared normal. A bronchoalveolar lavage was obtained from the right middle lobe following which the bronchoscope was withdrawn without incident. An EBUS-bronchoscope was inserted via the indwelling airway and advanced to the left paratracheal area; a direct transtracheal pathway to a mildly enlarged station 5 aortopulmonary lymph node could not be visualized under ultrasound imaging and needle aspiration was not attempted accordingly. Next, linear ultrasound imaging demonstrated lymphadenopathy corresponding to station 10L. Multiple EBUS-guided needle aspirations were performed. The bronchoscope was sequentially repositioned at which time further ultrasound imaging demonstrated lymphadenopathy at stations 7 and 11R, additional needle aspirates were obtained. The EBUS-bronchoscope was withdrawn without incident, no significant residual bleeding was noted. Specimens: 1.Bronchoalveolar lavage from the RML 2.Needle aspirates from lymph node stations 10L, 7 and 11R Impression: - Mediastinal adenopathy Recommendation: - Await test results. Byron Lopez MD 01/11/2025 5:55:06 PM Number of Addenda: 0 Note Initiated On: 01/11/2025 12:[address] PM [address]; [place] [address] Byron Lopez MD PROCEDURE/MINOR SURGICAL ORDE RABLES Final Result * RESPIRATORY CULTURE WITH GRAM STAIN (01/11/2025 2:25 PM DIE MAKER BENCH STAMPING) Only the most recent of2 resultswithin the time period is included. CULTURE No pathogens isolated. Normal respiratory arianne present. 01/13/2025 11:01 AM DIE MAKER BENCH STAMPING [facility] GRAM STAIN Non diagnostic pattern 01/13/2025 11:01 AM DIE MAKER BENCH STAMPING [facility] Comment:Corrected result: Pr eviously reported as 4+ (Heavy) Gram positive cocci in chains on 01/11/2025 at 1714 DIE MAKER BENCH STAMPING. GRAM STAIN 4+ (Heavy) Polymorphonuclear WBC 01/13/2025 11:01 AM DIE MAKER BENCH STAMPING [facility] Washings (Lung, bilateral) Collection / Unknown 01/11/2025 2:25 PM DIE MAKER BENCH STAMPING 01/11/2025 3:28 PM DIE MAKER BENCH STAMPING Byron Lopez MD MICROBIOLOGY - GENERAL ORDERA BLES Final Result [facility] CLIA# [id number] [address] [place] [address] * PET BONE IMG W CT SKB (12/18/2024 12:00 PM CDT) Anatomical Region Laterality Modality Positron Emissio n Tomography (PET) Jonny Stephen MD PE ORDERABLES Final Result from Last 3 Months Insurance Member Subscriber Plan / Payer (Ef fective 2024-Present) Name:ChaceDarian Relation to Subscriber:Self Name:Darian Mas Payer ID:Not on file Type:VoalteO Address: [address]
--- OUTSIDE RECORDS SUMMARY | 2025-01-14 09:36 | XMS_ITS | Encounter Summary ---
Author Organization [facility] Address [address] [place] [address] Care Team Providers Care Passenger Service Supervisor Name Role Phone Gianni Mas DC Primary Care Provider Encounter Details Date Type Department Care Team (Late st Contact Info) Description 01/08/2025 Results Follow-Up [facility] Cardiology [address] [address] [place] [phone] Luisa Grant NP [address] [place] [address] Basic metabolic panel Social History Tobacco Use Types Packs/Day Years Used Date Smoking Tobacco: Every Day Cigarettes Smokeless Tobacco: Never Comments:Smoking History Pac ks/day: 0.5 Packs Alcohol Use Standard Drinks/Week Comments Yes 14 (1 standard drink = 0.6 oz pu re alcohol) Sex and Gender Information Value Date Recorded Sex Assigned at Not on file Legal Sex Male 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
--- OUTSIDE RECORDS SUMMARY | 2025-01-14 09:36 | XMS_ITS | Encounter Summary ---
Author Organization [facility] Healthcare Address [address] [place] [address] Care Team Providers Care Driller Machine Name Role Phone Grayson Long Primary Care Provider Gianni Mas DC Primary Care Provider [phone] Encounter Details Date Type Department Care Team (Late st Contact Info) Description 11/18/2024 Orders Only [facility] Health Information Management [address] [place] [id number] Naman Peterson MD [address] [address] Social History Tobacco Use Types Packs/Day Years Used Date Smoking Tobacco: Every Day Cigarettes Smokeless Tobacco: Never Comments:Smoking History Pac ks/day: 0.5 Packs Alcohol Use Standard Drinks/Week Comments Yes 14 (1 standard drink = 0.6 oz pu re alcohol) Sex and Gender Information Value Date Recorded Sex Assigned at Not on file Legal Sex Male 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
[2025-01-14 09:58] LABS: INR 1.1; Prothrombin Time 14.6 Seconds (11.1-14.7)
[2025-01-14 09:59] LABS: Partial Thromboplastin Time 31.5 Seconds (22.3-36.8)
== END 2025-01-14 08:55 | disposition home or self-care (01) ==
LOC: ANHSURGERY 08:56
PROVIDERS: PCP Nurse Practitioner; Visit Provider Surgery
DX: Z01.818 Encounter for other preprocedural examination (principal); I12.9 Hypertensive chronic kidney disease with stage 1 through stage 4 chronic kidney disease, or unspecified chronic kidney disease; N18.31 Chronic kidney disease, stage 3a
CPT/HCPCS: 36415; 85610; 85730

== ENCOUNTER 2025-01-16 00:48 | Day surgery (SDC) | payer MEDICARE, MEDICAID, SELFPAY ==
[2025-01-08 15:37] VITALS: BMI 24.6
--- NOTE | 2025-01-08 15:50 | PC.NURSE ---
[facility] has started construction of its new state of the art ER which will open Spring 2026. With this, we anticipate parking may be a challenge for some our surgical patients and families. Parking spaces are limited but are available for all Surgical, obstetrics, and ER patients sharing this lot. If you arrive and find you are having a hard time finding a parking space, please note that we understand the challenges, please drive around the hospital and park near Hospital Entrance 1. When you enter this entrance, you can ask a volunteer to direct or take you back to the surgical waiting area to check in. We appreciate everyone?s understanding of these expected challenges while we build for your future. Report to the Outpatient Waiting Room, entrance under the green pavilion located off [address], at time __1030am on date ___01/16/25____. Planned Procedure Time: _1230pm .? Time changes happen often and if your time is changed the preop area will call you the afternoon before. - You and your visitor will be asked to self-screen and do not enter if you have any COVID symptoms. Please call surgeon if you need to reschedule. - A mask is optional within the hospital at this time. Patients may have clear liquids (water, carbonated beverages, clear teas, apple juice) until 3 hours prior to surgery with a maximum of 20 ounces. - No food from midnight until time of surgery and no smoking, or chewing tobacco (or any form of nicotine). No chewing gum, candy or mints. Take only the following medications with a SIP of water on the morning of surgery: ___Coreg , Buspar and Inhalers DO NOT STOP ANY OF YOUR OTHER PRESCRIPTION MEDICATIONS PRIOR TO SURGERY EXCEPT THE FOLLOWING Hold all vitamins and supplements for 3 days per anesthesiologist. Medications to discontinue per physician NONE Date to take last dose__NONE Please no make-up, nail lao, hairspray, perfume, deodorant, or body powder the day of surgery.? No jewelry (including any body piercings) or valuables the day of surgery, leave them at home.? Please take a shower or bath the night before, or the morning of, surgery with an antibacterial soap.?DIAL SOAP Wear comfortable, loose fitting clothing.? - Jewelry must be removed prior to entering the operating room.? Rings and piercings that are not removed may be cut off. - The hospital will not accept responsibility for valuables.? - Please leave all valuables, including medications, at home the day of surgery. If you are going home after surgery, a licensed bulk truck driver must drive you home.? - NO public transportation without another adult if you receive anesthesia. - We recommend that an adult stay with you for 24 hours following discharge. - We also recommend that you do not drive, make important decision, drink alcoholic beverages, or take any drugs that were not prescribed by your health care provider for at least 24 hours after your discharge time. NO DRIVING FOR 24 hrs, pt aware Follow any additional instructions given to you from your surgeon. Telephone instructions given to __Patient and asked if any additional questions and then verbalized understanding. Patient advised to call surgeon office or pre surgery nurse liaison [phone] if any additional questions.
--- NOTE | 2025-01-14 14:07 | PM.SD2 ---
Same Day Admit/Disch: HPI History of Present Illness Chief complaint: Left upper lobe lung cancer Narrative: Darian Mas is a 69 year old male who was recently found to have a left upper lobe, pleural based 11 mm nodule on imaging. There was also extensive mediastinal adenopathy. Biopsy showed non-small cell lung cancer, adenocarcinoma. Patient has severe COPD. He smoked heavily for over 50 years quitting around 2 months ago. He also has history of coronary disease and congestive heart failure. He is planning to have chemotherapy for lung cancer. He is taken to surgery now for placement of a Port-A-Cath as an outpatient. [facility] Past Medical History Medical History Encounter for biopsy BMI 23.0-23.9, adult Chronic obstructive pulmonary disease Hyperlipidemia Cardiomyopathy GERD (gastroesophageal reflux disease) Upper abdominal pain Hypertension Colon cancer screening Prostate cancer Heart attack Gout Gallstones Surgical History Surgical History S/P triple vessel bypass History of gastric surgery History of lobectomy of lung Family History Family History Mother Hypertension Father Sibling No problems noted. Social History Social History Smoking packs per day: 1 Smoking cigarettes per day: 20.0 Years smoked: 55 Smoking pack-years: 55.00 Smoking status: Former smoker Tobacco type: cigarettes Second hand tobacco smoke exposure: No Smoking end date: 11/10/24 Additional smoking assessment comments: denies nicotine Alcohol intake: former Drinks per week: 14 Alcohol use details: few mos ago Substance use: never Substance use type: does not use Other substance usage details: last drink 11/10/2024 Last use: 2014 Lack of Transportation: No Lack of Food: Never True Current Housing: I Have Housing Concerned About Future Housing: No Difficulty Paying Gas/Electric Bills: No Difficulty Paying for Meds: No Currently Unemployed: No Education: Trade/Vocational Certificate Difficulty w/ Childcare or Family Care: No Living arrangements: with family Additional living arrangements comments: Occupation/Education: retired 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[employer] Gender identity (if verbalized by the patient): Male Spiritual care concerns: No Same Day Admit/Disch: Med Pre-admit Medications Home Medications ?Medication ?Instructions ?Recorded ?Confirmed ?Type aspirin 81 mg tablet,delayed 81 mg PO DAILY 01/16/19 01/16/25 History release (Adult Low Dose Aspirin) triamcinolone acetonide 0.1 % 1 applic topical TID #80 grams 08/12/23 01/08/25 Rx topical cream tamsulosin 0.4 mg capsule See Rx Instructions .Route 05/17/24 01/16/25 Rx .COMPLEX #90 caps cyclobenzaprine 10 mg tablet 10 mg PO TID PRN muscle spasm #45 09/14/24 01/08/25 Rx tabs budesonide 160 mcg-glycopyr 9 See Rx Instructions .Route 10/15/24 01/08/25 Rx mcg-formot 4.8 mcg/actuation HFA .COMPLEX #3 ea inhaler (Breztri Aerosphere) carvedilol 25 mg tablet 25 mg PO Q12H #180 tabs 10/30/24 01/16/25 Rx albuterol sulfate 90 mcg/actuation 2 puff inhalation Q4-6H PRN 11/05/24 01/08/25 Rx aerosol inhaler (ProAir HFA) shortness of breath or wheezing #8.5 grams hydralazine 10 mg tablet 10 mg PO TID #90 tabs 11/23/24 01/08/25 Rx isosorbide dinitrate 20 mg tablet 20 mg PO TID #90 tabs 11/23/24 01/08/25 Rx albuterol sulfate 2.5 mg/3 mL 2.5 mg (3 mL) inhalation Q4-6H PRN 11/29/24 01/08/25 Rx (0.083 %) solution for nebulization shortness of breath or wheezing #180 mL buspirone 7.5 mg tablet 7.5 mg PO TID #90 tabs 11/29/24 01/16/25 Rx furosemide 40 mg tablet 40 mg PO DAILY 11/29/24 01/16/25 History nitroglycerin 0.4 mg sublingual 0.4 mg sublingual Q5M PRN chest 11/29/24 01/08/25 Rx tablet pain #30 tabs allopurinol 100 mg tablet See Rx Instructions .Route 12/24/24 01/16/25 Rx .COMPLEX #90 tabs omeprazole 20 mg capsule,delayed See Rx Instructions .Route 12/24/24 01/16/25 Rx release .COMPLEX #90 caps rosuvastatin 40 mg tablet See Rx Instructions .Route 12/24/24 01/16/25 Rx .COMPLEX #90 tabs Review of Systems Review of Systems All systems reviewed & are unremarkable except as noted in HPI and below (HPI) Exam Const: General: comfortable, no acute distress, alert, awake and thin Orientation/consciousness: No confusion HENMT: Head: normocephalic and atraumatic Mouth: Yes Normal oral and palatal mucosa present Eyes: Conjunctivae: conjunctivae normal Pupils: Equal, round and reactive pupils present EOM: EOMs intact bilaterally Neck: Neck: normal visual inspection, no lymphadenopathy and nontender Chest: Chest palpation & inspection: normal inspection of the chest, normal palpation of entire chest wall, no crepitus, no masses, no tenderness, No Pacemaker present and No rash Resp: Effort & Inspection: normal respiratory effort Auscultation: clear to auscultation bilaterally Cardio: Rate: regular rate Rhythm: regular rhythm Heart sounds: no gallops, no murmurs and no rubs GI: Inspection: non-distended GI Palp: Yes Soft to palpation, No Tenderness to palpation present (GI), No Hepatomegaly present and No Splenomegaly present Skin: Lesions: no lesions Rashes: no rashes Neuro: General: no focal motor deficits and CN's II-XI intact bilaterally Cranial nerves: Yes Equal, round and reactive pupils present, Yes Bilaterally intact EOM present, Yes facial symmetry and Yes Midline tongue present Speech: normal speech Motor exam (neuro): 5/5 motor strength present throughout and Motor abnormalities not present Extrem: General: no clubbing, cyanosis or edema and edema Psych: Affect: normal affect Thought process: Normal thought process present Insight: Good insight present (Psych) DS: Summary Time Spent with Patient Time attestation: Total time spent providing and/or coordinating discharge services: DS: Admitting Diagnosis Discharge Date 01/16/2025 Admitting Diagnosis Adenocarcinoma left upper lobe with adenopathy. Patient not a candidate for resection. Plans to take chemotherapy. Inadequate venous access-plan to proceed with Port-A-Cath placement under anesthesia using ultrasound and fluoroscopy. The procedure, risks, benefits, alternatives have been discussed. All questions were answered. He understands and agrees to proceed. DS: Discharge Diagnosis Discharge Diagnosis (1) Adenocarcinoma of upper lobe of left lung: Code(s): C34.12 - Malignant neoplasm of upper lobe, left bronchus or lung Status: Chronic (2) Encounter for adjustment and management of vascular access device: Code(s): Z45.2 - Encounter for adjustment and management of vascular access device Status: Acute Assessment and Plan: Right internal jugular Port-A-Cath placed per Dr. Bowling Discharge Plan Discharge Patient Disposition: Home Patient Language: Kuwaiti Stand Alone Forms: General Discharge Instructions Discharge Medications: No Action aspirin [Adult Low Dose Aspirin] 81 mg tablet,delayed release (DR/EC) 81 mg PO DAILY triamcinolone acetonide 0.1 % cream 1 applic topical TID Qty: 80 1RF albuterol sulfate [ProAir HFA] 90 mcg/actuation HFA aerosol inhaler 2 puff INHALATION Q4-6H PRN (Reason: shortness of breath or wheezing) Qty: 8.5 3RF cyclobenzaprine 10 mg tablet 10 mg PO TID PRN (Reason: muscle spasm) Qty: 45 0RF furosemide 40 mg tablet 40 mg PO DAILY albuterol sulfate 2.5 mg /3 mL (0.083 %) solution for nebulization 2.5 mg inhalation Q4-6H PRN (Reason: shortness of breath or wheezing) Qty: 180 2RF nitroglycerin 0.4 mg tablet, sublingual 0.4 mg sublingual Q5M PRN (Reason: chest pain) Qty: 30 4RF Rx Instructions: do not exceed 3 doses per episode buspirone 7.5 mg tablet 7.5 mg PO TID Qty: 90 1RF hydralazine 10 mg Tablet 10 mg PO TID Qty: 90 0RF isosorbide dinitrate 20 mg Tablet 20 mg PO TID Qty: 90 0RF tamsulosin 0.4 mg capsule See Rx Instructions .ROUTE .COMPLEX Qty: 90 3RF Dose Instruction: TAKE 1 CAPSULE AT BEDTIME Rx Instructions: TAKE 1 CAPSULE AT BEDTIME Yannai Aerosphere 160-9-4.8 mcg/actuation HFA aerosol inhaler See Rx Instructions .ROUTE .COMPLEX Qty: 3 1RF Dose Instruction: INHALE 2 PUFFS TWICE DAILY. RINSE AND SPIT AFTER USE Rx Instructions: INHALE 2 PUFFS TWICE DAILY. RINSE AND SPIT AFTER USE carvedilol 25 mg tablet 25 mg PO Q12H Qty: 180 3RF allopurinol 100 mg tablet See Rx Instructions .ROUTE .COMPLEX Qty: 90 3RF Dose Instruction: TAKE 1 TABLET EVERY DAY Rx Instructions: TAKE 1 TABLET EVERY DAY omeprazole 20 mg capsule,delayed release(DR/EC) See Rx Instructions .ROUTE .COMPLEX Qty: 90 3RF Dose Instruction: TAKE 1 CAPSULE EVERY DAY Rx Instructions: TAKE 1 CAPSULE EVERY DAY rosuvastatin 40 mg tablet See Rx Instructions .ROUTE .COMPLEX Qty: 90 3RF Dose Instruction: TAKE 1 TABLET EVERY DAY Rx Instructions: TAKE 1 TABLET EVERY DAY
[2025-01-16] VITALS (7 sets, daily range): BP systolic 107–130; BP diastolic 74–88; PULSE 62–86; RESP 12–20; TEMP 36.2–36.4; O2SAT 96–100; BMI 24.5
--- NOTE | ~2025-01-16 | XR_ITS ---
EXAMINATION: XR chest port-a-cath/central COMPARISON: No comparisons available. HISTORY: POST MEDIPORT PLACEMENT FINDINGS: Mild pulmonary venous congestion. No pneumothorax. Mild cardiomegaly. Mediastinal and hilar contours are within normal limits. Poststernotomy. Miscellaneous: Right Mediport terminates in the SVC. Impression: CHF. No pneumothorax Reviewed, dictated and finalized at location P. ECTION TECHNICIAN Impression: CHF. No pneumothorax
--- NOTE | ~2025-01-16 | XR_ITS ---
XR fl guide central line place Indication: Mediport placement TECHNIQUE: Fluoroscopy used during Mediport placement performed by [Patrice Bowling MD] on 01/16/2025. 1 minute 33 seconds fluoroscopy with 4 fluoroscopic images captured. FINDINGS: Correlate with procedure note. IMPRESSION: Fluoroscopy used during Mediport placement. Reviewed, dictated and finalized at location O. INE WOODWORKING SANDER
[2025-01-16] MEDS: LACTATED RINGERS 1,000 ML 30 ML IV CONT ×2 (11:00→15:03)
[2025-01-16] MEDS: KETOROLAC 15 MG/ML VIAL (*BKC) IV PUSH (11:06)
--- NOTE | 2025-01-16 12:28 | SUR.PREOP ---
Patient notified of delay to procedure start time. Patient verbalized understanding and denying needs at this time.
--- NOTE | 2025-01-16 13:01 | WPDHPUPDATE1 ---
History and Physical Update Update Date/Time: 01/16/25 13:01 History and Physical has been reviewed, including an updated exam of the patient. There are NO changes in the patient's condition. Risks, benefits, and alternatives have been discussed and questions answered. Patient agrees to proceed with procedure.
--- NOTE | 2025-01-16 13:14 | P.PNAN_ITS ---
Anes - Initial Pre Proc Eval Procedure: Operation Date: 01/16/25 12:30 Proposed Procedures p Mediport Placement - Patrice Bowling MD Date/Time: 01/16/25 13:14 Surgeon: Patrice Bowling MD Pre Op Diagnosis: Left upper lobe lung cancer Patient Data Age: 69 Gender: M Height: 1.78 m Weight: 77.7 kg Last Vital Signs Temp 36.2 C L 01/16/25 10:30 Pulse 70 01/16/25 10:30 Resp 16 01/16/25 10:30 BP 111/80 01/16/25 10:30 Pulse Ox 96 01/16/25 10:30 O2 Del Method Room Air 01/16/25 10:30 Allergies Allergy/AdvReac Type Severity Reaction Status Date / Time No Known Allergies Allergy Verified 01/16/25 10:38 Home Medications ?Medication ?Instructions ?Recorded ?Confirmed ?Type aspirin 81 mg tablet,delayed 81 mg PO DAILY 01/16/19 1 03/18/24 History release (Adult Low Dose Aspirin) triamcinolone acetonide 0.1 % 1 applic topical TID #80 grams 08/12/23 01/08/25 Rx topical cream tamsulosin 0.4 mg capsule See Rx Instructions .Route 0 05/17/24 01/16/25 Rx .COMPLEX #90 caps cyclobenzaprine 10 mg tablet 10 mg PO TID PRN muscle s pasm #45 09/14/24 01/08/25 Rx tabs budesonide 160 mcg-glycopyr 9 See Rx Instructions .Rou te 10/15/24 01/08/25 Rx mcg-formot 4.8 mcg/actuation HFA .COMPLEX #3 ea inhaler (Breztri Aerosphere) carvedilol 25 mg tablet 25 mg PO Q12H #180 tabs 11/1501/16/25 Rx albuterol sulfate 90 mcg/actuation 2 puff inhalation Q 4-6H PRN 11/05/24 01/08/25 Rx aerosol inhaler (ProAir HFA) shortness of breath or wh eezing #8.5 grams hydralazine 10 mg tablet 10 mg PO TID #90 tabs 01/08/25 Rx isosorbide dinitrate 20 mg tablet 20 mg PO TID #90 tab s 11/23/24 01/08/25 Rx albuterol sulfate 2.5 mg/3 mL 2.5 mg (3 mL) inhalation Q4-6H PRN 11/29/24 01/08/25 Rx (0.083 %) solution for nebulization shortness of breat h or wheezing #180 mL buspirone 7.5 mg tablet 7.5 mg PO TID #90 tabs 11/2901/16/25 Rx furosemide 40 mg tablet 40 mg PO DAILY 11/29/2412/23 History nitroglycerin 0.4 mg sublingual 0.4 mg sublingual Q5M PRN chest 11/29/24 01/08/25 Rx tablet pain #30 tabs allopurinol 100 mg tablet See Rx Instructions .Route 1 02/24/24 01/16/25 Rx .COMPLEX #90 tabs omeprazole 20 mg capsule,delayed See Rx Instructions . Route 12/24/24 01/16/25 Rx release .COMPLEX #90 caps rosuvastatin 40 mg tablet See Rx Instructions .Route 1 02/24/24 01/16/25 Rx .COMPLEX #90 tabs Patient hx anesthesia problems: none Family hx anesthesia problems: none Results Review: All pre-operative results and documents have been reviewed as part of the pre- operative evaluation. [facility] Past Medical History Medical History Encounter for biopsy BMI 23.0-23.9, adult Chronic obstructive pulmonary disease Hyperlipidemia Cardiomyopathy GERD (gastroesophageal reflux disease) Upper abdominal pain Hypertension Colon cancer screening Prostate cancer Heart attack Gout Gallstones Surgical History Surgical History S/P triple vessel bypass History of gastric surgery History of lobectomy of lung Family History Family History Mother Hypertension Father Sibling No problems noted. Social History Social History Smoking packs per day: 1 Smoking cigarettes per day: 20.0 Years smoked: 55 Smoking pack-years: 55.00 Smoking status: Former smoker Tobacco type: cigarettes Second hand tobacco smoke exposure: No Smoking end date: 11/10/24 Additional smoking assessment comments: denies nicotine Alcohol intake: former Drinks per week: 14 Alcohol use details: few mos ago Substance use: never Substance use type: does not use Other substance usage details: last drink 11/10/2024 Last use: 2014 Lack of Transportation: No Lack of Food: Never True Current Housing: I Have Housing Concerned About Future Housing: No Difficulty Paying Gas/Electric Bills: No Difficulty Paying for Meds: No Currently Unemployed: No Education: Trade/Vocational Certificate Difficulty w/ Childcare or Family Care: No Living arrangements: with family Additional living arrangements comments: Occupation/Education: retired 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[employer] Gender identity (if verbalized by the patient): Male Spiritual care concerns: No Anes - Eval Final PreProcedure Day of Procedure 01/16/25 13:14 Patient weight: normal Heart: regular rate and rhythm and murmur Lungs: decreased breath sounds Airway: Mallampati scale class II Neurological: alert and oriented Last oral intake: >/= 8 hours ASA classification: IV Emergent: no Anesthetic plan: proceed Anesthesia type and monitoring: general GIVS and standard monitoring Results Review: All pre-operative results and documents have been reviewed as part of the pre- operative evaluation. Informed Consent: The patient's anesthetic plan and its attendant risks and benefits were discussed with the patient/family/POA. Questions were solicited and answers provided to the satisfaction of the patient/family/POA.
[2025-01-16] MEDS: ceFAZolin 2 GM in SODIUM CHLORIDE 0.9% IV 50 ML 100 ML IVPB (13:43)
[2025-01-16] MEDS: BUPIVACAINE/EPINEPHRINE 0.5% 50 ML VIAL 30 ML INFILTRATE (14:18)
--- NOTE | 2025-01-16 15:21 | P.OP_ITS ---
Procedure Note - Detailed Date of Procedure 01/16/25 Pre-op Diagnosis Left upper lobe lung cancer, inadequate venous access Post-op Diagnosis Same Procedure Performed Placement right internal jugular Port-A-Cath using ultrasound and under fluoroscopy Surgeon Patrice Bowling MD Dust Collector Operator Sandhya Swan [facility] Anesthesia General (LMA) and Local Indications Patient is to have chemotherapy for lung cancer. Was requested to place a Port-A-Cath for chemotherapy administration Findings None significant Description of Procedure Patient was taken to the operating room and placed in a supine position. The right neck and right upper chest were prepped and draped. Using ultrasound, I found the internal jugular vein. It was cannulated on the initial puncture and a guidewire was able to be positioned in the superior vena cava. Guidewire position was confirmed by C-arm fluoroscopy. I then used fluoroscopy to tj on the draped the approximate location that I would want the Port-A-Cath tubing to end. I then infiltrated local under the left clavicle. Incision was made and dissection through the subcutaneous and through the pectoralis major fascia was carried out. I created a subfascial pocket for the Port-A-Cath reservoir. Cautery was used for hemostasis. I then marked out the path of the Port-A-Cath from the pocket to the exit site of the guidewire. I marked two counter incisions. I infiltrated local at each of the counter incisions as well as at the exit site of the guidewire. Incisions were made at all 3 of these sites. The tunneler was attached to the Port-A-Cath tubing. The into the Port-A-Cath tubing was then tunneled from the subclavian pocket through each of the counter incisions and out the exit site of the guidewire. I then used fluoroscopy and confirmed that the Port-A-Cath tubing was in good position. I then used fluoroscopy to estimate the length of Port-A-Cath tubing that would be needed from here. The tubing was cut to that length. Under fluoroscopy, the sheath and dilator were then passed over the guidewire. The guidewire and introducer were then removed. The into the Port-A-Cath tubing was advanced through the sheath and down into the superior vena cava. The sheath was then removed. I adjusted the position of the Port-A-Cath tubing slightly. Fluoroscopy showed the Port-A-Cath to be in good position. Port-A-Cath aspirated blood easily and flushed nicely with heparin. I then sutured the Port-A-Cath to the pectoralis major muscle with 3-0 silk suture. I checked the Port-A-Cath again. It aspirated easily and flushed with heparin well. The pocket was then closed in layers with 2 layers of 2-0 Vicryl. The skin was closed with running 4-0 Monocryl subcuticular skin suture. Each of the counter incisions were closed with subcuticular interrupted 4-0 Vicryl suture. All wounds were dressed with Exofin surgical adhesive. Patient was then awakened and taken to recovery in good condition. Sponge and needle counts were correct x2. Estimated Blood Loss -5 Pathology None sent Complications None Condition Stable Disposition PACU [facility] Billing Surgery - Charge Forward: Surgery Billing (Placement right internal jugular Port-A-Cath using ultrasound and under fluoroscopy)
--- NOTE | 2025-01-18 10:24 | SUR.PHASEII ---
while doing pt post op phone call, pt stated he lost the discharge instructions and was not sure which pharmacy we sent his pain medication to. this rn re-entered chart to verify where it was sent to
== END 2025-01-16 16:44 | disposition home or self-care (01) ==
PROVIDERS: PCP Nurse Practitioner; Visit Provider Surgery
PROC: (CPT 36561; principal; 2025-01-16 12:30)
DX: C34.12 Malignant neoplasm of upper lobe, left bronchus or lung (principal); G89.18 Other acute postprocedural pain; J44.9 Chronic obstructive pulmonary disease, unspecified; E78.5 Hyperlipidemia, unspecified; K21.9 Gastro-esophageal reflux disease without esophagitis; I11.0 Hypertensive heart disease with heart failure; I50.9 Heart failure, unspecified; I25.2 Old myocardial infarction; M10.9 Gout, unspecified; Z79.82 Long term (current) use of aspirin; Z79.51 Long term (current) use of inhaled steroids; Z98.890 Other specified postprocedural states; Z98.84 Bariatric surgery status; Z95.1 Presence of aortocoronary bypass graft; Z90.2 Acquired absence of lung [part of]; Z87.891 Personal history of nicotine dependence; Z85.46 Personal history of malignant neoplasm of prostate; Z87.19 Personal history of other diseases of the digestive system
CPT/HCPCS: 36561; 77001; J0690; C1788; J1644; J1885; J2003; J2371; J2405; J2704; J7030; J7120

== ENCOUNTER 2025-01-21 13:28 | Outpatient (CLI) | payer MEDICARE, MEDICAID, SELFPAY ==
--- NOTE | ~2025-01-21 | MR_ITS ---
EXAMINATION: MR brain/brain stem wo/w con DATE: 01/21/2025 14:32 INDICATION: Lung cancer staging TECHNIQUE: Magnetic resonance imaging (MRI) of the brain and brainstem was performed without and with 15 mL Multihance intravenous contrast. Sequences included sagittal and axial T1-weighted SE, axial diffusion-weighted FS SE, axial 3D SWAN, axial T2-weighted FLAIR, and axial T2-weighted FSE. Postcontrast axial, sagittal and coronal T1-weighted SE was obtained. Apparent diffusion coefficient (ADC) maps were created. COMPARISON: None. FINDINGS: Old lacunar infarcts in the left frontal lobe dixon radiata and in the right emily. There are no areas of restricted diffusion to suggest acute infarction. No intracranial hemorrhage or abnormal intracranial mass lesion. There are scattered areas of nonspecific increased T2-weighted signal intensity in the cerebral white matter, predominantly involving the deep and periventricular white matter. There are couple foci of susceptibility artifact, one in the central emily and one in the left peritrigonal white matter consistent with sequela of chronic microhemorrhage such as can be seen with hypertension. There are no intraparenchymal signal abnormalities seen on the other pulse sequences. The ventricles are symmetric and normal in size. There are no abnormal extra- axial fluid collections. There is an absent flow void at the right vertebral artery which could be due to thrombosis or slow flow. More caudally the vessel appears thrombosed at the time of a CT angiogram of the chest performed on 04/30/2022. Flow voids are seen in the remaining central cerebral arteries on the T2-weighted sequences consistent with their expected patency. Mild mucosal thickening the paranasal sinuses. Visualized orbits and soft tissues are unremarkable. There are no areas of abnormal enhancement on the post contrast images. IMPRESSION: 1. A couple small old lacunar infarcts in the left peritrigonal white matter and in the right emily. No no acute intracranial process or abnormally enhancing brain lesions. 2. Prominent scattered white matter T2 hyperintensity which likely sequela of chronic small vessel ischemic disease. 3. 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 Reviewed, dictated and finalized at location A. EL MACHINIST IMPRESSION: 1. A couple small old lacunar infarcts in the left peritrigonal white matter an d in the right emily. No no acute intracranial process or abnormally enhancing b rain lesions. 2. Prominent scattered white matter T2 hyperintensity which likely sequela of c hronic small vessel ischemic disease. 3. 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
--- OUTSIDE RECORDS SUMMARY | 2025-01-21 14:36 | XMS_ITS | Encounter Summary ---
Author Organization [facility] Healthcare Address [address] [place] [address] Care Team Providers Care Front End Software Engineer Name Role Phone Grayson Long Primary Care Provider iGanni Mas DC Primary Care Provider [phone] Encounter Details Date Type Department Care Team (Late st Contact Info) Description 11/18/2024 Orders Only [facility] Information Management [address] [place] [id number] Naman Peterson MD [address] [id number] Social History Tobacco Use Types Packs/Day Years Used Date Smoking Tobacco: Every Day Cigarettes Smokeless Tobacco: Never Comments:Smoking History Pac ks/day: 0.5 Packs Alcohol Use Standard Drinks/Week Comments Yes 14 (1 standard drink = 0.6 oz pu re alcohol) Sex and Gender Information Value Date Recorded Sex Assigned at Not on file 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
--- OUTSIDE RECORDS SUMMARY | 2025-01-21 14:36 | XMS_ITS | Clinical Summary ---
Author Organization [facility] [address] [facility] [address] Address [address] [place] [address] Care Team Providers Care Cement Mason Apprentice Name Role Phone Gianni Mas DC Primary Care Provider [phone] Allergies No known active allergies Medications omeprazole [...] benign 07/20/2018 Coronary artery disease invo lving cherokee coronary artery of cherokee heart without angina pectoris 07/20/2018 H/O cardiomyopathy 07/20/2018 Dyspnea on exertion 10/16/2015 Overview (05/28/2016): MUÑOZ (dyspnea on exertion) Hx of CABG 10/16/2015 Overview (05/28/2016): S/P CABG (coronary artery bypass graft) Tobacco use 10/16/2015 Overview (05/28/2016): Tobacco abuse Resolved Problems Problem Noted Date Diagnosed Date Resolved Date Dyslipidemia 10/16/2015 10/08/2021 Overview (05/28/2016): Dyslipidemia Encounters Date Type Department Care Team Description 01/14/2025 8:30 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 Office Visit [address] [phone] Yosi Ram MD Hx of CABG (Primary Dx); H/O cardiomyopathy; HFrEF (heart failure with reduced ejection fraction) 01/08/2025 Results Follow-Up [address] [phone] Luisa Grant NP Basic metabolic panel 12/27/[address] [phone] Luisa Grant NP 12/21/2024 Telephone [facility] Cardiology [address] [place] [phone] Luisa Grant NP lab orders 12/14/2024 Orders Only [address] [phone] Gino Leger MD 12/05/2024 Orders Only [facility] Cardiology [address] [place], [place] [address] [place] [address] Lavell Spann MD 12/04/2024 10:00 AM CDT Office Visit [facility] Cardiology [address] [place] [phone] Luisa Grant NP HFrEF (heart failure with reduced ejection fraction); Ischemic cardiomyopathy; Chronic obstructive pulmonary disease, unspecified COPD type (HCC); Mixed hyperlipidemia; Chronic kidney disease, unspecified CKD stage; Hospital discharge follow-up 11/23/2024 Orders Only [facility] Cardiology [address] [place] [phone] Swathi Guillen NP 11/22/2024 Telephone [facility] Cardiology [address] [place] [phone] Taylor Currie NP 11/19/2024 Orders Only [facility] Cardiology [address] [facility] [address] [place] [phone] Bill Schreiber MD 11/18/2024 Orders Only [facility] Health Information Management [address] [place], [place] [id number] Naman Peterson MD from Last 3 Months [...] file Legal Sex Male 3:50 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 Gender Identity Not on file Sexual Orientation Not on file Last Filed Vital Signs Vital Sign Reading Time Taken Comments Blood Pressure 112/58 01/14/2025 8:21 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 Pulse 80 01/14/2025 8:21 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 Temperature - - Respiratory Rate - - Oxygen Saturation 98% 01/14/2025 8:21 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 Inhaled Oxygen Concentration - - Weight 79.8 kg (176 lb) 01/14/2025 8:21 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 Height 177.8 cm (5' 10) 01/14/2025 8:21 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 Body Mass Index 25.25 01/14/2025 8:21 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 Plan of Treatment Health Maintenance Due Date [...] BASIC METABOLIC PANEL Routine 01/07/2025 1:48 PM EMERGENCY MEDICAL DISPATCHER HFrEF (heart failure with reduced ejection fraction) BASIC METABOLIC PANEL Routine 12/27/2024 3:39 PM EMERGENCY MEDICAL DISPATCHER HFrEF (heart failure with reduced ejection fraction) [...] * Basic metabolic panel (01/07/2025 1:48 PM EMERGENCY MEDICAL DISPATCHER) Blood Luisa Grant SUPERVISOR PIPELINE MAINTENANCE LAB BLOOD ORDERABLES Dinorah l Result EXTERNAL LAB * Basic metabolic panel (12/27/2024 3:39 PM EMERGENCY MEDICAL DISPATCHER) Blood Luisa Cast Juanita SUPERVISOR PIPELINE MAINTENANCE LAB BLOOD ORDERABLES Dinorah l Result EXTERNAL [...] blood 12/04/2024 1 0:06 AM CDT Result [facility] Luisa Grant NP POINT OF CARE TEST ORDERA BLES Final Result * Cardiology Document Scan (11/23/2024 10:30 AM CDT) Anatomical Region Laterality Modality Other Result [facility] Gino Leger MD CV CARDIAC [...] - 33.3 pg EXTERNAL LAB Blood Result [facility] Historical Provider LAB BLOOD ORDERABLES Edit ed Result - Final EXTERNAL LAB * ECG 12 lead (11/20/2024 9:40 AM CDT) Result [facility] Historical Provider ECG ORDERABLES Final Res ult * Cardiology Document Scan (11/19/2024 10:13 AM CDT) Anatomical Region Laterality Modality Other Result [facility] Swathi Guillen NP CV CARDIAC [...] MEDICARE HMO HUMANA MEDICARE HMO Care Teams Cement Mason Apprentice Relationship Specialty Start Date End Date Gianni Mas DC [address] [place] [address] [phone] PCP - General 12/04/24
--- OUTSIDE RECORDS SUMMARY | 2025-01-21 14:36 | XMS_ITS | Clinical Summary ---
Author Organization [facility] Octavia Calix Address [address] [facility] [place] [address] Care Team Providers Care Order Processing Manager Name Role Phone Unavailable Primary Care Provider [...] Department Care Team Description 01/11/2025 11:06 AM FLAT IRONER - 01/11/2025 4:45 PM FLAT IRONER Hospital Encounter [facility] Interventional [facility] [address] [place] [address] Byron Lopez MD Mediastinal lymphadenopathy Discharge Disposition: Home or Self Care 01/02/2025 Telephone [facility] Pulmonology [facility] [address] [facility] [address] [place] [address] Byron Lopez MD Procedure 01/02/2025 Telephone [facility] Oncology and Hematology [facility] [address] [place] [phone] Jonny Stephen MD biopsy follow up 12/25/2024 4:30 PM FLAT IRONER Telephone Check Up [facility] Oncology and Hematology [facility] [address] [place] [phone] Jonny Stephen MD Malignant neoplasm of upper lobe of left lung (CMS/HCC) (Primary Dx) 12/19/2024 Orders Only [facility] Oncology and Hematology - K[address] [place] [address] Jonny Stephen MD 12/12/2024 External Device Data STL ABSTRACTION Provider, Abstract 12/12/2024 External Device Data STL ABSTRACTION Provider, Abstract 12/11/2024 External Device Data STL ABSTRACTION Provider, Abstract 12/06/2024 9:00 AM CDT Office Visit [facility] Oncology and Hematology - [address] [place] [address] Jonny Stephen MD Malignant neoplasm of upper [...] Comments Blood Pressure 103/70 01/11/2025 3:17 PM FLAT IRONER Pulse 81 01/11/2025 3:04 PM FLAT IRONER Temperature 36.2 C (97.2 F) 01/11/2025 11:00 AM FLAT IRONER Respiratory Rate 18 01/11/2025 3:17 PM FLAT IRONER Oxygen Saturation 100% 01/11/2025 3:17 PM FLAT IRONER Inhaled Oxygen Concentration - - Weight 77.6 kg (171 lb) 01/11/2025 11:00 AM FLAT IRONER Height 177.8 cm (5' 10) 01/11/2025 11:00 AM FLAT IRONER Body Mass Index 24.54 01/11/2025 11:00 AM FLAT IRONER Plan of Treatment Health Maintenance Due Date [...] Diagnosis Comments PROCEDURE REPORT 01/11/2025 5:55 PM FLAT IRONER CYTOLOGY, NON GYNE Pathology 01/11/2025 2: 25 PM FLAT IRONER HISTOPLASMA PCR Routine 01/11/2025 2:25 PM FLAT IRONER FUNGUS CULTURE, OTHER Routine 01/11/2025 2:25 PM FLAT IRONER FUNGUS CULTURE, OTHER Routine 01/11/2025 2:25 PM FLAT IRONER AFB CULTURE WITH STAIN Routine 01/11/2025 2:25 PM FLAT IRONER AFB CULTURE WITH STAIN Routine 01/11/2025 2:25 PM FLAT IRONER RESPIRATORY CULTURE WITH GRAM STAIN Routine 01/11/2025 2:25 PM FLAT IRONER RESPIRATORY CULTURE WITH GRAM STAIN Routine 01/11/2025 2:25 PM FLAT IRONER PET BONE IMG W CT SKL BSE MID THG Routine 12/18/2024 12:00 PM CDT from Last 3 Months Results * PROCEDURE REPORT (01/11/2025 5:55 PM FLAT IRONER) Narrative Procedure Note Byron Lopez MD - 01/11/2025 5:[address] [facility] Pulmonology Patient Name: Darian Mas Procedure Date: [...] Note Initiated On: 01/11/2025 12:23 PM [address] ; [place] [address] Byron Lopez MD PROCEDURE/MINOR SURGICAL ORDE RABLES Final Result * HISTOPLASMA PCR (01/11/2025 2:25 PM FLAT IRONER) SOURCE BAL 01/16/2025 1:51 PM FLAT IRONER [facility] HISTOPLASMA CAPSULATUM DNA NOT DETECTED 01/16/2025 1:51 PM FLAT IRONER [facility] Comment: REFERENCE RANGE: NOT DETECTED This test was developed and its analytical performance characteristics have been determined by [facility]. It has not been cleared or approved by FDA. This assay has been validated pursuant to the CLIA regulations and is used for clinical purposes. BAL (Lung, RML) Collection / Unknown 01/11/2025 2:25 PM FLAT IRONER 01/11/2025 3:28 PM FLAT IRONER Narrative [facility] - 01/16/2025 1:51 PM FLAT IRONER Performing Organization Information: Site ID: [id number] Name: [facility], Address: [address] [place] [id number] Director: Andra Loo MD,PhD,NATHAN Byron Lopez MD BODY FLUIDS AND STOOLS Final Result [facility] [phone] * RESPIRATORY CULTURE WITH GRAM STAIN (01/11/2025 2:25 PM FLAT IRONER) Only the most recent of2 resultswithin the time period is included. CULTURE No pathogens isolated. Normal respiratory arianne present. 01/13/2025 11:01 AM FLAT IRONER [facility] GRAM STAIN Non diagnostic pattern 01/13/2025 11:01 AM FLAT IRONER [facility] Comment:Corrected result: Pr eviously reported as 4+ (Heavy) Gram positive cocci in chains on 01/11/2025 at 1714 FLAT IRONER. GRAM STAIN 4+ (Heavy) Polymorphonuclear WBC 01/13/2025 11:01 AM FLAT IRONER [facility] Washings (Lung, bilateral) Collection / Unknown 01/11/2025 2:25 PM FLAT IRONER 01/11/2025 3:28 PM FLAT IRONER Byron Lopez MD MICROBIOLOGY - GENERAL ORDERA BLES Final Result [facility]# [id number] [address] [facility] [place] [address] * CYTOLOGY, NON GYNE (01/11/2025 2:25 PM FLAT IRONER) CASE REPORT Medical Cytology Report Case: [id number] Authorizing Provider: Byron Lopez MD Collected: 01/11/2025 02:25 PM Ordering Location: [facility] [address] Received: 01/14/2025 06:40 AM [facility] Pathologist: Esperanza Mcallister MD Specimens: A) - Fine needle aspirate, lymph node, station 10L B) - Fine needle aspirate, lymph node, station 7 C) - Fine needle aspirate, lymph node, station 11R D) - BAL, right middle lobe 9:22 AM FLAT IRONER [facility] FINAL DIAGNOSIS Lymph node, station 10L, endobronchial ultrasound-guided fine-needle aspiration: - Polymorphous appearing lymphocytes. - No evidence of metastatic carcinoma. - No granulomas identified. Lymph node, station 7, endobronchial ultrasound-guided fine-needle aspiration: - Polymorphous appearing lymphocytes. - No evidence of metastatic carcinoma. - No granulomas identified. Lymph node, station 11R, endobronchial ultrasound-guided fine-needle aspiration: - Polymorphous appearing lymphocytes. - No evidence of metastatic carcinoma. - No granulomas identified. Lung, right middle lobe, bronchoalveolar lavage: - Negative for malignancy. - No fungal organisms or viral cytopathic changes identified. 9:22 AM [facility] at 0922 FLAT IRONER GROSS DESCRIPTION Received are 4 containers all labeled Darian Mas. The first container (A) is additionally labeled lymph node FNA station 10L. It holds 30 mL of slightly cloudy red CytoLyt fluid. One ThinPrep and one cell block made. The second container (B) is additionally labeled lymph node FNA station 7. It holds 30 mL of cloudy slightly pink CytoLyt fluid. One ThinPrep and one cell block made. The third container (C) is additionally labeled lymph node FNA station 11R. It holds 30 mL of cloudy red CytoLyt fluid. One ThinPrep and one cell block made. The fourth container (D) is additionally labeled BAL RML. It contains 2 mL of slightly cloudy colorless fluid. One ThinPrep made. 9:22 AM [facility] MICROSCOPIC DESCRIPTION The slides are labeled [id number] and Darian Mas. All 3 lymph node stations show polymorphous appearing lymphocytes. No distinct atypical cell population is identified. The cellblock shows identical findings. CD3 and CD20 stains, applied to the station 11R and station 7 lymph nodes show an admixture of CD3 and CD20 cells. Pankeratin stains applied to both blocks highlight benign bronchial epithelial cells only. 9:22 AM [facility] CLINICAL INFORMATION Mediastinal adenopathy. NSCLC No Dx found. 9:22 AM [facility] COMMENT Special stain, immunohistochemical, and/or in situ hybridization results are interpreted with controls that demonstrate appropriate staining reactions. Note on use of immunohistochemistry reagents and in situ hybridization probes: These tests were developed and their performance characteristics determined by [facility], Department of Laboratory Medicine. It has not been cleared or approved by the U.S. Food and Drug Administration. The FDA has determined that such clearance or approval is not necessary. The test is used for clinical purposes. It should not be regarded as investigational or for research. This laboratory is certified to perform high complexity testing. Cases may have been signed out in part or completely in the following laboratories: [facility], CLIA #[id number] [address] [place] [address] [facility], [place] #[id number] [address] [place] [address]. 9:22 AM FLAT IRONER [facility] Body fluid SPECIMEN FROM LYMPH NODE OBTAINED BY FINE NEEDLE ASPIRATION BIOPSY / Unknown Collection / Unknown 01/11/2025 2:25 PM FLAT IRONER 01/14/2025 6:40 AM FLAT IRONER Body fluid specimen (specimen) SPECIMEN FROM LYMPH NODE OBTAINED BY FINE NEEDLE ASPIRATION BIOPSY / Unknown 01/11/2025 2:25 PM FLAT IRONER 01/14/2025 6:40 AM FLAT IRONER Body fluid specimen (specimen) SPECIMEN FROM LYMPH NODE OBTAINED BY FINE NEEDLE ASPIRATION BIOPSY / Unknown 01/11/2025 2:25 PM FLAT IRONER 01/14/2025 6:40 AM FLAT IRONER Body fluid specimen (specimen) (BAL, right middle lobe) 01/11/2025 2:25 PM FLAT IRONER 01/14/2025 6:40 AM FLAT IRONER Byron Lopez MD PATHOLOGY/CYTOLOGY ORDERABLES Final Result [facility] [id number] [address] [place], [place] [address] [address] * PET BONE IMG W CT SKB (12/18/2024 12:00 PM CDT) Anatomical Region Laterality Modality Positron Emissio n Tomography (PET) Jonny Stephen MD PE ORDERABLES Final Result from Last 3 Months Insurance [facility]
--- OUTSIDE RECORDS SUMMARY | 2025-01-21 14:36 | XMS_ITS | Encounter Summary ---
Author Organization [facility] Healthcare Address [address] [place] [address] Care Team Providers Care Baker Bread Name Role Phone Gianni Mas DC Primary Care Provider Encounter Details Date Type Department Care Team (Late st Contact Info) Description 01/08/2025 Results Follow-Up [facility] Medical Group Cardiology [address] [facility] [address] [place] [phone] Luisa Grant NP [address] [place] [address] Basic metabolic panel Social History Tobacco Use Types Packs/Day Years Used Date Smoking Tobacco: Every Day Cigarettes Smokeless Tobacco: Never Comments:Smoking History Pac ks/day: 0.5 Packs Alcohol Use Standard Drinks/Week Comments Yes 14 (1 standard drink = 0.6 oz pu re alcohol) Sex and Gender Information Value Date Recorded Sex Assigned at Not on file Legal Sex Male 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
== END 2025-01-21 13:29 | disposition home or self-care (01) ==
PROVIDERS: PCP Nurse Practitioner; Visit Provider Radiology Radiation Oncology
DX: C34.92 Malignant neoplasm of unspecified part of left bronchus or lung (principal); R93.0 Abnormal findings on diagnostic imaging of skull and head, not elsewhere classified
CPT/HCPCS: 70553; A9577